=== PATIENT | female | born 1980 | race Caucasian/White ===

== ENCOUNTER 2019-07-08 15:00 | Outpatient (RCR) | payer BC, SELFPAY ==
[2019-04-10 16:51] LABS: INR 1.9; Prothrombin Time 21.5 Seconds (11.1-14.7)
[2019-04-14 16:24] LABS: INR 2.4; Prothrombin Time 25.4 Seconds (11.1-14.7)
[2019-04-21 16:06] LABS: INR 3.3; Prothrombin Time 33.2 Seconds (11.1-14.7)
[2019-04-29 12:09] LABS: INR 1.8; Prothrombin Time 20.2 Seconds (11.1-14.7)
[2019-05-06 16:36] LABS: INR 1.5
[2019-05-13 11:49] LABS: INR 1.1; Prothrombin Time 14.2 Seconds (11.1-14.7)
[2019-05-20 16:07] LABS: INR 1.4; Prothrombin Time 16.8 Seconds (11.1-14.7)
[2019-05-27 16:01] LABS: INR 1.9
[2019-06-02 16:30] LABS: INR 2.1; Prothrombin Time 23.4 Seconds (11.1-14.7)
[2019-06-09 17:57] LABS: INR 1.7; Prothrombin Time 19.9 Seconds (11.1-14.7)
[2019-06-16 16:24] LABS: INR 1.5; Prothrombin Time 17.5 Seconds (11.1-14.7)
[2019-07-08 15:27] LABS: INR 2.3; Prothrombin Time 24.5 Seconds (11.1-14.7)
== END 2019-07-09 23:59 | disposition home or self-care (01) ==
LOC: ANHLAB 15:00
PROVIDERS: PCP Family Medicine; Visit Provider Family Medicine
DX: O88.23 Thromboembolism in the puerperium (principal)
CPT/HCPCS: 36415; 85610

== ENCOUNTER 2019-07-15 12:59 | Outpatient (CLI) | payer BC, SELFPAY ==
--- NOTE | ~2019-07-15 | CT_ITS ---
EXAMINATION: CTA chest PE protocol DATE: 07/15/2019 13:35 INDICATION: Acute pulmonary embolism presenting with acute cor pulmonale TECHNIQUE: Computed tomography (CT) pulmonary angiogram of the chest was performed with 100 mL Omnipa que-350 intravenous contrast. Additional 3D reconstructions utilizing coronal maximum intensity proje ction (MIP) were performed. Automated exposure control and iterative reconstruction technique were em ployed. The dose-length product was 353.14 mGy-cm. COMPARISON: 03/29/2019 FINDINGS: Good contrast opacification of the pulmonary arteries. There is mild streak artifact from dense contr ast in the superior vena cava and right atrium. Mild scattered respiratory motion artifact which mild ly decreases sensitivity in some of the smaller predominantly basilar subsegmental pulmonary arteries . No residual pulmonary embolism identified. Mild emphysema at the right apex. There are a few unchan ged <4 mm subpleural nodules at the bilateral apices. Unchanged 4 mm nodule in the right middle lobe. No new or enlarging pulmonary nodules, pneumonia, pulmonary edema or pleural effusion. Heart size is normal. No pericardial effusion. Thoracic aorta is normal in caliber with no dissection. No patholog ically enlarged thoracic lymphadenopathy. Cholecystectomy clips the gallbladder fossa. Mild thoracic extra scoliosis with mild spondylosis. Partially visualized plate and screw fixation for lower cervic al anterior spinal fusion. Bilateral C7 cervical ribs. IMPRESSION: 1. Interval resolution of prior pulmonary emboli. No acute cardiopulmonary disease. 2. No interval change in a few 4 mm smaller pulmonary nodules. Given history of prior smoking with mi ld emphysema at the right apex would consider optional one-year follow-up low-dose noncontrast chest CT. Reviewed, dictated and finalized at location A. IMPRESSION: 1. Interval resolution of prior pulmonary emboli. No acute cardiopulmonary dise ase. 2. No interval change in a few 4 mm smaller pulmonary nodules. Given history of prior smoking with mild emphysema at the right apex would consider optional on e-year follow-up low-dose noncontrast chest CT.
== END 2019-07-15 13:00 | disposition home or self-care (01) ==
LOC: ANHIMG 13:01
PROVIDERS: PCP Family Medicine; Visit Provider Internal Medicine Hematology & Oncology
DX: I26.99 Other pulmonary embolism without acute cor pulmonale (principal)
CPT/HCPCS: 71275; Q9967

== ENCOUNTER 2019-07-15 13:40 | Outpatient (RCR) | payer BC, SELFPAY ==
[2019-07-15 14:29] LABS: INR 2.9; Prothrombin Time 29.9 Seconds (11.1-14.7)
== END 2019-10-13 23:59 | disposition home or self-care (01) ==
LOC: ANHLAB 13:40
PROVIDERS: PCP Family Medicine; Visit Provider Family Medicine
DX: O88.23 Thromboembolism in the puerperium (principal)
CPT/HCPCS: 36415; 85610

== ENCOUNTER 2019-09-01 11:53 | Outpatient (CLI) | payer BC, SELFPAY ==
[2019-09-03 10:44] LABS: Homocysteine 10.7 umol/L (<10.4)
[2019-09-03 20:28] LABS: Lupus dRVVT 1:1 Mix Interpreta Not Indicated; Lupus dRVVT Screen 34 sec (<=45); PTT-LA Screen 32 sec (<=40)
[2019-09-03 20:46] LABS: Anti Cardio Antibody IgM <12 MPL (<=12); Anti Cardiolipin Antibody IgA <11 APL (<=11); Anti Cardiolipin Antibody IgG <14 GPL (<=14)
[2019-09-03 21:17] LABS: Antithrombin III Activity 127 % activity (80-120)
== END 2019-09-01 11:54 | disposition home or self-care (01) ==
LOC: ANHLAB 11:54
PROVIDERS: PCP Family Medicine; Visit Provider Internal Medicine Hematology & Oncology
DX: I26.99 Other pulmonary embolism without acute cor pulmonale (principal)
CPT/HCPCS: 36415; 83090; 85300; 85303; 85306; 85613; 85730; 86146; 86147

== ENCOUNTER 2019-10-19 10:45 | Emergency (ER) | payer BC, SELFPAY ==
--- NOTE | ~2019-10-19 | CT_ITS ---
EXAMINATION: CT abdomen pelvis w con INDICATION: Mid abdominal TECHNIQUE: Computed tomographic images of the abdomen and pelvis were obtained after the administrati on of 100 cc of Omnipaque 350 intravenous contrast. The dose-length product (DLP) was 708.13 mGy-cm. Automated exposure control and iterative reconstruction technique were employed. COMPARISON: None available FINDINGS: A 2 mm nodule of the right middle lobe likely reflects old granulomatous disease. The heart size is normal. The gallbladder is surgically absent. The liver, spleen, pancreas, and adrenal gland s are normal. The kidneys are unremarkable. No pathologically enlarged abdominal or pelvic lymph node s are identified. There is no free intraperitoneal gas or evidence of bowel obstruction. The appendix is normal. There is moderate lumbar spondylosis at L5-S1. A small fat-containing umbilical hernia is noted. IMPRESSION: 1. No CT correlate for the patient's symptoms. Reviewed, dictated and finalized at location A.
[2019-10-19 11:11] VITALS: BP 135/84; PULSE 79; RESP 17; TEMP 37; O2SAT 100
[2019-10-19 12:00] LABS: Basophils Percent Auto 0.5 % (0.2-1.2); Eosinophils Absolute Auto 0.1 K/mm3 (0-0.3); Eosinophils Percent Auto 1.8 % (0-4.4); Hematocrit 41.4 % (37.0-47.0); Hemoglobin 13.8 g/dL (12.0-15.0); Immature Granulocyte Absolute 0.01 K/mm3 (0.00-0.031); Immature Granulocyte Percent A 0.2 % (0-0.5); Lymphocytes Absolute Auto 2.05 K/mm3 (0.9-3.2); Lymphocytes Percent Auto 46.3 % (18.3-44.2); Mean Corpuscular HGB Conc 33.3 g/dl (32-36); Mean Corpuscular Hemoglobin 30.1 pg (26-34); Mean Corpuscular Volume 90.2 fl (80-100); Mean Platelet Volume 9.6 fl (7.4-10.4); Monocytes Absolute Auto 0.4 K/mm3 (0.1-0.6); Monocytes Percent Auto 8.8 % (2.6-8.5); Neutrophils Absolute Auto 1.9 K/mm3 (1.3-6.7); Neutrophils Percent Auto 42.4 % (45.5-73.1); Nucleated Red Blood Cells Perc 0.5 % (0.0-0.2); Platelet Count Result 336 k/mm3 (150-375); Red Blood Count 4.59 M/mm3 (4.2-5.4); Red Cell Distribution Width 13.1 % (11.5-14.5); White Blood Count 4.4 K/mm3 (4.5-10.0)
--- NOTE | 2019-10-19 12:04 | ED.ABDPAIN ---
HPI - Abdominal Pain General Chief Complaint: Abdominal Pain Stated Complaint: abd pain Time Seen by Provider: 10/19/19 11:35 Source: patient Mode of arrival: ambulatory Limitations: no limitations History of Present Illness HPI narrative: This patient is a 39 year old female who presents for evaluation of mid abdominal pain. She states she starting having pain on Sunday, and her pain is intermittent. She described pain as something ripping. She reports her pain is worse with lifting and leaning over. She states her pain has gradually worsened since sunday. She denies vomiting or fever. She has had intermittent diarrhea which she states is due to a new medication. She has not taken any medication for her pain. PAin is 05/12 Related Data Home Medications Medication Instructions Recorded Confirmed PNV cmb#95-ferrous fumarate-FA 1 tablet PO HS MDD 1 03/04/19 03/29/19 [] cyanocobalamin (vitamin B-12) 1,000 mcg SUBCUT MONTHLY 03/29/19 03/29/19 hydrocodone-acetaminophen [[place]] 1 tablet PO Q4H PRN 03/29/19 03/29/19 labetalol 200 mg PO TID 03/29/19 03/29/19 nifedipine 90 mg PO BID 03/29/19 03/29/19 Allergies Allergy/AdvReac Type Severity Reaction Status Date / Time erythromycin base Allergy Unknown Anaphylactic Verified 10/19/19 12:16 Shock Review of Systems Review of Systems: All systems reviewed & are unremarkable except as noted in HPI and below Constitutional: Constitutional: Denies chills and Denies fever(s) Respiratory: Respiratory: Denies cough and Denies dyspnea Gastrointestinal: Gastrointestinal: Reports abdominal pain, Reports diarrhea and Reports nausea Genitourinary: Genitourinary: Reports no additional female genitourinary complaints Musculoskeletal: Musculoskeletal: Reports no additional musculoskeletal complaints [facility] Past Medical History Medical History (Updated 10/19/19 @ 13:44 by Lore To MD) B12 deficiency Depression induced hypertension Surgical History Surgical History (Updated 03/30/19 @ 07:53 by Precious Morton DO) History of hemorrhoidectomy Multiple hemorrhoidectomies. History of oral surgery History of multiple oral surgeries due to having extra teeth Hx of cholecystectomy S/P cervical spinal fusion C5-6 and 7 in 2012 Family History Family History (Updated 03/30/19 @ 07:50 by Precious Morton DO) Father Obstructive sleep apnea Family history of elevated blood lipids Diabetes mellitus COPD (chronic obstructive pulmonary disease) Hypertension Mother SLE (systemic lupus erythematosus) Obstructive sleep apnea Diabetes mellitus Meniere's disease Parkinsons disease Epilepsy Cerebrovascular accident Bilateral pulmonary embolism Social History Social History (Updated 03/30/19 @ 08:03 by Precious Morton DO) Social History: Patient is and has 2 children. Her oldest son is 4 years old and healthy. Her youngest was born on March 05 and has a cleft lip and palate. Patient is a former smoker. She smoked a pack per day for 15 years prior to quitting. She stopped smoking 5 years ago. She almost never drinks alcohol and only in minute amounts. She denies any illicit substance use. Primary care physician: Dr. George Menjivar Smoking packs per day: 1 Smoking cigarettes per day: 20.0 Smoking status: Former smoker Second hand tobacco smoke exposure: No Smoking end date: 03/06/05 Alcohol intake: never Substance use: never Gender identity (if verbalized by the patient): Female Spiritual care concerns: No Agree to blood products: Yes Exam Narrative: Exam Narrative: GENERAL: Well-appearing, well-nourished, and in no acute distress. HEAD: Normocephalic, atraumatic EYES: PERRLA and EOMI, conjunctiva clear without discharge THROAT:Mucous membranes moist, Oropharynx normal without erythema, exudate, peritonsillar swelling or fluctuance NECK: Supple, without lymphadeno
[2019-10-19 12:17] LABS: Add Urine Microscopic? YES; Appearance Urine Clear (Clear); Bilirubin Urine Negative (Negative); Blood Urine 1+ (Negative); Color Urine Straw (Yellow); Glucose Urine UA Negative (Negative); Ketones Urine Negative (Negative); Leukocyte Esterase Ur Negative LEU/UL (Negative); Mucus Urine Rare /lpf; Nitrate Urine Negative (Negative); Protein Urine Negative (Negative); RBC Urine 0-2 /hpf (0-2); Specific Grav Ur 1.012 (1.001-1.035); Squamous Epithelial Cell Urine Occasional /hpf (Few); Urobilinogen Urine Negative mg/dL (<2.0); WBC Urine 0-3 /hpf
[2019-10-19] MEDS: KETOROLAC 30 MG/ML VIAL (*BKC) IV PUSH (12:19)
[2019-10-19] MEDS: ONDANSETRON INJ 4 MG/2 ML VIAL IV PUSH (12:20)
[2019-10-19 12:22] LABS: Alanine Aminotransferase 14 U/L (4-35); Albumin Level 4.1 g/dL (3.5-5.1); Alkaline Phosphatase 65 U/L (38-126); Aspartate Amino Transferase 22 U/L (14-36); Bilirubin,Total 0.4 mg/dL (0.2-1.3); Blood Urea Nitrogen 9 mg/dL (7-17); Calcium 8.8 mg/dL (8.4-10.2); Carbon Dioxide 24 mmol/L (22-30); Chloride 107 mmol/L (98-107); Estimated CRCL calculation 89 ml/min; Estimated Glomerular Filt Rate > 60; Glucose 78 mg/dL (65-105); Lipase 72 U/L (23-300); Potassium 3.8 mmol/L (3.4-5.0); Sodium 137 mmol/L (137-145)
[2019-10-19 13:31] VITALS: BP 131/88; PULSE 58; RESP 18; O2SAT 100
[2019-10-19 14:33] VITALS: BP 142/92; PULSE 73; RESP 18; O2SAT 100
== END 2019-10-19 14:43 | disposition home or self-care (01) ==
PROVIDERS: Emergency Provider General Practice; PCP Family Medicine
DX: R10.33 Periumbilical pain (principal); E53.8 Deficiency of other specified B group vitamins; Z98.1 Arthrodesis status; Z87.891 Personal history of nicotine dependence
CPT/HCPCS: 36415; 74177; 80053; 81001; 81025; 83690; 85025; 96374; 96375; 99284; J1885; J2405; Q9967

== ENCOUNTER 2020-04-01 11:42 | Outpatient (CLI) | payer BC, SELFPAY ==
[2020-04-04 20:00] LABS: Anti Cardio Antibody IgM <12 MPL (<=12); Anti Cardiolipin Antibody IgA <11 APL (<=11); Anti Cardiolipin Antibody IgG <14 GPL (<=14)
[2020-04-04 20:25] LABS: Antithrombin III Activity 139 % normal (80-135)
[2020-04-05 06:25] LABS: Homocysteine 26.8 umol/L (<10.4)
[2020-04-06 03:16] LABS: Lupus dRVVT 1:1 Mix Interpreta Not Indicated; Lupus dRVVT Screen 39 sec (<=45); PTT-LA Screen 30 sec (<=40)
== END 2020-04-01 11:43 | disposition home or self-care (01) ==
PROVIDERS: PCP Family Medicine; Visit Provider Internal Medicine Hematology & Oncology
DX: I26.99 Other pulmonary embolism without acute cor pulmonale (principal)
CPT/HCPCS: 36415; 83090; 85300; 85303; 85306; 85613; 85730; 86146; 86147

== ENCOUNTER 2020-04-16 10:28 | Outpatient (CLI) | payer BC, SELFPAY ==
[2020-04-16 11:13] LABS: Cholesterol 299 mg/dL (0-200); HDL Direct 66 mg/dL; Triglycerides 210 mg/dL (<150)
[2020-04-16 11:24] LABS: LDL Cholesterol Direct 198 mg/dL
[2020-04-21 21:13] LABS: Homocysteine 33.4 umol/L (<10.4)
== END 2020-04-16 10:29 | disposition home or self-care (01) ==
LOC: ANHLAB 10:29
PROVIDERS: PCP Family Medicine; Visit Provider Internal Medicine Hematology & Oncology
DX: D68.69 Other thrombophilia (principal); E78.5 Hyperlipidemia, unspecified
CPT/HCPCS: 36415; 80061; 83090

== ENCOUNTER 2020-05-07 13:08 | Outpatient (CLI) | payer BC, SELFPAY ==
--- NOTE | 2020-05-07 13:38 | ECHO_ITS ---
Patient Info Name: Ashley Stokes Age: 40 years : 1980 Gender: Female Ht: 65 in Wt: 175 lbs BSA: 1.93 m2 HR: 49 bpm BP: 138 / 102 mmHg Technical Quality: Good Exam Date: 05/07/2020 1:59 PM Exam Location: [facility] Pulmonary Patient Status: Outpatient Admit Date: 05/07/2020 Staff Ordering Physician: Gilberto Cardona MD Draftsperson: Radames Dumas RDCS, RT Attending Provider: Gilberto Cardona MD Referring Physician: Brendan CARVALHO; Exam Type: CA echo doppler color flow Study Info Indications R06.02 - Shortness of breath Complete two-dimensional, color flow and Doppler transthoracic echocardiogram is performed. Strain analysis performed. Summary 1. Complete two-dimensional, color flow and Doppler transthoracic echocardiogram is performed. 2. Left ventricular chamber dimension is normal. 3. Left ventricular systolic function is normal, estimated at 60-65%. 4. The left ventricular diastolic function is normal. 5. E/e' 6 is not elevated. 6. Dilated inferior vena cava with >50% collapse upon inspiration consistent with elevated right atrial pressure, 10 mmHg. Left Ventricle E/e' 6 is not elevated. Left ventricular chamber dimension is normal. Left ventricular systolic function is normal, estimated at 60-65%. The left ventricular diastolic function is normal. Right Ventricle Right ventricular systolic function is normal and with normal TAPSE 2.4 cm. Right ventricular chamber dimension is normal. Left Atria Left atrial chamber dimension is normal. Right Atria Right atrial chamber dimension is normal. Aortic Valve The aortic valve is trileaflet. There is no aortic valve stenosis. There is no aortic valve regurgitation. Pulmonic Valve There is no pulmonic regurgitation. Mitral Valve There is no mitral valve stenosis. There is no mitral valve regurgitation. Tricuspid Valve There is no tricuspid valve regurgitation. Pericardium/Pleural There is no pericardial effusion. Inferior Vena Cava Dilated inferior vena cava with >50% collapse upon inspiration consistent with elevated right atrial pressure, 10 mmHg. Aorta The aortic root size at the sinus of Valsalva is normal. Left Ventricular Outflow Tract Name Value Normal LVOT 2D LVOT Diameter 2.0 cm LVOT Doppler LVOT Peak Gradient 5 mmHg LVOT Mean Gradient 3 mmHg LVOT VTI 27 cm LVOT VTI/AV VTI Ratio 0.8 LVOT Stroke Volume 85 ml LVOT CO 5.0 l/min LVOT CI 2.6 l/min/m2 Mitral Valve Name Value Normal MV Doppler MV [place] 399 cm/s2 MV PHT 66 ms MV Area (PHT)
--- NOTE | 2020-05-08 13:41 | WPDPFTINT ---
PFT Interpretation This is a pulmonary function test with pre and post-bronchodilator spirometry, plethysmography and diffusing capacity. The test was performed and results interpreted in accordance with the 2019 and 2005 ATS/ERS Task Force guidelines respectively using the Hubert/Eleazar reference equations. Findings: Spirometry: The contour the inspiratory and expiratory flow tracing are normal. The pre bronchodilator FVC is 3.68 L, 100% predicted. The pre bronchodilator FEV1 is 3.04 L, 107% predicted. The FEV1: FVC ratio was 83%. The post bronchodilator FVC is 3.60 L representing a 2% decrease. The post bronchodilator FEV1 is 3.08 L, representing a 1% increase. Plethysmography: The total lung capacity is 5.14 L, 98% predicted. The functional residual capacity is 2.42 L, 90% predicted. The residual volume is 1.46 L, 84% predicted. Diffusing capacity: The absolute diffusing capacity is 20.1, 81% predicted. The diffusing capacity corrected for alveolar volume is 4.50, 106% predicted. Impression: The spirometry is normal without evidence of an obstructive abnormality. There is no significant improvement after inhaling a single dose of albuterol. The lung volumes are normal. The diffusing capacity is normal. There are no prior studies for comparison
== END 2020-05-07 13:09 | disposition home or self-care (01) ==
PROVIDERS: PCP Family Medicine; Visit Provider Internal Medicine Pulmonary Disease
DX: R06.02 Shortness of breath (principal); R06.00 Dyspnea, unspecified
CPT/HCPCS: 93306; 94060; 94726; 94729

== ENCOUNTER 2020-07-08 11:07 | Outpatient (CLI) | payer BC, SELFPAY ==
--- NOTE | ~2020-07-08 | CT_ITS ---
EXAMINATION: CT diagnostic chest wo con EXAM DATE: 07/08/2020 11:26 INDICATION: Dyspnea. Had pulmonary embolism in 2019, still having shortness of breath and chest pain. TECHNIQUE: Spiral CT of the chest without contrast. Axial, coronal and sagittal images were reviewe d. Coronal maximum intensity pixel images of chest reviewed. The dose-length product (DLP) for this examination was 139.73 mGy-cm. The exposure was tailored according to patient size (auto mA exposur e control), and iterative reconstruction (ASIR) was used as additional dose reduction technique. Comp arison is made to prior examination from 07/15/2019. FINDINGS: Several pulmonary nodules, 3 mm or less unchanged, granulomas. There are no pleural or pe ricardial effusions. Tracheobronchial tree is patent. There is no mediastinal, hilar or axillary lymphadenopathy. There is no pneumothorax. Heart normal in size. No evidence of coronary arteri al calcification. There are cholecystectomy clips. Minimal upper thoracic scoliosis. IMPRESSION: Unremarkable CT chest examination. Reviewed, dictated and finalized at location A.
== END 2020-07-08 11:08 | disposition home or self-care (01) ==
PROVIDERS: PCP Family Medicine; Visit Provider Internal Medicine Pulmonary Disease
DX: R06.00 Dyspnea, unspecified (principal); R91.1 Solitary pulmonary nodule
CPT/HCPCS: 71250

== ENCOUNTER 2020-07-19 08:44 | Outpatient (CLI) | payer BC, SELFPAY ==
--- NOTE | 2020-07-25 13:35 | WPDMETH ---
Methacholine Challenge Methacholine Challenge: Methacholine Challenge Test: This study met all criteria for ATS standards The PC 20 for FEV1 was 15.8 mg /mL Interpretation: this is a negative methacholine challenge study. Asthma or reactive airway disease is very unlikely in this case. Methacholine Procedure Perform Procedure Performed Methacholine Challenge
== END 2020-07-19 08:45 | disposition home or self-care (01) ==
PROVIDERS: PCP Family Medicine; Visit Provider Internal Medicine Pulmonary Disease
DX: R06.02 Shortness of breath (principal)
CPT/HCPCS: 94070; J7674

== ENCOUNTER 2020-08-07 12:11 | Outpatient (CLI) | payer BC, SELFPAY ==
[2020-08-07 12:38] LABS: Basophils Percent Auto 0.3 % (0.2-1.2); Eosinophils Absolute Auto 0.1 K/mm3 (0-0.3); Eosinophils Percent Auto 1.5 % (0-4.4); Hematocrit 44.3 % (37.0-47.0); Hemoglobin 14.4 g/dL (12.0-15.0); Immature Granulocyte Absolute 0.01 K/mm3 (0.00-0.031); Immature Granulocyte Percent A 0.3 % (0-0.5); Lymphocytes Absolute Auto 1.62 K/mm3 (0.9-3.2); Lymphocytes Percent Auto 40.7 % (18.3-44.2); Mean Corpuscular HGB Conc 32.5 g/dl (32-36); Mean Corpuscular Hemoglobin 29.8 pg (26-34); Mean Corpuscular Volume 91.7 fl (80-100); Monocytes Absolute Auto 0.3 K/mm3 (0.1-0.6); Neutrophils Percent Auto 50.2 % (45.5-73.1); Platelet Count Result 311 k/mm3 (150-375); Red Blood Count 4.83 M/mm3 (4.2-5.4)
[2020-08-07 12:51] LABS: Cholesterol 280 mg/dL (0-200); HDL Direct 60 mg/dL; Triglycerides 224 mg/dL (<150)
[2020-08-07 13:02] LABS: LDL Cholesterol Direct 158 mg/dL
[2020-08-07 13:54] LABS: Iron 170 ug/dL (37-170)
[2020-08-07 13:57] LABS: Folic Acid 6.1 ng/mL (2.76->20)
[2020-08-07 14:04] LABS: Percent Iron Saturation 54 % (20-50)
[2020-08-07 14:10] LABS: Free T4 Free Thyroxine 0.76 ng/mL (0.78-2.19)
[2020-08-10 21:55] LABS: Adrenocorticotropic Hormone 6 pg/mL (6-50)
[2020-08-11 23:21] LABS: Triiodothyronine T3 Free 2.9 pg/mL (2.3-4.2)
[2020-08-12 14:55] LABS: DHEA-Sulfate 120 mcg/dL (23-266)
[2020-08-13 11:31] LABS: Testosterone Free 5.4 pg/mL (0.1-6.4); Testosterone Total 87 ng/dL (2-45)
== END 2020-08-07 12:12 | disposition home or self-care (01) ==
PROVIDERS: PCP Family Medicine; Visit Provider Internal Medicine Endocrinology, Diabetes & Metabolism
DX: E78.01 Familial hypercholesterolemia (principal); L65.9 Nonscarring hair loss, unspecified; R53.83 Other fatigue; Z86.711 Personal history of pulmonary embolism
CPT/HCPCS: 36415; 80061; 82024; 82607; 82627; 82746; 83540; 83550; 84402; 84403; 84439; 84443; 84481; 85025; 86038

== ENCOUNTER 2020-08-27 08:48 | Outpatient (CLI) | payer BC, SELFPAY ==
--- NOTE | 2020-09-08 11:06 | WPDHOMESLEEP ---
Sleep Study - Home Unattended Date of Study: 08/27/20 Ordering Provider: Gilberto Cardona MD Interpreting Provider: Daphnie Martinez MD Home Sleep Study Type: Apnea Link Air Height: 1.65 m Weight: 73.936 kg Body Mass Index: 27.1 Neck Circumference (inches): 14 [place]: 12 Reason for Sleep Study snoring, hypersomnolence Sleep History Ashley Stokes is a 40 year old female . She has shortness of breath which developed after her 2nd delivery, March of 2019. She had post D clamp see a and pulmonary emboli. There is a family history of sleep disordered breathing in both her mother and her father. Her echocardiogram on May 07, 2020 does not show pulmonary hypertension. she does not awaken from sleep feeling short of breath. She does not awaken at night with heartburn, belching or coughing. She frequently snores and frequently is loud enough that others complain about it. She does not have trouble sleep with a cold. She does not wake up gasping for breath at night or have breathing problems at night observed by others. She frequently sweats excessively at night which she attributes to a side effect to 1 of her medications. She does not notice her heart pounding or beating irregularly at night, she does not fall asleep during the day, does not fall asleep involuntarily or while driving. She does not fall asleep while exerting physical effort. She does not have loss of muscle tone with strong emotion. She has daytime difficulties due to excessive were work hours, approximately working 80 hours a week. She does not feel paralyzed on waking or falling asleep. She occasionally has vivid dreamlike scenes upon awakening or falling asleep. She does not feel afraid to go to sleep. She occasionally has nightmares. She occasionally remembers her dreams. She occasionally has racing thoughts. She constantly has feelings of sadness, depression and anxiety. She constantly has muscular tension. She constantly notices parts of her body jerking. She does not kick at night. She does not have crawling or aching feelings in her legs. She does not have any kind of leg pain at night. She occasionally has morning jaw pain. She frequently grinds her teeth during sleep. She rarely is bothered by pain during the day. She is not awakened by pain during the night. She frequently wakes up feeling stiff in the morning. She occasionally wakes up with sore achy muscles. She frequently wakes up with pain in the neck and spine. She has fatigue, headaches, depression, panic and headaches. She has difficulty with concentration. Her work situation is not satisfactory. 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 Her normal bedtime is between 11:00 p.m. and 1:00 a.m. falling asleep within 1-5 minutes. She wakes up multiple times at night. When she awakens, she may stay awake 15 minutes or sometimes for hours. While she is awake at night, she will clean her house or perform work. She wakes the morning at 5:00 a.m.. She does not take naps. A short nap is not refreshing. She is drowsy in the morning for 1 hour or longer. She feels better in the morning compared other times of day. She is and has a 5-year-old and a 95-sajyr-tcc. Habits: no tobacco for 18 years. Caffeine 4 servings per day. No alcohol or recreational drugs. [facility] Past Medical History Medical History (Updated 09/08/20 @ 11:43 by Daphnie Martinez MD) B12 deficiency Bilateral pulmonary embolism Daytime hypersomnia (~07/2020) Depression Dyslipidemia induced hypertension Surgical History Surgical History History of hemorrhoidectomy Multiple hemorrhoidectomies. History of oral surgery History of multiple oral surgeries due to having extra teeth Hx of cholecystectomy S/P cervical spinal fusion C5-6 and 7 in 2012 Family History Family History Father Obstructive sleep auxiliary engineer
[2020-09-08 11:08] VITALS: BMI 27.1
== END 2020-08-31 10:51 | disposition home or self-care (01) ==
LOC: ANHCSM 08-31 08:48
PROVIDERS: PCP Family Medicine; Visit Provider Internal Medicine Pulmonary Disease
DX: G47.19 Other hypersomnia (principal); Z72.821 Inadequate sleep hygiene
CPT/HCPCS: 95806

== ENCOUNTER 2020-09-22 13:11 | Outpatient (CLI) | payer BC, SELFPAY ==
[2020-09-22 13:25] VITALS: PULSE 78; O2SAT 97
[2020-09-22 13:26] VITALS: PULSE 75; O2SAT 96
[2020-09-22 13:27] VITALS: PULSE 79; O2SAT 95
[2020-09-22 13:29] VITALS: PULSE 76; O2SAT 97
[2020-09-22 13:30] VITALS: PULSE 75; O2SAT 96
--- NOTE | 2020-09-22 13:34 | HOMEO2EVAL ---
Evaluation was performed at [facility] Home Oxygen Evaluation RC: Home Oxygen (O2) Evaluation Start: 09/22/20 13:31 Freq: Status: Active Protocol: RPE Activity Type Activity Date Activity User E-Sign Co-Sign Detail Recorded Client Recorded Date Recorded By Document 09/22/20 13:25 KRM [email or web address] 09/22/20 13:33 KRM Document 09/22/20 13:26 KRM [email or web address] 09/22/20 13:33 KRM Document 09/22/20 13:27 KRM [email or web address] 09/22/20 13:33 KRM Document 09/22/20 13:29 KRM [email or web address] 09/22/20 13:33 KRM Document 09/22/20 13:30 KRM [email or web address] 09/22/20 13:33 KRM 09/22/20 09/22/20 09/22/20 13:25 13:26 13:27 Home O2 Evaluation Test Phase Resting Exercise Exercise Oxygen Delivery Room Air Room Air Room Air Pulse Oximetry (90-100 %) 97 96 95 Pulse Rate (60-100 beats/min) 78 75 79 Activity Tolerance Good Good Ambulation Distance (feet) Treatment Charges O2 Evaluation - Outpatient 09/22/20 09/22/20 13:29 13:30 Home O2 Evaluation Test Phase Exercise Exercise Oxygen Delivery Room Air Room Air Pulse Oximetry (90-100 %) 97 96 Pulse Rate (60-100 beats/min) 76 75 Activity Tolerance Good Good Ambulation Distance (feet) 300 Treatment Charges
== END 2020-09-22 13:12 | disposition home or self-care (01) ==
PROVIDERS: PCP Family Medicine; Visit Provider Internal Medicine Pulmonary Disease
DX: R06.00 Dyspnea, unspecified (principal)
CPT/HCPCS: 94618

== ENCOUNTER 2020-11-20 08:56 | Outpatient (CLI) | payer BC, SELFPAY ==
[2020-11-20 10:40] LABS: Cortisol Random 7.94 ug/dL
[2020-11-20 11:03] LABS: Iron 112 ug/dL (37-170)
[2020-11-20 11:14] LABS: Percent Iron Saturation 36 % (20-50)
[2020-11-20 11:35] LABS: Ferritin 9.38 ng/mL (6.24-137)
[2020-11-24 02:28] LABS: Thyroid Peroxidase Antibodies <1 IU/mL (<9)
== END 2020-11-20 08:57 | disposition home or self-care (01) ==
PROVIDERS: PCP Family Medicine; Visit Provider Internal Medicine Endocrinology, Diabetes & Metabolism
DX: E78.01 Familial hypercholesterolemia (principal); L65.9 Nonscarring hair loss, unspecified; R53.83 Other fatigue; Z86.711 Personal history of pulmonary embolism; R79.0 Abnormal level of blood mineral
CPT/HCPCS: 36415; 81256; 82533; 82728; 83540; 83550; 86376

== ENCOUNTER 2021-03-15 10:31 | Outpatient (CLI) | payer BC, SELFPAY ==
[2021-03-15 11:10] LABS: Basophils Percent Auto 0.3 % (0.2-1.2); Eosinophils Percent Auto 0.7 % (0-4.4); Hematocrit 40.3 % (37.0-47.0); Hemoglobin 13.1 g/dL (12.0-15.0); Immature Granulocyte Absolute 0.02 K/mm3 (0.00-0.031); Immature Granulocyte Percent A 0.3 % (0-0.5); Lymphocytes Absolute Auto 0.84 K/mm3 (0.9-3.2); Lymphocytes Percent Auto 14.4 % (18.3-44.2); Mean Corpuscular HGB Conc 32.5 g/dl (32-36); Mean Corpuscular Hemoglobin 29.8 pg (26-34); Mean Corpuscular Volume 91.8 fl (80-100); Monocytes Absolute Auto 0.5 K/mm3 (0.1-0.6); Monocytes Percent Auto 8.4 % (2.6-8.5); Neutrophils Absolute Auto 4.4 K/mm3 (1.3-6.7); Neutrophils Percent Auto 75.9 % (45.5-73.1); Platelet Count Result 335 k/mm3 (150-375); Red Blood Count 4.39 M/mm3 (4.2-5.4); Red Cell Distribution Width 12.8 % (11.5-14.5); White Blood Count 5.8 K/mm3 (4.5-10.0)
[2021-03-15 11:22] LABS: INR 0.9; Prothrombin Time 12.5 Seconds (11.1-14.7)
== END 2021-03-15 10:32 | disposition home or self-care (01) ==
LOC: ANHSURGERY 10:38
PROVIDERS: Anesthesiology; PCP Family Medicine; Visit Provider Obstetrics & Gynecology
DX: N85.2 Hypertrophy of uterus (principal); D68.9 Coagulation defect, unspecified; Z01.818 Encounter for other preprocedural examination
CPT/HCPCS: 36415; 85025; 85610; 85730; 86850; 86900; 86901

== ENCOUNTER 2021-03-18 03:29 | Day surgery (SDC) | payer BC, SELFPAY ==
[2021-03-10 12:10] VITALS: BMI 26.9
--- NOTE | 2021-03-10 12:33 | PC.NURSE ---
Report to the Outpatient Waiting Room, entrance under the green pavilion located off [facility], at time 7:30 on date 03/18/21. OR Time: 9:30. - You and your visitor will be asked a series of questions to screen for COVID 19 for your protection. - A mask is required within the hospital. - Only one visitor is allowed at this time. Patient visitors will be guided where to wait when not with patient. Preoperative COVID Testing Requirements: No COVID Test needed if: (proof is required; if not received patient will have Rapid Test prior to entry) - Patient has received COVID Vaccine at least 14 days prior to procedure date or - Patient has positive COVID test result within last 90 days of surgery date. COVID Test needed if above criteria is not met If not COVID vaccinated a COVID test must be conducted within 72 hours of surgery and patient is asked to isolate self from time of testing until procedure. You will go to the [facility] for your COVID testing. The [facility] site is located at the corner of [address] [facility]. You will only be called if COVID results are positive and your surgeon may reschedule your elective surgery date. Patients may have clear liquids (water, carbonated beverages, clear teas, apple juice) until 3 hours prior to surgery with a maximum of 20 ounces. - No food from midnight until time of surgery - Infants may have breast milk until 4 hours before surgery, formula 6 hours prior to surgery. - Children will be allowed to drink immediately following surgery. If applicable, please bring a bottle or sippy cup to assist with drinking. Juice, water, soda, and popsicles are readily available. For infants on formula, please bring formula the day of surgery. Pacifiers are allowed. Take the following medications with a SIP of water the morning of surgery: INHALERS, BUSPIRONE, LEVOTHYROXINE, TOPIRAMATE, VIIBRYD, LORAZEPAM (IF NEEDED) Medications to discontinue per physician: VITAMINS/SUPPLEMENTS Date to take last dose: 03/14/[address] ISAEL PINON Please no make-up, nail south african, hairspray, perfume, deodorant, or body powder the day of surgery. No jewelry (including any body piercings) or valuables the day of surgery, leave them at home. Please take a shower or bath the night before, or the morning of, surgery with an antibacterial soap. Wear comfortable, loose fitting clothing. Children are encouraged to wear pajamas. - Jewelry must be removed prior to entering the operating room. Rings and piercings that are not removed may be cut off. - The hospital will not accept responsibility for valuables. - Please leave all valuables, including medications, at home the day of surgery. If you are going home after surgery, a licensed warehouse delivery driver must drive you home. - NO public transportation without another adult. - We recommend that an adult stay with you for 24 hours following discharge. - We also recommend that you do not drive, make important decision, drink alcoholic beverages, or take any drugs that were not prescribed by your health care provider for at least 24 hours after your discharge time. For Pediatric surgeries, we recommend two adults accompany the child home (only one inside the building at this time). Follow any additional instructions given to you from your surgeon. Telephone instructions given to JONATHAN WAY and asked if any additional questions and then verbalized understanding. Patient advised to call surgeon office or pre surgery nurse liaison [phone] if any additional questions.
--- NOTE | 2021-03-15 15:53 | PM.IMHP ---
H&P: HPI History of Present Illness Date/Time: 03/15/21 15:53 This is the 40 year 3 para 2 admitted for robotic total vaginal hysterectomy and bilateral salpingectomy as well as tension-free vaginal tape. She complains of bleeding pain and discomfort. Skin enlarged uterus and fair amount of free fluid. She has finished with childbearing and has asked for definitive therapy. Risks and benefits reviewed including but not exclusive of , aspiration pneumonia, bleeding, transfusion, perforation of bowel, bladder, ureters, or other internal organs with need for open laparotomy. She received the A[employer]G handout entitled hysterectomy as well as the de Tessy handout. She received the tension-free vaginal tape and. She had all questions answered and asked to proceed Chief Complaint: Pelvic pain heavy bleeding enlarged uterus and stress urinary incontinence Review of Systems Review of Systems: All systems reviewed & are unremarkable except as noted in HPI and below PMFSH Past Medical History Medical History B12 deficiency Bilateral pulmonary embolism Daytime hypersomnia (~07/2020) Depression Dyslipidemia induced hypertension Surgical History Surgical History History of hemorrhoidectomy Multiple hemorrhoidectomies. History of oral surgery History of multiple oral surgeries due to having extra teeth Hx of cholecystectomy S/P cervical spinal fusion C5-6 and 7 in 2012 Family History Family History Father Obstructive sleep apnea Family history of elevated blood lipids Diabetes mellitus COPD (chronic obstructive pulmonary disease) Hypertension Mother SLE (systemic lupus erythematosus) Obstructive sleep apnea Diabetes mellitus Meniere's disease Parkinsons disease Epilepsy Cerebrovascular accident Bilateral pulmonary embolism Social History Social History Social History: Patient is and has 2 children. Her oldest son is 4 years old and healthy. Her youngest was born on March 05 and has a cleft lip and palate. Patient is a former smoker. She smoked a pack per day for 15 years prior to quitting. She stopped smoking 5 years ago. She almost never drinks alcohol and only in minute amounts. She denies any illicit substance use. Primary care physician: Dr. George Menjivar Smoking packs per day: 1 Smoking cigarettes per day: 20.0 Years smoked: 2 Smoking pack-years: 2.00 Smoking status: Former smoker Tobacco type: cigarettes Second hand tobacco smoke exposure: No Smoking end date: 04/02/03 Alcohol intake: never Substance use: current Substance use type: marijuana Other substance usage details: CBD LOTION Gender identity (if verbalized by the patient): Female Spiritual care concerns: No Agree to blood products: Yes Meds Home Medications and Allergies Home Medications Medication Instructions Recorded Confirmed Type cyanocobalamin (vitamin B-12) 1,000 mcg SUBCUT MONTHLY 03/29/19 03/10/21 History topiramate 200 mg tablet 200 mg PO DAILY 04/08/20 03/10/21 History aspirin 81 mg chewable tablet 81 mg PO DAILY 05/10/20 03/10/21 History folic acid 1 mg tablet 1 mg PO DAILY 05/10/20 03/10/21 History vilazodone 40 mg tablet 40 mg PO DAILY 05/10/20 03/10/21 History lorazepam 0.5 mg tablet 0.5 mg PO DAILY PRN 06/29/20 03/10/21 History albuterol sulfate 90 mcg/actuation See Rx Instructions .ROUTE 07/01/20 03/10/21 Rx aerosol inhaler .COMPLEX #8.5 inhaler buspirone 5 mg tablet 5 mg PO BID 08/09/20 03/10/21 History levothyroxine 25 mcg tablet 25 mcg PO DAILY 12/01/20 03/10/21 History tiotropium bromide 2.5 2 inh INHALATION DAILY #4 g 12/01/20 03/10/21 Rx mcg/actuation mist for inhalation atorvastatin 20 mg tablet See Rx Instructions .
[2021-03-18] VITALS (14 sets, daily range): BP systolic 92–111; BP diastolic 50–75; PULSE 50–96; RESP 13–20; TEMP 36.1–36.9; O2SAT 98–100
--- NOTE | 2021-03-18 06:56 | WPDHPUPDATE1 ---
History and Physical Update Update Date/Time: 03/18/21 06:56 History and Physical has been reviewed, including an updated exam of the patient. There are NO changes in the patient's condition. Risks, benefits, and alternatives have been discussed and questions answered. Patient agrees to proceed with procedure.
[2021-03-18] MEDS: ACETAMINOPHEN 500 MG TABLET 1000 MG PO (08:29)
[2021-03-18] MEDS: KETOROLAC 15 MG/ML VIAL (*BKC) IV PUSH (08:35)
--- NOTE | 2021-03-18 08:59 | WPDANESEPPF ---
Anes - Initial Pre Proc Eval Procedure: Operation Date: 03/18/21 09:30 Proposed Procedures p Robotic Assisted Total Vaginal Hysterectomy with Bilateral Salpingectomy, - Bob Tolentino MD s Tension Free Vaginal Taping - Bob Tolentino MD Date/Time: 03/18/21 08:59 Surgeon: Bob Tolentino MD Pre Op Diagnosis: enlarge uterus, pelvic pain,RANCHO Patient Data Age: 40 Gender: F Height: 1.65 m Weight: 73.8 kg Last Vital Signs Temp 36.9 C 03/18/21 07:34 Pulse 96 03/18/21 07:34 Resp 16 03/18/21 07:34 BP 104/75 03/18/21 07:34 Pulse Ox 100 03/18/21 07:34 Allergies Allergy/AdvReac Type Severity Reaction Status Date / Time erythromycin base Allergy Severe Anaphylactic Verified 03/18/21 08:15 Shock Home Medications Medication Instructions Recorded Confirmed Type cyanocobalamin (vitamin B-12) 1,000 mcg SUBCUT MONTHLY 03/29/19 03/18/21 History topiramate 200 mg tablet 200 mg PO DAILY 04/08/20 03/18/21 History aspirin 81 mg chewable tablet 81 mg PO DAILY 05/10/20 03/18/21 History folic acid 1 mg tablet 1 mg PO DAILY 05/10/20 03/18/21 History vilazodone 40 mg tablet 40 mg PO DAILY 05/10/20 03/18/21 History lorazepam 0.5 mg tablet 0.5 mg PO DAILY PRN 06/29/20 03/18/21 History albuterol sulfate 90 mcg/actuation See Rx Instructions .ROUTE 07/01/20 03/18/21 Rx aerosol inhaler .COMPLEX #8.5 inhaler buspirone 5 mg tablet 5 mg PO BID 08/09/20 03/18/21 History levothyroxine 25 mcg tablet 25 mcg PO DAILY 12/01/20 03/18/21 History tiotropium bromide 2.5 2 inh INHALATION DAILY #4 g 12/01/20 03/18/21 Rx mcg/actuation mist for inhalation atorvastatin 20 mg tablet See Rx Instructions .ROUTE 12/03/20 03/18/21 Rx .COMPLEX #90 tablet budesonide-formoterol HFA 160 See Rx Instructions .ROUTE 01/24/21 03/18/21 Rx mcg-4.5 mcg/actuation aerosol .COMPLEX #10.2 each inhaler cholecalciferol (vitamin D3) 125 mcg PO DAILY 03/10/21 03/18/21 History [Vitamin D3] hydrocodone-acetaminophen 1 tablet PO Q4H PRN #30 tablet 03/18/21 Rx Patient hx anesthesia problems: post op nausea/vomiting Family hx anesthesia problems: none Results Review: All pre-operative results and documents have been reviewed as part of the pre-operative evaluation. 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 History of oral surgery History of multiple oral surgeries due to having extra teeth Hx of cholecystectomy S/P cervical spinal fusion C5-6 and 7 in 2012 Family History Family History Father Obstructive sleep apnea Family history of elevated blood lipids Diabetes mellitus COPD (chronic obstructive pulmonary disease) Hypertension Mother SLE (systemic lupus erythematosus) Obstructive sleep apnea Diabetes mellitus Meniere's disease Parkinsons disease Epilepsy Cerebrovascular accident Bilateral pulmonary embolism Social History Social History Social History: Patient is and has 2 children. Her oldest son is 4 years old and healthy. Her youngest was born on March 05 and has a cleft lip and palate. Patient is a former smoker. She smoked a pack per day for 15 years prior to quitting. She stopped smoking 5 years ago. She almost never drinks alcohol and only in minute amounts. She denies any illicit substance use. Primary care physician: Dr. George Menjivar Smoking packs per day: 1 Smoking cigarettes per day: 20.0 Years smoked: 2 Smoking pack-years: 2.00 Smoking status: Never smoker To
[2021-03-18] MEDS: LACTATED RINGERS 1,000 ML 30 ML IV CONT (09:09)
[2021-03-18] MEDS: SCOPOLAMINE 1.5 MG PATCH TRANSDERM (09:10)
[2021-03-18] MEDS: ceFAZolin 2 GM/D5W 50 ML 2 GM/50 ML BAG IVPB (09:18)
--- NOTE | 2021-03-18 10:36 | W.PM.PROC2 ---
Procedure Note - Detailed Date of Procedure 03/18/21 Pre-op Diagnosis enlarge uterus, pelvic pain,RANCHO Post-op Diagnosis same Procedure Performed Robotic total vaginal hysterectomy and bilateral salpingectomy/cysto/tension-free vaginal tape Surgeon Bob Tolentino MD Anesthesia general Indications Is a 40-year-old female with an enlarged uterus back pain and stress urinary incontinence Findings Enlarged uterus. Hyper reactive urethra. Normal-appearing ovaries and tubes Description of Procedure The patient was prepped draped in the normal sterile fashion placed in the dorsal lithotomy position. Under excellent general trach anesthesia weighted speculum placed in posterior fornix vagina. Anterior lip of the cervix grasped with a single-tooth tenaculum and the uterus sounded to 10cm. Serial dilatation with fragmented dilators performed followed by passage of the 10. DUNCAN and the 3. Cold cup. An 18 [place] catheter was placed in the bladder and drained clear urine. The weighted speculum and single-tooth tenaculum removed and the gloves were changed. A supraumbilical incision made the Veress needle passed in the abdomen. The abdomen filled with CO2 gas [id number]. The 8mm trocars advanced under direct visualization assuring no injury. The patient placed in Trendelenburg and right and left lateral quadrant incisions made at with 8mm trocars advanced in the abdomen under direct visualization assuring no injury. An 8mm go poor was then advanced in the right upper quadrant under direct visualization assuring no injury. Attention was then turned to the recreation counselor next. Attention was turned to the recreation counselor. The left round ligament was grasped, burned, cut. Anteriorly a bladder flap was formed by sharply dissecting the bladder peritoneum away from the uterus and cervix and reflecting it caudally to the opposite round ligament which was clamped, burned, cut. Next to remove the right fallopian tube monopolar cautery was used it from the ovary and allowing it to remain attached to its uterine attachment. This was repeated with the right fallopian tube attached leaving it attached to the uterus the right. Left utero-ovarian ligament was then skeletonized clamped burned cut and brought to level previous cut ligament conserving left ovary. This was repeated by clamping burning and cutting right utero-ovarian ligament and bringing this to the level of previously cut. The cardinal broad ligaments on the left were then skeletonized. These were serially clamped, burned, cut hugging the edge of the cervix and uterus until the uterine vessels could be seen on the left. These were individually clamped, burned, cut. Next the cardinal broad ligaments on the right were serially skeletonized clamped, burned, cut and hugging the cervix and uterus on the right were brought down to the level of the uterine vessels. Uterine vessels were then individually clamped, burned, cut. Blanching the uterus was seen and a colpotomy incision was made cervix uterus and tubes removed through the vagina. The vagina then closed with continuous running 0V lock from lateral edge to lateral edge back to the midline. Irrigation undertaken to clear all pedicles appeared clear. The robot was undocked the gas removed from the abdomen. The incisions the abdomen then closed with 4-0 Monocryl and glue after releasing the gas. And attention was turned to the bladder sling. Weighted speculum was placed in posterior fornix vagina. The 18 [place] catheter with had already been placed in the bladder. There was draining clear urine. The in infra urethral incision made at the midportion and the lateral bladder space was entered by blunt dissection with a P on clamped. The catheter guide was placed in the urethra retracted laterally the right retropubic bladder space entered at a 45 degree angle behind pubic bone up to a 35 degree angle through the fascia and skin. The urethra was retracted the
[2021-03-18] MEDS: ONDANSETRON INJ 4 MG/2 ML VIAL IV PUSH (11:30)
--- NOTE | 2021-03-18 11:34 | SUR.PHASEI ---
1134- updated by phone.
--- NOTE | 2021-03-18 12:48 | ADMGEN ---
1240-This patient, Ashley Stokes, was admitted to OB 2nd Floor Room 279-00. Patient/family oriented to hospital policies and general routines including ID bracelet, bed and alarms, visiting hours, pain management, procedures, bathroom and other care routines, personal items, smoking policy, room service/diet, and visiting hours. Information on how to activate the Rapid Response Team has been discussed. Patient/Family are encouraged to report perceived risks to care and to ask questions if they do not understand what they are told or what they should do.
[2021-03-18] MEDS: DEXTROSE 5%/LACTATED RINGERS 1,000 ML 125 ML IV CONT ×2 (13:13→21:06)
[2021-03-18] MEDS: KETOROLAC 30 MG/ML VIAL (*BKC) IV PUSH ×2 (13:23→21:10)
[2021-03-18] MEDS: DOCUSATE SODIUM 100 MG CAPSULE PO (17:25)
[2021-03-18] MEDS: DEXTROSE 5%/LACTATED RINGERS 500 ML XX (20:10)
[2021-03-19 04:15] VITALS: BP 90/54; PULSE 90; RESP 16; TEMP 36.7; O2SAT 98
[2021-03-19] MEDS: ONDANSETRON INJ 4 MG/2 ML VIAL IV PUSH (04:52)
[2021-03-19] MEDS: KETOROLAC 30 MG/ML VIAL (*BKC) IV PUSH (04:52)
[2021-03-19 05:15] LABS: Basophils Percent Auto 0.1 % (0.2-1.2); Eosinophils Absolute Auto 0.2 K/mm3 (0-0.3); Eosinophils Percent Auto 2.8 % (0-4.4); Hematocrit 34.1 % (37.0-47.0); Hemoglobin 11.1 g/dL (12.0-15.0); Immature Granulocyte Absolute 0.01 K/mm3 (0.00-0.031); Immature Granulocyte Percent A 0.1 % (0-0.5); Lymphocytes Absolute Auto 0.58 K/mm3 (0.9-3.2); Lymphocytes Percent Auto 8.5 % (18.3-44.2); Mean Corpuscular HGB Conc 32.6 g/dl (32-36); Mean Corpuscular Hemoglobin 30.7 pg (26-34); Mean Corpuscular Volume 94.2 fl (80-100); Mean Platelet Volume 9.6 fl (7.4-10.4); Monocytes Absolute Auto 0.6 K/mm3 (0.1-0.6); Monocytes Percent Auto 8.3 % (2.6-8.5); Neutrophils Absolute Auto 5.5 K/mm3 (1.3-6.7); Neutrophils Percent Auto 80.2 % (45.5-73.1); Platelet Count Result 223 k/mm3 (150-375); Red Blood Count 3.62 M/mm3 (4.2-5.4); Red Cell Distribution Width 13.2 % (11.5-14.5); White Blood Count 6.8 K/mm3 (4.5-10.0)
[2021-03-19 09:00] VITALS: BP 90/59; PULSE 75; RESP 18; TEMP 37.6; O2SAT 98
[2021-03-19] MEDS: DOCUSATE SODIUM 100 MG CAPSULE PO (09:07)
[2021-03-19] MEDS: ENOXAPARIN 40 MG/0.4 ML SYRINGE SUB-Q (09:07)
--- NOTE | 2021-03-19 09:35 | WPDANESPN ---
Anes - Prog Note Post-Op Date/Time: 03/19/21 09:35 Cardiovascular status: normal Respiratory status: normal Airway patency: baseline Mental status: baseline Post-Op hydration status: normal Vital Signs: Last Vital Signs Temp 99.6 F 03/19/21 09:00 Pulse 75 03/19/21 09:00 Resp 18 03/19/21 09:00 BP 90/59 L 03/19/21 09:00 Pulse Ox 98 03/19/21 09:00 Pain Score (VAS): 2 I/O: Intake & Output 03/18/21 03/19/21 03/19/21 23:59 07:59 15:59 Intake Total 1700 1000 Output Total 875 300 Balance 825 700 Laboratory Tests 03/19/21 04:12 03/19/21 04:12 WBC 6.8 RBC 3.62 L Hgb 11.1 L Hct 34.1 L MCV 94.2 MCH 30.7 MCHC 32.6 RDW 13.2 Plt Count 223 MPV 9.6 Immature Gran % (Auto) 0.1 Neut % (Auto) 80.2 H Lymph % (Auto) 8.5 L Anderson % (Auto) 8.3 Eos % (Auto) 2.8 Baso % (Auto) 0.1 L Lymph # (Auto) 0.58 L Anderson # (Auto) 0.6 Eos # (Auto) 0.2 Baso # (Auto) 0.0 Abs Immat Gran (auto) 0.01 Absolute Neuts (auto) 5.5 Absolute Nucleated RBC 0.0 Nucleated RBC % 0.0 Post-procedural complaints: none Patient Feedback: Patient satisfied with anesthetic care.
--- NOTE | 2021-03-19 09:53 | PM.GYNPNOP ---
CUSTOMER SERVICE CORRESPONDENCE CLERK - A/P Postoperative Procedures: Procedures Operation Date: 03/18/21 09:30 Actual Procedure Side Surgeon p Robotic Assisted Total Vaginal Hysterectomy with Bilateral Salpingectomy, Bilateral Bob Tolentino MD s Tension Free Vaginal Taping Bob Tolentino MD A: POD#1, doing well. P: Home to f/u 2 weeks. Time Spent With Patient Time with patient: less than 15 minutes CUSTOMER SERVICE CORRESPONDENCE CLERK- PN:Subj Post-Op Subjective Date/time seen: 03/19/21 09:53 Interval history: Pain OK. Tolerating diet. Voiding. Would like to go home. Exam Narrative: AVSS I/O OK ABD soft, nontender. Incisions c/d/i. EXT nontender CUSTOMER SERVICE CORRESPONDENCE CLERK - PN: Obj Data Vital Signs Vital Signs: Vital Signs - 24 hr 03/18/21 10:42 03/18/21 11:02 03/18/21 11:17 Temperature 36.4 C Pulse Rate 66 54 L 58 L Respiratory Rate 20 15 14 Blood Pressure 102/59 L 102/69 100/56 L Pulse Oximetry 100 100 100 03/18/21 11:31 03/18/21 11:45 03/18/21 12:00 Temperature Pulse Rate 54 L 50 L 55 L Respiratory Rate 13 13 13 Blood Pressure 111/63 102/62 99/63 L Pulse Oximetry 98 99 99 03/18/21 12:15 03/18/21 12:45 03/18/21 13:00 Temperature 36.7 C Pulse Rate 54 L 70 55 L Respiratory Rate 13 18 16 Blood Pressure 98/59 L 101/65 Pulse Oximetry 99 99 98 03/18/21 17:37 03/18/21 19:51 03/18/21 21:14 Temperature 36.7 C 36.1 C L Pulse Rate 82 78 Respiratory Rate 16 16 Blood Pressure 103/63 92/60 L 106/50 L Pulse Oximetry 100 100 03/18/21 23:00 03/19/21 04:15 03/19/21 09:00 Temperature 36.9 C 36.7 C 37.6 C Pulse Rate 67 90 75 Respiratory Rate 18 16 18 Blood Pressure 94/54 L 90/54 L 90/59 L Pulse Oximetry 98 98 98 Intake/Output Intake/Output: Intake & Output 03/16/21 03/17/21 03/18/21 03/19/21 23:59 23:59 23:59 23:59 Intake Total 1750 1000 Output Total 1115 400 Balance 635 600 Meds/Results Medications: Active Medications Generic Name Dose Route Start Last Admin Trade Name Freq PRN Reason Stop Dose Admin Hydrocodone Bitart/Acetaminophen 1 tab 03/18/21 12:31 Hydrocodone/Acetaminophen (*Crx) 5-325 Mg Tablet PO Q3H PRN Pain Rated 5 or Less Hydrocodone Bitart/Acetaminophen 1 tab 03/18/21 12:31 Hydrocodone/Acetaminophen (*Crx) 10-325 Mg Tablet PO Q3H PRN Pain Rated 6 or Greater Docusate Sodium 100 mg 03/18/21 17:00 03/19/21 09:07 Docusate Sodium 100 Mg Capsule PO 100 mg BID RUSS Administration Enoxaparin Sodium 40 mg 03/19/21 09:00 03/19/21 09:07 Enoxaparin 40 Mg/0.4 Ml Syringe SUB-Q 40 mg DAILY RUSS Administration Dextrose/Lactated Ringer's 1,000 mls @ 125 mls/hr 03/18/21 12:31 03/19/21 04:15 Dextrose 5%/Lactated Ringers IV CONT Infused .Q8H RUSS Infusion Ibuprofen 600 mg 03/18/21 12:31 Ibuprofen 600 Mg Tablet PO Q6H PRN Cramping Ketorolac Tromethamine 30 mg 03/18/21 12:31 03/19/21 04:52 Ketorolac 30 Mg/Ml Vial (*Bkc) IV PUSH 03/23/21 12:30 30 mg Q6H PRN Administration Pain Rated 4-6 Naloxone HCl 0.1 mg 03/18/21 12:31 Naloxone Hcl 0.4 Mg/Ml Vial IV PUSH Q2M PRN Respiratory rate less than 10 Ondansetron HCl 4 mg 03/18/21 12:31 03/19/21 04:52 Ondansetron Inj 4 Mg/2 Ml Vial IV PUSH 4 mg Q6H PRN Administration Nausea And Vomiting Simethicone 80 mg 03/18/21 12:31 Simethicone 80 Mg Tab.Chew PO Q2H PRN Gas Labs CBC & Chem 7: 03/19/21 04:12 Labs: Laboratory Results - last 24 hr 03/19/21 04:12 WBC 6.8 RBC 3.62 L Hgb 11.1 L Hct 34.1 L MCV 94.2 MCH 30.7 MCHC 32.6 RDW 13.2 Plt Count 223 MPV 9.6 Immature Gran % (Auto) 0.1 Neut % (Auto) 80.2 H Lymph % (Auto) 8.5 L O'Brien % (Auto) 8.3 Eos % (Auto) 2.8 Baso % (Auto) 0.1 L Lymph # (Auto) 0.58 L O'Brien # (Auto) 0.6 Eos # (Auto) 0.2 Baso # (Auto) 0.0 Abs Immat Gran (auto) 0.01 Absolute Neuts (auto) 5.5 Absolute Nucleated RBC 0.0 Nucleated RBC % 0.0
== END 2021-03-19 13:03 | disposition home or self-care (01) ==
LOC: ANHSURGERY 07:10 → ANHOB2 12:37
PROVIDERS: PCP Family Medicine; Visit Provider Obstetrics & Gynecology
PROC: (CPT 57288; principal; 2021-03-18 09:30)
PROC: 0TSD0ZZ Reposition Urethra, Open Approach (ICD-10-PCS; CPT 57288; 2021-03-18 09:30)
DX: R10.2 Pelvic and perineal pain (principal); N39.3 Stress incontinence (female) (male); N80.0 Endometriosis of uterus; N93.9 Abnormal uterine and vaginal bleeding, unspecified; E78.5 Hyperlipidemia, unspecified; F43.10 Post-traumatic stress disorder, unspecified; Z86.711 Personal history of pulmonary embolism; E53.8 Deficiency of other specified B group vitamins; F32.9 Major depressive disorder, single episode, unspecified; Z98.1 Arthrodesis status; Z87.891 Personal history of nicotine dependence; F12.90 Cannabis use, unspecified, uncomplicated; Z79.51 Long term (current) use of inhaled steroids; Z79.82 Long term (current) use of aspirin
CPT/HCPCS: 57288; 58552; S2900; 36415; 85025; 88307; 99199; A9270; C1771; J0690; J1100; J1650; J1885; J2250; J2270; J2405; J2704; J2710; J7030; J7120; J7121

== ENCOUNTER 2021-09-24 09:04 | Outpatient (CLI) | payer BC, SELFPAY ==
[2021-09-24 10:04] LABS: Alanine Aminotransferase 11 U/L (6-35); Albumin Level 4.2 g/dL (3.5-5.1); Alkaline Phosphatase 51 U/L (38-126); Anion Gap 5 mmol/L (8-16); Aspartate Amino Transferase 16 U/L (14-36); Bilirubin,Total 0.4 mg/dL (0.2-1.3); Blood Urea Nitrogen 13 mg/dL (7-17); Calcium 8.9 mg/dL (8.4-10.2); Carbon Dioxide 24 mmol/L (22-30); Chloride 109 mmol/L (98-107); Cholesterol 264 mg/dL (0-200); Estimated Glomerular Filt Rate > 60; Glucose 83 mg/dL (65-110); HDL Direct 51 mg/dL; Potassium 4.2 mmol/L (3.4-5.0); Sodium 138 mmol/L (137-145); Triglycerides 159 mg/dL (<150)
[2021-09-24 10:14] LABS: LDL Cholesterol Direct 152 mg/dL
== END 2021-09-24 09:05 | disposition home or self-care (01) ==
LOC: ANHLAB 09:06
PROVIDERS: PCP Family Medicine; Visit Provider Internal Medicine Cardiovascular Disease
DX: E78.5 Hyperlipidemia, unspecified (principal)
CPT/HCPCS: 36415; 80053; 80061

== ENCOUNTER 2021-10-29 10:07 | Outpatient (CLI) | payer BC, SELFPAY ==
[2021-10-29 11:10] LABS: Alanine Aminotransferase 13 U/L (6-35); Albumin Level 4.3 g/dL (3.5-5.1); Alkaline Phosphatase 53 U/L (38-126); Anion Gap 5 mmol/L (8-16); Aspartate Amino Transferase 17 U/L (14-36); Bilirubin,Total 0.5 mg/dL (0.2-1.3); Blood Urea Nitrogen 12 mg/dL (7-17); Calcium 9.1 mg/dL (8.4-10.2); Carbon Dioxide 25 mmol/L (22-30); Chloride 108 mmol/L (98-107); Cholesterol 260 mg/dL (0-200); Estimated Glomerular Filt Rate > 60; Glucose 89 mg/dL (65-110); HDL Direct 47 mg/dL; Potassium 4.2 mmol/L (3.4-5.0); Sodium 138 mmol/L (137-145); Triglycerides 211 mg/dL (<150)
[2021-10-29 11:21] LABS: LDL Cholesterol Direct 158 mg/dL
[2021-10-29 11:44] LABS: Free T4 Free Thyroxine 0.88 ng/mL (0.78-2.19)
[2021-10-29 12:14] LABS: Folic Acid 6.8 ng/mL (2.76->20)
[2021-11-01 12:38] LABS: Triiodothyronine T3 Free 3.3 pg/mL (2.3-4.2)
[2021-11-02 04:30] LABS: Thyroid Peroxidase Antibodies <1 IU/mL (<9)
== END 2021-10-29 10:08 | disposition home or self-care (01) ==
LOC: ANHLAB 10:14
PROVIDERS: PCP Family Medicine; Visit Provider Internal Medicine Endocrinology, Diabetes & Metabolism
DX: E03.9 Hypothyroidism, unspecified (principal)
CPT/HCPCS: 36415; 80053; 80061; 82607; 82746; 84439; 84443; 84481; 86376

== ENCOUNTER 2022-03-22 12:27 | Outpatient (CLI) | payer BC, SELFPAY ==
--- NOTE | 2022-03-22 12:30 | ECG_ITS ---
Measurements Intervals [place] Rate: 72 P: 40 MO: 153 QRS: 46 QRSD: 92 T: 36 QT: 333 QTc: 367 Interpretive Statements SINUS RHYTHM WITH MARKED SINUS ARRHYTHMIA COMPARED TO ECG 03/29/2019 19:06:17 SINUS ARRHYTHMIA NOW PRESENT Electronically Signed On 03-22-2022 18:00:28 TECHNOLOGIES DIVISION CHAIR by Leigh Coronado M.D.
== END 2022-03-22 12:28 | disposition home or self-care (01) ==
PROVIDERS: PCP Family Medicine; Visit Provider Surgery
DX: E78.00 Pure hypercholesterolemia, unspecified (principal); Z01.818 Encounter for other preprocedural examination
CPT/HCPCS: 93005

== ENCOUNTER 2022-05-13 08:44 | Outpatient (CLI) | payer BC, SELFPAY ==
[2022-05-13 09:25] LABS: Alanine Aminotransferase 15 U/L (6-35); Albumin Level 4.5 g/dL (3.5-5.1); Alkaline Phosphatase 47 U/L (38-126); Anion Gap 2 mmol/L (8-16); Aspartate Amino Transferase 19 U/L (14-36); Bilirubin,Total 0.7 mg/dL (0.2-1.3); Blood Urea Nitrogen 9 mg/dL (7-17); Calcium 8.8 mg/dL (8.4-10.2); Carbon Dioxide 29 mmol/L (22-30); Chloride 105 mmol/L (98-107); Cholesterol 291 mg/dL (0-200); Estimated Glomerular Filt Rate > 60; Glucose 89 mg/dL (65-110); HDL Direct 52 mg/dL; Potassium 4.1 mmol/L (3.4-5.0); Sodium 136 mmol/L (137-145); Triglycerides 228 mg/dL (<150)
[2022-05-13 09:36] LABS: LDL Cholesterol Direct 164 mg/dL
== END 2022-05-13 08:45 | disposition home or self-care (01) ==
PROVIDERS: PCP Family Medicine; Visit Provider Internal Medicine Cardiovascular Disease
DX: E78.5 Hyperlipidemia, unspecified (principal)
CPT/HCPCS: 36415; 80053; 80061

== ENCOUNTER 2022-06-03 11:45 | Outpatient (CLI) | payer BC, SELFPAY ==
[2022-06-03 12:53] LABS: Alanine Aminotransferase 16 U/L (6-35); Albumin Level 4.1 g/dL (3.5-5.1); Alkaline Phosphatase 51 U/L (38-126); Anion Gap 5 mmol/L (8-16); Aspartate Amino Transferase 18 U/L (14-36); Bilirubin,Total 0.5 mg/dL (0.2-1.3); Blood Urea Nitrogen 9 mg/dL (7-17); Calcium 8.8 mg/dL (8.4-10.2); Carbon Dioxide 25 mmol/L (22-30); Chloride 110 mmol/L (98-107); Cholesterol 242 mg/dL (0-200); Estimated Glomerular Filt Rate > 60; Glucose 80 mg/dL (65-110); HDL Direct 48 mg/dL; Potassium 3.9 mmol/L (3.4-5.0); Sodium 140 mmol/L (137-145); Triglycerides 230 mg/dL (<150)
[2022-06-03 13:04] LABS: LDL Cholesterol Direct 134 mg/dL
[2022-06-03 13:22] LABS: Thyroid Stimulating Hormone 0.513 uIU/mL (0.465-4.680)
[2022-06-03 13:57] LABS: Folic Acid 3.6 ng/mL (2.76->20)
[2022-06-03 14:45] LABS: Free T4 Free Thyroxine 0.93 ng/mL (0.78-2.19)
[2022-06-06 04:48] LABS: Thyroid Peroxidase Antibodies <1 IU/mL (<9)
[2022-06-07 13:50] LABS: Triiodothyronine T3 Free 2.4 pg/mL (2.3-4.2)
== END 2022-06-03 11:46 | disposition home or self-care (01) ==
PROVIDERS: PCP Family Medicine; Visit Provider Nurse Practitioner
DX: E78.01 Familial hypercholesterolemia (principal); E06.3 Autoimmune thyroiditis
CPT/HCPCS: 36415; 80053; 80061; 82607; 82746; 84439; 84443; 84481; 86376

== ENCOUNTER 2022-06-23 01:12 | Day surgery (SDC) | payer BC, SELFPAY ==
[2022-03-14 10:06] VITALS: BMI 29.9
--- NOTE | 2022-03-14 10:24 | SUR.PREOP ---
Report to the Outpatient Waiting Room, entrance under the green pavilion located off [facility], at time 1000 on date 03/29/22. Planned Procedure Time: 1200. Time changes happen often and if your time is changed the preop area will call you the afternoon before. - You and your visitor will be asked to self-screen and do not enter if you have any COVID symptoms. - Only one visitor is requested with a max of two and NO children visitors are allowed at this time. - The patient visitor may be requested to leave or wait in car when not with patient due to distancing restrictions. - A mask is optional within the hospital. Patients may have clear liquids (water, carbonated beverages, clear teas, apple juice) until 3 hours prior to surgery with a maximum of 20 ounces. - No food from midnight until time of surgery - Infants may have breast milk until 4 hours before surgery, infant formula 6 hours prior to surgery. - Children will be allowed to drink immediately following surgery. If applicable, please bring a bottle or sippy cup to assist with drinking. Juice, water, soda, and popsicles are readily available. For infants on formula, please bring formula the day of surgery. Pacifiers are allowed. Take the following medications with a SIP of water the morning of surgery: N/A Medications to discontinue per physician N/A Date to take last dose Please no make-up, nail mongolian, hairspray, perfume, deodorant, or body powder the day of surgery. No jewelry (including any body piercings) or valuables the day of surgery, leave them at home. Please take a shower or bath the night before, or the morning of, surgery with an antibacterial soap. Wear comfortable, loose fitting clothing. Children are encouraged to wear pajamas. - Jewelry must be removed prior to entering the operating room. Rings and piercings that are not removed may be cut off. - The hospital will not accept responsibility for valuables. - Please leave all valuables, including medications, at home the day of surgery. If you are going home after surgery, a licensed driver recruiter must drive you home. - NO public transportation without another adult if you receive anesthesia. - We recommend that an adult stay with you for 24 hours following discharge. - We also recommend that you do not drive, make important decision, drink alcoholic beverages, or take any drugs that were not prescribed by your health care provider for at least 24 hours after your discharge time. For Pediatric surgeries, we recommend two adults accompany the child home. Follow any additional instructions given to you from your surgeon. If you or anyone in your household have experienced Covid symptoms in the past week, please notify your surgeon or the nurse liaison at the phone number below for possible testing. Telephone instructions given to _PATIENT__and asked if any additional questions and then verbalized understanding. Patient advised to call surgeon office or pre surgery nurse liaison [phone] if any additional questions.
--- NOTE | 2022-03-15 10:26 | SUR.PREOP ---
Report to the Outpatient Waiting Room, entrance under the green pavilion located off [facility], at time 1000 on date 03/29/22. Planned Procedure Time: 1200. Time changes happen often and if your time is changed the preop area will call you the afternoon before. - You and your visitor will be asked to self-screen and do not enter if you have any COVID symptoms. - Only one visitor is requested with a max of two and NO children visitors are allowed at this time. - The patient visitor may be requested to leave or wait in car when not with patient due to distancing restrictions. - A mask is optional within the hospital. Patients may have clear liquids (water, carbonated beverages, clear teas, apple juice) until 3 hours prior to surgery with a maximum of 20 ounces. - No food from midnight until time of surgery - Infants may have breast milk until 4 hours before surgery, infant formula 6 hours prior to surgery. - Children will be allowed to drink immediately following surgery. If applicable, please bring a bottle or sippy cup to assist with drinking. Juice, water, soda, and popsicles are readily available. For infants on formula, please bring formula the day of surgery. Pacifiers are allowed. Take the following medications with a SIP of water the morning of surgery: buspirone, vilazadone, levothyroxine, budesonide inh, sprivia inh, please bring albuterol inh day of surgery Medications to discontinue per physician Date to take last dose Please no make-up, nail albanian, hairspray, perfume, deodorant, or body powder the day of surgery. No jewelry (including any body piercings) or valuables the day of surgery, leave them at home. Please take a shower or bath the night before, or the morning of, surgery with an antibacterial soap. Wear comfortable, loose fitting clothing. Children are encouraged to wear pajamas. - Jewelry must be removed prior to entering the operating room. Rings and piercings that are not removed may be cut off. - The hospital will not accept responsibility for valuables. - Please leave all valuables, including medications, at home the day of surgery. If you are going home after surgery, a licensed taxi cab driver must drive you home. - NO public transportation without another adult if you receive anesthesia. - We recommend that an adult stay with you for 24 hours following discharge. - We also recommend that you do not drive, make important decision, drink alcoholic beverages, or take any drugs that were not prescribed by your health care provider for at least 24 hours after your discharge time. For Pediatric surgeries, we recommend two adults accompany the child home. Follow any additional instructions given to you from your surgeon. If you or anyone in your household have experienced Covid symptoms in the past week, please notify your surgeon or the nurse liaison at the phone number below for possible testing. Telephone instructions given to and asked if any additional questions and then verbalized understanding. Patient advised to call surgeon office or pre surgery nurse liaison [phone] if any additional questions.
[2022-05-02 12:56] VITALS: BMI 28.6
--- NOTE | 2022-05-02 13:04 | PC.NURSE ---
Report to the Outpatient Waiting Room, entrance under the green pavilion located off [facility], at time 11:30 on date 05/12/22. Planned Procedure Time: 1:30. Time changes happen often and if your time is changed the preop area will call you the afternoon before. - You and your visitor will be asked to self-screen and do not enter if you have any COVID symptoms. - Only one visitor is requested with a max of two and NO children visitors are allowed at this time. - The patient visitor may be requested to leave or wait in car when not with patient due to distancing restrictions. - A mask is optional within the hospital at this time. Patients may have clear liquids (water, carbonated beverages, clear teas, apple juice) until 3 hours prior to surgery with a maximum of 20 ounces. - No food from midnight until time of surgery Take the following medications with a SIP of water the morning of surgery: INHALERS, BUSPIRONE, LEVOTHYROXINE, VILAZODONE DO NOT STOP ANY OF YOUR OTHER PRESCRIPTION MEDICATIONS PRIOR TO SURGERY EXCEPT THE FOLLOWING Medications to discontinue per physician: VITAMINS/SUPPLEMENTS Date to take last dose: 05/08/22 Please no make-up, nail occitan, hairspray, perfume, deodorant, or body powder the day of surgery. No jewelry (including any body piercings) or valuables the day of surgery, leave them at home. Please take a shower or bath the night before, or the morning of, surgery with an antibacterial soap. Wear comfortable, loose fitting clothing. - Jewelry must be removed prior to entering the operating room. Rings and piercings that are not removed may be cut off. - The hospital will not accept responsibility for valuables. - Please leave all valuables, including medications, at home the day of surgery. If you are going home after surgery, a licensed boom truck driver must drive you home. - NO public transportation without another adult if you receive anesthesia. - We recommend that an adult stay with you for 24 hours following discharge. - We also recommend that you do not drive, make important decision, drink alcoholic beverages, or take any drugs that were not prescribed by your health care provider for at least 24 hours after your discharge time. Follow any additional instructions given to you from your surgeon. If you or anyone in your household have experienced Covid symptoms in the past week, please notify your surgeon or the nurse liaison at the phone number below for possible testing. Telephone instructions given to PT - JONATHAN WAY and asked if any additional questions and then verbalized understanding. Patient advised to call surgeon office or pre surgery nurse liaison [phone] if any additional questions.
[2022-06-09 14:48] VITALS: BMI 28.6
--- NOTE | 2022-06-09 14:53 | PC.NURSE ---
Report to the Outpatient Waiting Room, entrance under the green pavilion located off [facility], at time 1000 on date 06/23/22. Planned Procedure Time: 1200. Time changes happen often and if your time is changed the preop area will call you the afternoon before. - You and your visitor will be asked to self-screen and do not enter if you have any COVID symptoms. - Only one visitor is requested with a max of two and NO children visitors are allowed at this time. - The patient visitor may be requested to leave or wait in car when not with patient due to distancing restrictions. - A mask is optional within the hospital at this time. Patients may have clear liquids (water, carbonated beverages, clear teas, apple juice) until 3 hours prior to surgery with a maximum of 20 ounces. - No food from midnight until time of surgery Take the following medications with a SIP of water the morning of surgery: INHALERS, BUSPIRONE, LEVOTHYROXINE, VILAZODONE DO NOT STOP ANY OF YOUR OTHER PRESCRIPTION MEDICATIONS PRIOR TO SURGERY EXCEPT THE FOLLOWING Medications to discontinue per physician: VITAMINS/SUPPLEMENTS Date to take last dose: 06/19/22 Please no make-up, nail irish, hairspray, perfume, deodorant, or body powder the day of surgery. No jewelry (including any body piercings) or valuables the day of surgery, leave them at home. Please take a shower or bath the night before, or the morning of, surgery with an antibacterial soap. Wear comfortable, loose fitting clothing. - Jewelry must be removed prior to entering the operating room. Rings and piercings that are not removed may be cut off. - The hospital will not accept responsibility for valuables. - Please leave all valuables, including medications, at home the day of surgery. If you are going home after surgery, a licensed milk truck driver must drive you home. - NO public transportation without another adult if you receive anesthesia. - We recommend that an adult stay with you for 24 hours following discharge. - We also recommend that you do not drive, make important decision, drink alcoholic beverages, or take any drugs that were not prescribed by your health care provider for at least 24 hours after your discharge time. Follow any additional instructions given to you from your surgeon. If you or anyone in your household have experienced Covid symptoms in the past week, please notify your surgeon or the nurse liaison at the phone number below for possible testing. Telephone instructions given to PT - JONATHAN WAY and asked if any additional questions and then verbalized understanding. Patient advised to call surgeon office or pre surgery nurse liaison [phone] if any additional questions.
[2022-06-23] VITALS (9 sets, daily range): BP systolic 101–129; BP diastolic 59–99; PULSE 61–110; RESP 14–18; TEMP 36.6–37; O2SAT 99–100
[2022-06-23] MEDS: LACTATED RINGERS 1,000 ML 30 ML IV CONT (10:00)
[2022-06-23] MEDS: KETOROLAC 15 MG/ML VIAL (*BKC) IV PUSH (10:15)
[2022-06-23] MEDS: ACETAMINOPHEN 500 MG TABLET 1000 MG PO (10:15)
--- NOTE | 2022-06-23 11:16 | WPDHPUPDATE1 ---
History and Physical Update Update Date/Time: 06/23/22 11:16 History and Physical has been reviewed, including an updated exam of the patient. There are NO changes in the patient's condition. Risks, benefits, and alternatives have been discussed and questions answered. Patient agrees to proceed with procedure.
--- NOTE | 2022-06-23 11:16 | PM.IMHP ---
H&P: HPI History of Present Illness Date/Time: 06/23/22 11:16 Chief Complaint: internal and external bleeding hemorrhoids Narrative: 42 yo woman presents for REUA, int/ext hemorrhoidectomy. She reports no changes in symptoms since last seen in office. Review of Systems Review of Systems: All systems reviewed & are unremarkable except as noted in HPI and below Constitutional: Constitutional: Denies chills, Denies fever(s), Denies headache(s) and Denies weight loss Eyes: Eyes: Denies change in vision ENT: Denies dizziness, Denies headache(s), Denies neck mass and Denies throat swelling Cardiovascular: Cardiovascular: Denies chest pain, Denies lightheadedness and Denies dyspnea Respiratory: Respiratory: Denies cough, Denies dyspnea and Denies wheezing Gastrointestinal: Gastrointestinal: Denies abdominal pain, Denies change in bowel habits, Denies nausea and Denies vomiting Genitourinary: Genitourinary: Denies hematuria and Denies dysuria Musculoskeletal: Musculoskeletal: Reports as per HPI Integumentary/Breasts: Skin/Breast: Reports as per HPI Neurologic: Denies dizziness and Denies headache(s) Allergic/Immunologic: Allergic/Immunologic: Denies throat swelling and Denies wheezing PMF Past Medical History Medical History 25 weeks gestation of B12 deficiency Bilateral pulmonary embolism Daytime hypersomnia (~07/2020) Depression Dyslipidemia Encounter for other specified surgical aftercare induced hypertension PTSD (post-traumatic stress disorder) Pulmonary embolism Surgical History Surgical History History of hemorrhoidectomy Multiple hemorrhoidectomies. History of oral surgery History of multiple oral surgeries due to having extra teeth Hx of cholecystectomy S/P cervical spinal fusion C5-6 and 7 in 2012 Family History Family History Father Obstructive sleep apnea Family history of elevated blood lipids Diabetes mellitus COPD (chronic obstructive pulmonary disease) Hypertension Degenerative disc disease Mother SLE (systemic lupus erythematosus) Obstructive sleep apnea Diabetes mellitus Meniere's disease Parkinsons disease Epilepsy Cerebrovascular accident Bilateral pulmonary embolism Family history of elevated blood lipids Unknown Hypertension Social History Social History (Reviewed 02/13/22 @ 14:48 by Janell James [facility]) Social History: Caffeine use: drinks 6-8 12 oz cups of coffee daily Patient is and has 2 children. She smoked up to 2ppd x 1 year, quit in 2001. She almost never drinks alcohol and only in small amounts. She denies any illicit substance use. Primary care physician: Dr. 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
--- NOTE | 2022-06-23 11:20 | WPDANESEPPF ---
Anes - Initial Pre Proc Eval Procedure: Operation Date: 06/23/22 11:30 Proposed Procedures p Rectal Examination Under Anesthesia with Internal and External Hemorrhoidectomy - Harvey Francisco DO Date/Time: 06/23/22 11:20 Surgeon: Harvey Francisco DO Pre Op Diagnosis: internal and external hemorrhoids with bleeding Patient Data Age: 42 Gender: F Height: 1.65 m Weight: 77.3 kg Last Vital Signs Temp 37.0 C 06/23/22 10:06 Pulse 110 H 06/23/22 10:06 Resp 14 06/23/22 10:06 BP 110/63 06/23/22 10:06 Pulse Ox 100 06/23/22 10:06 O2 Del Method Room Air 06/23/22 10:06 Allergies Allergy/AdvReac Type Severity Reaction Status Date / Time erythromycin base Allergy Severe Anaphylactic Verified 06/23/22 10:19 Shock Home Medications Medication Instructions Recorded Confirmed Type aspirin 81 mg chewable tablet 81 mg PO DAILY 05/10/20 06/09/22 History vilazodone 40 mg tablet (Viibryd) 40 mg PO DAILY 05/10/20 06/09/22 History levothyroxine 25 mcg tablet 50 mcg PO DAILY 12/19/21 06/09/22 History (Synthroid) atorvastatin 80 mg tablet 40 mg PO DAILY 01/26/22 06/09/22 History folic acid 1 mg tablet 800 mcg PO DAILY 01/26/22 06/09/22 History albuterol sulfate 90 mcg/actuation 2 inh inhalation PRN PRN Shortness 03/14/22 06/09/22 History aerosol inhaler Of Breath Or Wheezing buspirone 7.5 mg tablet 7.5 mg PO DAILY 03/14/22 06/09/22 History cyanocobalamin (vitamin B-12) 1,000 mcg IM MONTHLY 03/14/22 06/09/22 History 1,000 mcg/mL injection solution budesonide-formoterol HFA 160 See Rx Instructions .Route 04/10/22 06/09/22 Rx mcg-4.5 mcg/actuation aerosol .COMPLEX #10.2 ea inhaler ezetimibe 10 mg tablet 10 mg PO DAILY #90 tabs 05/15/22 06/09/22 Rx tiotropium bromide 2.5 See Rx Instructions .Route 05/19/22 06/09/22 Rx mcg/actuation mist for inhalation .COMPLEX #4 mL (Spiriva Respimat) Patient hx anesthesia problems: post op nausea/vomiting Family hx anesthesia problems: none Results Review: All pre-operative results and documents have been reviewed as part of the pre-operative evaluation. [facility] Past Medical History Medical History 25 weeks gestation of B12 deficiency Bilateral pulmonary embolism Daytime hypersomnia (~07/2020) Depression Dyslipidemia Encounter for other specified surgical aftercare induced hypertension PTSD (post-traumatic stress disorder) Pulmonary embolism Surgical History Surgical History History of hemorrhoidectomy Multiple hemorrhoidectomies. History of oral surgery History of multiple oral surgeries due to having extra teeth Hx of cholecystectomy S/P cervical spinal fusion C5-6 and 7 in 2012 Family History Family History Father Obstructive sleep apnea Family history of elevated blood lipids Diabetes mellitus COPD (chronic obstructive pulmonary disease) Hypertension Degenerative disc disease Mother SLE (systemic lupus erythematosus) Obstructive sleep apnea Diabetes mellitus Meniere's disease Parkinsons disease Epilepsy Cerebrovascular accident Bilateral pulmonary embolism Family history of elevated blood lipids Unknown Hypertension Social History Social History Social History: Caffeine use: drinks 6-8 12 oz cups of coffee daily Patient is and has 2 children. She smoked up to 2ppd x 1 year, quit in 2001. She almost never drinks alcohol and only in small amounts. She denies any illicit substance use. Primary care physician: Dr. George Menjivar Smoking packs per day: 1 Smoking cigarettes per day: 20.0 Years smoked: 2 Smoking pack-years: 2.00 Smoking status: Former smoker Tobacco type: cigarettes Second hand tobacco smoke exposure: No Smo
[2022-06-23] MEDS: ceFAZolin 2 GM/D5W 50 ML 2 GM/50 ML BAG IVPB (11:37)
--- NOTE | 2022-06-23 12:49 | W.PM.PROC2 ---
Procedure Note - Detailed Date of Procedure 06/23/22 Pre-op Diagnosis internal and external hemorrhoids with bleeding Post-op Diagnosis Same Procedure Performed internal and external hemorrhoidectomy x2 columns Surgeon Harvey Francisco, DO Anesthesia General and Local ( Exparel) Indications 42-year-old woman who presented with rectal bleeding and occasional pain. She has had problems with hemorrhoids in the past. She previously had a THD procedure and excision of residual hemorrhoid skin tags. She continues to have occasional rectal bleeding and pain. She was found to have prolapsing internal hemorrhoids and external hemorrhoids on exam. Discussions were made with the patient about treatment options and decision was made to proceed with rectal exam under anesthesia with internal and external hemorrhoidectomy. Findings Rectal exam under anesthesia was performed. The patient was found to have prolapsing hemorrhoid tissue predominantly and the left lateral and right anterior locations. The left lateral area was fairly large but the right anterior hemorrhoid tissue was small. Internal and external hemorrhoidectomy was performed in the left lateral and right anterior locations. The hemorrhoid tissue was excised and sent to the lab for pathology. After completing hemorrhoidectomy, no further prolapsing internal tissue was noted. Description of Procedure Procedure as well as risks, benefits, and alternatives were discussed with the patient. Written consent was obtained and placed in chart prior to procedure. Patient was brought back to surgical suite. She was placed supine on her hospital stretcher. Time-out was done to confirm patient and procedure. She was then intubated by the anesthesia department. She was then repositioned into prone ignacia-knife position on the operating table. Her perirectal region was prepped and draped in sterile fashion using Betadine prep. Digital rectal exam was initially performed. Exparel was then infiltrated locally around the perianal skin. A Hill-Dorsey anoscope was then inserted and the anal rectal canal was carefully inspected. I then removed the anoscope and then inserted a Fansler anoscope. I chose to perform an internal and external hemorrhoidectomy in the left lateral location 1st. The hemorrhoid bundle was identified with the anoscope. A libyjg-rp-exume 2-0 chromic suture was placed at the apex of the hemorrhoid bundle. The internal and external hemorrhoid tissue was then excised with a 15 blade scalpel. A clamp was placed across the hemorrhoid bundle and the tissue was excised completely. The 2-0 chromic suture was then run distally across the clamp and then the clamp was removed and the suture was pulled taut. Running locking sutures were then run back to the apex of the hemorrhoid bundle and the suture was tied in place. The area was then irrigated and hemostasis appeared adequate. The anoderm was then reapproximated using 3-0 chromic simple interrupted sutures. I then reinspected the anal rectal canal and still identified some prolapsing right anterior hemorrhoid tissue. The anoscope was then positioned to identify the hemorrhoid bundle and then a 2-0 chromic [id number]-kcwcr suture was placed at the apex of the hemorrhoid bundle. The external and internal hemorrhoid tissue was then excised with a 15 blade scalpel in an elliptical fashion. A clamp was placed across the hemorrhoid bundle and the hemorrhoid tissue was cut away using curved scissors. The 2-0 chromic suture was then run distally along the clamp and then the clamp was removed and the suture was pulled taut. Running locking suture was then run proximally up to the apex of the bundle and then the suture was tied in place. The area was irrigated with sterile saline and hemostasis appeared adequate. The anoderm was then reapproximated using 3-0 chromic simple interrupted sutures. I then inspected the anal rectal canal 1 final time and no
[2022-06-23] MEDS: fentaNYL CITRATE INJ (*CRX) 100 MCG/2 ML VIAL 25 MCG IV PUSH ×2 (13:18→13:21)
[2022-06-23] MEDS: oxyCODONE HCL (*CRX) 5 MG TAB IR PO (14:11)
== END 2022-06-23 14:44 | disposition home or self-care (01) ==
PROVIDERS: PCP Family Medicine; Visit Provider Surgery
PROC: (CPT 46260; principal; 2022-06-23 11:30)
DX: K64.2 Third degree hemorrhoids (principal); K64.4 Residual hemorrhoidal skin tags; K64.8 Other hemorrhoids; E78.5 Hyperlipidemia, unspecified; F43.10 Post-traumatic stress disorder, unspecified; F32.A Depression, unspecified; E53.8 Deficiency of other specified B group vitamins; Z79.82 Long term (current) use of aspirin; Z79.51 Long term (current) use of inhaled steroids; Z98.1 Arthrodesis status; Z87.891 Personal history of nicotine dependence
CPT/HCPCS: 46260; 88304; A9270; C9290; J0330; J0690; J1100; J1885; J2250; J2405; J2704; J3010; J7120

== ENCOUNTER 2023-03-02 09:47 | Emergency (ER) | payer BC, SELFPAY ==
--- NOTE | ~2023-03-02 | CT_ITS ---
CT of the Abdomen and Pelvis: Indication: Abdominal pain Technique: 2.5 mm axial scans were obtained through the abdomen and pelvis following intravenous adm inistration of 100 cc of Omnipaque 350. Dose reduction technique was used on this scan by utilizing a utomated exposure control and iterative reconstruction technique. The dose-length product (DLP) was 2 27.44 mGy-cm. COMPARISON: 10/19/2019 Findings: Scans through the lung bases demonstrates stable 3 mm right middle lobe pulmonary nodule. The liver, spleen, pancreas, adrenals and kidneys are within normal limits. Cholecystectomy clips are present. No evidence of aortic aneurysm. No lymphadenopathy. No bowel obstruction or bowel wall thickening. There is no evidence to suggest acute appendicitis. Images through the pelvis were performed. Urinary bladder unremarkable. No pelvic mass seen. No ascit es. Impression: No significant abnormalities seen. Reviewed, dictated and finalized at [facility]. 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
[2023-03-02 09:50] VITALS: BP 105/67; RESP 18; TEMP 36.4; O2SAT 100
[2023-03-02] MEDS: SODIUM CHLORIDE 0.9% IV 1,000 ML 999 ML IV CONT ×2 (10:12→10:54)
[2023-03-02] MEDS: FAMOTIDINE 20 MG/2 ML VIAL IV PUSH (10:13)
[2023-03-02] MEDS: ONDANSETRON INJ 4 MG/2 ML VIAL IV PUSH (10:13)
[2023-03-02 10:21] LABS: Basophils Percent Auto 0.4 % (0.2-1.2); Hematocrit 45.3 % (37.0-47.0); Hemoglobin 15.3 g/dL (12.0-15.0); Immature Granulocyte Absolute 0.03 K/mm3 (0.00-0.031); Immature Granulocyte Percent A 0.4 % (0-0.5); Lymphocytes Absolute Auto 0.94 K/mm3 (0.9-3.2); Lymphocytes Percent Auto 11.6 % (18.3-44.2); Mean Corpuscular HGB Conc 33.8 g/dl (32-36); Mean Corpuscular Hemoglobin 31.1 pg (26-34); Mean Corpuscular Volume 92.1 fl (80-100); Mean Platelet Volume 9.8 fl (7.4-10.4); Monocytes Absolute Auto 0.4 K/mm3 (0.1-0.6); Monocytes Percent Auto 4.8 % (2.6-8.5); Neutrophils Absolute Auto 6.7 K/mm3 (1.3-6.7); Neutrophils Percent Auto 82.8 % (45.5-73.1); Platelet Count Result 391 k/mm3 (150-375); Red Blood Count 4.92 M/mm3 (4.2-5.4); Red Cell Distribution Width 12.3 % (11.5-14.5); White Blood Count 8.1 K/mm3 (4.5-10.0)
--- NOTE | 2023-03-02 10:23 | ED.NAVMDI ---
HPI - Nausea/Vomiting/Diarrhea General Chief complaint: Nausea/Vomiting/Diarrhea <Ruthy Fournier PA-C - Last Filed: 03/02/23 14:43> Stated complaint: Vomiting, Nausea <STEPHANE Mehta Last Filed: 03/02/23 14:43> Time Seen by Provider: 03/02/23 09:58 <STEPHANE Mehta Last Filed: 03/02/23 14:43> Source: patient <STEPHANE Mehta Last Filed: 03/02/23 14:43> Mode of arrival: ambulatory <STEPHANE Mehta Last Filed: 03/02/23 14:43> Limitations: no limitations <STEPHANE Mehta Last Filed: 03/02/23 14:43> History of Present Illness HPI Narrative: This is a 42 year old female that presents to the ER for nausea and vomiting. Ongoing over the last week. Reports she started to feel better for a couple days and then her symptoms returned again today. Reports left sided abdominal pain, diarrhea and chills. Denies fever, dysuria or hematuria. <STEPHANE Mehta Last Filed: 03/02/23 14:43> Related Data Home medications: Home Medications Medication Instructions Recorded Confirmed aspirin 81 mg chewable tablet 81 mg PO DAILY 05/10/20 12/18/22 vilazodone 40 mg tablet (Viibryd) 40 mg PO DAILY 05/10/20 12/18/22 levothyroxine 25 mcg tablet 50 mcg PO DAILY 12/19/21 12/18/22 (Synthroid) atorvastatin 80 mg tablet 40 mg PO DAILY 01/26/22 12/18/22 folic acid 1 mg tablet 800 mcg PO DAILY 01/26/22 12/18/22 buspirone 7.5 mg tablet 7.5 mg PO DAILY 03/14/22 12/18/22 cyanocobalamin (vitamin B-12) 1,000 mcg IM MONTHLY 03/14/22 12/18/22 1,000 mcg/mL injection solution liothyronine 5 mcg tablet 5 mcg PO DAILY 12/18/22 12/18/22 <STEPHANE Mehta Last Filed: 03/02/23 14:43> Allergies/Adverse reactions: Allergies Allergy/AdvReac Type Severity Reaction Status Date / Time erythromycin base Allergy Severe Anaphylactic Verified 12/18/22 12:48 Shock <Ruthy Fournier PA-C - Last Filed: 03/02/23 14:43> Review of Systems Review of Systems: CONSTITUTIONAL: Denies fever GASTROINTESTINAL: Reports abdominal pain, nausea, vomiting, and diarrhea. GENITOURINARY: Denies dysuria or hematuria. <Ruthy Fournier PA-C - Last Filed: 03/02/23 14:43> All systems reviewed & are unremarkable except as noted in HPI and below <Ruthy Fournier PA-C - Last Filed: 03/02/23 14:43> COUNTS INCLUDE 234 BEDS AT THE [facility] Past Medical History Medical History: Medical History 25 weeks gestation of B12 deficiency Bilateral pulmonary embolism Daytime hypersomnia (~07/2020) Depression Dyslipidemia Encounter for other specified surgical aftercare induced hypertension PTSD (post-traumatic stress disorder) Pulmonary embolism <Ruthy Fournier PA-C - Last Filed: 03/02/23 14:43> Surgical History Surgical History: Surgical History History of hemorrhoidectomy Multiple hemorrhoidectomies. most recent 06/23/22 History of oral surgery History of multiple oral surgeries due to having extra teeth Hx of cholecystectomy S/P cervical spinal fusion C5-6 and 7 in 2012 <Ruthy Fournier PA-C - Last Filed: 03/02/23 14:43> Family History Family History: Family History Father Obstructive sleep apnea Family history of elevated blood lipids Diabetes mellitus COPD (chronic obstructive pulmonary disease) Hypertension Degenerative disc disease Mother SLE (systemic lupus erythematosus) Obstructive sleep apnea Diabetes mellitus Meniere's disease Parkinsons disease Epilepsy Cerebrovascular accident Bilateral pulmonary embolism Family history of elevated blood lipids Unknown Hypertension <STEPHANE Mehta Last Filed: 03/02/23 14:43> Social History Social History: Social History Social History: Caffeine use: drinks
[2023-03-02] MEDS: PANTOPRAZOLE SODIUM IV 40 MG VIAL IV PUSH (10:32)
[2023-03-02 10:33] LABS: Alanine Aminotransferase 19 U/L (6-35); Albumin Level 4.8 g/dL (3.5-5.1); Alkaline Phosphatase 76 U/L (38-126); Anion Gap 15 mmol/L (8-16); Aspartate Amino Transferase 22 U/L (14-36); Bilirubin,Total 0.7 mg/dL (0.2-1.3); Blood Urea Nitrogen 8 mg/dL (7-17); Carbon Dioxide 17 mmol/L (22-30); Chloride 108 mmol/L (98-107); Estimated Glomerular Filt Rate > 60; Glucose 132 mg/dL (65-110); Lipase 126 U/L (23-300); Potassium 3.7 mmol/L (3.4-5.0); Sodium 140 mmol/L (137-145)
[2023-03-02 10:56] LABS: Influenza A QL RT-PCR Negative (Negative); Influenza B QL RT-PCR Negative (Negative); SARS-CoV-2 RNA PCR Negative (Negative)
[2023-03-02 11:59] LABS: Appearance Urine Cloudy (Clear); Bacteria Urine Rare /hpf; Bilirubin Urine Negative (Negative); Blood Urine Negative (Negative); Color Urine Dark Yellow (Yellow); Glucose Urine UA Negative (Negative); Ketones Urine 4+ mg/dL (Negative); Leukocyte Esterase Ur Negative LEU/UL (Negative); Nitrate Urine Negative (Negative); Protein Urine 1+ mg/dL (Negative); Specific Grav Ur 1.026 (1.001-1.035); Squamous Epithelial Cell Urine Few /hpf (Few); Urobilinogen Urine 0.2 mg/dL (<2.0); WBC Urine 0-5 /hpf
[2023-03-02 12:04] LABS: Add Urine Microscopic? YES
[2023-03-02] MEDS: METOCLOPRAMIDE HCL INJ 10 MG/2 ML VIAL IV PUSH (12:18)
[2023-03-02] MEDS: diphenhydrAMINE HCl INJ 50 MG/ML VIAL 25 MG IV PUSH (12:18)
[2023-03-02 12:22] VITALS: O2SAT 100
[2023-03-02 12:24] VITALS: BP 105/63; PULSE 74; RESP 18; O2SAT 98
[2023-03-02] MEDS: HALOPERIDOL LACTATE 5 MG/ML VIAL IV PUSH (13:39)
[2023-03-02 14:17] VITALS: BP 109/60; PULSE 75; RESP 18; TEMP 36.9; O2SAT 99
== END 2023-03-02 15:03 | disposition home or self-care (01) ==
PROVIDERS: Emergency Medicine; Emergency Provider Physician Assistant; PCP Family Medicine
DX: R11.2 Nausea with vomiting, unspecified (principal); Z20.822 Contact with and (suspected) exposure to COVID-19; E78.5 Hyperlipidemia, unspecified; E53.8 Deficiency of other specified B group vitamins; F32.A Depression, unspecified; F43.10 Post-traumatic stress disorder, unspecified; Z98.1 Arthrodesis status; Z86.711 Personal history of pulmonary embolism; Z87.891 Personal history of nicotine dependence; Z90.49 Acquired absence of other specified parts of digestive tract; Z79.82 Long term (current) use of aspirin
CPT/HCPCS: 36415; 74177; 80053; 81001; 81025; 83690; 85025; 87636; 96361; 96374; 96375; 99284; C9113; J1200; J1630; J2405; J2765; J7030; Q9967

== ENCOUNTER 2023-03-08 14:34 | Emergency (ER) | payer BC, SELFPAY ==
[2023-03-08 14:46] VITALS: BP 105/87; PULSE 76; RESP 18; TEMP 36.8; O2SAT 100
[2023-03-08 18:33] LABS: Basophils Percent Auto 0.3 % (0.2-1.2); Hematocrit 38.8 % (37.0-47.0); Hemoglobin 13.8 g/dL (12.0-15.0); Immature Granulocyte Absolute 0.03 K/mm3 (0.00-0.031); Immature Granulocyte Percent A 0.4 % (0-0.5); Lymphocytes Absolute Auto 0.74 K/mm3 (0.9-3.2); Lymphocytes Percent Auto 9.3 % (18.3-44.2); Mean Corpuscular HGB Conc 35.6 g/dl (32-36); Mean Corpuscular Hemoglobin 32.2 pg (26-34); Mean Corpuscular Volume 90.7 fl (80-100); Monocytes Absolute Auto 0.3 K/mm3 (0.1-0.6); Monocytes Percent Auto 4.3 % (2.6-8.5); Neutrophils Absolute Auto 6.8 K/mm3 (1.3-6.7); Neutrophils Percent Auto 85.7 % (45.5-73.1); Platelet Count Result 357 k/mm3 (150-375); Red Blood Count 4.28 M/mm3 (4.2-5.4); Red Cell Distribution Width 12.4 % (11.5-14.5)
[2023-03-08 18:51] LABS: Add Urine Microscopic? YES; Appearance Urine Turbid (Clear); Bacteria Urine None Seen /hpf; Bilirubin Urine Negative (Negative); Blood Urine Negative (Negative); Color Urine Yellow (Yellow); Glucose Urine UA Negative (Negative); Ketones Urine 3+ mg/dL (Negative); Leukocyte Esterase Ur Negative LEU/UL (Negative); Need Manual Microscopic Reviewed; Nitrate Urine Negative (Negative); Protein Urine 1+ mg/dL (Negative); Specific Grav Ur 1.023 (1.001-1.035); Squamous Epithelial Cell Urine Moderate /hpf (Few); WBC Urine 0-5 /hpf; pH Urine >=9.0 (5.0-9.0)
[2023-03-08 19:06] LABS: Alanine Aminotransferase 15 U/L (6-35); Alkaline Phosphatase 62 U/L (38-126); Anion Gap 9 mmol/L (8-16); Aspartate Amino Transferase 20 U/L (14-36); Bilirubin,Total 0.7 mg/dL (0.2-1.3); Blood Urea Nitrogen 8 mg/dL (7-17); Calcium 8.8 mg/dL (8.4-10.2); Carbon Dioxide 21 mmol/L (22-30); Chloride 106 mmol/L (98-107); Estimated CRCL calculation 81 ml/min; Estimated Glomerular Filt Rate > 60; Glucose 113 mg/dL (65-110); Lipase 91 U/L (23-300); Potassium 3.2 mmol/L (3.4-5.0); Sodium 136 mmol/L (137-145)
--- NOTE | 2023-03-08 19:15 | PC.NURSE ---
Assumed care of pt from ASIA Rodríguez at this time.
[2023-03-08 19:22] LABS: Influenza A QL RT-PCR Negative (Negative); Influenza B QL RT-PCR Negative (Negative); RSV RNA, RT-PCR Negative (Negative); SARS-CoV-2 RNA PCR Negative (Negative)
--- NOTE | 2023-03-08 19:36 | ED.NAVMDI ---
HPI - Nausea/Vomiting/Diarrhea General Chief complaint: Nausea/Vomiting/Diarrhea Stated complaint: n/v Time Seen by Provider: 03/08/23 18:59 History of Present Illness HPI Narrative: Patient is a 42-year-old female who presents ER with nausea and vomiting. Began at 10:00 a.m.. Emesis is persistent. Associated with acid reflux. She has had this intermittently over last week. She was seen on 03/02/2023 with an unremarkable workup and CT imaging showed no acute issue. Patient contacted GI physician today who urged her to come to the ER due to her persistent vomiting. Patient reports symptoms are worse with fatty foods. No alleviating factors at home. Denies fevers or chills or sweats. Due to her vomiting she did have some tingling in her arms that has resolved. No blood in her emesis. No loss of consciousness. Related Data Home Medications Medication Instructions Recorded Confirmed aspirin 81 mg chewable tablet 81 mg PO DAILY 05/10/20 12/18/22 vilazodone 40 mg tablet (Viibryd) 40 mg PO DAILY 05/10/20 12/18/22 levothyroxine 25 mcg tablet 50 mcg PO DAILY 12/19/21 12/18/22 (Synthroid) atorvastatin 80 mg tablet 40 mg PO DAILY 01/26/22 12/18/22 folic acid 1 mg tablet 800 mcg PO DAILY 01/26/22 12/18/22 buspirone 7.5 mg tablet 7.5 mg PO DAILY 03/14/22 12/18/22 cyanocobalamin (vitamin B-12) 1,000 mcg IM MONTHLY 03/14/22 12/18/22 1,000 mcg/mL injection solution liothyronine 5 mcg tablet 5 mcg PO DAILY 12/18/22 12/18/22 Allergies Allergy/AdvReac Type Severity Reaction Status Date / Time erythromycin base Allergy Severe Anaphylactic Verified 12/18/22 12:48 Shock Review of Systems Review of Systems: All systems reviewed & are unremarkable except as noted in HPI and below Constitutional: Constitutional: Denies chills, Reports fatigue and Denies fever(s) ENT: Reports system reviewed and no additional complaints, except as documented Cardiovascular: Cardiovascular: Reports no additional cardiovascular complaints Respiratory: Respiratory: Reports no additional respiratory complaints Gastrointestinal: Gastrointestinal: Denies abdominal pain, Reports heartburn, Denies diarrhea, Reports nausea and Reports vomiting Genitourinary: Genitourinary: Reports no additional female genitourinary complaints Musculoskeletal: Musculoskeletal: Reports no additional musculoskeletal complaints [facility] Past Medical History Medical History 25 weeks gestation of B12 deficiency Bilateral pulmonary embolism Daytime hypersomnia (~07/2020) Depression Dyslipidemia Encounter for other specified surgical aftercare induced hypertension PTSD (post-traumatic stress disorder) Pulmonary embolism Surgical History Surgical History History of hemorrhoidectomy Multiple hemorrhoidectomies. most recent 06/23/22 History of oral surgery History of multiple oral surgeries due to having extra teeth Hx of cholecystectomy S/P cervical spinal fusion C5-6 and 7 in 2012 Family History Family History Father Obstructive sleep apnea Family history of elevated blood lipids Diabetes mellitus COPD (chronic obstructive pulmonary disease) Hypertension Degenerative disc disease Mother SLE (systemic lupus erythematosus) Obstructive sleep apnea Diabetes mellitus Meniere's disease Parkinsons disease Epilepsy Cerebrovascular accident Bilateral pulmonary embolism Family history of elevated blood lipids Unknown Hypertension Social History Social History Social History: Caffeine use: drinks 6-8 12 oz cups of coffee daily Patient is and has 2 children. She smoked up to 2ppd x 1 year, quit in 2001. She almost never drinks alcohol and only in small amounts. She denies any illicit substance use.
[2023-03-08] MEDS: SODIUM CHLORIDE 0.9% IV 1,000 ML 999 ML IV CONT (20:13)
[2023-03-08] MEDS: ONDANSETRON INJ 4 MG/2 ML VIAL IV PUSH (20:14)
[2023-03-08] MEDS: PANTOPRAZOLE SODIUM IV 40 MG VIAL IV PUSH (21:07)
[2023-03-08] MEDS: MORPHINE SULFATE (*CRX) 4 MG/ML INJ IV PUSH (21:07)
[2023-03-08 21:13] VITALS: BP 110/87; PULSE 72; RESP 18; O2SAT 100
== END 2023-03-08 21:16 | disposition home or self-care (01) ==
PROVIDERS: Emergency Medicine; Emergency Provider Emergency Medicine; PCP Family Medicine
DX: R11.2 Nausea with vomiting, unspecified (principal); Z20.822 Contact with and (suspected) exposure to COVID-19; E53.8 Deficiency of other specified B group vitamins; E78.5 Hyperlipidemia, unspecified; F32.A Depression, unspecified; F43.10 Post-traumatic stress disorder, unspecified; Z98.1 Arthrodesis status; Z86.711 Personal history of pulmonary embolism; Z87.891 Personal history of nicotine dependence; Z90.49 Acquired absence of other specified parts of digestive tract; Z79.82 Long term (current) use of aspirin
CPT/HCPCS: 36415; 80053; 81001; 81025; 83690; 85025; 87637; 96361; 96374; 96375; 99284; C9113; J2270; J2405; J7030

== ENCOUNTER 2023-03-19 01:24 | Day surgery (SDC) | payer BC, SELFPAY ==
--- NOTE | 2023-03-16 09:32 | SUR.PREOP ---
Patient called regarding upcoming procedure. Reviewed preop instructions, appointment times, and procedure prep.
[2023-03-16 10:14] VITALS: BMI 22.1
[2023-03-19 08:58] VITALS: BP 103/69; PULSE 101; RESP 16; TEMP 36.1; O2SAT 100; BMI 21.9
[2023-03-19] MEDS: LACTATED RINGERS 1,000 ML 150 ML IV CONT (09:21)
--- NOTE | 2023-03-19 09:31 | WPDANESEPPF ---
Anes - Initial Pre Proc Eval Procedure: Operation Date: 03/19/23 10:00 Proposed Procedures p Esophagogastroduodenoscopy & Colonoscopy - Mushtaq Ocampo MD Date/Time: 03/19/23 09:31 Surgeon: Mushtaq Ocampo MD Pre Op Diagnosis: Hemorrhage of anus/rectum, GERD Patient Data Age: 42 Gender: F Height: 1.65 m Weight: 59.7 kg Last Vital Signs Temp 36.1 C L 03/19/23 08:58 Pulse 101 H 03/19/23 08:58 Resp 16 03/19/23 08:58 BP 103/69 03/19/23 08:58 Pulse Ox 100 03/19/23 08:58 O2 Del Method Room Air 03/19/23 08:58 Allergies Allergy/AdvReac Type Severity Reaction Status Date / Time erythromycin base Allergy Severe Anaphylactic Verified 03/19/23 09:06 Shock Home Medications Medication Instructions Recorded Confirmed Type aspirin 81 mg chewable tablet 81 mg PO DAILY 05/10/20 03/19/23 History vilazodone 40 mg tablet (Viibryd) 40 mg PO DAILY 05/10/20 03/19/23 History atorvastatin 80 mg tablet 40 mg PO DAILY 01/26/22 03/19/23 History buspirone 7.5 mg tablet 7.5 mg PO DAILY 03/14/22 03/19/23 History cyanocobalamin (vitamin B-12) 1,000 mcg IM WEEKLY 03/14/22 03/19/23 History 1,000 mcg/mL injection solution albuterol sulfate 90 mcg/actuation 1 - 2 puff inhalation Q4-6H PRN 11/28/22 03/19/23 Rx aerosol inhaler Shortness Of Breath Or Wheezing #8.5 grams liothyronine 5 mcg tablet 5 mcg PO DAILY 12/18/22 03/19/23 History fluticasone fur. 100 mcg-umeclid 1 inh inhalation DAILY #60 ea 12/27/22 03/19/23 Rx 62.5 mcg-vilant 25 mcg inhalat.powder (Trelegy Ellipta) ezetimibe 10 mg tablet See Rx Instructions .Route 01/29/23 03/19/23 Rx .COMPLEX #90 tabs ondansetron 4 mg disintegrating 4 mg PO Q8H PRN nausea and 03/02/23 03/19/23 Rx tablet vomiting #20 tabs pantoprazole 40 mg tablet,delayed 40 mg PO BID #28 tabs 03/08/23 03/19/23 Rx release (Protonix) hydrocortisone 2.5 % topical cream 1 applic RECTAL DAILY PRN pain #30 03/14/23 03/19/23 Rx with perineal applicator grams (Anusol-HC) folic acid 800 mcg tablet 800 mcg PO DAILY 03/16/23 03/19/23 History levothyroxine 50 mcg tablet 50 mcg PO DAILY 03/16/23 03/19/23 History (Synthroid) sucralfate 1 gram tablet 1 g PO WMHS 03/16/23 03/19/23 History Patient hx anesthesia problems: post op nausea/vomiting Family hx anesthesia problems: none Results Review: All pre-operative results and documents have been reviewed as part of the pre-operative evaluation. [facility] Past Medical History Medical History 25 weeks gestation of Asthma B12 deficiency Bilateral pulmonary embolism Daytime hypersomnia (~07/2020) Depression Dyslipidemia Encounter for other specified surgical aftercare GERD (gastroesophageal reflux disease) Hx of blood clots Hx of gastric ulcer Hypertension Hypolipidemia Hypothyroid induced hypertension PTSD (post-traumatic stress disorder) Pulmonary embolism Surgical History Surgical History History of hemorrhoidectomy Multiple hemorrhoidectomies. most recent 06/23/22 History of hysterectomy History of oral surgery History of multiple oral surgeries due to having extra teeth Hx of cholecystectomy S/P cervical spinal fusion C5-6 and 7 in 2012 Family History Family History Father Obstructive sleep apnea Family history of elevated blood lipids Diabetes mellitus COPD (chronic obstructive pulmonary disease) Hypertension Degenerative disc disease Mother SLE (systemic lupus erythematosus) Obstructive sleep apnea Diabetes mellitus Meniere's disease Parkinsons disease Epilepsy Cerebrovascular accident Bilateral pulmonary embolism Family history of elevated blood lipids Unknown Hypertension Social History Social History (Reviewed 03/19/23 @ 09:31 by Rosibel Dominguez
[2023-03-19] MEDS: ONDANSETRON INJ 4 MG/2 ML VIAL IV PUSH (09:38)
--- NOTE | 2023-03-19 09:42 | PM.HPGS ---
History of Present Illness History of Present Illness Consent: Risks, benefits, and alternatives have been discussed and questions answered. Patient agrees to proceed with procedure. Chief complaint: Hemorrhage of anus/rectum, GERD Narrative: Ashley Stokes is a 42 year old female gerd, around Thanksgiving had emesis coffee ground, now using pantoprazole. Last colonoscopy 2012, earlier this year had hemorrhoidectomy but recently episode of constipation then noted rectal bleeding. Review of Systems Constitutional: Constitutional: Denies headache(s) and Denies weakness Eyes: Eyes: Denies blurry vision ENT: Reports Normal hearing present, Denies headache(s) and Denies neck pain Cardiovascular: Cardiovascular: Denies chest pain and Denies dyspnea Respiratory: Respiratory: Denies dyspnea Gastrointestinal: Gastrointestinal: Reports no additional gastrointestinal complaints Genitourinary: Genitourinary: Denies dysuria Musculoskeletal: Musculoskeletal: Denies neck pain Integumentary/Breasts: Skin/Breast: Denies dry skin Neurologic: Reports Normal hearing present, Denies headache(s) and Denies weakness Psychiatric: Psychiatric: Denies anxiety Endocrine: Endocrine: Denies change in body appearance Hematologic/Lymphatic: Hematologic/Lymphatic: Denies easy bleeding Allergic/Immunologic: Allergic/Immunologic: Denies urticaria PMFSH Past Medical History Medical History (Updated 03/19/23 @ 09:43 by Mushtaq Ocampo MD) 25 weeks gestation of Asthma B12 deficiency Bilateral pulmonary embolism Colon cancer screening Daytime hypersomnia (~07/2020) Depression Dyslipidemia Encounter for other specified surgical aftercare GERD (gastroesophageal reflux disease) Hx of blood clots Hx of gastric ulcer Hypertension Hypolipidemia Hypothyroid induced hypertension PTSD (post-traumatic stress disorder) Pulmonary embolism Surgical History Surgical History History of hemorrhoidectomy Multiple hemorrhoidectomies. most recent 06/23/22 History of hysterectomy History of oral surgery History of multiple oral surgeries due to having extra teeth Hx of cholecystectomy S/P cervical spinal fusion C5-6 and 7 in 2012 Family History Family History Father Obstructive sleep apnea Family history of elevated blood lipids Diabetes mellitus COPD (chronic obstructive pulmonary disease) Hypertension Degenerative disc disease Mother SLE (systemic lupus erythematosus) Obstructive sleep apnea Diabetes mellitus Meniere's disease Parkinsons disease Epilepsy Cerebrovascular accident Bilateral pulmonary embolism Family history of elevated blood lipids Unknown Hypertension Social History Social History Social History: Caffeine use: drinks 6-8 12 oz cups of coffee daily Patient is and has 2 children. She smoked up to 2ppd x 1 year, quit in 2001. She almost never drinks alcohol and only in small amounts. She denies any illicit substance use. Primary care physician: Dr. George Menjivar Smoking packs per day: 1 Smoking cigarettes per day: 20.0 Years smoked: 2 Smoking pack-years: 2.00 Smoking status: Never smoker Tobacco type: cigarettes Second hand tobacco smoke exposure: No Smoking end date: 04/02/01 Alcohol intake: current Substance use: current Other substance usage details: GUMMIES OCC. 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
--- NOTE | 2023-03-19 09:59 | SUR.OPER ---
0942 EGD end. 958 colon start.
[2023-03-19 10:15] VITALS: BP 103/82; PULSE 88; RESP 17; O2SAT 100
[2023-03-19 10:25] VITALS: BP 111/78; PULSE 83; RESP 21; O2SAT 100
[2023-03-19 10:35] VITALS: BP 107/70; PULSE 65; RESP 22; O2SAT 100
== END 2023-03-19 10:45 | disposition home or self-care (01) ==
PROVIDERS: PCP Family Medicine; Referring Provider Surgery; Visit Provider Internal Medicine Gastroenterology
PROC: 0DJ08ZZ Inspection of Upper Intestinal Tract, Via Natural or Artificial Opening Endoscopic (ICD-10-PCS; CPT 43235; principal; 2023-03-19 10:00)
DX: Z12.11 Encounter for screening for malignant neoplasm of colon (principal); D12.3 Benign neoplasm of transverse colon; K64.8 Other hemorrhoids; K29.50 Unspecified chronic gastritis without bleeding; I10 Essential (primary) hypertension; E78.5 Hyperlipidemia, unspecified; E03.9 Hypothyroidism, unspecified; J45.909 Unspecified asthma, uncomplicated; E53.8 Deficiency of other specified B group vitamins; Z86.711 Personal history of pulmonary embolism; K21.9 Gastro-esophageal reflux disease without esophagitis; F43.10 Post-traumatic stress disorder, unspecified; Z79.82 Long term (current) use of aspirin; Z79.51 Long term (current) use of inhaled steroids; Z98.1 Arthrodesis status; Z87.891 Personal history of nicotine dependence
CPT/HCPCS: 45385; 43239; 88305; J2405; J2704; J7120

== ENCOUNTER 2023-05-17 08:24 | Outpatient (CLI) | payer BC, SELFPAY ==
--- NOTE | ~2023-05-17 | NM_ITS ---
EXAM: NM gastric emptying study DATE: 05/17/2023 13:03 INDICATION: Vomiting. TECHNIQUE: A gastric emptying study was performed using the methodology of Isabel RAMIREZ, et al. J Nucl Med 2007; 48:568-572. The patient was given a meal consisting of 2 scrambled eggs labeled with 1.027 mCi Tc-99m sulfur colloid, 2 slices of toast, two packages of jam, and approximately 120 mL of water . Simultaneous anterior and posterior 1-min images of the abdomen were obtained with the patient supi ne at multiple time points over a total period of 4 hours. The geometric mean of anterior and posteri or views was determined, and the percentage retention was calculated for each time point. COMPARISON: CT abdomen and pelvis 03/02/2023 FINDINGS: Gastric retention of the radiotracer-labeled meal was 63%, 36%, and 5% at the 1-hour, 2-ho ur, and 4-hour time points, respectively. With this technique, apparent rapid gastric emptying is sug gested by <30% gastric retention at 1 hour. Delayed gastric emptying is defined by gastric retention of >90% at 1 hour, >60% retention at 2 hours, or >10% retention at 4 hours. IMPRESSION: 1. Normal gastric emptying. Reviewed, dictated and finalized at location A. [facility] PULLER IMPRESSION: 1. Normal gastric emptying.
== END 2023-05-17 08:25 | disposition home or self-care (01) ==
LOC: ANHIMG 08:26
PROVIDERS: PCP Family Medicine; Visit Provider Nurse Practitioner
DX: R11.15 Cyclical vomiting syndrome unrelated to migraine (principal)
CPT/HCPCS: 78264; A9541

== ENCOUNTER 2023-08-17 11:57 | Outpatient (CLI) | payer BC, SELFPAY ==
[2023-08-17 12:40] LABS: Alanine Aminotransferase 13 U/L (6-35); Albumin Level 4.4 g/dL (3.5-5.1); Alkaline Phosphatase 49 U/L (38-126); Anion Gap 4 mmol/L (4-12); Aspartate Amino Transferase 19 U/L (14-36); Bilirubin,Total 0.6 mg/dL (0.2-1.3); Blood Urea Nitrogen 8 mg/dL (7-17); Calcium 9.4 mg/dL (8.4-10.2); Carbon Dioxide 25 mmol/L (22-30); Chloride 109 mmol/L (98-107); Estimated Glomerular Filt Rate > 60; Glucose 89 mg/dL (65-110); Potassium 4.1 mmol/L (3.4-5.0); Sodium 138 mmol/L (137-145)
[2023-08-17 13:11] LABS: Thyroid Stimulating Hormone 0.704 uIU/mL (0.465-4.680)
== END 2023-08-17 11:58 | disposition home or self-care (01) ==
PROVIDERS: PCP Family Medicine; Visit Provider Nurse Practitioner Family
DX: E03.9 Hypothyroidism, unspecified (principal); E87.6 Hypokalemia
CPT/HCPCS: 36415; 80053; 84443

== ENCOUNTER 2024-03-24 09:24 | Outpatient (CLI) | payer BC, SELFPAY ==
[2024-03-24 10:18] LABS: Add Urine Microscopic? NO; Appearance Urine Clear (Clear); Bilirubin Urine Negative (Negative); Blood Urine Negative (Negative); Color Urine Yellow (Yellow); Glucose Urine UA Negative (Negative); Ketones Urine Negative (Negative); Leukocyte Esterase Ur Negative LEU/UL (Negative); Nitrate Urine Negative (Negative); Protein Urine Negative (Negative); Specific Grav Ur 1.007 (1.001-1.035); Urobilinogen Urine 0.2 mg/dL (<2.0)
[2024-03-24 10:22] LABS: Alanine Aminotransferase 33 U/L (6-35); Albumin Level 4.7 g/dL (3.5-5.1); Alkaline Phosphatase 56 U/L (38-126); Anion Gap 4 mmol/L (4-12); Aspartate Amino Transferase 29 U/L (14-36); Blood Urea Nitrogen 9 mg/dL (7-17); Calcium 9.5 mg/dL (8.4-10.2); Carbon Dioxide 29 mmol/L (22-30); Chloride 104 mmol/L (98-107); Estimated Glomerular Filt Rate > 60; Glucose 88 mg/dL (65-110); Potassium 4.1 mmol/L (3.4-5.0); Sodium 137 mmol/L (137-145)
[2024-03-24 10:36] LABS: Beta HCG Quantitative < 2.39 mIU/ML
[2024-03-24 11:01] LABS: Hemoglobin A1C 4.9 % (<5.7)
== END 2024-03-24 09:25 | disposition home or self-care (01) ==
LOC: ANHLAB 09:26
PROVIDERS: PCP Family Medicine; Visit Provider Internal Medicine Nephrology
DX: Z52.4 Kidney donor (principal)
CPT/HCPCS: 36415; 80053; 81003; 83036; 84702; 86900; 86901

== ENCOUNTER 2024-03-28 13:47 | Outpatient (CLI) | payer BC, SELFPAY ==
[2024-03-28 14:21] LABS: Add Urine Microscopic? NO; Appearance Urine Clear (Clear); Bilirubin Urine Negative (Negative); Blood Urine Negative (Negative); Color Urine Yellow (Yellow); Glucose Urine UA Negative (Negative); Ketones Urine Negative (Negative); Leukocyte Esterase Ur Negative LEU/UL (Negative); Nitrate Urine Negative (Negative); Protein Urine Negative (Negative); Specific Grav Ur 1.008 (1.001-1.035); Urobilinogen Urine 0.2 mg/dL (<2.0)
[2024-03-28 14:48] LABS: Beta HCG Quantitative < 2.39 mIU/ML
== END 2024-03-28 13:48 | disposition home or self-care (01) ==
PROVIDERS: PCP Family Medicine; Visit Provider Internal Medicine Nephrology
DX: Z52.4 Kidney donor (principal)
CPT/HCPCS: 36415; 81003; 84702

== ENCOUNTER 2024-04-05 09:23 | Outpatient (CLI) | payer BC, SELFPAY ==
[2024-04-05 11:14] LABS: Pregnancy On Board Control Positive; Total Volume 24 Hour Urine 2850 ml; Urine Pregnancy Test Negative
[2024-04-05 11:33] LABS: Creatine Kinase 64 U/L (30-135)
[2024-04-05 11:40] LABS: Creatinine 24 Hour Urine 1.2 gm/24 (0.8-1.8); Creatinine Urine 45.5 mg/dL
--- OUTSIDE RECORDS SUMMARY | 2024-04-12 11:44 | XMS_ITS | Encounter Summary ---
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 Name Role Phone Unavailable Primary Care Provider Unavailabl e Reason for Referral * Consult, Test & Treat (Routine) - Closed Specialty Diagnoses / Procedures Referred By Contac t Referred To Contact Cardiology Diagnoses abnormality affecting management of mother, single or unspecified fetus (HCC) Procedures ECHO CONSULT - Judd Ramires MD [address] [facility] [address] [place] [address] [facility] [address] [place] [id number] Referral ID Status Reason Start Date Expiration Date Visits Re quested Visits Authorized [id number] Closed 02/17/2019 08/16/2019 1 1 [facility]CE RUNNER Encounter Details Date Type Department Care Team (Latest Contact Info) Description 02/17/2019 11:05 AM PRODUCE RUNNER - 02/17/2019 11:59 PM PRODUCE RUNNER Hospital Encounter [facility] at [address] [address] Anna Scott MD [address] [place] [id number] Discharge Disposition: Home or Self Care Social History Tobacco Use Types Packs/Day Years Used Date Smoking Tobacco: Former Cigarettes 1 5 - 2004 Smokeless Tobacco: Never Alcohol Use Standard Drinks/Week Comments Not Currently 0 (1 standard drink = 0.6 oz pur e alcohol) Sex and Gender Information Value Date Recorded Sex Assigned at Not on file Gender Identity Not on file Sexual Orientation Not on file documented as of this encounter Medications at Time of Discharge Medication Sig Dispensed Refills Start Date End Date cyanocobalamin (VITAMIN B-12) injection INJECT 1 ML INTRAMUSCULARLY EVERY MONTH 3 11/22/2018 Prenat w/o E-GA-Dnuroht-FA-DHA (ZATEAN-PN DHA) 27-0.6-0.4-300 MG CAPS 01/01/2019 vitamin D, ergocalciferol, (DRISDOL) 1.25 MG (58345 UT) capsule TAKE 1 BY MOUTH WEEKLY 0 01/11/2019 documented as of this encounter Procedure Notes * Anna Scott MD - 02/17/2019 3:19 PM CSTAssociated Order(s): ECHO CONSULT - Images from the original note were not included. Echocardiogram and Consultation Date: 02/17/2019 : anderson Referring Physician: Dr. Judd Ramires Dear Dr. Ramires I had the pleasure of seeing your patient, Ashley Stokes, for echocardiographic evaluation and consultation on 02/17/2019. Indications for echocardiogram include a history of extracardiac malformation, specifically cleft orofacial malformation. The following clinical informationwas available at the time of the evaluation: Maternal Age: [age] year old Gestational Age: 34w0d Estimated Date of Delivery: 03/31/19 History : Complications of the : none Maternal Medical History: Depression, history of antepartum diabetes: No Medications: vitamins, Vitamin B12 injections qmonth Social History: former smoker , lives with Jose Stokes who works in IT; Family History of Congenital Heart Disease: No Previous Ultrasound: abnormal Concern for cleft lip/palate Abnormal HeartTones: none detected A complete 2-D, pulse wave and color Doppler echocardiogram was performed. The quality of thestudy was technically adequate. 2-D Findings: Visceroatrial situs solitus with levocardia. The systemic venous return was normal. There was atrioventricular and ventriculoarterial concordance. The right atrium and left atrium appeared normal size. There was a patent foramen ovale which bowed from right to left. The mitral valve and tricuspid valves were morphologically normal. The right and left ventricles were normal size for gestational age with normal wall thickness and normal systolic function. The ventricular septum appeared intact. The great vessels were normally related. The branch pulmonary arteries were confluent. A ductal arch was identified. The aortic arch appeared normal. No pericardial or pleural effusion. Doppler Examination: There was normal mitral and tricuspid inflow patterns with a dominant A wave and smaller E wave. No mitral or tricuspid insufficiency. There was normal laminar flow across the aortic and pulmonary valves. There was normal [id number]-yunl shunting across the ductus arteriosus in systole with a small amount in diastole. There was normal flow pattern in the transverse aortic arch.No arrhythmia was detected. IMPRESSION: Normal echocardiogram. RECOMMENDATIONS: I reviewed the findings of today's echocardiogram with the mother and fatherof the baby. I reassured her that there are no identified cardiac malformations on today's study, but that minor defects, such as small muscular VSDs or minor valve defects, could still be present postnatally. I did state that in general, echocardiography has an excellent sensitivity and specificity. However, certain heart lesions cannot be diagnosed in the fetus as they are a normal part of the circulation, e.g. secundum atrial septal defects and patent ductus arteriosus. Other congenital heart lesions that have proven difficult to diagnose in a fetus include coarctation of the aorta, total or partial anomalous pulmonary venous return, small ventricular septal defects, and coronary anomalies. Nor can we predict late gestation myocarditis or arrhythmias later in life such as Grhep-Jctescmtd-Mgbjy syndrome. Based on the findings today, no further cardiology follow-up is needed unless new concerns or symptoms arise. Thank you again for allowing us to participate in the care of this patient. If you have any furtherquestions, please do not hesitate to contact me at . Total time spent with the patient was 40 minutes with >50% time spent counseling regarding findings and limitations, and coordinating care. Sincerely, Anna Scott MD UCE RUNNER documented in this encounter Plan of Treatment Not on file documented as of this encounter Procedures Procedure Name Priority Date/Time Associated Diagnosis Comments ECHO CONSULT - Routine 02/17/2019 1:03 PM PRODUCE RUNNER abnormality affecting management of mother, single or unspecified fetus (HCC) documented in this encounter Results * ECHO CONSULT - (02/17/2019 1:03 PM PRODUCE RUNNER) 02/17/2019 1:03 PM PRODUCE RUNNER Narrative [facility] - 02/17/2019 4:30 PM PRODUCE RUNNER Anna Scott MD ? 02/17/2019 ??5:14 PM Echocardiogram and Consultation Date: 02/17/2019 : anderson Referring Physician: Dr. Judd Ramires Dear Dr. Ramires I had the pleasure of seeing your patient, Ashley Stokes, for echocardiographic evaluation and consultation on 02/17/2019. Indications for echocardiogram include a history of extracardiac malformation, specifically cleft orofacial malformation. The following clinical information was available at the time of the evaluation: Maternal Age: ??38 year old Gestational Age: 34w0d Estimated Date of Delivery: 03/31/19 History : ?? Complications of the : none Maternal Medical History: ??Depression, history of antepartum diabetes: No ?? Medications: vitamins, Vitamin B12 injections qmonth ?? Social History: former smoker , lives with Jose Stokes who works in IT; Family History of Congenital Heart Disease: No Previous Ultrasound: abnormal ??Concern for cleft lip/palate Abnormal HeartTones: none detected A complete 2-D, pulse wave and color Doppler echocardiogram was performed. The quality of the study was technically adequate. 2-D Findings: ??Visceroatrial situs solitus with levocardia. ??The systemic venous return was normal. There was atrioventricular and ventriculoarterial concordance. The right atrium and left atrium appeared normal size. There was a patent foramen ovale which bowed from right to left. The mitral valve and tricuspid valves were morphologically normal. The right and left ventricles were normal size for gestational age with normal wall thickness and normal systolic function. The ventricular septum appeared intact. The great vessels were normally related. ??The branch pulmonary arteries were confluent. A ductal arch was identified. The aortic arch appeared normal. ??No pericardial or pleural effusion. ?? Doppler Examination: There was normal mitral and tricuspid inflow patterns with a dominant A wave and smaller E wave. No mitral or tricuspid insufficiency. There was normal laminar flow across the aortic and pulmonary valves. There was normal xalnh-fo-knkm shunting across the ductus arteriosus in systole with a small amount in diastole. There was normal flow pattern in the transverse aortic arch. No arrhythmia was detected. IMPRESSION: Normal echocardiogram. RECOMMENDATIONS: I reviewed the findings of today's echocardiogram with the mother and father of the baby. I reassured her that there are no identified cardiac malformations on today's study, but that minor defects, such as small muscular VSDs or minor valve defects, could still be present postnatally. ?? I did state that in general, echocardiography has an excellent sensitivity and specificity. However, certain heart lesions cannot be diagnosed in the fetus as they are a normal part of the circulation, e.g. secundum atrial septal defects and patent ductus arteriosus. Other congenital heart lesions that have proven difficult to diagnose in a fetus include coarctation of the aorta, total or partial anomalous pulmonary venous return, small ventricular septal defects, and coronary anomalies. Nor can we predict late gestation myocarditis or arrhythmias later in life such as Mmlfe-Vntpystse-Wohss syndrome. Based on the findings today, no further cardiology follow-up is needed unless new concerns or symptoms arise. Thank you again for allowing us to participate in the care of this patient. ??If you have any further questions, please do not hesitate to contact me at . Total time spent with the patient was 40 minutes with >50% time spent counseling regarding findings and limitations, and coordinating care. Sincerely, Anna Scott MD Judd Ramires MD ECHO ORDERABLE S [facility] [address] [place] [address] documented in this encounter Visit Diagnoses Diagnosis abnormality affecting management of mother, single or unspecified fetus (HCC)- Primary documented in this encounter
--- OUTSIDE RECORDS SUMMARY | 2024-04-12 11:44 | XMS_ITS | Encounter Summary ---
Author Organization [facility] Address [address] [place] [address]. 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 No / Unsure 06/28/2020 3:01 PM CDT documented as of this encounter Plan of Treatment Not on file documented as of this encounter Visit Diagnoses Not on filedocumented in this encounter Care Teams Director Of Government Sales Relationship Specialty Start Date End Date George Menjivar MD [address] [place] [id number] PCP - General FAMILY PRACTICE 03/01/20 documented as of this encounter
--- OUTSIDE RECORDS SUMMARY | 2024-04-12 11:44 | XMS_ITS | Encounter Summary ---
Author Organization [facility] Address [address] [place] [address]. 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 No / Unsure 06/21/2020 4:19 PM CDT documented as of this encounter Plan of Treatment Not on file documented as of this encounter Visit Diagnoses Not on filedocumented in this encounter Care Teams Toll Collector Relationship Specialty Start Date End Date George Menjivar MD [address] [place] [address] PCP - General FAMILY PRACTICE 03/01/20 documented as of this encounter
--- OUTSIDE RECORDS SUMMARY | 2024-04-12 11:44 | XMS_ITS | Encounter Summary ---
Author Organization [facility] Address [address] [place] [address]. [place] [address] [place] [address] Care Team Providers Care Machine Setter Supervisor Name Role Phone George Menjivar MD Primary Care Provider [phone] Encounter Details Date Type Department Care Team (Late st Contact Info) Description 07/03/2020 12:42 PM CDT - 07/03/2020 11:59 PM CDT Hospital Encounter [facility] [address] [place], [place] [id number] George Menjivar MD [address] [place] [phone] Discharge Disposition: Home or Self Care (Routine Discharge) Social History Tobacco Use Types Packs/Day Years Used Date Smoking Tobacco: Never Assessed Comments Unknown Sex and Gender Information Value Date Recorded Sex Assigned at Not on file 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 Gender Identity Not on file Sexual Orientation [...] Procedure Name Priority Date/Time Associated Diagnosis Comments GI PANEL PCR - STOOL Routine 07/03/2020 1:53 PM CDT Diarrhea HC EIA QL CLOS DIFF TOXIN AG Routine 07/03/2020 10:30 AM CDT Diarrhea documented in this encounter Results * GI PANEL PCR - STOOL (07/03/2020 1:53 PM CDT) [facility] CAMPYLOBACTER PCR (STOOL) NOT DETECTED NOT DETECTED 07/05/2020 4:03 PM CDT [facility] PLESIOMONAS SHIGELLOIDES PCR (STOOL) NOT DETECTED NOT DETECTED 07/05/2020 4:03 PM CDT [facility] SALMONELLA PCR (STOOL) NOT DETECTED NOT DETECTED 07/05/2020 4:03 PM CDT [facility] VIBRIO PCR (STOOL) NOT DETECTED NOT DETECTED 07/05/2020 4:03 PM CDT [facility] VIBRIO CHOLERAE PCR (STOOL) NOT DETECTED NOT DETECTED 07/05/2020 4:03 PM CDT [facility] YERSINIA ENTEROCOLITICA PCR (STOOL) NOT DETECTED NOT DETECTED 07/05/2020 4:03 PM CDT [facility] ENTEROAGGREGATIVE ECOLI PCR (STOOL) NOT DETECTED NOT DETECTED 07/05/2020 4:03 PM CDT [facility] ENTEROPATHOGENIC ECOLI PCR (STOOL) NOT DETECTED NOT DETECTED 07/05/2020 4:03 PM CDT [facility] ENTEROTOXIGENIC ECOLI PCR (STOOL) NOT DETECTED NOT DETECTED 07/05/2020 4:03 PM CDT [facility] SHIGA LIKE TOXIN ECOLI PCR (STOOL) NOT DETECTED NOT DETECTED 07/05/2020 4:03 PM CDT [facility] SHIG/ENTEROINVASIVE ECOLI PCR (STOOL) NOT DETECTED NOT DETECTED 07/05/2020 4:03 PM CDT [facility] CRYPTOSPORIDIUM PCR (STOOL) NOT DETECTED NOT DETECTED 07/05/2020 4:03 PM CDT [facility] CYCLOSPORA CAYETANENSIS PCR (STOOL) NOT DETECTED NOT DETECTED 07/05/2020 4:03 PM CDT [facility] ENTAMOEBA HISTOLYTICA PCR (STOOL) NOT DETECTED NOT DETECTED 07/05/2020 4:03 PM CDT [facility] GIARDIA LAMBLIA PCR (STOOL) NOT DETECTED NOT DETECTED 07/05/2020 4:03 PM CDT [facility] ADENOVIRUS F40/41 PCR (STOOL) NOT DETECTED NOT DETECTED 07/05/2020 4:03 PM CDT [facility] ASTROVIRUS PCR (STOOL) NOT DETECTED NOT DETECTED 07/05/2020 4:03 PM CDT [facility] NOROVIRUS GI/GII PCR (STOOL) NOT DETECTED NOT DETECTED 07/05/2020 4:03 PM CDT [facility] ROTAVIRUS A PCR (STOOL) NOT DETECTED NOT DETECTED 07/05/2020 4:03 PM CDT [facility] SAPOVIRUS PCR (STOOL) NOT DETECTED NOT DETECTED 07/05/2020 4:03 PM CDT [facility] STOOL SPECIMEN / Unknown 07/03/2020 1:53 PM CDT George Menjivar MD MICROBIOLOGY - GENERAL RAJAN LANDON Final Result [facility] [address] [phone] * CLOSTRIDIUM DIFFICILE (07/03/2020 10:30 AM CDT) [facility] ANTIGEN NEGATIVE NEGATIVE 07/03/2020 1:59 PM CDT [facility] C DIFFICILE TOXIN A&B (STOOL) NEGATIVE NEGATIVE 07/03/2020 1:59 PM CDT [facility] COMMENT [facility] NEGATIVE/TOXI N A & B NEGATIVE: NEGATIVE FOR TOXIGENIC C. DIFFICILE. [facility] NEGATIVE/TOXI N A & B NEGATIVE: NEGATIVE FOR TOXIGENIC C. 07/03/2020 1:59 PM CDT [facility] STOOL SPECIMEN / Unknown 07/03/2020 10:30 AM CDT us George Menjivar MD BODY FLUIDS AND STOOLS ORDE DIPESH Final Result [facility] [address] [place] [address], documented in this encounter Visit Diagnoses Diagnosis Diarrhea documented in this encounter Care Teams Machine Setter Supervisor Relationship Specialty Start Date End Date George Menjivar MD [address] [place] [phone] PCP - General FAMILY PRACTICE 03/01/20 documented as of this encounter
--- OUTSIDE RECORDS SUMMARY | 2024-04-12 11:44 | XMS_ITS | Encounter Summary ---
Author Organization [facility] Address [address] [facility] [place] [address] Care Team Providers Care Window And Siding Craftsman Name Role Phone Unavailable Primary Care Provider Unavailabl e Encounter Details Date Type Department Care Team (Latest Contact Info) Description 02/11/2019 10:30 AM SAS PROGRAMMER - 02/11/2019 11:59 PM SAS PROGRAMMER Hospital Encounter [facility] [address] [place] [id number] Bob Fu MD Discharge Disposition: Home or Self Care Social History Tobacco Use Types Packs/Day Years Used Date Smoking Tobacco: Former Cigarettes 2004 Smokeless Tobacco: Never Alcohol Use Standard Drinks/Week Comments Not Currently 0 (1 standard drink = 0.6 oz pur e alcohol) Comments Yes Sex and Gender Information Value Date Recorded Sex Assigned at Not on file Gender Identity Not on file Sexual Orientation Not on file documented as of this encounter Last Filed Vital Signs Vital Sign Reading Time Taken Comments Blood Pressure 139/86 02/11/2019 12:34 PM SAS PROGRAMMER Pulse 62 02/11/2019 12:34 PM SAS PROGRAMMER Temperature - - Respiratory Rate - - Oxygen Saturation - - Inhaled Oxygen Concentration - - Weight - - Height - - Body Mass Index - - documented in this encounter Medications at Time of Discharge Medication Sig Dispensed Refills Start Date End Date cyanocobalamin (VITAMIN B-12) injection INJECT 1 ML INTRAMUSCULARLY EVERY MONTH 3 11/22/2018 Prenat w/o F-PZ-Agxsrjv-FA-DHA (ZATEAN-PN DHA) 27-0.6-0.4-300 MG CAPS 01/01/2019 vitamin D, ergocalciferol, (DRISDOL) 1.25 MG (75949 UT) capsule TAKE 1 BY MOUTH WEEKLY 0 01/11/2019 documented as of this encounter Progress Notes * Jaimie Roldan RN - 02/11/2019 12:34 PM CST Patient here for ultrasound today for possible cleft lip and palate. Pt and her consulted by Dr. Fu via telehealth. Pt and verbalized understanding. All questions/concerns addressed. Pt aware RETIREMENT will call her to set up appt in future for consult and she can see genetics there aswell. RETIREMENT handouts given. Pt aware she can call our office if she has any further questions or concerns. Jaimie Roldan RN 02/11/2019 12:36 PM PROGRAMMER documented in this encounter Consult Notes * Bob Fu MD - 02/11/2019 4:24 PM CST MATERNAL MEDICINE CONSULTATION A Maternal Medicine Consultation today was performed and lasted 60 minutes. The majority of this time was spent in coordination of care AND [id number] time with Ms Jonathan Way and her using audio visual via Telemedicine Telehealth technology. Mona BETANCOURT was also present and assisted with coordination of care and obtaining vital signs. I was asked to consult because of the high risk nature of the suspected cleft lip and palate on ultrasound today. She is a 28 year old currently at 32w5d of . This is dated by her LMP and confirmed by a prior US at 8 weeks. Her primary OB is Dr. Rivero and he suspected a cleft lip on her 20 week ultrasound in his office. Her Obstetrical History is notable for the following a prior term with a live child. In this current patient states that she had no problems and is tolerating the well. Dr. Joseph noted a cleft lip on her fetus at the 20 week ultrasound. Her Past Medical history is remarkable for the diagnosis of pernicious anemia. She also has a history of depression and PTSD.. Past surgical history: Cholecystectomy, dental surgery, hemorrhoidectomy, cervical spine fusion. Review of Systems: She notes good FM. She denies dysuria, hematuria, frequency, vaginal bleeding,leaking or abnormal discharge at the present time. Social history: She denies tobacco, alcohol or marijuana / drug use. 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 Family history: patient was born with extra teeth . Otherwise negative for defects or genetic diseases in her or the FOB. On physical exam today Jonathan is very pleasant and is accompanied by her . She seems anxious today. She communicates well. Her BMI is 28.3 and her weight is 170 lb. Her BP is 139/86 and her pulse is 62 and regular. Her affect is normal and appropriate. She appears to be in no acute distress. She is alert and oriented x 3. I examined her hands and ankles and there is no significant edema.She interacts very well with me and my staff. My limited psychiatric exam notes a normal exam. She does not appear depressed. On ultrasound today there is a large apparent unilateral left cleft lip on the fetus. It should be noted that the imaging is very limited and visualization is poor related to position, gestational age and the maternal acoustics. The defect appears unilateral and on the left side. It is difficult for me to determine if the palate was involved The heart rate is normal. The amniotic fluid volume is normal. No major malformations were seen within the limitations of ultrasound. The fetusis grown symmetrical at the 16th %ile. We discussed the cleft lip and palate I reviewed the ultrasound images and clip that I have with Jonathan and her . This gave them an appreciation both for the defect as well as our limited visualization today. I did emphasize that to the best of my visualization today, this appears zaira an isolated defect and that this would imply an excellent outcome. I did review the usual managem ent after and the outstanding repairs that are achieved. I also reviewed the genetic and other syndromes / organ malformations that can be associated with cleft lip / palate and also the limited visualization that I had today. By the end of our consultation today she was relaxed and seem to be at peace with everything. We reviewed the post-anuj management including breast feeding and the surgical repair. I have reviewed all the assessment and recommendations below. I answered ALL of Jonathan and her 's questions before they left our office at [place] today. IMPRESSION: Single, live IUP at 32w5d Unilateral left cleft lip (possible palate) Symmetrical growth at the 16th %ile Incomplete anatomy scan today Normal amniotic fluid volume AMA Low risk NIPT RECOMMEND: Consultation at [facility] with MFM Consultation. Genetic counseling. Follow up anatomy and growth in 3 weeks. Thank you for allowing us the opportunity to care for your patient. Bbo Fu MD Maternal Medicine [facility] PROGRAMMER documented in this encounter Plan of Treatment Not on file documented as of this encounter Procedures Procedure Name Priority Date/Time Associated Diagnosis Comments SONOGRAM - COMPLETE Routine 02/11/2019 1 1:01 AM SAS PROGRAMMER Suspected anomaly, antepartum, fetus 1 (HCC) Encounter for supervision of high risk due to anomaly, second trimester (HCC) documented in this encounter Results * SONOGRAM - COMPLETE (02/11/2019 11:01 AM SAS PROGRAMMER) Anatomical Region Laterality Modality Other 02/11/2019 11:0 1 AM SAS PROGRAMMER Narrative 02/11/2019 4:36 PM SAS PROGRAMMER ? [facility] Maternal Medicine ? Maternal & Care Center ?PHONE: ??FAX: Pat. Name: ?JONATHAN WAY No: ?[id number] Study Date: ?? 02/11/2019 ??11:01am , Age: ? 1980, 38 Pregnancies: ?? 3, Para 1 Height: ? 65 in Weight: ? 170 lb LMP: ?06/27/2018 GA by LMP: ?32w5d GA by US: ? 31w5d ?? CARLO: 04/10/2019 GA Selected: ??32w5d (LMP) CARLO: ?04/03/2019 Referring MD: Bob Berger MD Adjunct Physical Education Instructor: ??Sol Hines RDMS CPT4: ? 20570 BMI: ?28.29 Hist/Ind: ? Cleft Lip and Palate ?AMA ?LR NIPT MEASUREMENTS & AGE ? GROWTH EVALUATION Measurement ??GA ? Range ? Srce %for GA Ratios ----- ---- ------- BPD ??7.7 cm 31w0d (69k5d-69f8w) Hadl BPD 5% FL/BPD 0.79 (0.71 - 0.87) HC ??29.7 cm 32w6d (49v3x-17d5u) Hadl HC ??19% FL/AC ??0.22 (0.20 - 0.24) AC ??27.5 cm 31w4d (27k2b-67c4t) Hadl AC ??19% HC/AC ??1.08 (0.95 - 1.14) FL ?? 6.1 cm 31w5d (71s2r-68f1f) Hadl FL ??15% CI ? 0.70 (0.70 - 0.86* HL ?? 5.2 cm 30w4d (71i9d-72n9f) Garfield HL ??14% Cere 4.0 cm 32w3d (24h3c-40d7i) Hill Cere45% GA for sonogram 31w5d (43u6r-97d2l) ?? Weight Estimate: based on (HL,BPD,HC,AC,FL,Cere) Avg ??Weight: 1823 gm (1557-2089gm) Had ? : 4lbs, 0oz ? Normal: 2100 gm (1575- 2624gm) Had ? Wt% ? 16% for 32w5d Heart Rate: 141 bpm Amniotic Fluid Index: 15.6cm (08.4-24.4) Q1: 5.4cm ??Q2: 4.9cm ??Q3: 3.2cm ??Q4: 2.1cm ?? EVAL, PLACENTA Presentation: cephalic Umbilical Cord: 3 Vessels Placenta: left lateral Heart Rate: 141 bpm Amniotic Fluid Volume: normal Anatomy!Normal!Abnormal!Suboptimal!Prev. Seen!Comments Cranium ?! ?? x ??! ?! ?! ?! Mdl (CSP/Thal! ?? x ??! ?! ?! ?! Ventricles ?? ! ?? x ??! ?! ?! ?! Choroid Plexu! ?? x ??! ?! ?! ?! Cerebellum ?? ! ?? x ??! ?! ?! ?! Cisterna M. ??! ?? x ??! ?! ?! ?! Profile ?! ?? x ??! ?! ?! ?! Nasal Bone ?? ! ?? x ??! ?! ?! ?! Lip ?! ?! ?x ?? ! ?! ?! Spine ?! ?! ?! ? x ?! ?! Lungs ?! ?? x ??! ?! ?! ?! 4 Chamber Hea! ?? x ??! ?! ?! ?! LVOT ? ! ?? x ??! ?! ?! ?! RVOT ? ! ?? x ??! ?! ?! ?! 3 Vessel View! ?? x ??! ?! ?! ?! Cross-over ?? ! ?! ?! ? x ?! ?! Ductal Arch ??! ?? x ??! ?! ?! ?! Aortic Arch ??! ?! ?! ? x ?! ?! Caval View ?? ! ?! ?! ? x ?! ?! Situs ?! ?! ?! ? x ?! ?! Diaphragm ?! ?! ?! ? x ?! ?! Stomach ?! ?? x ??! ?! ?! ?! Bowel ?! ?? x ??! ?! ?! ?! Kidneys ?! ?? x ??! ?! ?! ?! Bladder ?! ?? x ??! ?! ?! ?! 3 Vessel Cord! ?? x ??! ?! ?! ?! Cord In! ?? x ??! ?! ?! ?! Upper Extremi! ?? x ??! ?! ?! ?! Hands ?! ?? x ??! ?! ?! ?! Lower Extreme! ?? x ??! ?! ?! ?! Feet ? ! ?? x ??! ?! ?! ?! External Inessa! ?! ?! ? x ?! ?! Placental Cor! ?! ?! ? x ?! ?! CLINICAL SUMMARY Study Number: 1 ?? MATERNAL MEDICINE CONSULTATION A Maternal Medicine Consultation today was performed and lasted 60 minutes. The majority of this time was spent in coordination of care AND [id number]-wg-[id number] time with Ms Jonathan Way and her using audio visual via Telemedicine Telehealth technology. Mona BETANCOURT was also present and assisted with coordination of care and obtaining vital signs. I was asked to consult because of the high risk nature of the suspected cleft lip and palate on ultrasound today. She is a 28 year old currently at 32w5d of . This is dated by her LMP and confirmed by a prior US at 8 weeks. Her primary OB is Dr. Rivero and he suspected a cleft lip on her 20 week ultrasound in his office. Her Obstetrical History is notable for the following a prior term with a live child. In this current patient states that she had no problems and is tolerating the well. Dr. Joseph noted a cleft lip on her fetus at the 20 week ultrasound. ??Her Past Medical history is remarkable for the diagnosis of pernicious anemia. She also has a history of depression and PTSD.. ??Past surgical history: Cholecystectomy, dental surgery, hemorrhoidectomy, cervical spine fusion. Review of Systems: She notes good FM. She denies dysuria, hematuria, frequency, vaginal bleeding, leaking or abnormal discharge at the present time. Social history: She denies tobacco, alcohol or marijuana / drug use. 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 ??Family history: ??patient was born with extra teeth . Otherwise negative for defects or genetic diseases in her or the FOB. On physical exam today Jonathan is very pleasant and is accompanied by her . She seems anxious today. She communicates well. Her BMI is 28.3 and her weight is 170 lb. Her BP is 139/86 and her pulse is 62 and regular. ?? Her affect is normal and appropriate. She appears to be in no acute distress. She is alert and oriented x 3. ??I examined her hands and ankles and there is no significant edema. She interacts very well with me and my staff. My limited psychiatric exam notes a normal exam. She does not appear depressed. On ultrasound today there is a large apparent unilateral left cleft lip on the fetus. It should be noted that the imaging is very limited and visualization is poor related to position, gestational age and the maternal acoustics. The defect appears unilateral and on the left side. It is difficult for me to determine if the palate was involved The heart rate is normal. The amniotic fluid volume is normal. No major malformations were seen within the limitations of ultrasound. The fetus is grown symmetrical at the 16th %ile. We discussed the cleft lip and palate I reviewed the ultrasound images and clip that I have with Jonathan and her . This gave them an appreciation both for the defect as well as our limited visualization today. I did emphasize that to the best of my visualization today, this appears to be an isolated defect and that this would imply an excellent outcome. I did review the usual management after and the outstanding repairs that are achieved. I also reviewed the genetic and other syndromes / organ malformations that can be associated with cleft lip / palate and also the limited visualization that I had today. By the end of our consultation today she was relaxed and seem to be at peace with everything. We reviewed the post- management including breast feeding and the surgical repair. I have reviewed all the assessment and recommendations below. I answered ALL of Jonathan and her 's questions before they left our office at [place] today. IMPRESSION: Single, live IUP at 32w5d Unilateral left cleft lip (possible palate) Symmetrical growth at the 16th %ile Incomplete anatomy scan today Normal amniotic fluid volume AMA Low risk NIPT RECOMMEND: Consultation at [facility] with MFM Consultation. Genetic counseling. Follow up anatomy and growth in 3 weeks. Thank you for allowing us the opportunity to care for your patient. Bob Fu MD Maternal Medicine [facility] Bob Fu MD <Electronic Signature> ??02/11/2019 04:23pm Bob Berger MD [facility] ORDERABLES documented in this encounter Visit Diagnoses Diagnosis Suspected anomaly, antepartum, fetus 1 (HCC)- Primary Encounter for supervision of high risk due to anomaly, second trimester (HCC) Cleft lip and palate (HCC) Cleft lip and cleft palate, unspecified Multigravida of advanced maternal age in third trimester (HCC) Maternal care for other (suspected) abnormality and damage, not applicable or unspecified (HCC) 32 weeks gestation of (HCC) state, incidental documented in this encounter
--- OUTSIDE RECORDS SUMMARY | 2024-04-12 11:44 | XMS_ITS | Clinical Summary ---
Author Organization [facility] Address [address] [place] [address]. 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 Gender Identity Not on file Sexual Orientation Not on file Plan of Treatment Health Maintenance Due Date Last Done Comments Cervical Cancer Screening Pa p Smear (Age 30 to 64) Every 3 Years 1980 Annual Physical 1983 Hepatitis C 1998 DTaP, Tdap and Td Vaccines ( 1 - Tdap) 1999 Hepatitis B Vaccines (1 of 3 - 19+ 3-dose series) 1999 Cervical Cancer Screening Pa p with HPV Testing (Age 30 to 64) Every 5 Years 2010 Cervical Cancer Screening wi th HPV 2010 Mammogram Screening 2020 COVID-19 Vaccine (3 - 2023-2 5 season) 2023 05/28/2020, 05/05/2020 Influenza Adult (#1) 2024 01/14/2019 HPV Vaccines Aged Out No longer eligi ble based on patient's age to complete this topic Meningococcal Vaccine Aged Out No lucas tasha eligible based on patient's age to complete this topic Pneumococcal Vaccine: Pediatrics (0 to 5 Years) and At-Risk Patients (6 to 64 Years) Aged Out No longer eligible b ased on patient's age to complete this topic RSV Immunizations Under 20 Months Aged Out No longer eligible b ased on patient's age to complete this topic Insurance [facility] Care Teams Qa Automation Developer Relationship Specialty Start Date End Date George Menjivar MD [address] [place] [address] PCP - General FAMILY PRACTICE 03/01/20
--- OUTSIDE RECORDS SUMMARY | 2024-04-12 11:44 | XMS_ITS | Patient Health Summary ---
Author Organization [facility] Address [address] [address] Care Team Providers Care Electrician [employer] Name Role Phone George Menjivar MD Primary Care Provider Note from [facility],non-owned Affiliates and Associated Physician Practices is amultiple site organization consisting of ambulatory clinics and hospital sitesin [place], [place], [place] and [place]. This disclosure is being madepursuant to the Care Everywhere program and may not contain all information available regarding this patient. Last updated 17.[facility] Allergies * Erythromycin(Rash) -Medium Criticality Medications * Be aware that medications may not be up to date on this document. Alwaysverify current medications with the patient. * cyanocobalamin (VITAMIN B-12) injection(Started 11/22/2018) INJECT 1 ML INTRAMUSCULARLY EVERY MONTH 3 refills left * Prenat w/o W-FI-Anrazsq-FA-DHA (ZATEAN-PN DHA) 27-0.6-0.4-300 MG CAPS(Started 01/01/2019) * warfarin (COUMADIN) 6 MG tablet(Started 05/20/2019) * traMADol (ULTRAM) 50 MG tablet(Started 05/14/2019) TAKE 1 TABLET BY MOUTH TWICE A DAY NEEDED * B-D 3CC LUER-TOBIN SYR 23GX1 23G X 1 3 ML MISC(Started 05/07/2019) USE 1 MONTHLY * NIFEdipine CR 24hr (ADALAT CC) 30 MG tablet(Started 05/07/2019) Take 30 mg by mouth every morning * metoclopramide (REGLAN) 10 MG tablet(Started 05/15/2019) * ibuprofen (MOTRIN) 600 MG tablet(Started 03/07/2019) 600MG BY MOUTH EVERY 6 HOURS NEEDED * FLUoxetine (PROZAC) 20 MG capsule(Started 03/31/2019) Take 20 mg by mouth once daily * vitamin D, ergocalciferol, (DRISDOL) 1.25 MG (62577 UT) capsule(Started 01/11/2019) TAKE 1 BY MOUTH WEEKLY * qrlhmjqbje-ahlbiwoilgwie-fthsdrik (FIORICET) 50-325-40 MG tablet Take 1 tablet by mouth every 4 hours as needed for Headache * albuterol HFA (PROVENTIL;VENTOLIN;PROAIR) 108 (90 Base) MCG/ACT inhaler albuterol sulfate HFA 90 mcg/actuation aerosol inhaler INHALE 1 2 INHALATION EVERY 4 6 HOURS NEEDED FOR SHORTNESS OF BREATH OR WHEEZING * atorvastatin (LIPITOR) 20 MG tablet atorvastatin 20 mg tablet TAKE 1 TABLET BY MOUTH EVERY DAY * benzonatate (TESSALON) 100 MG capsule benzonatate 100 mg capsule * SYMBICORT 160-4.5 MCG/ACT inhaler(Started 09/30/2020) * busPIRone (BUSPAR) 7.5 MG tablet(Started 09/25/2020) Take 3.75 mg by mouth 2 times daily * cefUROXime (CEFTIN) 500 MG tablet cefuroxime axetil 500 mg tablet * enoxaparin (LOVENOX) 80 MG/0.8ML injection enoxaparin 80 mg/0.8 mL subcutaneous syringe * epinastine (ELESTAT) 0.05 % ophthalmic solution epinastine 0.05 % eye drops * gentamicin (GARAMYCIN) 0.3 % ophthalmic solution gentamicin 0.3 % eye drops * lidocaine 2% jelly (XYLOCAINE) 2 % jelly lidocaine HCl 2 % mucosal jelly * LORazepam (ATIVAN) 1 MG tablet lorazepam 1 mg tablet TAKE 1 TABLET BY MOUTH EVERY 12 HOURS * terconazole (TERAZOL 3) 0.8 % vaginal cream terconazole 0.8 % vaginal cream USE DIRECTED VAGINALLY AT BEDTIME * tobramycin-dexAMETHasone (TOBRADEX) 0.3-0.1 % ophthalmic suspension tobramycin 0.3 %-dexamethasone 0.1 % eye drops,suspension * topiramate ER 24hr (TROKENDI XR) 200 MG capsule Trokendi XR 200 mg capsule, extended release * VIIBRYD 40 MG tablet(Started 10/05/2020) Active Problems Problem Noted Date Diagnosed Date Acute pulmonary embolism without acute cor pulmo nale 06/02/2019 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 al cleft lip, not applicable or unspecified fetus 02/17/2019 Advanced maternal age in multigravida, third tri mester 02/17/2019 Encounter for supervision of high risk due to anomaly, second trimester 02/10/2019 Resolved Problems Problem Noted Date Diagnosed Date Resolved Date Depression screen 02/17/2019 04/01/2019 abnormality in pregnan cy - Cleft Lip & Palate 02/11/2019 04/01/2019 Immunizations * Covid Pfizer primary monovalent 12+ yr 0.3mL Purple cap(Given 05/28/2020, 05/05/2020) * INFLUENZA VACCINE(Given 01/14/2019) Social History Tobacco Use Types Packs/Day Years Used Date Smoking Tobacco: Former Cigarettes 2004 Smokeless Tobacco: Never Alcohol Use Standard Drinks/Week Comments Not Currently 0 (1 standard drink = 0.6 oz pur e alcohol) Sex and Gender Information Value Date Recorded Sex Assigned at Not on file Gender Identity Not on file Sexual Orientation Not on file Last Filed Vital Signs Vital Sign Reading Time Taken Comments Blood Pressure 109/76 10/07/2020 11:44 AM CDT Pulse 69 10/07/2020 11:44 AM CDT Temperature 36.5 ??C (97.7 ??F) 10/07/2020 11:44 AM C DT Respiratory Rate 20 10/07/2020 11:44 AM CDT Oxygen Saturation 99% 10/07/2020 11:44 AM CDT Inhaled Oxygen Concentration - - Weight 72.6 kg (160 lb) 10/07/2020 11:44 AM CDT Height 165.1 cm (5' 5 ) 10/07/2020 11:44 AM CDT Body Mass Index 26.63 10/07/2020 11:44 AM CDT Procedures * MRI BRAIN WWO CONTRAST(Performed 10/06/2021) Performed for Asymptomatic telangiectasia * CREATININE - POCT INTERFACED(Performed 10/06/2021) * MRI BRAIN WWO CONTRAST(Performed 10/07/2020) Performed for Telangiectasia * CREATININE - POCT INTERFACED(Performed 10/07/2020) * ECHO CONSULT - (Performed 02/17/2019) Performed for abnormality affecting management of mother, single or unspecified fetus (HCC) * SONOGRAM - COMPLETE(Performed 02/17/2019) Performed for abnormality affecting management of mother, single or unspecified fetus (HCC) * SONOGRAM - COMPLETE(Performed 02/11/2019) Performed for Suspected anomaly, antepartum, fetus 1 (HCC), Encounter for supervision of highrisk due to anomaly, second trimester (HCC) Results * MRI BRAIN WWO CONTRAST (10/06/2021 12:49 PM CDT) Only the most recent of2 resultswithin the time period is included. Anatomical Region Laterality Modality Head Magnetic Resonan ce 10/06/2021 2:28 PM CDT Impressions 10/08/2021 9:40 AM CDT IMPRESSION: 1.Redemonstration of a small enhancing lesion in the left basal ganglia grossly unchanged from prior, allowing for slight differences in the imaging techniques. 2.No new acute intracranial findings are identified. Dictated by Aldo Quintero, (radiology technologist) This report was approved ??by Aldo Quintero ?? on 10/08/2021 9:40 AM . I, Dr. MEI JOEL have personally reviewed and interpreted this examination/study. This report was electronically signed by MEI JOEL ??on 10/08/2021 9:40 AM . Narrative 10/08/2021 9:40 AM CDT MRI BRAIN WWO CONTRAST DATE: 10/06/2021 12:49 PM EXAMINATION: Magnetic resonance imaging (MRI) of the brain without and with contrast HISTORY: I78.1: Asymptomatic telangiectasia TECHNIQUE: MRI of the brain was performed prior to and following the uneventful administration of 7 mL intravenous gadolinium contrast according to standard protocol. COMPARISON: MRI brain dated 10/07/2020 FINDINGS: Redemonstrated faintly enhancing lesion measuring approximately 6 x 5 mm in transaxial dimensions in the left basal ganglia adjacent to a small draining vein (series 11, images 91-95), similar or slightly decreased compared to prior, allowing for slight differences in the imaging techniques. 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 The associated susceptibility artifact within this lesion is less conspicuous on this exam. No associated mass effect. No other abnormal enhancement identified. No evidence of acute or chronic hemorrhage is identified. No evidence of acute cerebral infarction is seen. The ventricles are of normal size, shape, and morphology. No mass effect or midline shift is seen. The corpus callosum and sella appear normal. The posterior fossa, brainstem, and craniocervical junction appear normal. The visualized portions of the orbits, paranasal sinuses, and mastoids appear normal. Normal flow voids are demonstrated in the carotid arteries and basilar artery. The calvarium and visualized cervical spine appear normal. Procedure Note Mei Joel MD - 10/08/2021 MRI BRAIN WWO CONTRAST DATE: 10/06/2021 12:49 PM EXAMINATION: Magnetic resonance imaging (MRI) of the brain without and with contrast HISTORY: I78.1: Asymptomatic telangiectasia TECHNIQUE: MRI of the brain was performed prior to and following the uneventful administration of 7 mL intravenous gadolinium contrast according to standard protocol. COMPARISON: MRI brain dated 10/07/2020 FINDINGS: Redemonstrated faintly enhancing lesion measuring approximately 6 x 5 mm in transaxial dimensions in the left basal ganglia adjacent to a small draining vein (series 11, images 91-95), similar or slightly decreased compared to prior, allowing for slight differences in the imaging techniques. 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 The associated susceptibility artifact within this lesion is lessconspicuous on this exam. No associated mass effect. No other abnormal enhancement identified. No evidence of acute or chronic hemorrhage is identified. No evidence of acute cerebral infarction is seen. The ventricles are of normal size, shape, and morphology. No mass effect or midline shift is seen. Thecorpus callosum and sella appear normal. The posterior fossa, brainstem, and craniocervical junction appear normal. The visualized portions of the orbits, paranasal sinuses, and mastoids appear normal. Normal flow voids are demonstrated in the carotidarteries and basilar artery. The calvarium and visualized cervical spine appear normal. IMPRESSION: 1.Redemonstration of a small enhancing lesion in the left basal ganglia grossly unchanged from prior, allowing for slight differences in the imaging techniques. 2.No new acute intracranial findings are identified. Dictated by Aldo Quintero DO (radiology technologist) This report was approved by Aldo Quintero on 10/08/2021 9:40 AM . I, Dr. MEI JOEL have personally reviewed and interpreted this examination/study. This report was electronically signed by MEI JOEL on10/08/2021 9:40 AM . Harvey Grimaldo MD MR ORDERABLES * CREATININE - POCT INTERFACED (10/06/2021 12:08 PM CDT) Only the most recent of2 resultswithin the time period is included. Creatinine POCT 0.74 0.30 - 1.30 mg/dL 10/06/2021 12:11 PM CDT [facility] eGFR >90 >90 mL/min/1.7 3 m2 10/06/2021 12:11 PM CDT [facility] Blood BLOOD SPECIMEN / Unknown 10/06/2021 12:08 PM CDT 10/06/2021 12:11 PM CDT Harvey Grimaldo MD LAB - POINT OF CARE ORDERABLES [facility] [address] [place] [id number], [facility] [phone] * ECHO CONSULT - (02/17/2019 1:03 PM SPICE CLEANER) 02/17/2019 1:03 PM SPICE CLEANER Narrative [facility] - 02/17/2019 4:30 PM SPICE CLEANER Anna Scott MD ? 02/17/2019 ??5:14 PM Echocardiogram and Consultation Date: 02/17/2019 : anderson Referring Physician: Dr. Judd Ramires Dear Dr. Ramires I had the pleasure of seeing your patient, Jonathan Way, for echocardiographic evaluation and consultation on 02/17/2019. [...] History: former smoker , lives with Jose Way who works in IT; Family History of [...] aortic and pulmonary valves. There was normal vmtou-ok-htwq shunting across the ductus arteriosus in systole [...] or arrhythmias later in life such as Scbxn-Oansqbmxh-Zbfuk syndrome. Based on the findings today, no [...] MD Judd Ramires MD ECHO ORDERABLE S Performing Organization Address City/State/[facility] Co de Phone Number [facility] [address] [place] [address] * SONOGRAM - COMPLETE (02/17/2019 10:14 AM SPICE CLEANER) Only the most recent of2 resultswithin the time period is included. Anatomical Region Laterality Modality Other 02/17/2019 10:1 4 AM SPICE CLEANER Narrative 02/17/2019 4:30 PM SPICE CLEANER ?[facility] ? [facility] ?FAX: [phone] Name: ?JONATHAN WAY No: ?[id number] Study Date: ?? 02/17/2019 ??10:14am , Age: ? 1980, 38 Pregnancies: ?? 3, Para 1 Height: ? 65 in Weight: ? 234 lb LMP: ?06/27/2018 GA by LMP: ?33w4d GA by Base: ?? 33w4d ?? CARLO: 04/03/2019 GA Selected: ??33w4d (From [facility]) CARLO: ?04/03/2019 Referring MD: Bob Berger MD Warp Tester: ??Sol Hines RDMS CPT4: ? 68850 BMI: ?38.94 Hist/Ind: ? Cleft Lip and Possible Palate ?AMA ?LR NIPT MEASUREMENTS & AGE ? GROWTH EVALUATION Measurement ??GA ? Range ? Srce %for GA Ratios ----- ---- ------- Cere 4.2 cm 33w4d (62k4z-83w0h) Leon Cere51% Heart Rate: 143 bpm Amniotic Fluid Index: 23.2cm (08.2-24.7) Q1: 6.4cm ??Q2: 5.8cm ??Q3: 5.3cm ??Q4: 5.7cm ?? EVAL, PLACENTA Presentation: cephalic Umbilical Cord: 3 Vessels Placenta: anterior Heart Rate: 143 bpm Amniotic Fluid Volume: normal Anatomy!Normal!Abnormal!Suboptimal!Prev. Seen!Comments Cranium ?! ?? x ??! ?! ?! ? x ?! Mdl (CSP/Thal! ?? x ??! ?! ?! ? x ?! Ventricles ?? ! ?? x ??! ?! ?! ? x ?! Choroid Plexu! ?? x ??! ?! ?! ? x ?! Cerebellum ?? ! ?? x ??! ?! ?! ? x ?! Cisterna M. ??! ?? x ??! ?! ?! ? x ?! Profile ?! ?? x ??! ?! ?! ? x ?! Nasal Bone ?? ! ?! ?! ?! ? x ?! Lip ?! ?! ?x ?? ! ?! ?! Spine ?! ?? x ??! ?! ?! ?! Lungs ?! ?? x ??! ?! ?! ? x ?! 4 Chamber Hea! ?? x ??! ?! ?! ? x ?! LVOT ? ! ?! ?! ?! ? x ?! RVOT ? ! ?? x ??! ?! ?! ? x ?! 3 Vessel View! ?? x ??! ?! ?! ? x ?! Cross-over ?? ! ?! ?! ? x ?! ?! Ductal Arch ??! ?! ?! ?! ? x ?! Aortic Arch ??! ?? x ??! ?! ?! ?! Caval View ?? ! ?! ?! ? x ?! ?! Situs ?! ?? x ??! ?! ?! ?! Diaphragm ?! ?? x ??! ?! ?! ?! Stomach ?! ?? x ??! ?! ?! ? x ?! Bowel ?! ?? x ??! ?! ?! ? x ?! Kidneys ?! ?? x ??! ?! ?! ? x ?! Bladder ?! ?? x ??! ?! ?! ? x ?! 3 Vessel Cord! ?? x ??! ?! ?! ? x ?! Cord In! ?! ?! ?! ? x ?! Upper Extremi! ?! ?! ?! ? x ?! Hands ?! ?! ?! ?! ? x ?! Lower Extreme! ?? x ??! ?! ?! ? x ?! Feet ? ! ?? x ??! ?! ?! ? x ?! External Inessa! ?? x ??! ?! ?! ?! Placental Cor! ?! ?! ?! ? x ?! CLINICAL SUMMARY Study Number: 2 ?? A single fetus is seen in cephalic presentation. ??The amniotic fluid volume is within normal limits. ??Left side unilateral cleft lip is identified. The palate was attempted to be visualized, however this was suboptimal due to position. No obvious cleft palate was seen. IMPRESSION: Single, live intrauterine at 33w4d Left-sided cleft lip Amniotic fluid volume: within normal limits ?? Counseling The occurrence of cleft lip and palate stems from abnormal migration of the five tissue plates forming the face. ??Cleft lip/palate is more commonly unilateral than bilateral. ??In the [place], the incidence is between 7 to 10 per 10,000 births. ?? Males are seen more often, 2 to 1. ??Furthermore, a complex of genetic predispositions have been described/proposed. ??It is theorized that genetic penetrance is higher in females; thus a woman born with cleft lip/palate has a higher chance of having an affected child than a man born with cleft lip/palate. A couple with one affected child has a higher risk of a recurrence in a subsequent . ?? Cleft lip/palate has been associated with many genetic syndromes; however the condition is generally considered to be idiopathic when found in isolation. Associated sonographic abnormalities can include craniofacial, CORPORATE TAX PREPARER, and cardiac. ??All affected neonates should undergo careful assessment for additional abnormalities. Genetic amniocentesis is an option for any fetus with cleft lip/palate. ??Bilaterality is more often associated with chromosomal anomalies or genetic syndromes. ?? Hearing loss is commonly noted in children with cleft lip and palate due to associated ??Eustachian tube malformation. ??Ectodermal dysplasia, or abnormal development of the skin, hair, teeth, etc, has also been described. ??There is an associated between certain adult cancers as well. ??Difficulties with feeding and speech development are addressed in a multidisciplinary fashion as is approach to surgical repair. ?? Route of delivery is not affected by cleft lip and/or palate. ?? Place and route of delivery are not affected by presence of a cleft lip/palate; however, the severity will dictate the rapidity of referral, especially if feeding is compromised. ??A tertiary care center will allow for both pre and consultations for coordination of care. Recommendations: No further ultrasound evaluation is indicated. Anatomic survey was completed with echo today. Ms. Way met with the genetic counselor and cleft team today and no additional HALFWAY follow up is needed. Continue routine OB care with primary OB Delivery Location: Planned at [facility]. Delivery Timing: no delivery before 39 weeks is indicated. Timing of delivery to be determined by primary OB. Mode of Delivery: no contraindications to vaginal delivery. Genetics: NIPT was low risk. Tigist Luis MD <Electronic Signature> ??02/17/2019 04:30pm Judd Ramires MD [facility] ORDERABLES Care Teams Electrician Refinery Relationship Specialty Start Date End Date George Menjivar MD [address] [place] [id number] PCP - General 05/22/19
--- OUTSIDE RECORDS SUMMARY | 2024-04-12 11:44 | XMS_ITS | Encounter Summary ---
Author Organization [facility] Health Address [address] [place] [address] Care Team Providers Care Gauger Chief Delivery Name Role Phone George Menjivar MD Primary Care Provider Encounter Details Date Type Department Care Team (Latest Contact Info) Description 10/06/2021 Travel Social History Tobacco Use Types Packs/Day Years Used Date Smoking Tobacco: Former Cigarettes 2004 Smokeless Tobacco: Never Alcohol Use Standard Drinks/Week Comments Not Currently 0 (1 standard drink = 0.6 oz pur e alcohol) Sex and Gender Information Value Date Recorded Sex Assigned at Not on file Gender Identity Not on file Sexual Orientation Not on file documented as of this encounter Plan of Treatment Not on file documented as of this encounter Visit Diagnoses Not on filedocumented in this encounter Care Teams Gauger Chief Delivery Relationship Specialty [place] [address] [place] [address] [place] [id number] PCP - General 05/22/19 documented as of this encounter
--- OUTSIDE RECORDS SUMMARY | 2024-04-12 11:44 | XMS_ITS | Encounter Summary ---
Author Organization [facility] Address [address] [place] [address] Care Team Providers Care Pillowcase Maker Name Role Phone George Menjivar MD Primary Care Provider Reason for Visit * Reason Comments Establish Care Encounter Details Date Type Department Care Team (Latest Contact Info) Description 05/22/2019 8:45 AM VTC TECHNICIAN Office Visit [facility] [address] [place] [address] Harvey Grimaldo MD [address] [place] [address] Brain lesion (Primary Dx); Asymptomatic telangiectasia Social History Tobacco Use Types Packs/Day Years Used Date Smoking Tobacco: Former Cigarettes 1 2004 Smokeless Tobacco: Never Alcohol Use Standard Drinks/Week Comments Not Currently 0 (1 standard drink = 0.6 oz pur e alcohol) Sex and Gender Information Value Date Recorded Sex Assigned at Not on file Gender Identity Not on file Sexual Orientation Not on file documented as of this encounter Last Filed Vital Signs Vital Sign Reading Time Taken Comments Blood Pressure 107/77 05/22/2019 9:06 AM VTC TECHNICIAN Pulse 72 05/22/2019 9:06 AM VTC TECHNICIAN Temperature 36.7 ??C (98.1 ??F) 05/22/2019 9:06 AM CS T Respiratory Rate 20 05/22/2019 9:06 AM VTC TECHNICIAN Oxygen Saturation 98% 05/22/2019 9:06 AM VTC TECHNICIAN Inhaled Oxygen Concentration - - Weight 85.3 kg (188 lb) 05/22/2019 9:06 AM VTC TECHNICIAN Height 165.1 cm (5' 5 ) 05/22/2019 9:06 AM VTC TECHNICIAN Body Mass Index 31.28 05/22/2019 9:06 AM VTC TECHNICIAN documented in this encounter Patient Instructions * Patient Instructions* Yasmine Nagy - 05/22/2019 9:39 AM VTC TECHNICIAN Follow up in 1 year with MRI brain w/wo contrast Dx: Telangiectasia For any questions please call Yasmine [phone] TECHNICIAN documented in this encounter Progress Notes * Best Clarke MD - 05/22/2019 9:17 AM CST Neurosurgery Clinic Progress Note Reason for visit: incidental telangiectasia HISTORY OF PRESENT ILLNESS (HPI): This patient is a 39 year old female with a past medical history of anemia, depression and recent vaginal delivery, that presents to clinic today for evaluation of an 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 The patient reports that in January 2019 she had pre eclampsia and severe head aches. She was managed with blood pressure medications but in March 2019 she had to be induced emergently due to pre eclampsia. She also reports that she developed pulmonary embolism shortly afterand she currently takes warfarin. The patient reports that the headaches have not stopped since January. She saw a Neurologist who ordered an MRI Brain and demosntrated a left basal ganglia telangiectasia. She was referred to Neurosurgery for evaluation. Past Medical History: Diagnosis Date ??? Anemia ??? Heart murmur ??? Major depressive disorder ??? related nausea and vomiting, antepartum ??? PTSD (post-traumatic stress disorder) Past Surgical History: Procedure Laterality Date ??? Cervical Fusion 2012 ??? Cholecystectomy ??? Hemorrhoidectomy Current Outpatient Medications Medication ??? B-D 3CC LUER-TOBIN SYR 23GX1 23G X 1 3 ML MISC ??? atvrnzuzbp-xjjiguiubcyeh-pewzyqyj (FIORICET) 50-325-40 MG tablet ??? cyanocobalamin (VITAMIN B-12) injection ??? FLUoxetine (PROZAC) 20 MG capsule ??? ibuprofen (MOTRIN) 600 MG tablet ??? metoclopramide (REGLAN) 10 MG tablet ??? NIFEdipine CR 24hr (ADALAT CC) 30 MG tablet ??? Prenat w/o N-QE-Ceejndt-FA-DHA (ZATEAN-PN DHA) 27-0.6-0.4-300 MG CAPS ??? traMADol (ULTRAM) 50 MG tablet ??? vitamin D, ergocalciferol, (DRISDOL) 1.25 MG (28254 UT) capsule ??? warfarin (COUMADIN) 6 MG tablet No current facility-administered medications for this visit. Allergies Allergen Reactions ??? Erythromycin Rash Social History Tobacco Use ??? Smoking status: Former Smoker Years: 10.00 Types: Cigarettes Last attempt to quit: 2004 Years since quittin.1 ??? Smokeless tobacco: Never Used Substance Use Topics ??? Alcohol use: Not Currently No family history on file. REVIEW OF SYSTEMS Respiratory: Negative Cardiovascular: Negative Gastrointestinal: Negative Musculoskeletal:Negative Neurological: Negative PHYSICAL EXAM BP 107/77 (BP SITE: LEFT ARM) Pulse 72 Temp 98.1 ??F (36.7 ??C) (Oral) Resp 20 Ht 5' 5 (1.651 m) Wt 188 lb (85.3 kg) SpO2 98% BMI 31.28 kg/m2 General: no acute distress Cardiovascular: warm, well profused Respiratory: non-labored breathing Abdominal: soft, non tender, non distended Integument: no lesions found Vascular: capillary refill <3 seconds Neuro: alert and oriented x3, speech clear, pupils equal and reactive to light, extra-occular muscles intact, face symmetric, follows commands symmetrically in all extremities, no motor or sensory deficit. RADIOLOGICAL REVIEW: MRA/MRV Brain (04/2019): The posterior fossa circulation is intact, the basilar artery forms normalappearing bilateral posterior cerebral arteries. The posterior communicating arteries are not identified, this is a normal finding with MRA due to balanced flow. The bilateral intracranial cervical carotid arteries forming normal appearing bilateral A1 and M1 segments. The bilateral M3 segments arenormal. The anterior communicating artery is patent. The bilateral pericallosal and anterior cerebral arteries are normal. There is not evidence of neovascularity or an aneurysm. Normal MRV. MRI Brain (04/2019): 1. 9 mm left basal ganglia telangiectasia with associated developmental venous anomaly. 2. Otherwise, no acute intracranial pathology. 3. Diffuse sinus disease, right greater than left. Assessment/Plan: Ashley Stokes is a 39 year old female with a past medical history of anemia, depression and recent vaginal delivery, that presents to clinic today for evaluation of an incidentally found left basalganglia telangiectasia. She reports persistent headaches. Imaging was reviewed. The patient was educated on the fact that her headaches are unlikely to be originated from the incidentally found telangiectasia. She also informed of the benign nature of this finding. We will follow up in 1 year with an MRI Brain with and without contrast. Best Clarke MD 05/22/2019 9:17 AM TECHNICIAN * Harvey Grimaldo MD - 05/22/2019 8:57 AM CST Note from resident reviewed, edited, patient seen and examined, all images reviewed, and situation discussed with patient and any and all family present. For additional details please refer to communication to referring physician. TECHNICIAN documented in this encounter Plan of Treatment Not on file documented as of this encounter Visit Diagnoses Diagnosis Brain lesion- Primary Other conditions of brain Asymptomatic telangiectasia documented in this encounter Care Teams Pillowcase Maker Relationship Specialty Start Date End Date George Menjivar MD [address] [facility] [address] [place] [address] PCP - General 05/22/19 documented as of this encounter
--- OUTSIDE RECORDS SUMMARY | 2024-04-12 11:44 | XMS_ITS | Encounter Summary ---
Author Organization [facility] Address [address] [facility] [place] [address] Care Team Providers Care Industrial Psychologist Name Role Phone George Menjivar MD Primary Care Provider Reason for Referral * Radiology Services (Routine) - Closed Specialty Diagnoses / Procedures Referred By Contac t Referred To Contact MRI Diagnoses Telangiectasia Procedures MRI BRAIN WWO CONTRAST Harvey Grimaldo MD [address] [facility] [address] [place] [address] [facility] Mri [address] [place] [address] Referral ID Status Reason Start Date Expiration Date Visits Re quested Visits Authorized [id number] Closed 09/29/2020 10/28/2020 1 1 Reason for Visit * Radiology Services (Routine) - Closed Specialty Diagnoses / Procedures Referred By Contac t Referred To Contact MRI Diagnoses Telangiectasia Procedures MRI BRAIN WWO CONTRAST Harvey Grimaldo MD [address] [facility] [address] [place] [address] [facility] Mri [address] [place] [address] Referral ID Status Reason Start Date Expiration Date Visits Re quested Visits Authorized [id number] Closed 09/29/2020 10/28/2020 1 1 Encounter Details Date Type Department Care Team (Latest Contact Info) Description 10/07/2020 9:30 AM CDT - 10/07/2020 11:59 PM CDT Hospital Encounter [facility] MRI [address] [place] [address] Harvey Grimaldo MD [address] [facility] [address] [place] [address] Discharge Disposition: Home or Self Care Social [...] have Coronavirus / COVID-19? No / Unsure 10/07/2020 10:12 AM CDT documented as of this encounter Medications at Time of Discharge Medication Sig Dispensed Refills Start Date End Date albuterol HFA (PROVENTIL;VENTOLIN;P ROAIR) 108 (90 Base) MCG/ACT inhaler albuterol sulfate HFA 90 mcg/actuation aerosol inhaler INHALE 1 2 INHALATION EVERY 4 6 HOURS NEEDED FOR SHORTNESS OF BREATH OR WHEEZING atorvastatin (LIPITOR) 20 MG tablet atorvastatin 20 mg tablet TAKE 1 TABLET BY MOUTH EVERY DAY B-D 3CC LUER-TOBIN SYR 23GX1 23G X 1 3 ML MISC USE 1 MONTHLY 05/07/2019 benzonatate (TESSALON) 100 MG capsule benzonatate 100 mg capsule busPIRone (BUSPAR) 7.5 MG tablet Take 3.75 mg by mouth 2 times daily 09/25/2020 butalbital-acetaminop hen-caffeine (FIORICET) 50-325-40 MG tablet Take 1 tablet by mouth every 4 hours as needed for Headache cefUROXime (CEFTIN) 500 MG tablet cefuroxime axetil 500 mg tablet cyanocobalamin (VITAMIN B-12) injection INJECT 1 ML INTRAMUSCULARLY EVERY MONTH 3 11/22/2018 enoxaparin (LOVENOX) 80 MG/0.8ML injection enoxaparin 80 mg/0.8 mL subcutaneous syringe epinastine (ELESTAT) 0.05 % ophthalmic solution epinastine 0.05 % eye drops FLUoxetine (PROZAC) 20 MG capsule Take 20 mg by mouth once daily 03/31/2019 gentamicin (GARAMYCIN) 0.3 % ophthalmic solution gentamicin 0.3 % eye drops ibuprofen (MOTRIN) 600 MG tablet 600MG BY MOUTH EVERY 6 HOURS NEEDED 03/07/2019 lidocaine 2% jelly (XYLOCAINE) 2 % jelly lidocaine HCl 2 % mucosal jelly LORazepam (ATIVAN) 1 MG tablet lorazepam 1 mg tablet TAKE 1 TABLET BY MOUTH EVERY 12 HOURS metoclopramide (REGLAN) 10 MG tablet 05/15/2019 NIFEdipine CR 24hr (ADALAT CC) 30 MG tablet Take 30 mg by mouth every morning 05/07/2019 Prenat w/o Z-PV-Krwuowa-FA-DHA (ZATEAN-PN DHA) 27-0.6-0.4-300 MG CAPS 01/01/2019 SYMBICORT 160-4.5 MCG/ACT inhaler 09/30/2020 terconazole (TERAZOL 3) 0.8 % vaginal cream terconazole 0.8 % vaginal cream USE DIRECTED VAGINALLY AT BEDTIME tobramycin-dexAMETHas one (TOBRADEX) 0.3-0.1 % ophthalmic suspension tobramycin 0.3 %-dexamethasone 0.1 % eye drops,suspension topiramate ER 24hr (TROKENDI XR) 200 MG capsule Trokendi XR 200 mg capsule, extended release traMADol (ULTRAM) 50 MG tablet TAKE 1 TABLET BY MOUTH TWICE A DAY NEEDED 05/14/2019 VIIBRYD 40 MG tablet 10/05/2020 vitamin D, ergocalciferol, (DRISDOL) 1.25 MG (85541 UT) capsule TAKE 1 BY MOUTH WEEKLY 0 01/11/2019 warfarin (COUMADIN) 6 MG tablet 05/20/2019 documented as of this encounter Plan of Treatment Not on file documented as of this encounter Procedures Procedure Name Priority Date/Time Associated Diagnosis Comments MRI BRAIN WWO CONTRAST Routine 10/07/2020 11:21 AM CDT Telangiectasia CREATININE - POCT INTERFACED Routine 10/07/2020 10:44 AM CDT documented in this encounter Results * MRI BRAIN WWO CONTRAST (10/07/2020 11:21 AM CDT) Anatomical Region Laterality Modality Head Magnetic Resonan ce 10/07/2020 11:5 0 AM CDT Impressions 10/07/2020 6:33 PM CDT IMPRESSION: 1. Bilateral basal ganglia capillary teleangiectasia. No additional congenital vascular anomalies identified. 2. Otherwise unremarkable brain MRI. Dictated by Kevin Burgess MD (assistant to the president). I, Dr. JONATHON SORIA have personally reviewed and interpreted this examination/study. This report was electronically signed by JONATHON SORIA ??on 10/07/2020 6:33 PM . Narrative 10/07/2020 6:33 PM CDT EXAMINATION: MRI OF THE BRAIN WITHOUT AND WITH CONTRAST HISTORY: I78.1: Telangiectasia TECHNIQUE: MRI of the brain was performed prior to and following the uneventful administration of 8 mL Gadavist according to a tumor protocol. COMPARISON: No prior study is available for comparison at the time of this dictation. FINDINGS: There is evidence of symmetric capillary telangiectasia of bilateral basal ganglia on susceptibility weighted images (series 11, image 36) with associated faint enhancement (series 14, images 99-108). There is also a focal, subtle enhancing focus centered in the anterior limb of the left internal capsule measuring approximately 0.9 x 0.7 cm is identified (series 14, image 88). There is no associated flow void, indicating a low flow nature of these vascular lesions. A pontine capillary telangiectasia is not present. No abnormal enhancement is otherwise identified on the study. There are no additional congenital vascular anomalies visualized. No evidence of acute cerebral infarction is seen. The ventricles are of normal size, shape, and morphology. No mass, edema, white matter changes, mass effect or midline shift is seen. The corpus callosum and sella appear normal. The posterior fossa, brainstem, and craniocervical junction appear normal. The orbits and orbital contents are normal. The paranasal sinuses and mastoid air cells are clear. Normal flow voids are demonstrated in the carotid arteries and basilar artery. The calvarium and visualized cervical spine appear normal. Procedure Note Jonathon Soria MD - 10/07/2020 EXAMINATION: MRI OF THE BRAIN WITHOUT AND WITH CONTRAST HISTORY: I78.1: Telangiectasia TECHNIQUE: MRI of the brain was performed prior to and following the uneventful administration of 8 mL Gadavist according to a tumorprotocol. COMPARISON: No prior study is available for comparison at the time ofthis dictation. FINDINGS: There is evidence of symmetric capillary telangiectasia of bilateralbasal ganglia on susceptibility weighted images (series 11, image 36) with associated faint enhancement (series 14, images 99-108). There is also a focal, subtle enhancing focus centered in the anterior limb of the left internal capsule measuring approximately 0.9 x 0.7 cm is identified (series 14, image 88). There is no associated flow void, indicating alow flow nature of these vascular lesions. A pontine capillarytelangiectasia is not present. No abnormal enhancement is otherwise identified on the study. There areno additional congenital vascular anomalies visualized. No evidence of acute cerebral infarction is seen. The ventricles are of normal size, shape, and morphology. No mass, edema, white matterchanges, mass effect or midline shift is seen. The corpus callosum and sellaappear normal. The posterior fossa, brainstem, and craniocervical junctionappear normal. The orbits and orbital contents are normal. The paranasal sinuses and mastoid air cells are clear. Normal flow voids are demonstrated in the carotid arteries and basilar artery. The calvarium and visualizedcervical spine appear normal. IMPRESSION: 1. Bilateral basal ganglia capillary teleangiectasia. No additional congenital vascular anomalies identified. 2. Otherwise unremarkable brain MRI. Dictated by Kevin Burgess MD (assistant to the president). IDr. JONATHON have personally reviewed and interpreted this examination/study. This report was electronically signed by JONATHON SORIA on 10/07/2020 6:33PM . Harvey Grimaldo MD MR ORDERABLES * (ABNORMAL) CREATININE - POCT INTERFACED (10/07/2020 10:44 AM CDT) Creatinine POCT 1.19 0.30 - 1.30 mg/dL 10/07/2020 2:01 PM CDT [facility] eGFR 50(L) >60 mL/min/1.7 3 m2 10/07/2020 2:01 PM CDT [facility] Blood BLOOD SPECIMEN / Unknown 10/07/2020 10:44 AM CDT 10/07/2020 2:01 PM CDT Harvey Grimaldo MD LAB - POINT OF CARE ORDERABLES Performing Organization Address City/State/[facility] Co de Phone Number [facility] [address] [place] [address], [facility] [phone] documented in this encounter Visit Diagnoses Diagnosis Telangiectasia Other and unspecified capillary diseases documented in this encounter Administered Medications Inactive Administered Medications - up to 3 most recent administrations Medication Order MAR Action Action Date Dose Rate Site gadobutrol (Gadavist) injection Intravenous, CONTRAST ONCE, Starting on Luz 10/07/20 at 1106, Until 10/08/20 at 0145 $ Given - Contrast 10/07/2020 11:06 AM CDT 8 mL documented in this encounter Care Teams Industrial Psychologist Relationship Specialty Start Date End Date George Menjivar MD [address] [place] [phone] PCP - General 05/22/19 documented as of this encounter
--- OUTSIDE RECORDS SUMMARY | 2024-04-12 11:44 | XMS_ITS | Encounter Summary ---
Author Organization [facility] Address [address] [facility] [place] [address] Care Team Providers Care Cat Wagon Operator Name Role Phone George Menjivar MD Primary Care Provider Reason for Visit * Reason Onset Date Comments COVID-19 IMMUNIZATION/INJECTION 05/05/2020 Encounter Details Date Type Department Care Team (Latest Contact Info) Description 05/05/2020 8:00 AM LAMP ASSEMBLER Clinical Support [facility] COVID Vaccination [address]nd Floor [address] [place] [phone] Need for vaccination Social History Tobacco Use Types Packs/Day Years Used Date Smoking Tobacco: Former Cigarettes 2004 Smokeless Tobacco: Never Alcohol Use Standard Drinks/Week Comments Not Currently 0 (1 standard drink = 0.6 oz pur e alcohol) Sex and Gender Information Value Date Recorded Sex Assigned at Not on file Gender Identity Not on file Sexual Orientation Not on file documented as of this encounter Patient Instructions * Patient Instructions* Eric Blakely RN - 05/05/2020 8:18 AM LAMP ASSEMBLER Images from the original note were not included. Vaccine recipients are encouraged to enroll in the CDC V-SAFE program for post vaccination monitoring. Sign up with your smartphone's browser at Direct Sitters.cdc.gov or Aim your smartphone's camera at this code. ASSEMBLER documented in this encounter Progress Notes * Eric Blakely RN - 05/05/2020 8:18 AM CST COVID screening checklist was reviewed with the patient. The Information sheet was given prior to administration. Injection site aseptically cleansed and injection given per Immunization(s) protocol.See Imm/Injections activity for details. ASSEMBLER documented in this encounter Plan of Treatment Not on file documented as of this encounter Visit Diagnoses Diagnosis Need for vaccination- Primary Need for prophylactic vaccination and inoculation against unspecified single disease documented in this encounter Care Teams Cat Wagon Operator Relationship Specialty Start Date End Date George Menjivar MD [address] [facility] [place] [address] PCP - General 05/22/19 documented as of this encounter
--- OUTSIDE RECORDS SUMMARY | 2024-04-12 11:44 | XMS_ITS | Encounter Summary ---
Author Organization [facility] Address [address] [place] [address] Care Team Providers Care Employee Adviser Name Role Phone George Menjivar MD Primary Care Provider Encounter Details Date Type Department Care Team (Latest Contact Info) Description 10/07/2020 Travel Social History Tobacco Use Types Packs/Day [...] AM CDT documented as of this encounter Plan of Treatment Not on file documented as of this encounter Visit Diagnoses Not on filedocumented in this encounter Care Teams Employee Adviser Relationship Specialty Start Date End Date George Menjivar MD [address] [facility] [place] [phone] PCP - General 05/22/19 documented as of this encounter
--- OUTSIDE RECORDS SUMMARY | 2024-04-12 11:44 | XMS_ITS | Encounter Summary ---
Author Organization [facility] Address [address] [facility] [place] [address] Care Team Providers Care Top Precipitator Operator Name Role Phone George Menjivar MD Primary Care Provider Reason for Visit * Radiology Services (Routine) - Closed Specialty Diagnoses / Procedures Referred By Chunac t Referred To Contact MRI Diagnoses Asymptomatic telangiectasia Procedures MRI BRAIN WWO CONTRAST Harvey Grimaldo MD [address] [place] [address] [address] [place] [address] [facility] Mri [address] [place] [address] Referral ID Status Reason Start Date Expiration Date Visits Re quested Visits Authorized [id number] Closed 09/27/2021 11/25/2021 1 1 Encounter Details Date Type Department Care Team (Latest Contact Info) Description 10/06/2021 9:30 AM CDT - 10/06/2021 11:59 PM CDT Hospital Encounter [facility] MRI [address] [place] [phone] Harvey Grimaldo MD [facility] [facility] [address] [place] [address] Discharge Disposition: Home or Self Care Social History Tobacco Use Types Packs/Day Years Used Date Smoking Tobacco: Former Cigarettes 1 - 2004 Smokeless Tobacco: Never Alcohol Use [...] by mouth every morning 05/07/2019 Prenat w/o Y-AJ-Ayebmtd-FA-DHA (ZATEAN-PN DHA) 27-0.6-0.4-300 MG CAPS 01/01/2019 SYMBICORT [...] 10/05/2020 vitamin D, ergocalciferol, (DRISDOL) 1.25 MG (54831 UT) capsule TAKE 1 BY MOUTH WEEKLY 0 01/11/2019 warfarin (COUMADIN) 6 MG tablet 05/20/2019 documented as of this encounter Plan of Treatment Not on file documented as of this encounter Procedures Procedure Name Priority Date/Time Associated Diagnosis Comments MRI BRAIN WWO CONTRAST Routine 10/06/2021 12:49 PM CDT Asymptomatic telangiectasia CREATININE - POCT INTERFACED Routine 10/06/2021 12:08 PM CDT documented in this encounter Results * MRI BRAIN WWO CONTRAST (10/06/2021 12:49 PM CDT) Anatomical Region Laterality Modality Head Magnetic Resonan ce 10/06/2021 2:28 PM CDT Impressions 10/08/2021 9:40 AM CDT IMPRESSION: 1.Redemonstration of a small enhancing lesion in the left basal ganglia grossly unchanged from prior, allowing for slight differences in the imaging techniques. 2.No new acute intracranial findings are identified. Dictated by Aldo Quintero, DO (radiology interventional physician) This report was approved ??by Aldo Quintero [...] identified. Dictated by Aldo Quintero DO (radiology interventional physician) This report was approved by Aldo Quintero on 10/08/2021 9:40 AM . I, Dr. MEI JOEL have personally reviewed and interpreted this examination/study. This report was electronically signed by MEI JOEL on10/08/2021 9:40 AM . Harvey Grimaldo MD MR ORDERABLES * CREATININE - POCT INTERFACED (10/06/2021 12:08 PM CDT) Creatinine POCT 0.74 0.30 - 1.30 mg/dL 10/06/2021 12:11 PM CDT [facility] eGFR >90 >90 mL/min/1.7 3 m2 10/06/2021 12:11 PM CDT [facility] Blood BLOOD SPECIMEN / Unknown 10/06/2021 12:08 PM CDT 10/06/2021 12:11 PM CDT Harvey Grimaldo MD LAB - POINT OF CARE ORDERABLES [address] [address], [facility] [phone] documented in this encounter Visit Diagnoses Diagnosis Asymptomatic telangiectasia documented in this encounter Administered Medications Inactive Administered Medications - up to 3 most recent administrations Medication Order MAR Action Action Date Dose Rate Site gadobutrol (Gadavist) injection Intravenous, CONTRAST ONCE, Starting on Luz 10/06/21 at 1229, Until 10/07/21 at 0146 $ Given - Contrast 10/06/2021 12:30 PM CDT 7 mL documented in this encounter Care Teams Top Precipitator Operator Relationship Specialty Start Date End Date George Menjivar MD [address] [facility] [place] [phone] PCP - General 05/22/19 documented as of this encounter
--- OUTSIDE RECORDS SUMMARY | 2024-04-12 11:44 | XMS_ITS | Encounter Summary ---
Author Organization [facility] Address [address] [place] [address] Care Team Providers Care Detective Lieutenant Name Role Phone Unavailable Primary Care Provider Unavailabl e Reason for Referral * Consult, Test & Treat (Routine) - Closed Specialty Diagnoses / Procedures Referred By Contac t Referred To Contact Cardiology Diagnoses abnormality affecting management of mother, single or unspecified fetus (HCC) Procedures ECHO CONSULT - Judd Ramires MD [address] [facility] [address] [place] [address] [place] [id number] Referral ID Status Reason Start Date Expiration Date Visits Re quested Visits Authorized [id number] Closed 02/17/2019 08/16/2019 1 1 GER SOCIAL RESPONSIBILITY Encounter Details Date Type Department Care Team (Late st Contact Info) Description 02/17/2019 10:00 AM MANAGER SOCIAL RESPONSIBILITY - 02/17/2019 11:04 AM [facility] Hospital Encounter [facility] [place] [address] [place] [address] Judd Ramires MD [address] [address] Tigist Luis MD [address] [place] [address] Discharge Disposition: Home or Self Care Social [...] Sign Reading Time Taken Comments Blood Pressure 136/88 02/17/2019 10:25 AM MANAGER SOCIAL RESPONSIBILITY Pulse 78 02/17/2019 10:25 AM MANAGER SOCIAL RESPONSIBILITY Temperature - - Respiratory Rate - - Oxygen Saturation - - Inhaled Oxygen Concentration - - Weight 90 kg (198 lb 6.6 oz) 02/17/2019 10:25 AM MANAGER SOCIAL RESPONSIBILITY Height - - Body Mass Index - - documented in this encounter Discharge Instructions * Patient Instructions* Yasmine Ryenoso RN - 02/17/2019 11:29 AM MANAGER SOCIAL RESPONSIBILITY [facility] DISCHARGE INSTRUCTIONS You have had the following consults today: Nurse Coordinator: Yasmine Reynoso Ultrasound with Maternal Medicine: Dr. Luis echocardiogram with Pediatric Cardiology: Dr. Scott Certified Genetic Counselor: Vanessa Jang Barrel Builder: Nusrat Garza CALL YOUR DOCTOR ?? If you are less than 37 weeks and have more than 5 contractions an hour. ?? Blurring ofvision or spots before your eyes. ?? Ruptured membranes or leakage of vaginal fluid. ?? May be a steady trickle or large gush ?? May be clear, yellow, pink or green ?? Decreased movement--if your baby has stopped movingor is moving less than it normally does. Do Kick Counts as instructed. ?? Vaginal bleeding--bright red bleeding and/or clots needs medical care immediately. ?? Any temperature above 100 degrees. ?? Headache ?? Any burning or painful urination. ?? Increased swelling in your face, hands, or feet. ?? Stomach pains, cramps, nausea,or diarrhea. Call your care provider with related questions. If unable to reach your provideror you have additional questions, please call the [facility] at [phone], ex [phone]. Please continue care with Dr. Mariah Marsh with plans to deliver at [place]. GER SOCIAL RESPONSIBILITY documented in this encounter Medications at Time of Discharge Medication Sig Dispensed Refills Start Date End Date cyanocobalamin (VITAMIN B-12) injection INJECT 1 ML INTRAMUSCULARLY EVERY MONTH 3 11/22/2018 Prenat w/o M-CV-Mxbaumx-FA-DHA (ZATEAN-PN DHA) 27-0.6-0.4-300 MG CAPS 01/01/2019 vitamin D, ergocalciferol, (DRISDOL) 1.25 MG (38342 UT) capsule TAKE 1 BY MOUTH WEEKLY 0 01/11/2019 documented as of this encounter Progress Notes * Vanessa Jang - 02/17/2019 2:45 PM CST GENETICS CONSULTATION NOTE [facility] PATIENT: Jonathan Way DATE OF : 1980 DATE SEEN: 02/17/2019 SEEN BY: Vanessa Jang MS, [facility] - Genetic Counselor PATIENT PROFILE: Ms. Way is , 38 year old. She was accompanied by her , Joe. A total of 30 minutes was spent with the patient. CURRENT : Ms. Way was referred due to the diagnosis of a cleft lip. FAMILY HISTORY: Family history is remarkable for: 1) Pt's maternal uncle's son w/ hydrocephalus. Pt reports there were exposures/complications that have been implicated as the cause. Nonetheless, this cousin is now a healthy adult with healthy children and there is no additional family history of hydrocephalus. 2) There is no known family history of defects, cognitive disability, or recurrent loss. IMPRESSION: 1) At this time, the fetus appears to have an isolated unilateral cleft lip. The palate has not been fully visualized but there is no evidence of cleft palate at this time and there is no evidence ofadditional anomalies. Of note, the pt previously underwent non-invasive testing (NIPT) which was low risk for trisomies 13/18/21 and 22q deletion syndrome. We discussed the association between facial clefting and underlying genetic syndromes, explaining that the associations are strongest when the clefting is bilateral and/or involving the palate only or the lip and palate. Therefore, there remains an elevated but relatively low risk for underlying genetic syndrome in this fetus. If truly isolated, the risk for recurrence in future offspring is ~2.5%. We discussed that if an underlying syndrome were present, recurrence risk would depend on that diagnosis. Recommend evaluation and Genetic consult/testing if appropriate based on that evaluation. 2) Based on maternal uncle's son's history of hydrocephalus, this pt's offspring are likely not at significantly increased risk for this defect. PLAN: Follow up with primary mechanic field service for . Follow up with cleft lip team . Pt is not scheduled to return to CUSTODIAL. Vanessa Jang, MS, [facility] Genetic Counselor cc: Dr. Mariah Marsh GER SOCIAL RESPONSIBILITY * Celeste Mayo RN - 02/17/2019 2:15 PM CST Care consult completed with parents. Reviewed cleft lip and palate diagnosis and treatment. Anticipated surgical plan reviewed including pre-op, hospital admission, and post-op treatment. Team concept was reviewed including what to expect at the first visit. Appropriate web sites were given. Education material was given. Discussed various bottle methods used to feed a baby with a cleft palate including the Dr. Mcguire Specialty bottle and the Enfamil nurser. Parents have already ordered Dr. Sunil rivera bottels to have at delivery. Parents verbalized understanding with all questions answered. Contact information was given. Family will call to schedule a visit with the cleft palate team after the baby is born. ? 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 [place], [place] [address] Alternate Contacts: Diagnosis: CLCP Relevant Medical History: Pt is a 38 y/o white female at 34 weeks with an EDC of 03/31/19 senthere by primary OB after noting CLCP. PMH for cervical spinal fusion, gallbladder removal, hemorrhoid removal, oral surgery and anemia. Pt is a former smoker and denies alcohol and drug use. Previouschild was full term, healthy and a vaginal delivery. Baby is an XY and will be Dorian. She plans to deliver at [place]. Family Profile Family Dynamics/Household Composition: parents, for 6 years but together for over 20 years. 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 Jonathan changed jobs to stop the travel. Jose works remotely from[employer]. They have a 4 year old son, Deion. Family Support: Paternal family in [place]; maternal grandmother lives with them and they are her provider contracting consultant Spiritual and Cultural Considerations: Not assessed Mental Health History: Depression, PPD, Anxiety stopped medication with (Viibryd)-EPDS administered and scored an 8 Family Income: Both work maritime officer Insurance/Medicaid Coverage: [facility]- will be changing Community Agency Involvement/History: Ped is Dr. Winters- changing pediatricians School/Livestock Buyer: [employer] for Deion; unsure what they are planning for the baby Observations and Assessment Parents??? and/or Child???s Understanding of Illness: Parents report cleft lip with possible palate, unable to determine Family Strengths and Concerns: Strengths: Cohesive couple, both employed Concerns: Mental health history Primary Care/Barriers to Follow-up: None noted today Plan Interventions/Resources Provided: SHARDA met with the couple between testing today 02/17/19. They had a long morning already meeting withthe CLCP team. Jonathan discussed her medical history and her experience with medications. She stopped her anti-depressant that was working as soon as she found out about the baby. She had her first son and breastfed him for 13 months. They tried Zoloft which did not work. She went on Viibyrd whichwas working. She also used Lorazepam to sleep but stopped that as well. She did not score high on EPDS and does feel pretty good. 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 SHARDA educated on avoiding a high deductible plan this time because they are going to be using their insurance for this baby's surgeries. SW reiterated what to look for with insurance and also what to watch out for with PPD this time around as well. Discharge Plan: Pt to be dc home today SW to follow Nusrat Garza LMSW (Available M, , ) [facility]/Bleeding Disorder Bolt Labeler Extension [phone] *Pt made aware and understood that social sciences department chair is currently under supervision for PALAEONTOLOGIST GER SOCIAL RESPONSIBILITY * Tigist Luis MD - 02/17/2019 10:32 AM CST Maternal Medicine New Patient Visit: 02/17/[address] is a 38 year old at 34w0d presenting with the diagnosis of cleft lip,possible cleft palpate. Her is complicated by cleft lip. She has no complaints today outside of being anxious about the diagnosis of cleft lip. They have done extensive reading on the diagnosis and have come prepared with some questions. Positive FM. No VB or LOF. OB History Para Term AB Living 3 1 1 1 1 SAB TAB Ectopic Multiple Live Births 1 1 # Outcome Date GA Lbr Devin/2nd Weight Sex Delivery Anes PTL Lv 3 Current 2 Term 01/14/15 39w0d M Vag-Spont N MARY BETH 1 SAB 2011 Past Medical History: Diagnosis Date ??? Anemia ??? Heart murmur ??? Major depressive disorder ??? related nausea and vomiting, antepartum ??? PTSD (post-traumatic stress disorder) Past Surgical History: Procedure Laterality Date ??? Cervical Fusion 2012 ??? Cholecystectomy ??? Hemorrhoidectomy Current Outpatient Medications: ??? cyanocobalamin (VITAMIN B-12) injection, INJECT 1 ML INTRAMUSCULARLY EVERY MONTH, Disp: , Rfl: 3 ??? Prenat w/o Y-OU-Fthclnh-FA-DHA (ZATEAN-PN DHA) 27-0.6-0.4-300 MG CAPS, , Disp: , Rfl: Allergies Allergen Reactions ??? Erythromycin Rash FH: neg for cleft lip/palate Social History Tobacco Use ??? Smoking status: Former Smoker Years: 10.00 Types: Cigarettes Last attempt to quit: 2005 Years since quittin.8 ??? Smokeless tobacco: Never Used Substance Use Topics ??? Alcohol use: Not Currently ??? Drug use: Never On examination: There is no height or weight on file to calculate BMI. BP 136/88 Pulse 78 General: comfortable, alert, cooperative HEENT: normocephalic, atraumatic. Eyes PERRLA Cardiovascular: heart regular rate and rhythm, no pathologic murmurs Pulmonary: respirations unlabored no cough or wheeze Abd: soft, nontender, Fundus soft Ext: no edema, nontender. Skin:warm, normal turgor, no rashes nor lesions Neuro: cranial nerves 2-12 grossly intact, intact sensory and motor. Ultrasound (today): Please see separate imaging report for details. Labs: LR NIPT Impression: 38 year old at 34w0d with isolated cleft lip Counseling - The occurrence of cleft lip and palate stems from abnormal migration of the five tissue plates forming the face. Cleft lip/palate is more commonly unilateral than bilateral. In the [place], the incidence is between 7 to 10 per 10,000 births. Males are seen more often, 2 to 1. Furthermore, acomplex of genetic predispositions have been described/proposed. It is theorized that genetic penetrance is higher in females; thus a woman born with cleft lip/palate has a higher chance of having anaffected child than a man born with cleft lip/palate. A couple with one affected child has a higherrisk of a recurrence in a subsequent . Cleft lip/palate has been associated with many genetic syndromes; however the condition is generally considered to be idiopathic when found in isolation. Associated sonographic abnormalities can include craniofacial, FUNDRAISING CONSULTANT, and cardiac. All affected neonates should undergo careful assessment for additional abnormalities. Genetic amniocentesis is an option for any fetus with cleft lip/palate and was discussed today. Bilaterality is more often associated with chromosomal anomalies or genetic syndromes. Hearing loss is commonly noted in children with cleft lip and palate due to associated Eustachian tube malformation. Ectodermal dysplasia, or abnormal development of the skin, hair, teeth, etc, has also been described. There is an associated between certain adult cancers as well. Difficulties with feeding and speech development are addressed in a multidisciplinary fashion as is approach to surgical repair. Route of delivery is not affected by cleft lip and/or palate. Place and route of delivery are not affected by presence of a cleft lip/palate; however, the severity will dictate the rapidity of referral, especially if feeding is compromised. A tertiary care center will allow for both pre and consultations for coordination of care. Recommendations: -Delivery at term with primary mechanic field service. delivery only for routine obstetric indications. - echo (completed today) -The patient has met with a member of the cleft lip team today to review typical follow up and procedures. -Genetics consultation (completed today) -Follow up with primary mechanic field service for . Follow up with cleft lip team . Note that more than 50% of today's 45 minute consultation was devoted to baia-ww-wvdy counseling and coordination of care, separate from any additional procedures. Tigist Luis MD Division of Maternal- Medicine Department of Obstetrics, Gynecology, and Women's Health [facility] GER SOCIAL RESPONSIBILITY documented in this encounter Plan of Treatment Not on file documented as of this encounter Procedures Procedure Name Priority Date/Time Associated Diagnosis Comments SONOGRAM - COMPLETE Routine 02/17/2019 1 0:14 AM MANAGER SOCIAL RESPONSIBILITY abnormality affecting management of mother, single or unspecified fetus (HCC) documented in this encounter Results * ECHO CONSULT - (02/17/2019 1:03 PM MANAGER SOCIAL RESPONSIBILITY) 02/17/2019 1:03 PM MANAGER SOCIAL RESPONSIBILITY Narrative [facility] - 02/17/2019 4:30 PM MANAGER SOCIAL RESPONSIBILITY Anna Scott MD ? 02/17/2019 ??5:14 PM [...] aortic and pulmonary valves. There was normal mctcb-yu-nwwh shunting across the ductus arteriosus in systole [...] or arrhythmias later in life such as Eqtyg-Nakhbbxjb-Kerrp syndrome. Based on the findings today, no [...] MD Judd Ramires MD ECHO ORDERABLE S [facility] [address] [place] [address] * SONOGRAM - COMPLETE (02/17/2019 10:14 AM MANAGER SOCIAL RESPONSIBILITY) Anatomical Region Laterality Modality Other 02/17/2019 10:1 4 AM MANAGER SOCIAL RESPONSIBILITY Narrative 02/17/2019 4:30 PM MANAGER SOCIAL RESPONSIBILITY ?[facility] ? [facility] ?FAX: [phone] Pat. Name: ?JONATHAN WAY No: ?[id number] Study Date: ?? 02/17/2019 ??10:14am , Age: ? 1980, 38 Pregnancies: ?? 3, Para 1 Height: ? 65 in Weight: ? 234 lb LMP: ?06/27/2018 GA by LMP: ?33w4d GA by Base: ?? 33w4d ?? CARLO: 04/03/2019 GA Selected: ??33w4d (From [facility]) CARLO: ?04/03/2019 Referring MD: Bob Berger MD Behavioral Geneticist: ??Sol Hines CPT4: ? 01647 BMI: ?38.94 Hist/Ind: ? Cleft Lip and Possible Palate ?AMA ?LR NIPT MEASUREMENTS & AGE ? GROWTH EVALUATION Measurement ??GA ? Range ? Srce %for GA Ratios ----- ---- ------- Cere 4.2 cm 33w4d ([id number]) Hill Cere51% Heart Rate: 143 bpm Amniotic Fluid [...] isolation. Associated sonographic abnormalities can include craniofacial, FUNDRAISING CONSULTANT, and cardiac. ??All affected neonates should undergo [...] and cleft team today and no additional CUSTODIAL follow up is needed. Continue routine OB care with primary OB Delivery Location: Planned at [facility]. Delivery Timing: no delivery before 39 weeks is indicated. Timing of delivery to be determined by primary OB. Mode of Delivery: no contraindications to vaginal delivery. Genetics: NIPT was low risk. Tigist Luis MD <Electronic Signature> ??02/17/2019 04:30pm uJdd Ramires MD [facility] ORDER[facility]LES documented in this encounter Visit Diagnoses Diagnosis abnormality affecting management of mother, single or unspecified fetus (HCC)- Primary abnormality affecting management of mother, single or unspecified fetus (HCC)- Primary Encounter for supervision of high risk due to anomaly, second trimester (HCC) Advanced maternal age in multigravida, third trimester (HCC) complicated by cleft lip, not applicable or unspecified fetus (HCC) documented in this encounter
--- OUTSIDE RECORDS SUMMARY | 2024-04-12 11:44 | XMS_ITS | Encounter Summary ---
Author Organization [facility] Address [address] [place] [address] Care Team Providers Care Parasitologist Name Role Phone George Menjivar MD Primary Care Provider Reason for Visit * Reason Onset Date Comments COVID-19 IMMUNIZATION/INJECTION 05/28/2020 Encounter Details Date Type Department Care Team (Latest Contact Info) Description 05/28/2020 10:15 AM MULTIPLE SPINDLE SCREW MACHINE OPERATOR Clinical Support [facility] - COVID Vaccine [address] [place] [address] Chu Claire MD Need for vaccination Social History Tobacco Use [...] this encounter Patient Instructions * Patient Instructions* Flavia Lua APRN-BINH - 05/28/2020 10:19 AM MULTIPLE SPINDLE SCREW MACHINE OPERATOR Images from the original note were not included. Vaccine recipients are encouraged to enroll in the CDC V-SAFE program for post vaccination monitoring. Sign up with your smartphone's browser at [employer].cdc.gov or Aim your smartphone's camera at this code. COVID-19 Preparedness: Post-Vaccination Frequently Asked Questions Q. Do I need to continue to wear a mask and other PPE after both vaccine doses? A. Yes. While researchers and medical collections specialist learn more about the protection that COVID-19 vaccines provides, it will be important than ever for everyone to continue using all the tools available to us to help stop this pandemic, like covering your mouth and nose with a mask, washing your hands, and staying at least six feet away from others. Here are a few patterson reasons why it is important to continue with our current mitigation methods: ?? The initial clinical trials of the vaccine were not designed to determine whether vaccinated people could still spread the coronavirus without developing symptoms. Detailed data has not been released yet on whether the vaccines offer what???s known as sterilizing immunity, in which those who arevaccinated can???t contract or pass on the virus ?? The duration of protection from the vaccine against symptomatic disease is not yet known ?? The COVID-19 vaccines are not 100% effective. Effectiveness against symptomatic disease has beendocumented at 94-95% during the clinical trials. That means one out of every 20 people who get thisvaccine could still get a symptomatic infection. ?? Following the COVID-19 vaccination, immunity is not immediate. Q. Will [facility] change its current screening or testing protocols now that we have a vaccine? A. No. We do not anticipate changing any of our screening protocols, COVID testing protocols, or visitor policies in the near term until we have more data about the vaccine. Our infection control andinfectious disease team will continue to re-evaluate our guidelines as more data becomes avaialble. Q. What is the impact of the COVID-19 variants we hear about in the news? A. Viruses constantly change through mutation, and new variants of a virus are expected to occur over time. Multiple variants of the virus that causes COVID-19 have been documented in the [place] and globally during this pandemic. These variants haven't been around long enough to say for certain that the new vaccines are effective against it, but scientists aren't too worried about that -- lab studies suggest the vaccines will be protective against this strain. New variants will continue to appear as the effects of the COVID-19 pandemic continue. As new variants evolve scientists will continue to evaluate vaccine efficacy against the new variants. Given what we know about the coronavirus, it is unlikely that the virus would be able to rapidly change in such a way to escape the immune system. Escape from immunity requires that a virus accumulate a seriesof mutations, each allowing the virus to evade the effectiveness of the body???s defenses. Q. When can we stop wearing masks and social distancing? A.There is not enough information currently available to say if or when CDC or public health will stop recommending that people wear masks and avoid close contact with others to help prevent the spread of the virus. Experts need to understand more about the protection that COVID-19 vaccines providebefore making that decision. Other factors, including how many people get vaccinated and how the virus is spreading in communities, will also affect this decision. IPLE SPINDLE SCREW MACHINE OPERATOR documented in this encounter Progress Notes * Flavia Lua APRN-CNP - 05/28/2020 10:19 AM CST COVID screening checklist was reviewed with the patient. The Information sheet was given prior to administration. Injection site aseptically cleansed and injection given per Immunization(s) protocol.See Imm/Injections activity for details. IPLE SPINDLE SCREW MACHINE OPERATOR documented in this encounter Plan of Treatment Not on file documented as of this encounter Visit Diagnoses Diagnosis Need for vaccination- Primary Need for prophylactic vaccination and inoculation against unspecified single disease documented in this encounter Care Teams Parasitologist Relationship Specialty Start Date End Date George Menjivar MD [address] [place] [id number] PCP - General 05/22/19 documented as of this encounter
--- OUTSIDE RECORDS SUMMARY | 2024-04-12 11:44 | XMS_ITS | Encounter Summary ---
Author Organization [facility] Address [address] [place] [address]. 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 No / Unsure 06/28/2020 3:01 PM CDT documented as of this encounter Plan of Treatment Not on file documented as of this encounter Results * GI PANEL PCR - STOOL (07/03/2020 1:53 PM CDT) CAMPYLOBACTER PCR (STOOL) NOT DETECTED NOT DETECTED 07/05/2020 4:03 PM CDT [facility] PLESIOMONAS SHIGELLOIDES PCR (STOOL) NOT DETECTED NOT DETECTED 07/05/2020 4:03 PM CDT [facility] SALMONELLA PCR (STOOL) NOT DETECTED NOT DETECTED 07/05/2020 4:03 PM CDT [facility] VIBRIO PCR (STOOL) NOT DETECTED NOT DETECTED 07/05/2020 4:03 PM CDT [facility] VIBRIO CHOLERAE PCR (STOOL) NOT DETECTED NOT DETECTED 07/05/2020 4:03 PM T [facility] YERSINIA ENTEROCOLITICA PCR (STOOL) NOT DETECTED NOT DETECTED 07/05/2020 4:03 PM T [facility] ENTEROAGGREGATIVE ECOLI PCR (STOOL) NOT DETECTED NOT DETECTED 07/05/2020 4:03 PM T [facility] ENTEROPATHOGENIC ECOLI PCR (STOOL) NOT DETECTED NOT DETECTED 07/05/2020 4:03 PM T [facility] ENTEROTOXIGENIC ECOLI PCR (STOOL) NOT DETECTED NOT DETECTED 07/05/2020 4:03 PM T [facility] SHIGA LIKE TOXIN ECOLI PCR (STOOL) NOT DETECTED NOT DETECTED 07/05/2020 4:03 PM CDT [facility] SHIG/ENTEROINVASIVE ECOLI PCR (STOOL) NOT DETECTED NOT DETECTED 07/05/2020 4:03 PM CDT [facility] CRYPTOSPORIDIUM PCR (STOOL) NOT DETECTED NOT DETECTED 07/05/2020 4:03 PM T [facility] CYCLOSPORA CAYETANENSIS PCR (STOOL) NOT DETECTED NOT DETECTED 07/05/2020 4:03 PM T [facility] ENTAMOEBA HISTOLYTICA PCR (STOOL) NOT DETECTED NOT DETECTED 07/05/2020 4:03 PM T [facility] GIARDIA LAMBLIA PCR (STOOL) NOT DETECTED NOT DETECTED 07/05/2020 4:03 PM CDT [facility] ADENOVIRUS F40/41 PCR (STOOL) NOT DETECTED NOT DETECTED 07/05/2020 4:03 PM T [facility] ASTROVIRUS PCR (STOOL) NOT DETECTED NOT DETECTED 07/05/2020 4:03 PM T [facility] NOROVIRUS GI/GII PCR (STOOL) NOT DETECTED NOT DETECTED 07/05/2020 4:03 PM CDT [facility] ROTAVIRUS A PCR (STOOL) NOT DETECTED NOT DETECTED 07/05/2020 4:03 PM CDT [facility] SAPOVIRUS PCR (STOOL) NOT DETECTED NOT DETECTED 07/05/2020 4:03 PM CDT [facility] STOOL SPECIMEN / Unknown 07/03/2020 1:53 PM CDT George Menjivar MD MICROBIOLOGY - GENERAL ORDBarbara LANDON Final Result [facility] [address] [place] [address], * CLOSTRIDIUM DIFFICILE (07/03/2020 10:30 AM CDT) [facility] ANTIGEN NEGATIVE NEGATIVE 07/03/2020 1:59 PM CDT [facility] C DIFFICILE TOXIN A&B (STOOL) NEGATIVE NEGATIVE 07/03/2020 1:59 PM CDT [facility] COMMENT [facility] NEGATIVE/TOXI N A & B NEGATIVE: NEGATIVE FOR TOXIGENIC C. DIFFICILE. [facility] NEGATIVE/TOXI N A & B NEGATIVE: NEGATIVE FOR TOXIGENIC C. 07/03/2020 1:59 PM CDT [facility] STOOL SPECIMEN / Unknown 07/03/2020 10:30 AM CDT George Menjivar MD BODY FLUIDS AND STOOLS ORDBarbara LANDON Final Result [facility] [address] [place] [address], documented in this encounter Visit Diagnoses Diagnosis Diarrhea- Primary documented in this encounter Care Teams Combiner Relationship Specialty Start Date End Date George Menjivar MD [address] [place] [address] PCP - General FAMILY PRACTICE 11/30/20 documented as of this encounter
--- OUTSIDE RECORDS SUMMARY | 2024-04-12 11:44 | XMS_ITS | Referral Summary ---
Author Organization [facility] Address [address] [place] [address] Care Team Providers Care Tempering Kiln Tender Name Role Phone George Menjivar MD Primary Care Provider [phone] Source Comments [facility],non-owned Affiliates and Associated Physician Practices is amultiple site organization consisting of ambulatory clinics and hospital sitesin [place], [place], [place] and [place]. This disclosure is being madepursuant to the Care Everywhere program and may not contain all information available regarding this patient. Last updated 17.[facility] Allergies Active Allergy Reactions Criticality Noted Date Comments Erythromycin Rash Medium 02/10/2019 Medications * Be aware that medications may not be up to date on this document. Alwaysverify current medications with the patient. Medication Sig Dispensed Refills Start Date End Date Status cyanocobalamin (VITAMIN B-12) injection INJECT 1 ML INTRAMUSCULARLY EVERY MONTH 3 11/22/2018 Active Prenat w/o I-PZ-Lztvgth-FA-DH A (ZATEAN-PN DHA) 27-0.6-0.4-300 MG CAPS 01/01/2019 Active warfarin (COUMADIN) 6 MG tablet 05/20/2019 Active traMADol (ULTRAM) 50 MG tablet TAKE 1 TABLET BY MOUTH TWICE A DAY NEEDED 05/14/2019 Active B-D 3CC LUER-TOBIN SYR 23GX1 23G X 1 3 ML MISC USE 1 MONTHLY 05/07/2019 Active NIFEdipine CR 24hr (ADALAT CC) 30 MG tablet Take 30 mg by mouth every morning 05/07/2019 Active metoclopramide (REGLAN) 10 MG tablet 05/15/2019 Active ibuprofen (MOTRIN) 600 MG tablet 600MG BY MOUTH EVERY 6 HOURS NEEDED 03/07/2019 Active FLUoxetine (PROZAC) 20 MG capsule Take 20 mg by mouth once daily 03/31/2019 Active vitamin D, ergocalciferol, (DRISDOL) 1.25 MG (34734 UT) capsule TAKE 1 BY MOUTH WEEKLY 0 01/11/2019 Active butalbital-acetami nophen-caffeine (FIORICET) 50-325-40 MG tablet Take 1 tablet by mouth every 4 hours as needed for Headache Active albuterol HFA (PROVENTIL;VENTOLI N;PROAIR) 108 (90 Base) MCG/ACT inhaler albuterol sulfate HFA 90 mcg/actuation aerosol inhaler INHALE 1 2 INHALATION EVERY 4 6 HOURS NEEDED FOR SHORTNESS OF BREATH OR WHEEZING Active atorvastatin (LIPITOR) 20 MG tablet atorvastatin 20 mg tablet TAKE 1 TABLET BY MOUTH EVERY DAY Active benzonatate (TESSALON) 100 MG capsule benzonatate 100 mg capsule Active SYMBICORT 160-4.5 MCG/ACT inhaler 09/30/2020 Active busPIRone (BUSPAR) 7.5 MG tablet Take 3.75 mg by mouth 2 times daily 09/25/2020 Active cefUROXime (CEFTIN) 500 MG tablet cefuroxime axetil 500 mg tablet Active enoxaparin (LOVENOX) 80 MG/0.8ML injection enoxaparin 80 mg/0.8 mL subcutaneous syringe Active epinastine (ELESTAT) 0.05 % ophthalmic solution epinastine 0.05 % eye drops Active gentamicin (GARAMYCIN) 0.3 % ophthalmic solution gentamicin 0.3 % eye drops Active lidocaine 2% jelly (XYLOCAINE) 2 % jelly lidocaine HCl 2 % mucosal jelly Active LORazepam (ATIVAN) 1 MG tablet lorazepam 1 mg tablet TAKE 1 TABLET BY MOUTH EVERY 12 HOURS Active terconazole (TERAZOL 3) 0.8 % vaginal cream terconazole 0.8 % vaginal cream USE DIRECTED VAGINALLY AT BEDTIME Active tobramycin-dexAMET Hasone (TOBRADEX) 0.3-0.1 % ophthalmic suspension tobramycin 0.3 %-dexamethasone 0.1 % eye drops,suspension Active topiramate ER 24hr (TROKENDI XR) 200 MG capsule Trokendi XR 200 mg capsule, extended release Active VIIBRYD 40 MG tablet 10/05/2020 Active Active Problems Problem Noted Date Diagnosed Date Acute pulmonary embolism without acute cor pulmo nale 06/02/2019 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 al cleft lip, not applicable or unspecified fetus 02/17/2019 Advanced maternal age in multigravida, third tri mester 02/17/2019 Encounter for supervision of high risk due to anomaly, second trimester 02/10/2019 Overview (02/10/2019): Suspected cleft palate and lip A+/Neg/Imm/-/-/- NIPT- LR Resolved Problems Problem Noted Date Diagnosed Date Resolved Date Depression screen 02/17/2019 04/01/2019 Overview (02/17/2019): 02/17/[address] was screened for depression using the [place] Depression Scale (EPDS) at her [facility] initial evaluation on 02/17/2019. Her initial score at baseline was 8. Based off of her score of 8, Jonathan does not warrant follow up. Patient will continue to be screened throughout , at intervals no closer than two weeks, for continued surveillance and early identification of depression until delivery. Patient reports mental health history. Diagnoses include depression, depression and anxiety. abnormality in pregnan cy - Cleft Lip & Palate 02/11/2019 04/01/2019 Overview (02/18/2019): Images from the original note were not included. SNF PATIENT--PLEASE CALL [phone] (ex 2) IF TRIAGED OR ADMITTED Care Provider: Dr. Humphrey [facility] consultants involved: Yasmine Eisenberg-Nurse Coordinator; Dr. Luis-[facility]; Celeste Mayo- Cleft team Diagnosis: Cleft Lip Planned surveillance: Initial SNF appointment on 02.17.19; Routine care Delivery location: [facility] Delivery mode: hx Desired Delivery [place]: per obstetric indications follow up: family to call and schedule an appointment with craniofacial team after baby is born Child And Adolescent Psychologist: per patient report, changing pediatricians as of 11.18 [facility] Concerns: 02/17/19- Patient with depression, PPD and anxiety-no medications currently Care plan based on evaluation and is subject to change based on assessment. See Images or Cardiac under Chart Review for US/ ECHO/ MRI reports. Immunizations Name Administration Dates Next Due Carlos Enrique Butler primary monoval ent 12+ yr 0.3mL Purple cap 05/28/2020,05/05/2020 INFLUENZA VACCINE 01/14/2019 Social History Tobacco Use Types Packs/Day Years [...] Mass Index 26.63 10/07/2020 11:44 AM CDT Plan of Treatment Not on file Care Teams Tempering Kiln Tender Relationship Specialty Start Date End Date George Menjivar MD [address] [place] [phone] PCP - General 05/22/19
--- OUTSIDE RECORDS SUMMARY | 2024-04-12 11:44 | XMS_ITS | Clinical Summary ---
Author Organization [facility] Address [address] [facility] [place] [address] Care Team Providers Care Catering Sous Chef Name Role Phone George Menjivar MD Primary Care Provider Source Comments [facility],non-owned Affiliates and Associated Physician Practices is amultiple site organization consisting of ambulatory clinics and hospital sitesin [place], [place]. This disclosure is being madepursuant to the Care Everywhere program and may not contain all information available regarding this patient. Last updated 17.[facility] Allergies Active Allergy Reactions Criticality Noted Date Comments Erythromycin Rash Medium 02/10/2019 Medications * Be aware that medications may not be up to date on this document. Alwaysverify current medications with the patient. Medication Sig Dispensed Refills Start Date End Date Status cyanocobalamin (VITAMIN B-12) injection INJECT 1 ML INTRAMUSCULARLY EVERY MONTH 3 11/22/2018 Active Prenat w/o E-ET-Uyizwhx-FA-DH A (ZATEAN-PN DHA) 27-0.6-0.4-300 MG CAPS 01/01/2019 [...] Active vitamin D, ergocalciferol, (DRISDOL) 1.25 MG (01148 UT) capsule TAKE 1 BY MOUTH WEEKLY [...] Way was screened for depression using the [place] Depression Scale (EPDS) at her [facility] initial evaluation on 02/17/2019. Her initial score [...] from the original note were not included. [facility] PATIENT--PLEASE CALL [phone] (ex 2) IF TRIAGED OR ADMITTED Care Provider: Dr. Humphrey [facility] consultants involved: Yasmine Eisenberg-Nurse Coordinator; Dr. Luis-[facility]; Celeste Mayo- Cleft team Diagnosis: Cleft Lip Planned surveillance: Initial [facility] appointment on 02.17.19; Routine care Delivery location: [facility] Delivery mode: hx Desired Delivery [place]: per obstetric indications follow up: family to call and schedule an appointment with craniofacial team after baby is born Machine Loader: per patient report, changing pediatricians as of 11.18 Cost Coordinator Concerns: 02/17/19- Patient with depression, PPD and anxiety-no medications currently Care plan based on evaluation and is subject to change based on assessment. See Images or Cardiac under Chart Review for US/ ECHO/ MRI reports. Immunizations Name Administration Dates Next Due Covid Pfizer primary monoval ent 12+ yr 0.3mL Purple [...] 10/07/2020 11:44 AM CDT Plan of Treatment Health Maintenance Due Date Last Done Comments MAMMOGRAM 1980 PAP SMEAR 1980 HIV SCREENING 1995 HEPATITIS C SCREENING 04/10/1998 DTAP/TDAP/TD VACCINES (1 - Tdap) 1999 HEPATITIS B VACCINE (1 of 3 - 19+ 3-dose series) 1999 SCREENING FOR DIABETES 10/07/2020 COVID-19 VACCINE ( - 2023-2 5 season) 2023 05/28/2020, 05/05/2020 INFLUENZA VACCINE (#1) 2023 01/14/2019 DEPRESSION SCREENING 04/02/2024 ZOSTER VACCINE (1 of 2) 2030 HIB VACCINE Aged Out No longer eligi ble based on patient's age to complete this topic HPV VACCINE Aged Out No longer eligi ble based on patient's age to complete this topic MENINGOCOCCAL VACCINE Aged Out No lucas tasha eligible based on patient's age to complete this topic PNEUMOCOCCAL VACCINE Aged Out No long er eligible based on patient's age to complete this topic Care Teams Catering Sous Chef Relationship Specialty Start Date End Date George Menjivar MD [address] [place] [address] [place] [phone] PCP - General 05/22/19
--- OUTSIDE RECORDS SUMMARY | 2024-04-12 11:44 | XMS_ITS | Encounter Summary ---
Author Organization [facility] Address [address] [place] [address] Care Team Providers Care Hand Scudder Name Role Phone George Menjivar MD Primary Care Provider [phone] Reason for Referral * Radiology Services (Routine) - Closed Specialty Diagnoses / Procedures Referred By Contac t Referred To Contact MRI Diagnoses Asymptomatic telangiectasia Procedures MRI BRAIN WWO CONTRAST Harvey Grimaldo MD [address] [place] [address] [address] [address] [facility] [address] [place] [address] Referral ID Status Reason Start Date Expiration Date Visits Re quested Visits Authorized [id number] Closed 09/27/2021 11/25/2021 1 1 Reason for Visit * Reason Comments Establish Care Encounter Details Date Type Department Care Team (Latest Contact Info) Description 10/07/2020 10:45 AM CDT Office Visit [facility] [facility] [place] [phone] Harvey Grimaldo MD [address] [place] [address] [address] [place] [address] Asymptomatic telangiectasia (Primary Dx) Social History Tobacco Use Types Packs/Day Years [...] AM CDT documented as of this encounter Last Filed [...] Mass Index 26.63 10/07/2020 11:44 AM CDT documented in this encounter Patient Instructions * Patient Instructions* Yasmine Nagy - 10/07/2020 12:11 PM CDT Follow up in 1 year with MRI brain w/wo contrast For any questions please call Yasmine [phone] documented in this encounter Progress Notes * Sulma Jarrell APRN-CNP - 10/07/2020 11:44 AM CDT Neurosurgery Clinic Progress Note Chief Complaint (CC): Follow up telangiectasia HISTORY OF PRESENT ILLNESS (HPI): Patient is a 40 year old female with a history of anemia, depression and vaginal delivery that was complicated by blood clots, preeclampsia, and severe headaches. She underwent imaging at that time and incidentally found a left basal ganglia telangiectasia. The patient presents to clinic today for a 1 year follow up and MRI. Since last year, patient continues to endorse frequent headaches that have improved since last year. She denies any memory changes, seizures, new visual changes, or weakness. PMH: Past Medical History: Diagnosis Date ??? Anemia ??? Heart murmur ??? Major depressive disorder ??? related nausea and vomiting, antepartum ??? PTSD (post-traumatic stress disorder) PSH: Past Surgical History: Procedure Laterality Date ??? Cervical Fusion 2012 ??? Cholecystectomy ??? Hemorrhoidectomy Meds: Current Outpatient Medications Medication ??? albuterol HFA (PROVENTIL;VENTOLIN;PROAIR) 108 (90 Base) MCG/ACT inhaler ??? atorvastatin (LIPITOR) 20 MG tablet ??? B-D 3CC LUER-TOBIN SYR 23GX1 23G X 1 3 ML MISC ??? benzonatate (TESSALON) 100 MG capsule ??? busPIRone (BUSPAR) 7.5 MG tablet ??? lpxyzdmsqz-eaevzlghgjbxu-ppirztlk (FIORICET) 50-325-40 MG tablet ??? cefUROXime (CEFTIN) 500 MG tablet ??? cyanocobalamin (VITAMIN B-12) injection ??? enoxaparin (LOVENOX) 80 MG/0.8ML injection ??? epinastine (ELESTAT) 0.05 % ophthalmic solution ??? FLUoxetine (PROZAC) 20 MG capsule ??? gentamicin (GARAMYCIN) 0.3 % ophthalmic solution ??? ibuprofen (MOTRIN) 600 MG tablet ??? lidocaine 2% jelly (XYLOCAINE) 2 % jelly ??? LORazepam (ATIVAN) 1 MG tablet ??? metoclopramide (REGLAN) 10 MG tablet ??? NIFEdipine CR 24hr (ADALAT CC) 30 MG tablet ??? Prenat w/o Q-SH-Mphiqxw-FA-DHA (ZATEAN-PN DHA) 27-0.6-0.4-300 MG CAPS ??? SYMBICORT 160-4.5 MCG/ACT inhaler ??? terconazole (TERAZOL 3) 0.8 % vaginal cream ??? tobramycin-dexAMETHasone (TOBRADEX) 0.3-0.1 % ophthalmic suspension ??? topiramate ER 24hr (TROKENDI XR) 200 MG capsule ??? traMADol (ULTRAM) 50 MG tablet ??? VIIBRYD 40 MG tablet ??? vitamin D, ergocalciferol, (DRISDOL) 1.25 MG (14162 UT) capsule ??? warfarin (COUMADIN) 6 MG tablet No current facility-administered medications for this visit. Facility-Administered Medications Ordered in Other Visits Medication ??? gadobutrol (Gadavist) injection Allergies Allergies Allergen Reactions ??? Erythromycin Rash Social: Social History Tobacco Use ??? Smoking status: Former Smoker Years: 10.00 Types: Cigarettes Quit date: 2004 Years since quittin.5 ??? Smokeless tobacco: Never Used Substance Use Topics ??? Alcohol use: Not Currently Family: No family history on file. REVIEW OF SYSTEMS Constitutional: Negative Eyes: Positive for visual blurring bilaterally Ears, nose, mouth, throat, and face: Negative Respiratory: Negative Cardiovascular: Negative Gastrointestinal: Negative Genitourinary:negative Integument/breast: negative Hematologic/lymphatic: Negative Musculoskeletal:Negative Neurological: Positive for headaches PHYSICAL EXAM BP 109/76 (BP SITE: LEFT ARM) Pulse 69 Temp 97.7 ??F (36.5 ??C) (Temporal) Resp 20 Ht 5' 5 (1.651 m) Wt 160 lb (72.6 kg) SpO2 99% BMI 26.63 kg/m2 General: No acute distress Cardiovascular: warm, well profused Respiratory: non-labored breathing Integument: no lesions found. Neuro: awake, alert, and oriented to person, place and time. Speech is clear and fluent with normalrepetition. Pupils are equal and reactive to light. Extraocular movements are intact. Visual fieldsare full to confirmation. Facial sensation is intact to light touch and symmetric. Facial movementsare symmetric and full strength. Motor exam is full strength 5/5 throughout. Sensation is intact tolight touch in all extremities. Normal gait. RADIOLOGY: 10/07/2020: MRI BRAIN WWO CONTRAST FINDINGS: There is evidence of symmetric capillary [...] calvarium and visualized cervical spine appear normal. Impression: 1. Bilateral basal ganglia capillary teleangiectasia. No additional congenital vascular anomalies identified. 2. Otherwise unremarkable brain MRI. Assessment/Plan: Ashley Stokes is a 40 year old female with a history of incidentally found basal ganglia telangiectasia, who presents to clinic today for a 1 year follow up and MRI. Patient doing well. She continues to have frequent headaches that she feels are improved. Patient denies any other concerns today. MRI brain today demonstrates basal ganglia teleangiectasia that appears stable when compared to prior MRI report. Comparison images not available for review today. It is unlikely headaches are relatedto telangiectasia. We will plan to have the patient follow up in 1 year with a MRI brain with and without contrast prior. ASIA Dc 10/07/2020 12:11 PM documented in this encounter Plan of Treatment Not on file documented as of this encounter Results * MRI BRAIN WWO [...] are identified. Dictated by Aldo Quintero, DO (vice president of software engineering) This report was approved ??by Aldo Quintero [...] are identified. Dictated by Aldo Quintero DO (vice president of software engineering) This report was approved by Aldo Quintero on 10/08/2021 9:40 AM . I, Dr. MEI JOEL have personally reviewed and interpreted this examination/study. This report was electronically signed by MEI JOEL on10/08/2021 9:40 AM . Harvey Grimaldo MD MR ORDERABLES documented in this encounter Visit Diagnoses Diagnosis Asymptomatic telangiectasia- Primary Asymptomatic telangiectasia documented in this encounter Care Teams Hand Scudder Relationship Specialty Start Date End Date George Menjivar MD [address] [place] [address] [place] [phone] PCP - General 05/22/19 documented as of this encounter
--- OUTSIDE RECORDS SUMMARY | 2024-04-12 11:44 | XMS_ITS | Encounter Summary ---
Author Organization [facility] Address [address] [place] [address]. [place] [address] [place] [address] Care Team Providers Care Product Sales Engineer Name Role Phone George Carrasco MD Primary Care Provider [phone] Reason for Referral * Imaging (Routine) - Closed Specialty Diagnoses / Procedures Referred By Contac t Referred To Contact RADIOLOGY Diagnoses Abdominal pain, left lower quadrant Procedures CT ABD+PEL George Coronel MD [address] [place] [address] Phone: tel: fax: Referral ID Status Reason Start Date Expiration Date Visits Re quested Visits Authorized [id number] Closed 06/25/2020 07/24/2020 1 1 Reason for Visit * Imaging (Routine) - Closed Specialty Diagnoses / Procedures Referred By Contac t Referred To Contact RADIOLOGY Diagnoses Abdominal pain, left lower quadrant Procedures CT ABD+PEL WO George Hamilton MD [address] [place] [address] Phone: tel: fax: Referral ID Status Reason Start Date Expiration Date Visits Re quested Visits Authorized [id number] Closed 06/25/2020 07/24/2020 1 1 Encounter Details Date Type Department Care Team (Late st Contact Info) Description 06/28/2020 3:00 PM CDT - 06/28/2020 11:59 PM CDT Hospital Encounter 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 Normal appearance of the appendix. 2. No evidence of mechanical bowel obstruction nor perforation. 3. No evidence of ureteral stone or hydronephrosis on either side. 4. No evidence of significant mass lesion or adenopathy. 5. Chronic degenerative disease at the lumbosacral junction. Referred By: GEORGE CARRASCO Interpreted By: Ford Sanders MD, 06/28/2020 3:52 PM Narrative 06/28/2020 4:01 PM CDT Examination: CT ABD+PEL WO CON Exam time: 06/28/2020 3:15 PM Clinical history: Left lower quadrant pain for several weeks Comparison: CT abdomen/pelvis 12/04/2007 Technique: Axial images obtained from xiphoid process to pubic symphysis without contrast using low-dose CT technique. Sagittal and coronal reconstruction. Findings: CT ABDOMEN: Visualized portions of the lung bases are unremarkable. Small hiatal hernia. The liver is normal in size. No focal intrahepatic lesions are demonstrated. The gallbladder has been surgically removed and there are clips in the gallbladder fossa. The spleen, pancreas, and the adrenal glands are unremarkable. There is no significant acute perirenal inflammatory stranding or fluid. No renal calcifications. No evidence of ureteral stone nor hydronephrosis on either side. No evidence to suggest renal mass lesion. There is no acute inflammatory change, abscess nor ascites. Normal appearance of the appendix. No evidence of mechanical bowel obstruction nor perforation. No significant lymphadenopathy. Abdominal aorta and IVC are unremarkable. CT PELVIS: No evidence of pelvic mass nor adenopathy. No acute inflammatory change, abscess nor ascites. Calcified phleboliths are noted in the pelvis. Chronic degenerative disc disease/spondylosis at L5-S1. Procedure Note Ford Sanders MD - 06/28/2020 Examination: CT ABD+PEL WO CON Exam time: 06/28/2020 3:15 PM Clinical history: Left lower quadrant pain for several weeks Comparison: CT abdomen/pelvis 12/04/2007 Technique: Axial images obtained from xiphoid process to pubic symphysis without contrast using low-dose CT technique. Sagittal and coronal reconstruction. Findings: CT ABDOMEN: Visualized portions of the lung bases are unremarkable.Small hiatal hernia. The liver is normal in size. No focal intrahepatic lesions are demonstrated. The gallbladder has been surgically removed and there are clips in the gallbladder fossa. The spleen, pancreas, and the adrenal glands are unremarkable. There is no significant acute perirenal inflammatory stranding or fluid.No renal calcifications. No evidence of ureteral stone nor hydronephrosison either side. No evidence to suggest renal mass lesion. There is no acute inflammatory change, abscess nor ascites. Normal appearance of the appendix. No evidence of mechanical bowel obstructionnor perforation. No significant lymphadenopathy. Abdominal aorta and IVC are unremarkable. CT PELVIS: No evidence of pelvic mass nor adenopathy. No acuteinflammatory change, abscess nor ascites. Calcified phleboliths are noted in thepelvis. Chronic degenerative disc disease/spondylosis at L5-S1. IMPRESSION: 1) No evidence of acute inflammatory change, abscess or ascites. Normal appearance of the appendix. 2. No evidence of mechanical bowel obstruction nor perforation. 3. No evidence of ureteral stone or hydronephrosis on either side. 4. No evidence of significant mass lesion or adenopathy. 5. Chronic degenerative disease at the lumbosacral junction. Referred By: GEORGE CARRASCO Interpreted By: Ford Sanders MD, 06/28/2020 3:52 PM us George Carrasco MD CT Final Resul t documented in this encounter Visit Diagnoses Diagnosis Abdominal pain, left lower quadrant documented in this encounter Care Teams Product Sales Engineer Relationship Specialty [place] [address] [place] [address] [place] [address] PCP - General FAMILY PRACTICE 03/01/20 documented as of this encounter
--- OUTSIDE RECORDS SUMMARY | 2024-04-12 11:44 | XMS_ITS | Encounter Summary ---
Author Organization [facility] Address [address] [place] [address] Care Team Providers Care Clinical Cytogeneticist Scientist Name Role Phone George Menjivar MD Primary Care Provider Reason for Referral * Radiology Services (Routine) - Closed Specialty Diagnoses / Procedures Referred By Contac t Referred To Contact MRI Diagnoses Telangiectasia Procedures MRI BRAIN WWO CONTRAST Harvey Grimaldo MD [address] [place] [address] [address] [place] [address] [facility]ri [address] [place] [address] Referral ID Status Reason Start Date Expiration Date Visits Re quested Visits Authorized [id number] Closed 09/29/2020 10/28/2020 1 1 Encounter Details Date Type Department Care Team (Late st Contact Info) Description 09/15/2020 Orders Only [facility] [address] [facility], [place] [address] Harvey Grimaldo MD [address] [facility] [address] [place], [place] [id number] Telangiectasia Social History Tobacco Use Types Packs/Day Years [...] brain MRI. Dictated by Kevin Burgess MD (residential sales rep). I, Dr. JONATHON SORIA have personally reviewed [...] brain MRI. Dictated by Kevin Burgess MD (residential sales rep). I, Dr. JONATHON SORIA have personally reviewed and interpreted this examination/study. This report was electronically signed by JONATHON SORIA on 10/07/2020 6:33PM . Harvey Grimaldo MD MR ORDERABLES documented in this encounter Visit Diagnoses Diagnosis Telangiectasia- Primary Other and unspecified capillary diseases Telangiectasia Other and unspecified capillary diseases documented in this encounter Care Teams Clinical Cytogeneticist Scientist Relationship Specialty Start Date End Date George Menjivar MD [address] [place] [address] PCP - General 05/22/19 documented as of this encounter
--- OUTSIDE RECORDS SUMMARY | 2024-04-12 11:44 | XMS_ITS | Encounter Summary ---
Author Organization [facility] Address [address] [place] [address] Care Team Providers Care Kiln Burner Name Role Phone Unavailable Primary Care Provider Unavailabl e Reason for Visit * Reason Onset Date Comments Referral 02/11/2019 Encounter Details Date Type Department Care Team (Late st Contact Info) Description 02/11/2019 Telephone [facility] [place] [address] [place] [address] Renae Harris, ceramist Social History Tobacco Use Types Packs/Day Years [...] on file documented as of this encounter Miscellaneous Notes * Telephone Encounter - Renae Harris RN - 02/11/2019 4:35 PM GLASS LATHE OPERATOR I spoke with Ashley regarding her referral to [facility], she was expecting my call. She had an understanding as to why she was referred and the [facility] program was introduced. Ashley accepted the appointment date/time offered and stated she would not have trouble getting here. An appointment email was sent to her verified email address at her request. All questions were answered and she was provided the [facility] contact information should further question arise. I informed Ashley that someone from [facility] would contact her prior to her appointment if any changes were needed due to practitioner availability and she verbalized understanding. S LATHE OPERATOR documented in this encounter Plan of Treatment Not on file documented as of this encounter Visit Diagnoses Not on filedocumented in this encounter
--- OUTSIDE RECORDS SUMMARY | 2024-04-12 11:45 | XMS_ITS | Encounter Summary ---
Author Organization [facility] Address [address] [place] [address]. [place] [address] [place] [address] Care Team Providers Care Blanking Press Operator Name Role Phone Unavailable Primary Care Provider Unavailabl e Encounter Details Date Type Department Care Team (Late st Contact Info) Description 06/27/[address] 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
--- OUTSIDE RECORDS SUMMARY | 2024-04-12 11:45 | XMS_ITS | Encounter Summary ---
Author Organization [facility] Address [address] [place] [address]. [place] [address] [place] [address] Care Team Providers Care Immersion Metal Cleaner Name Role Phone Unavailable Primary Care Provider Unavailabl e Encounter Details Date Type Department Care Team (Late st Contact Info) Description 07/23/[address] [facility] [address] [place] [address] George Menjivar MD [address] [place] [address] Social History Tobacco Use Types Packs/Day Years Used Date Smoking Tobacco: Never Assessed Comments Unknown Sex and Gender Information Value Date Recorded Sex Assigned at Not on file Legal Sex Female 5:54 PM NURSE STAFF INDUSTRIAL Gender Identity Not on file Sexual Orientation Not on file documented as of this encounter Plan of Treatment Not on file documented as of this encounter Visit Diagnoses Diagnosis Pain in soft tissues of limb Pain in limb documented in this encounter
--- OUTSIDE RECORDS SUMMARY | 2024-04-12 11:45 | XMS_ITS | Encounter Summary ---
Author Organization [facility] Address [address] [place] [address]. [place] [address] [place] [address] Care Team Providers Care Rn Procedure Name Role Phone Unavailable Primary Care Provider Unavailabl e Encounter Details Date Type Department Care Team (Late st Contact Info) Description 01/21/[address] [facility] [address] [place] [address] George Menjivar MD [address] [place] [address] Social History Tobacco Use Types Packs/Day Years Used Date Smoking Tobacco: Never Assessed Comments Unknown Sex and Gender Information Value Date Recorded Sex Assigned at Not on file Legal Sex Female 5:54 PM COOK FRY Gender Identity Not on file Sexual Orientation Not on file documented as of this encounter Plan of Treatment Not on file documented as of this encounter Visit Diagnoses Diagnosis Family history of other blood disorders documented in this encounter
--- OUTSIDE RECORDS SUMMARY | 2024-04-12 11:45 | XMS_ITS | Encounter Summary ---
Author Organization [facility] Address [address] [place] [address]. [place] [address] [place] [address] Care Team Providers Care Financial Analysis Manager Name Role Phone Unavailable Primary Care Provider Unavailabl e Encounter Details Date Type Department Care Team (Late st Contact Info) Description 12/04/[address] [facility] [address] [place] [address] George Menjivar MD [address] [place] [address] Social History Tobacco Use Types Packs/Day Years Used Date Smoking Tobacco: Never Assessed Comments Unknown Sex and Gender Information Value Date Recorded Sex Assigned at Not on file Legal Sex Female 5:54 PM FLOAT OPERATOR Gender Identity Not on file Sexual Orientation Not on file documented as of this encounter Plan of Treatment Not on file documented as of this encounter Visit Diagnoses Not on filedocumented in this encounter
--- OUTSIDE RECORDS SUMMARY | 2024-04-12 11:45 | XMS_ITS | Encounter Summary ---
Author Organization [facility] Address [address] [place] [address]. [place] [address] [place] [address] Care Team Providers Care Internal Combustion Engineer Name Role Phone Unavailable Primary Care Provider Unavailabl e Encounter Details Date Type Department Care Team (Late st Contact Info) Description 06/23/[address] [facility] [address] [place] [address] George Menjivar MD [address] [place] [address] Social History Tobacco Use Types Packs/Day Years Used Date Smoking Tobacco: Never Assessed Comments Unknown Sex and Gender Information Value Date Recorded Sex Assigned at Not on file Legal Sex Female 5:54 PM OCCUPATIONAL THERAPY PROGRAM DIRECTOR Gender Identity Not on file Sexual Orientation Not on file documented as of this encounter Plan of Treatment Not on file documented as of this encounter Visit Diagnoses Diagnosis Spontaneous (HHS/HCC) Unspecified spontaneous without mention of complication documented in this encounter
--- OUTSIDE RECORDS SUMMARY | 2024-04-12 11:45 | XMS_ITS | Encounter Summary ---
Author Organization [facility] Address [address] [place] [address]. [place] [address] [place] [address] Care Team Providers Care Shortage Worker Name Role Phone Unavailable Primary Care Provider Unavailabl e Encounter Details Date Type Department Care Team (Late st Contact Info) Description 03/19/[address] [facility] [address] [place] [address] George Menjivar MD [address] [place] [address] Social History Tobacco Use Types Packs/Day Years Used Date Smoking Tobacco: Never Assessed Comments Unknown Sex and Gender Information Value Date Recorded Sex Assigned at Not on file Legal Sex Female 5:54 PM CELL TESTER Gender Identity Not on file Sexual Orientation Not on file documented as of this encounter Plan of Treatment Not on file documented as of this encounter Visit Diagnoses Diagnosis Galactorrhea not associated with childbirth documented in this encounter
--- OUTSIDE RECORDS SUMMARY | 2024-04-12 11:45 | XMS_ITS | Encounter Summary ---
Author Organization [facility] Address [address] [place] [address]. [place] [address] [place] [address] Care Team Providers Care Clinical Quality Assurance Associate Name Role Phone Unavailable Primary Care Provider Unavailabl e Encounter Details Date Type Department Care Team (Late st Contact Info) Description 07/04/[address] [facility] [address] [place] [address] George Menjivar MD [address] [place] [address] Social History Tobacco Use Types Packs/Day Years Used Date Smoking Tobacco: Never Assessed Comments Unknown Sex and Gender Information Value Date Recorded Sex Assigned at Not on file Legal Sex Female 5:54 PM STRAPPER AND BUFFER Gender Identity Not on file Sexual Orientation Not on file documented as of this encounter Plan of Treatment Not on file documented as of this encounter Visit Diagnoses Diagnosis Ectopic without intrauterine (HHS/HCC) Unspecified ectopic without intrauterine documented in this encounter
--- OUTSIDE RECORDS SUMMARY | 2024-04-12 11:45 | XMS_ITS | Encounter Summary ---
Author Organization [facility] Address [address] [place] [address]. [place] [address] [place] [address] Care Team Providers Care Rn Float Name Role Phone George Menjivar MD Primary Care Provider Encounter Details Date Type Department Care Team (Late st Contact Info) Description 03/01/2020 Orders Only [facility] [address] [place] [address] George Menjivar MD [address] [place] [address] Social History Tobacco Use Types Packs/Day Years Used Date Smoking Tobacco: Never Assessed Comments Unknown Sex and Gender Information Value Date Recorded Sex Assigned at Not on file Legal Sex Female 5:54 PM MANAGER OF IT Gender Identity Not on file Sexual Orientation Not on file COVID-19 Exposure Response Date Recorded In the last month, have you been in contact with someone who was confirmed or suspected to have Coronavirus / COVID-19? No / Unsure 03/01/2020 3:18 PM MANAGER OF IT documented as of this encounter Plan of Treatment Not on file documented as of this encounter Results * D-DIMER, QUANTITATIVE (03/01/2020 3:34 PM MANAGER OF IT) D-DIMER 457 0 - 500 ng{FEU}/mL 03/01/2020 3:[address] [facility] Comment: A D DIMER RESULT LESS THAN OR EQUAL TO 500 NG/ML FEU HAS A NEGATIVE PREDICTIVE VALUE GREATER THAN 95% FOR THE EXCLUSION OF ACUTE PULMONARY EMBOLISM OR DEEP VEIN THROMBOSIS WHEN THERE IS LOW TO MODERATE PRETEST PROBABILITY. 03/01/2020 3:34 PM MANAGER OF IT us George Menjivar MD LABORATORY Final Resul t [facility] [address] [place] [address], documented in this encounter Visit Diagnoses Diagnosis Dyspnea on exertion- Primary Other dyspnea and respiratory abnormality documented in this encounter Care Teams Rn Float Relationship Specialty Start Date End Date George Menjivar MD [address] [place] [id number] PCP - General FAMILY PRACTICE 03/01/20 documented as of this encounter
--- OUTSIDE RECORDS SUMMARY | 2024-04-12 11:45 | XMS_ITS | Encounter Summary ---
Author Organization [facility] Address [address] [place] [address]. [place] [address] [place] [address] Care Team Providers Care Architect Name Role Phone Unavailable Primary Care Provider Unavailabl e Encounter Details Date Type Department Care Team (Late st Contact Info) Description 03/04/1997 Abstract [facility] [address] [place] [address] , Generic Conversion, Social History Tobacco Use Types Packs/Day Years Used Date Smoking Tobacco: Never Assessed Comments Unknown Sex and Gender Information Value Date Recorded Sex Assigned at Not on file Legal Sex Female 5:54 PM PAVILION CUTTER Gender Identity Not on file Sexual Orientation Not on file documented as of this encounter Plan of Treatment Not on file documented as of this encounter Visit Diagnoses Not on filedocumented in this encounter
--- OUTSIDE RECORDS SUMMARY | 2024-04-12 11:45 | XMS_ITS | Encounter Summary ---
Author Organization [facility] Address [address] [place] [address]. [place] [address] [place] [address] Care Team Providers Care Field Logistics Coordinator Name Role Phone Unavailable Primary Care Provider Unavailabl e Encounter Details Date Type Department Care Team (Late st Contact Info) Description 03/09/1997 Abstract [facility] [address] [place] [address] , Generic Conversion, Social History Tobacco Use Types Packs/Day Years Used Date Smoking Tobacco: Never Assessed Comments Unknown Sex and Gender Information Value Date Recorded Sex Assigned at Not on file Legal Sex Female 5:54 PM CONSTRUCTION CARPENTER Gender Identity Not on file Sexual Orientation Not on file documented as of this encounter Plan of Treatment Not on file documented as of this encounter Visit Diagnoses Not on filedocumented in this encounter
--- OUTSIDE RECORDS SUMMARY | 2024-04-12 11:45 | XMS_ITS | Encounter Summary ---
Author Organization [facility] Address [address] [place] [address]. [place] [address] [place] [address] Care Team Providers Care Shell Fisherman Name Role Phone Unavailable Primary Care Provider Unavailabl e Encounter Details Date Type Department Care Team (Late st Contact Info) Description 05/16/2005 Abstract [facility] [address] [place] [address] George Menjivar MD [address] [place] [address] Social History Tobacco Use Types Packs/Day Years Used Date Smoking Tobacco: Never Assessed Comments Unknown Sex and Gender Information Value Date Recorded Sex Assigned at Not on file Legal Sex Female 5:54 PM CLIENT INSIGHTS CONSULTANT Gender Identity Not on file Sexual Orientation Not on file documented as of this encounter Plan of Treatment Not on file documented as of this encounter Visit Diagnoses Not on filedocumented in this encounter
--- OUTSIDE RECORDS SUMMARY | 2024-04-12 11:45 | XMS_ITS | Encounter Summary ---
Author Organization [facility] Address [address] [place] [address]. [place] [address] [place] [address] Care Team Providers Care Metal Mixer Name Role Phone Unavailable Primary Care Provider Unavailabl e Encounter Details Date Type Department Care Team (Late st Contact Info) Description 04/03/[address] [facility] [address] [place] [address] George Menjivar MD [address] [place] [address] Social History Tobacco Use Types Packs/Day Years Used Date Smoking Tobacco: Never Assessed Comments Unknown Sex and Gender Information Value Date Recorded Sex Assigned at Not on file Legal Sex Female 5:54 PM TRAWL NET MAKER Gender Identity Not on file Sexual Orientation Not on file documented as of this encounter Plan of Treatment Not on file documented as of this encounter Visit Diagnoses Not on filedocumented in this encounter
--- OUTSIDE RECORDS SUMMARY | 2024-04-12 11:45 | XMS_ITS | Encounter Summary ---
Author Organization [facility] Address [address] [place] [address]. [place] [address] [place] [address] Care Team Providers Care Acquisition Lead Name Role Phone Unavailable Primary Care Provider Unavailabl e Encounter Details Date Type Department Care Team (Late st Contact Info) Description 02/10/2002 Abstract [facility] [address] [place] [address] , Generic Conversion, Social History Tobacco Use Types Packs/Day Years Used Date Smoking Tobacco: Never Assessed Comments Unknown Sex and Gender Information Value Date Recorded Sex Assigned at Not on file Legal Sex Female 5:54 PM EMBEDDED FIRMWARE DEVELOPER Gender Identity Not on file Sexual Orientation Not on file documented as of this encounter Plan of Treatment Not on file documented as of this encounter Visit Diagnoses Not on filedocumented in this encounter
--- OUTSIDE RECORDS SUMMARY | 2024-04-12 11:45 | XMS_ITS | Encounter Summary ---
Author Organization [facility] Address [address] [place] [address]. [place] [address] [place] [address] Care Team Providers Care Hoisting Engineer Name Role Phone Unavailable Primary Care Provider Unavailabl e Encounter Details Date Type Department Care Team (Late st Contact Info) Description [address] [facility] [address] [place] [address] George Menjivar MD [address] [place] [address] Social History Tobacco Use Types Packs/Day Years Used Date Smoking Tobacco: Never Assessed Comments Unknown Sex and Gender Information Value Date Recorded Sex Assigned at Not on file Legal Sex Female 5:54 PM UNDERWRITING OPERATIONS MANAGER Gender Identity Not on file Sexual Orientation Not on file documented as of this encounter Plan of Treatment Not on file documented as of this encounter Visit Diagnoses Not on filedocumented in this encounter
--- OUTSIDE RECORDS SUMMARY | 2024-04-12 11:45 | XMS_ITS | Encounter Summary ---
Author Organization [facility] Address [address] [place] [address]. 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
--- OUTSIDE RECORDS SUMMARY | 2024-04-12 11:45 | XMS_ITS | Encounter Summary ---
Author Organization [facility] Address [address] [place] [address]. [place] [address] [place] [address] Care Team Providers Care Data Support Analyst Name Role Phone Unavailable Primary Care Provider Unavailabl e Encounter Details Date Type Department Care Team (Late st Contact Info) Description 02/06/1997 Abstract [facility] [address] [place] [address] , Generic Conversion, Social History Tobacco Use Types Packs/Day Years Used Date Smoking Tobacco: Never Assessed Comments Unknown Sex and Gender Information Value Date Recorded Sex Assigned at Not on file Legal Sex Female 5:54 PM SHIPPING HAND Gender Identity Not on file Sexual Orientation Not on file documented as of this encounter Plan of Treatment Not on file documented as of this encounter Visit Diagnoses Not on filedocumented in this encounter
--- OUTSIDE RECORDS SUMMARY | 2024-04-12 11:45 | XMS_ITS | Encounter Summary ---
Author Organization [facility] Address [address] [place] [address]. [place] [address] [place] [address] Care Team Providers Care Vacuum Truck Driver Name Role Phone Unavailable Primary Care Provider Unavailabl e Encounter Details Date Type Department Care Team (Late st Contact Info) Description 09/03/2001 Abstract [facility] [address] [place] [address] , Generic Conversion, Social History Tobacco Use Types Packs/Day Years Used Date Smoking Tobacco: Never Assessed Comments Unknown Sex and Gender Information Value Date Recorded Sex Assigned at Not on file Legal Sex Female 5:54 PM CORN PRESS OPERATOR Gender Identity Not on file Sexual Orientation Not on file documented as of this encounter Plan of Treatment Not on file documented as of this encounter Visit Diagnoses Not on filedocumented in this encounter
--- OUTSIDE RECORDS SUMMARY | 2024-04-12 11:45 | XMS_ITS | Encounter Summary ---
Author Organization [facility] Address [address] [place] [address]. [place] [address] [place] [address] Care Team Providers Care Golf Club Head Inspector Name Role Phone Unavailable Primary Care Provider Unavailabl e Encounter Details Date Type Department Care Team (Late st Contact Info) Description 03/21/[address] [facility] [address] [place] [address] George Menjivar MD [address] [place] [address] Social History Tobacco Use Types Packs/Day Years Used Date Smoking Tobacco: Never Assessed Comments Unknown Sex and Gender Information Value Date Recorded Sex Assigned at Not on file Legal Sex Female 5:54 PM SHREDDING FLOOR EQUIPMENT OPERATOR Gender Identity Not on file Sexual Orientation Not on file documented as of this encounter Plan of Treatment Not on file documented as of this encounter Visit Diagnoses Not on filedocumented in this encounter
--- OUTSIDE RECORDS SUMMARY | 2024-04-12 11:45 | XMS_ITS | Encounter Summary ---
Author Organization [facility] Address [address] [place] [address]. [place] [address] [place] [address] Care Team Providers Care Box Car Checker Name Role Phone Unavailable Primary Care Provider Unavailabl e Encounter Details Date Type Department Care Team (Late st Contact Info) Description 03/18/2003 Abstract [facility] [address] [place] [address] , Generic Conversion, Social History Tobacco Use Types Packs/Day Years Used Date Smoking Tobacco: Never Assessed Comments Unknown Sex and Gender Information Value Date Recorded Sex Assigned at Not on file Legal Sex Female 5:54 PM RETAIL CUSTODIAL ASSOCIATE Gender Identity Not on file Sexual Orientation Not on file documented as of this encounter Plan of Treatment Not on file documented as of this encounter Visit Diagnoses Not on filedocumented in this encounter
--- OUTSIDE RECORDS SUMMARY | 2024-04-12 11:45 | XMS_ITS | Encounter Summary ---
Author Organization [facility] Address [address] [place] [address]. [place] [address] [place] [address] Care Team Providers Care Soap Worker Name Role Phone Unavailable Primary Care Provider Unavailabl e Encounter Details Date Type Department Care Team (Late st Contact Info) Description 06/18/[address] [facility] [address] [place] [address] George Menjivar MD [address] [place] [address] Social History Tobacco Use Types Packs/Day Years Used Date Smoking Tobacco: Never Assessed Comments Unknown Sex and Gender Information Value Date Recorded Sex Assigned at Not on file Legal Sex Female 5:54 PM BIG DATA LEAD Gender Identity Not on file Sexual Orientation Not on file documented as of this encounter Plan of Treatment Not on file documented as of this encounter Visit Diagnoses Diagnosis Antepartum hemorrhage (HHS/HCC) Unspecified antepartum hemorrhage, unspecified as to episode of care documented in this encounter
--- OUTSIDE RECORDS SUMMARY | 2024-04-12 11:45 | XMS_ITS | Encounter Summary ---
Author Organization [facility] Address [address] [place] [address]. [place] [address] [place] [address] Care Team Providers Care Load Dispatcher Local Name Role Phone Unavailable Primary Care Provider Unavailabl e Encounter Details Date Type Department Care Team (Late st Contact Info) Description 05/24/1996 Abstract [facility] [address] [place] [address] , Generic Conversion, Social History Tobacco Use Types Packs/Day Years Used Date Smoking Tobacco: Never Assessed Comments Unknown Sex and Gender Information Value Date Recorded Sex Assigned at Not on file Legal Sex Female 5:54 PM CLOTH HANDLER Gender Identity Not on file Sexual Orientation Not on file documented as of this encounter Plan of Treatment Not on file documented as of this encounter Visit Diagnoses Not on filedocumented in this encounter
--- OUTSIDE RECORDS SUMMARY | 2024-04-12 11:45 | XMS_ITS | Encounter Summary ---
Author Organization [facility] Address [address] [place] [address]. [place] [address] [place] [address] Care Team Providers Care Laminator Hand Name Role Phone George Menjivar MD Primary Care Provider Encounter Details Date Type Department Care Team (Late st Contact Info) Description 03/01/2020 3:15 PM PLANT PACKER - 03/01/2020 11:59 PM PLANT PACKER Hospital Encounter [facility] [address] [place] [address] George Menjivar MD [address] [place] [id number] Discharge Disposition: Home or Self Care (Routine Discharge) Social History Tobacco Use Types Packs/Day Years Used Date Smoking Tobacco: Never Assessed Comments Unknown Sex and Gender Information Value Date Recorded Sex Assigned at Not on file Legal Sex Female 5:54 PM PLANT PACKER Gender Identity Not on file Sexual Orientation Not on file COVID-19 Exposure Response Date Recorded In the last month, have you been in contact with someone who was confirmed or suspected to have Coronavirus / COVID-19? No / Unsure 03/01/2020 3:18 PM PLANT PACKER documented as of this encounter Plan of Treatment Not on file documented as of this encounter Procedures Procedure Name Priority Date/Time Associated Diagnosis Comments D-DIMER, QUANTITATIVE STAT 03/01/2020 3:34 PM PLANT PACKER Dyspnea on exertion documented in this encounter Results * D-DIMER, QUANTITATIVE (03/01/2020 3:34 PM PLANT PACKER) D-DIMER 457 0 - 500 ng{FEU}/mL 03/01/2020 3:47 PM PLANT PACKER [facility] Comment: A D DIMER RESULT LESS THAN OR EQUAL TO 500 NG/ML FEU HAS A NEGATIVE PREDICTIVE VALUE GREATER THAN 95% FOR THE EXCLUSION OF ACUTE PULMONARY EMBOLISM OR DEEP VEIN THROMBOSIS WHEN THERE IS LOW TO MODERATE PRETEST PROBABILITY. 03/01/2020 3:34 PM PLANT PACKER us George Menjivar MD LABORATORY Final Resul t [facility] [address] [place], [place] [address] [phone] documented in this encounter Visit Diagnoses Diagnosis Dyspnea on exertion Other dyspnea and respiratory abnormality documented in this encounter Care Teams Laminator Hand Relationship Specialty Start Date End Date George Menjivar MD [address] [place] [address] PCP - General FAMILY PRACTICE 03/01/20 documented as of this encounter
--- OUTSIDE RECORDS SUMMARY | 2024-04-12 11:45 | XMS_ITS | Encounter Summary ---
Author Organization [facility] Address [address] [place] [address]. [place] [address] [place] [address] Care Team Providers Care Playground Director Name Role Phone Unavailable Primary Care Provider Unavailabl e Encounter Details Date Type Department Care Team (Late st Contact Info) Description 06/20/[address] [facility] [address] [place] [address] Trish Estes MD [address] [place] [address] Social History Tobacco Use Types Packs/Day Years Used Date Smoking Tobacco: Never Assessed Comments Unknown Sex and Gender Information Value Date Recorded Sex Assigned at Not on file Legal Sex Female 5:54 PM RESPIRATORY THERAPY MANAGER Gender Identity Not on file Sexual Orientation Not on file documented as of this encounter Plan of Treatment Not on file documented as of this encounter Visit Diagnoses Diagnosis Antepartum hemorrhage (HHS/HCC) Unspecified antepartum hemorrhage, unspecified as to episode of care documented in this encounter
--- OUTSIDE RECORDS SUMMARY | 2024-04-12 11:45 | XMS_ITS | Encounter Summary ---
Author Organization [facility] Address [address] [place] [address]. [place] [address] [place] [address] Care Team Providers Care Moss Bleacher Name Role Phone Unavailable Primary Care Provider Unavailabl e Encounter Details Date Type Department Care Team (Late st Contact Info) Description 06/14/[address] 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
--- OUTSIDE RECORDS SUMMARY | 2024-04-12 11:45 | XMS_ITS | Encounter Summary ---
Author Organization [facility] Address [address] [place] [address]. [place] [address] [place] [address] Care Team Providers Care Rn Gyn Name Role Phone Unavailable Primary Care Provider Unavailabl e Encounter Details Date Type Department Care Team (Late st Contact Info) Description 06/21/[address] 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
--- OUTSIDE RECORDS SUMMARY | 2024-04-12 11:45 | XMS_ITS | Encounter Summary ---
Author Organization [facility] Address [address] [place] [address]. [place] [address] [place] [address] Care Team Providers Care Shoder Filler Name Role Phone Unavailable Primary Care Provider Unavailabl e Encounter Details Date Type Department Care Team (Late st Contact Info) Description 05/22/[address] [facility] [address] [place] [address] George Menjivar MD [address] [place] [address] Social History Tobacco Use Types Packs/Day Years Used Date Smoking Tobacco: Never Assessed Comments Unknown Sex and Gender Information Value Date Recorded Sex Assigned at Not on file Legal Sex Female 5:54 PM EMBEDDER Gender Identity Not on file Sexual Orientation Not on file documented as of this encounter Plan of Treatment Not on file documented as of this encounter Visit Diagnoses Diagnosis Encounter for supervision of normal in multigravida ([facility] documented in this encounter
--- OUTSIDE RECORDS SUMMARY | 2024-04-12 11:45 | XMS_ITS | Encounter Summary ---
Author Organization [facility] Address [address] [place] [address]. [place] [address] [place] [address] Care Team Providers Care Epic Application Coordinator Name Role Phone Unavailable Primary Care Provider Unavailabl e Encounter Details Date Type Department Care Team (Late st Contact Info) Description 12/14/[address] [facility] [address] [place] [address] George Menjivar MD [address] [place] [address] Social History Tobacco Use Types Packs/Day Years Used Date Smoking Tobacco: Never Assessed Comments Unknown Sex and Gender Information Value Date Recorded Sex Assigned at Not on file Legal Sex Female 5:54 PM FACSIMILE MACHINE OPERATOR Gender Identity Not on file Sexual Orientation Not on file documented as of this encounter Plan of Treatment Not on file documented as of this encounter Visit Diagnoses Diagnosis Abdominal pain, left lower quadrant documented in this encounter
--- OUTSIDE RECORDS SUMMARY | 2024-04-12 11:45 | XMS_ITS | Encounter Summary ---
Author Organization [facility] Address [address] [place] [address]. [place] [address] [place] [address] Care Team Providers Care Nitroglycerin Separator Operator Name Role Phone Unavailable Primary Care Provider Unavailabl e Encounter Details Date Type Department Care Team (Late st Contact Info) Description 08/07/2004 Abstract [facility] [address] [place] [address] [place] [address] [place] [address] Social History Tobacco Use Types Packs/Day Years Used Date Smoking Tobacco: Never Assessed Comments Unknown Sex and Gender Information Value Date Recorded Sex Assigned at Not on file Legal Sex Female 5:54 PM CORING MACHINE OPERATOR Gender Identity Not on file Sexual Orientation Not on file documented as of this encounter Plan of Treatment Not on file documented as of this encounter Visit Diagnoses Not on filedocumented in this encounter
--- OUTSIDE RECORDS SUMMARY | 2024-04-12 11:45 | XMS_ITS | Encounter Summary ---
Author Organization [facility] Address [address] [place] [address]. [place] [address] [place] [address] Care Team Providers Care Head Greenskeeper Name Role Phone Unavailable Primary Care Provider Unavailabl e Encounter Details Date Type Department Care Team (Late st Contact Info) Description 05/12/[address] [facility] [address] [place] [address] George Menjivar MD [address] [place] [address] Social History Tobacco Use Types Packs/Day Years Used Date Smoking Tobacco: Never Assessed Comments Unknown Sex and Gender Information Value Date Recorded Sex Assigned at Not on file Legal Sex Female 5:54 PM INVENTORY MANAGEMENT SPECIALIST Gender Identity Not on file Sexual Orientation Not on file documented as of this encounter Plan of Treatment Not on file documented as of this encounter Visit Diagnoses Not on filedocumented in this encounter
--- OUTSIDE RECORDS SUMMARY | 2024-04-12 11:45 | XMS_ITS | Encounter Summary ---
Author Organization [facility] Address [address] [place] [address]. [place] [address] [place] [address] Care Team Providers Care Vinyl Hanger Name Role Phone Unavailable Primary Care Provider Unavailabl e Encounter Details Date Type Department Care Team (Late st Contact Info) Description 06/16/[address] [facility] [address] [place] [address] George Menjivar MD [address] [place] [address] Social History Tobacco Use Types Packs/Day Years Used Date Smoking Tobacco: Never Assessed Comments Unknown Sex and Gender Information Value Date Recorded Sex Assigned at Not on file Legal Sex Female 5:54 PM HOME DEMONSTRATOR Gender Identity Not on file Sexual Orientation Not on file documented as of this encounter Plan of Treatment Not on file documented as of this encounter Visit Diagnoses Diagnosis Antepartum hemorrhage (HHS/HCC) Unspecified antepartum hemorrhage, unspecified as to episode of care documented in this encounter
--- OUTSIDE RECORDS SUMMARY | 2024-04-12 11:45 | XMS_ITS | Encounter Summary ---
Author Organization [facility] Address [address] [place] [address]. [place] [address] [place] [address] Care Team Providers Care Mortgage Loan Specialist Name Role Phone Unavailable Primary Care Provider Unavailabl e Encounter Details Date Type Department Care Team (Late st Contact Info) Description 03/30/2007 Abstract [facility] [address] [facility] [place] [address] [place] [address] [place] [address] Social History Tobacco Use Types Packs/Day Years Used Date Smoking Tobacco: Never Assessed Comments Unknown Sex and Gender Information Value Date Recorded Sex Assigned at Not on file Legal Sex Female 5:54 PM PERINATAL INSTRUCTOR Gender Identity Not on file Sexual Orientation Not on file documented as of this encounter Plan of Treatment Not on file documented as of this encounter Visit Diagnoses Not on filedocumented in this encounter
--- OUTSIDE RECORDS SUMMARY | 2024-04-12 11:45 | XMS_ITS | Encounter Summary ---
Author Organization [facility] Address [address] [place] [address]. 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
--- OUTSIDE RECORDS SUMMARY | 2024-04-12 11:45 | XMS_ITS | Encounter Summary ---
Author Organization [facility] Address [address] [place] [address]. [place] [address] [place] [address] Care Team Providers Care Home Energy Inspector Name Role Phone Unavailable Primary Care Provider Unavailabl e Encounter Details Date Type Department Care Team (Late st Contact Info) Description 01/16/2001 Abstract [facility] [address] [place] [address] , Generic Conversion, Social History Tobacco Use Types Packs/Day Years Used Date Smoking Tobacco: Never Assessed Comments Unknown Sex and Gender Information Value Date Recorded Sex Assigned at Not on file Legal Sex Female 5:54 PM DISPLAY SCREEN FABRICATOR Gender Identity Not on file Sexual Orientation Not on file documented as of this encounter Plan of Treatment Not on file documented as of this encounter Visit Diagnoses Not on filedocumented in this encounter
--- OUTSIDE RECORDS SUMMARY | 2024-04-12 11:45 | XMS_ITS | Encounter Summary ---
Author Organization [facility] Address [address] [place] [address]. [place] [address] [place] [address] Care Team Providers Care Delivery Technician Name Role Phone Unavailable Primary Care Provider Unavailabl e Encounter Details Date Type Department Care Team (Late st Contact Info) Description 09/01/2001 Abstract [facility] [address] [place] [address] , Generic Conversion, Social History Tobacco Use Types Packs/Day Years Used Date Smoking Tobacco: Never Assessed Comments Unknown Sex and Gender Information Value Date Recorded Sex Assigned at Not on file Legal Sex Female 5:54 PM AUTOMATIC GLUING MACHINE OPERATOR Gender Identity Not on file Sexual Orientation Not on file documented as of this encounter Plan of Treatment Not on file documented as of this encounter Visit Diagnoses Not on filedocumented in this encounter
--- OUTSIDE RECORDS SUMMARY | 2024-04-12 11:45 | XMS_ITS | Encounter Summary ---
Author Organization [facility] Address [address] [place] [address]. [place] [address] [place] [address] Care Team Providers Care Eye Surgeon Name Role Phone Unavailable Primary Care Provider Unavailabl e Encounter Details Date Type Department Care Team (Late st Contact Info) Description 10/09/[address] 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
--- OUTSIDE RECORDS SUMMARY | 2024-04-12 11:45 | XMS_ITS | Encounter Summary ---
Author Organization [facility] Address [address] [place] [address]. [place], [place] [address] [place] [address] Care Team Providers Care Internet Merchant Name Role Phone George Menjivar MD Primary Care Provider [phone] Encounter Details Date Type Department Care Team (Latest Contact Info) Description 03/01/2020 Travel Social History Tobacco Use Types Packs/Day Years Used Date Smoking Tobacco: Never Assessed Comments Unknown Sex and Gender Information Value Date Recorded Sex Assigned at Not on file Legal Sex Female 5:54 PM NUCLEAR EQUIPMENT DESIGN ENGINEER Gender Identity Not on file Sexual Orientation Not on file COVID-19 Exposure Response Date Recorded In the last month, have you been in contact with someone who was confirmed or suspected to have Coronavirus / COVID-19? No / Unsure 03/01/2020 3:18 PM NUCLEAR EQUIPMENT DESIGN ENGINEER documented as of this encounter Plan of Treatment Not on file documented as of this encounter Visit Diagnoses Not on filedocumented in this encounter Care Teams Internet Merchant Relationship Specialty Start [place] [address] [place] [address] [place] [id number] PCP - General FAMILY PRACTICE 03/01/20 documented as of this encounter
--- OUTSIDE RECORDS SUMMARY | 2024-04-12 11:45 | XMS_ITS | Encounter Summary ---
Author Organization [facility] Address [address] [place] [address]. [place] [address] [place] [address] Care Team Providers Care Lead Software Tester Name Role Phone Unavailable Primary Care Provider Unavailabl e Encounter Details Date Type Department Care Team (Late st Contact Info) Description 04/08/1997 Abstract [facility] [address] [place] [address] , Generic Conversion, Social History Tobacco Use Types Packs/Day Years Used Date Smoking Tobacco: Never Assessed Comments Unknown Sex and Gender Information Value Date Recorded Sex Assigned at Not on file Legal Sex Female 5:54 PM BOBBIN CLEANER HAND Gender Identity Not on file Sexual Orientation Not on file documented as of this encounter Plan of Treatment Not on file documented as of this encounter Visit Diagnoses Not on filedocumented in this encounter
--- OUTSIDE RECORDS SUMMARY | 2024-04-12 11:45 | XMS_ITS | Encounter Summary ---
Author Organization [facility] Address [address] [place] [address]. [place] [address] [place] [address] Care Team Providers Care Electric Motor Assembler And Tester Name Role Phone Unavailable Primary Care Provider Unavailabl e Encounter Details Date Type Department Care Team (Late st Contact Info) Description 10/14/[address] 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
--- OUTSIDE RECORDS SUMMARY | 2024-04-12 11:45 | XMS_ITS | Encounter Summary ---
Author Organization [facility] Address [address] [place] [address]. [place] [address] [place] [address] Care Team Providers Care Nail Setter Name Role Phone George Carrasco MD Primary Care Provider Encounter Details Date Type Department Care Team (Late st Contact Info) Description 06/21/2020 4:21 PM CDT - 06/21/2020 11:59 PM CDT Hospital Encounter [facility] [address] [facility] [place] [address] George Carrasco MD [address] [facility] [id number] Discharge Disposition: Home or Self Care (Routine Discharge) Social History Tobacco Use Types Packs/Day Years Used Date Smoking Tobacco: Never Assessed Comments Unknown Sex and Gender Information Value Date Recorded Sex Assigned at Not on file 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 Referred By: GEORGE CARRASCO Interpreted By: Christos Stephens MD, 06/21/2020 4:55 PM Narrative 06/21/2020 4:57 PM CDT Examination: Two-view chest Exam time: 1627 hours. Clinical history: Fever. Dyspnea. Comparison: ??None. Technique: PA and lateral views Findings: The cardiomediastinal silhouette is within normal limits. Pulmonary vascularity is within normal limits. The lungs and pleural spaces appear free of any active process. There is mild rightward convex thoracic scoliosis. Plate and screw fusion in the lower cervical spine is noted. 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 Clips from cholecystectomy are noted. Procedure Note Christos Stephens MD - 06/21/2020 Examination: Two-view chest Exam time: 1627 hours. Clinical history: Fever. Dyspnea. Comparison: None. Technique: PA and lateral views Findings: The cardiomediastinal silhouette is within normal limits. Pulmonary vascularity is within normal limits. The lungs and pleuralspaces appear free of any active process. There is mild rightward convexthoracic scoliosis. Plate and screw fusion in the lower cervical spine is noted. 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 Clips from cholecystectomyare noted. IMPRESSION: No acute disease. Referred By: GEROGE CARRASCO Interpreted By: Christos Stephens MD, 06/21/2020 4:55 PM George Carrasco MD GENERAL IMAGING Final Resul t documented in this encounter Visit Diagnoses Diagnosis Fever Fever, unspecified documented in this encounter Care Teams Nail Setter Relationship Specialty Start Date End Date George Carrasco MD [address] [place] [address] PCP - General FAMILY PRACTICE 03/01/20 documented as of this encounter
--- OUTSIDE RECORDS SUMMARY | 2024-04-12 11:46 | XMS_ITS | Clinical Summary ---
Author Organization [facility] Address [address] [place] [address] [address] [place] [address] Care Team Providers Care Heel Seater Name Role Phone Dru Menjivar MD Primary Care Provider [phone] Allergies Active Allergy Reactions Criticality Noted Date Comments Erythromycin Rash,Anaphylaxis High 03/22/2018 Medications Medication Sig Dispensed Refills Start Date End Date Status BD LUER-TOBIN SYRINGE 3 mL 23 x 1 Syringe USE 1 MONTHLY 05/07/2019 Active ergocalciferol (VITAMIN D2) 50,000 unit capsule TAKE 1 BY MOUTH WEEKLY 01/11/2019 Ac tive cyanocobalamin (VITAMIN B-12) 1,000 mcg/mL Solution INJECT 1 ML INTRAMUSCULARLY EVERY MONTH 11/22/2018 Active topiramate (TOPAMAX) 100 mg tablet TAKE 1/2 A TABLET BY MOUTH DAILY FOR 1 WEEK. INCREASE BY HALF A TAB EACH WEEK. MAX OF 200MG PER DAY 03/01/2020 Active vilazodone (Viibryd) 40 mg Tablet Take 40 mg by mouth. 02/05/2018 Acti ve Active Problems Problem Noted Date Diagnosed Date Acute pulmonary embolism without acute cor pulmo nale 06/02/2019 Family History Medical History Relation Name Comments Diabetes Father Diabetes Mother Relation Name Status Comments Father Mother Alive Sister Alive Social History Tobacco Use Types Packs/Day Years Used Date Smoking Tobacco: Former Cigarettes 1 5 Smokeless Tobacco: Never Tobacco Cessation:Counseling Given: No Alcohol Use Standard Drinks/Week Comments Not Currently 0 (1 standard drink = 0.6 oz pur e alcohol) Sex and Gender Information Value Date Recorded Sex Assigned at Not on file Gender Identity Not on file Sexual Orientation Not on file Last Filed Vital Signs Vital Sign Reading Time Taken Comments Blood Pressure 122/90 04/12/2020 10:49 AM BOILING OFF WINDER Pulse 84 04/12/2020 10:49 AM BOILING OFF WINDER Temperature 36.5 ??C (97.7 ??F) 04/12/2020 1 0:49 AM BOILING OFF WINDER Respiratory Rate - - Oxygen Saturation 98% 04/12/2020 10: 49 AM BOILING OFF WINDER Inhaled Oxygen Concentration - - Weight 82.1 kg (180 lb 14.4 oz) 021 10:49 AM BOILING OFF WINDER Height 165.1 cm (5' 5 ) 04/12/2020 10:4 9 AM BOILING OFF WINDER Body Mass Index 30.1 04/12/2020 10:49 AM BOILING OFF WINDER Plan of Treatment Health Maintenance Due Date Last Done Comments DTAP/TDAP/TD VACCINES (1 - Tdap) 1999 HEPATITIS B VACCINES (1 of 3 - 19+ 3-dose series) 1999 CERVICAL CANCER SCREENING 2010 BREAST CANCER SCREENING 2020 INFLUENZA VACCINE (#1) 2023 HPV VACCINES Aged Out No longer eligi ble based on patient's age to complete this topic PNEUMOCOCCAL VACCINE 0-64 YEARS Aged Out No longer eligible based on patient's age to complete this topic Care Teams Heel Seater Relationship Specialty Start Date End Date Dru Menjivar MD PCP - General Family Practice 04/11/19
--- OUTSIDE RECORDS SUMMARY | 2024-04-12 11:46 | XMS_ITS | Encounter Summary ---
Author Organization [facility] Address [address] Malik: Epic Prelude ADT [place] [address] Care Team Providers Care Life Skills Instructor Name Role Phone Dru Menjivar MD Primary Care Provider [phone] Encounter Details Date Type Department Care Team (Latest Contact Info) Description 07/14/2019 Travel Social History Tobacco Use Types Packs/Day Years Used Date Smoking Tobacco: Former Cigarettes 1 5 Smokeless Tobacco: Never Alcohol Use Standard Drinks/Week [...] have Coronavirus / COVID-19? No / Unsure 07/14/2019 9:34 AM CDT documented as of this encounter Plan of Treatment Not on file documented as of this encounter Visit Diagnoses Not on filedocumented in this encounter Care Teams Life Skills Instructor Relationship Specialty Start Date End Date Dru Menjivar MD PCP - General Family Practice 04/11/19 documented as of this encounter
--- OUTSIDE RECORDS SUMMARY | 2024-04-12 11:46 | XMS_ITS | Encounter Summary ---
Author Organization [facility] Address [address] [place] [address] Care Team Providers Care Piece Goods Packer Name Role Phone Dru Menjivar MD Primary Care Provider [phone] Encounter Details Date Type Department Care Team (Late st Contact Info) Description 01/13/2020 Orders Only [facility] Oncology and Hematology - [place] [address] [phone] Hien Addison, RN Other acute pulmonary embolism without acute cor pulmonale Social History Tobacco Use Types Packs/Day Years [...] as of this encounter Visit Diagnoses Diagnosis Other acute pulmonary embolism without acute cor pulmonale documented in this encounter Care Teams Piece Goods Packer Relationship Specialty Start Date End Date Dru Menjivar MD PCP - General Family Practice 04/11/19 documented as of this encounter
--- OUTSIDE RECORDS SUMMARY | 2024-04-12 11:46 | XMS_ITS | Encounter Summary ---
Author Organization [facility] Address [address] Malik: Epic Prelude ADT [place] [address] Care Team Providers Care Tungsten Tender Name Role Phone Dru Menjivar MD Primary Care Provider [phone] Encounter Details Date Type Department Care Team (Latest Contact Info) Description 03/31/2020 Travel Social History Tobacco Use Types Packs/Day [...] have Coronavirus / COVID-19? No / Unsure 03/31/2020 11:05 AM AREA CLEANER documented as of this encounter Plan of Treatment Not on file documented as of this encounter Visit Diagnoses Not on filedocumented in this encounter Care Teams Tungsten Tender Relationship Specialty Start Date End Date Dru Menjivar MD PCP - General Family Practice 04/11/19 documented as of this encounter
--- OUTSIDE RECORDS SUMMARY | 2024-04-12 11:46 | XMS_ITS | Encounter Summary ---
Author Organization [facility] Address [address] Malik: Epic Prelude ADT [place] [address] Care Team Providers Care Inhalation Therapy Aide Name Role Phone Dru Menjivar MD Primary Care Provider [phone] Encounter Details Date Type Department Care Team (Latest Contact Info) Description 07/22/2019 Travel Social History Tobacco Use Types Packs/Day [...] have Coronavirus / COVID-19? No / Unsure 07/22/2019 2:59 PM CDT documented as of this encounter Plan of Treatment Not on file documented as of this encounter Visit Diagnoses Not on filedocumented in this encounter Care Teams Inhalation Therapy Aide Relationship Specialty Start Date End Date Dru Menjivar MD PCP - General Family Practice 04/11/19 documented as of this encounter
--- OUTSIDE RECORDS SUMMARY | 2024-04-12 11:46 | XMS_ITS | Encounter Summary ---
Author Organization [facility] Address [address] Malik: Epic Prelude ADT [place] [address] Care Team Providers Care Burrer Machine Name Role Phone Dru Menjivar MD Primary Care Provider [phone] Encounter Details Date Type Department Care Team (Latest Contact Info) Description 01/21/2020 Travel Social History Tobacco Use Types Packs/Day [...] have Coronavirus / COVID-19? No / Unsure 01/21/2020 1:01 PM CDT documented as of this encounter Plan of Treatment Not on file documented as of this encounter Visit Diagnoses Not on filedocumented in this encounter Care Teams Burrer Machine Relationship Specialty Start Date End Date Dru Menjivar MD PCP - General Family Practice 04/11/19 documented as of this encounter
--- OUTSIDE RECORDS SUMMARY | 2024-04-12 11:46 | XMS_ITS | Encounter Summary ---
Author Organization [facility] Address [address] [place] [address] Care Team Providers Care Loss Prevention Operations Manager Name Role Phone Dru Menjivar MD Primary Care Provider [phone] Reason for Visit * Reason Comments Follow Up [address] fu w/labs Encounter Details Date Type Department Care Team (Late st Contact Info) Description 07/22/2019 3:00 PM CDT Office Visit [facility] Oncology and Hematology - [place] [address] [facility] [address] [place] [address] Magdi Monteiro MD [address] [facility] [address] [place] [address] Other acute pulmonary embolism without acute cor pulmonale (Primary Dx); Secondary hypercoagulable state; History of pulmonary embolism; Elevated homocysteine Social History Tobacco Use Types Packs/Day Years [...] have Coronavirus / COVID-19? 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 documented as of this encounter Last Filed Vital Signs Vital Sign Reading Time Taken Comments Blood Pressure 118/100 07/22/2019 3:06 PM CDT Pulse 99 07/22/2019 3:06 PM CDT Temperature 37.3 ??C (99.2 ??F) 07/22/2019 3:06 PM CD T Respiratory Rate - - Oxygen Saturation 98% 07/22/2019 3:06 PM CDT Inhaled Oxygen Concentration - - Weight 89.1 kg (196 lb 8 oz) 07/22/2019 3:06 PM CDT Height 165.1 cm (5' 5 ) 07/22/2019 3:06 PM CDT Body Mass Index 32.7 07/22/2019 3:06 PM CDT documented in this encounter Progress Notes * Magdi Monteiro MD - 07/22/2019 4:26 PM CDT HEMATOLOGY / ONCOLOGY PROGRESS NOTE Patient Identification: Name: Ashley Stokes Age: 39 y.o. Sex: female : 1980 DIAGNOSIS Provoked bilateral pulmonary embolism diagnosed in March 29, 2019. CURRENT TREATMENT Coumadin TREATMENT HISTORY SUBJECTIVE Patient came into the office for follow-up visit. She denies any chest pain and shortness of breath. Denies any bleeding and bruising. Denies any leg swelling and pain. No other new complaints. Review of system Constitutional: denies fevers, sweats, fatigue, malaise, weight loss HEENT: denies sinus congestion, hearing or vision problems Respiratory: denies cough, dyspnea, wheeze Cardiovascular: denies chest pain, exertional chest pressure/discomfort, nausea, syncope, shortnessof breath GI: denies constipation, diarrhea, dsyphagia, reflux symptoms, vomiting, melena : denies dysuria, frequency, incontinence, urgency Integumentary system: no lymphadenopathy, sweats, flushing Musculoskeletal: denies: myalgia, arthralgia Neurological: denies blurry or disturbed vision, numbness/weakness, dizziness Skin: No lumps, bumps or rashes. Objective: Vital signs in last 24 hours: As per nursing note Exam: General appearance: alert, cooperative, no distress, appears stated age Head: normocephalic, without obvious abnormality, atraumatic Eyes: conjunctivae/corneas clear, EOM's intact Ears: normal external ear canals AU Nose: Nares normal. Septum midline. Mucosa normal. No drainage or sinus tenderness Throat: Lips, mucosa, and tongue normal. Teeth and gums normal Neck: supple, symmetrical, trachea midline. Lungs: clear to auscultation bilaterally Heart: regular rate and rhythm, S1, S2 normal, no murmur, click, rub or gallop Abdomen: soft, non-tender. Bowel sounds normal. No masses, No organomegaly Extremities: extremities normal, atraumatic, no cyanosis or edema Skin: Skin color, texture, turgor normal. No rashes or lesions Lymph nodes: No lymphadenopathy Neuro: No obvious focal deficit PATH LABS @IMAGEIMP@ Assessment: Plan: Patient Active Problem List Diagnosis Date Noted ??? Acute pulmonary embolism without acute cor pulmonale 06/02/2019 Hypercoagulable state with provoked bilateral pulmonary embolism diagnosed in March 21, 2019 is status post normal vaginal delivery on March 05, 2019. Doppler study showed no evidence of DVT butCT chest showed bilateral pulmonary embolism. Patient was also started on control pills rightafter the delivery. Factor V Leiden mutation and prothrombin gene mutation came back negative. CT chest done on July 14 showed no evidence of pulmonary embolism but there was a few 4 mm pulmonary nodules. I will discontinue warfarin. I will start her on baby aspirin. We will complete the restof the hypercoagulable work-up in 4 weeks. I will repeat CT scan of chest in 1 year to check stability of the pulmonary nodules. Follow-up with me in 6 months. ? TOBACCO COUNSELING She is not a tobacco user. 07/22/2019 Magdi Monteiro MD documented in this encounter Plan of Treatment Scheduled Orders Name Type Priority Associated Diagnoses Orde r Schedule ANTITHROMBIN III ACTIVITY Lab Routine Other acute pulmonary embolism without acute cor pulmonale Expected: 08/21/2019 (Approximate), Expires: 07/21/2020 BETA 2 GLYCOPROTEIN I ANTIBODIES Lab Routine Other acute pulmonary embolism without acute cor pulmonale Expected: 08/21/2019 (Approximate), Expires: 07/21/2020 CARDIOLIPIN IGG/IGM Lab Routine Other acute pulmonary embolism without acute cor pulmonale Expected: 08/21/2019 (Approximate), Expires: 07/21/2020 HOMOCYSTEINE Lab Routine Other acute pulmonary embolism without acute cor pulmonale Expected: 08/21/2019 (Approximate), Expires: 07/21/2020 LUPUS ANTICOAGULANT W/REFLEX CONFIRMATION Lab Routine Secondary hypercoagulable state History of pulmonary embolism Elevated homocysteine Expected: 08/21/2019 (Approximate), Expires: 07/21/2020 PROTEIN C & S ACTIVITY Lab Routine Other acute pulmonary embolism without acute cor pulmonale Expected: 08/21/2019 (Approximate), Expires: 07/21/2020 documented as of this encounter Visit Diagnoses Diagnosis Other acute pulmonary embolism without acute cor pulmonale- Primary Secondary hypercoagulable state History of pulmonary embolism Personal history of pulmonary embolism 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
--- OUTSIDE RECORDS SUMMARY | 2024-04-12 11:46 | XMS_ITS | Encounter Summary ---
Author Organization [facility] [employer] [facility] Address [address] [place] [address] Care Team Providers Care Personal Caregiver Name Role Phone Dru Menjivar MD Primary Care Provider Reason for Referral * Eval and Treat (Routine) - Closed Specialty Diagnoses / Procedures Referred By Hema johns Referred To Contact Endocrinology Diagnoses Hyperlipidemia, unspecified hyperlipidemia type Magdi Monteiro MD [address] [place] [phone] Referral ID Status Reason Start Date Expiration Date Visits Requested Visits Authorized [id number] Closed Ordering Department To Schedule 04/12/2020 04/12/2021 1 1 D CERTIFIED ORTHODONTIST Reason for Visit * Reason Comments Follow Up 6 month f/u with lab results Encounter Details Date Type Department Care Team (Late st Contact Info) Description 04/12/2020 10:45 AM BOARD CERTIFIED ORTHODONTIST Office Visit [facility] Oncology and Hematology - [place] [address] [place] [address] [address] [place] [address] Magdi Monteiro MD [address] [place] [address] Secondary hypercoagulable state (Primary Dx); Hyperlipidemia, unspecified hyperlipidemia type Social History Tobacco Use Types Packs/Day Years [...] COVID-19? No / Unsure 04/12/2020 10:41 AM BOARD CERTIFIED ORTHODONTIST documented as of this encounter Last Filed Vital Signs Vital Sign Reading Time Taken Comments Blood Pressure 122/90 04/12/2020 10:49 AM BOARD CERTIFIED ORTHODONTIST Pulse 84 04/12/2020 10:49 AM BOARD CERTIFIED ORTHODONTIST Temperature 36.5 ??C (97.7 ??F) 04/12/2020 1 0:49 AM BOARD CERTIFIED ORTHODONTIST Respiratory Rate - - Oxygen Saturation 98% 04/12/2020 10: 49 AM BOARD CERTIFIED ORTHODONTIST Inhaled Oxygen Concentration - - Weight 82.1 kg (180 lb 14.4 oz) 021 10:49 AM BOARD CERTIFIED ORTHODONTIST Height 165.1 cm (5' 5 ) 04/12/2020 10:4 9 AM BOARD CERTIFIED ORTHODONTIST Body Mass Index 30.1 04/12/2020 10:49 AM BOARD CERTIFIED ORTHODONTIST documented in this encounter Progress Notes * Magdi Monteiro MD - 04/12/2020 12:35 PM CST HEMATOLOGY / ONCOLOGY PROGRESS NOTE Patient Identification: Name: Ashley Stokes Age: 39 y.o. Sex: female : 1980 DIAGNOSIS Provoked bilateral pulmonary embolism diagnosed in March 29, 2019. CURRENT TREATMENT Aspirin 81 mg daily TREATMENT HISTORY SUBJECTIVE Patient came to the office for follow-up visit. She denies any night sweats fever chills and weightloss. She denies any chest pain or shortness of breath. No other new complaints. Review of system [...] dizziness Skin: No lumps, bumps or rashes. 12 point review system was reviewed and as above Objective: Vital signs in last 24 hours: [...] No lymphadenopathy Neuro: No obvious focal deficit Examination as above PATH LABS Labs from April 01, 2020 showed homocystine level of 26.8 protein C 158 protein S 122 anticardiolipin antibody negative lupus anticoagulant not detected Antithrombin III 139 beta-2 glycoprotein negative @IMAGEIMP@ Assessment: Plan: Patient Active Problem List [...] was a few 4 mm pulmonary nodules. Coumadin was discontinued in July 2019 and baby aspirin was started. Hypercoagulable work-up was performed and that showed elevated homocystine level. I will start her on folic acid 1 mg daily. She will continue baby aspirin. I will see her back in 6months. Hyperlipidemia. This is possibly congenital hyperlipidemia. I will refer to Dr. Melida Lion. History of pulmonary nodules. Repeat CT scan of the chest will be ordered at next visit. TOBACCO COUNSELING She is not a tobacco user. 04/12/2020 Magdi Monteiro MD D CERTIFIED ORTHODONTIST documented in this encounter Plan of Treatment Scheduled Orders Name Type Priority Associated Diagnoses Orde r Schedule LIPID PANEL Lab Routine Hyperlipidemia, unspecified hyperlipidemia type Expected: 04/16/2020, Expires: 04/12/2021 Scheduled Referrals Name Type Priority Associated Diagnoses Orde r Schedule AMB REFERRAL TO ENDOCRINOLOGY Outpatient Referral Routine Hyperlipidemia, unspecified hyperlipidemia type Ordered: 04/12/2020 documented as of this encounter Results * HOMOCYSTEINE (04/01/2020) Blood Magdi Monteiro MD CHEMISTRY ORDERABLES NON [facility] documented in this encounter Visit Diagnoses Diagnosis Secondary hypercoagulable state- Primary Hyperlipidemia, unspecified hyperlipidemia type documented in this encounter Care Teams Personal Caregiver Relationship Specialty Start Date End Date Dru Menjivar MD PCP - General Family Practice 04/11/19 documented as of this encounter
--- OUTSIDE RECORDS SUMMARY | 2024-04-12 11:46 | XMS_ITS | Encounter Summary ---
Author Organization [facility] Address [address] [place] [address] Care Team Providers Care Hosting Engineer Name Role Phone Dru Menjivar MD Primary Care Provider [phone] Encounter Details Date Type Department Care Team (Late st Contact Info) Description 05/03/2020 Orders Only [facility] Oncology and Hematology - [place] [address] [facility] [address] [place] [address] Magdi Monteiro MD [address] [facility] [address] [place] [address] Hyperlipidemia, unspecified hyperlipidemia type; Secondary hypercoagulable state Social History Tobacco Use Types Packs/Day Years [...] COVID-19? 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 documented as of this encounter Plan of Treatment Not on file documented as of this encounter Procedures Procedure Name Priority Date/Time Associated Diagnosis Comments CHG CP PNL ANTICARDIOLIPIN Routine 04/01/2020 BETA 2 GLYCOPROTEIN I ANTIBODIES Routine 04/01/2020 HOMOCYSTEINE Routine 04/01/2020 Secondary hypercoagulable state documented in this encounter Results * CHG CP PNL ANTICARDIOLIPIN (04/01/2020) Abstract Provider CHG - LABORATORY NON [facility] * BETA 2 GLYCOPROTEIN I ANTIBODIES (04/01/2020) Blood Abstract Provider CHEMISTRY ORDERABLES Performing Organization Address City/[facility] Co de Phone Number NON [facility] * HOMOCYSTEINE (04/01/2020) Blood Magdi Monteiro MD CHEMISTRY ORDERABLES Performing Organization Address [facility] Co de Phone Number NON [facility] documented in this encounter Visit Diagnoses Diagnosis Hyperlipidemia, unspecified hyperlipidemia type Secondary hypercoagulable state documented in this encounter Care Teams Hosting Engineer Relationship Specialty Start Date End Date Dru Menjivar MD PCP - General Family Practice 04/11/19 documented as of this encounter
--- OUTSIDE RECORDS SUMMARY | 2024-04-12 11:46 | XMS_ITS | Encounter Summary ---
Author Organization [facility] Address [address] [place] [address] Care Team Providers Care Asbestos Abatement Worker Name Role Phone Dru Menjivar MD Primary Care Provider [phone] Reason for Referral * CT Scan (Routine) - Closed Specialty Diagnoses / Procedures Referred By Contac t Referred To Contact Diagnoses Other acute pulmonary embolism without acute cor pulmonale Procedures CTA CHEST W WO CONTRAST Magdi Monteiro MD [address] [place] [phone] [address] Referral ID Status Reason Start Date Expiration Date Visits Requested Visits Authorized [id number] Closed Ordering Department To Schedule 06/02/2019 07/02/2020 1 1 MOTIVE OPERATOR Reason for Visit * Reason Comments Establish Care new patient care / P ulmaonary Embolism Encounter Details Date Type Department Care Team (Late st Contact Info) Description 06/02/2019 2:15 PM LOCOMOTIVE OPERATOR Office Visit [facility] Oncology and Hematology - [place] [address] [place] [address] [facility] [address] [place] [address] Magdi Monteiro MD [address] [place] [address] Other acute pulmonary embolism without acute cor pulmonale (Primary Dx) Social History Tobacco Use Types [...] Sign Reading Time Taken Comments Blood Pressure 104/65 06/02/2019 2:02 PM LOCOMOTIVE OPERATOR Pulse 60 06/02/2019 2:02 PM LOCOMOTIVE OPERATOR Temperature 36.8 ??C (98.2 ??F) 06/02/2019 2:02 PM CS T Respiratory Rate - - Oxygen Saturation 98% 06/02/2019 2:02 PM LOCOMOTIVE OPERATOR Inhaled Oxygen Concentration - - Weight 86.1 kg (189 lb 12.8 oz) 06/02/2019 2:02 PM LOCOMOTIVE OPERATOR Height 165.1 cm (5' 5 ) 06/02/2019 2:02 PM LOCOMOTIVE OPERATOR Body Mass Index 31.58 06/02/2019 2:02 PM LOCOMOTIVE OPERATOR documented in this encounter Progress Notes * Magdi Monteiro MD - 06/02/2019 3:08 PM CST Hematology-oncology consult Note Requesting Physician Dru Menjivar MD Primary Care Physician Dru Mejnivar MD Problem list There is no problem list on file for this patient. Previous TREATMENT ? Measurable Disease ? Reason for Visit Ashley Stokes is a 39 y.o. female who was referred for consultation for hypercoagulable state. History of present illness This is a 39-year-old pleasant female who developed shortness of breath after having second baby delivery in March 05, 2019. She came into the hospital on March 29, 2019 with increasing shortness of breath and CT chest was performed that showed bilateral pulmonary embolism with moderate clot burden. Patient was started on Lovenox and subsequently discharged home on warfarin. Lower extremity Doppler studies were also performed came back negative for DVT. Patient has a family history of blood clot in the mother. She denies any personal history of blood clot. She has been started on control pills as well. She is feeling better without any chest pain and shortness of breath. Denies any bleeding and bruising. She remains quite active. Past Medical History Past Medical History: Diagnosis Date ??? Gall bladder stones 2007 GALL BLADDER REMOVED ??? H/O blood clots ??? H/O blood clots ??? H/O hemorrhoids 2009 PT HAS HAD 2 SURGERIES ??? HTN (hypertension) ??? Hyperlipidemia ??? Infection associated with spinal infusion catheter 2012 ??? Nutritional anemia, unspecified History of bilateral pulmonary bothersome diagnosed March 29, 2019 Surgical History Past Surgical History: Procedure Laterality Date ??? HX DENTAL SURGERY Medications Current Outpatient Medications Medication Sig Dispense Refill ??? vit-iron thlgrjut-cc-mhf (Zatean-Pn DHA) 27 mg iron-1 mg -300 mg Capsule per capsule ??? ergocalciferol (VITAMIN D2) 50,000 unit capsule TAKE 1 BY MOUTH WEEKLY ??? cyanocobalamin (VITAMIN B-12) 1,000 mcg/mL Solution INJECT 1 ML INTRAMUSCULARLY EVERY MONTH ??? warfarin (COUMADIN) 5 mg tablet TAKE 1 TABLET BY MOUTH EVERY DAY ??? traMADoL (ULTRAM) 50 mg tablet TAKE 1 TABLET BY MOUTH TWICE A DAY NEEDED ??? BD LUER-TOBIN SYRINGE 3 mL 23 x 1 Syringe USE 1 MONTHLY ??? metoclopramide HCl (REGLAN) 10 mg tablet TAKE 1 TAB BY MOUTH 3 TIMES DAILY FOR 2 WEEKS, THEN TWICE DAILY FOR 1 WEEK, THEN DAILY FOR 1 WEEK ??? ibuprofen (MOTRIN) 600 mg tablet 600MG BY MOUTH EVERY 6 HOURS NEEDED ??? FLUoxetine (PROzac) 20 mg capsule TAKE 1 CAPSULE BY MOUTH EVERY DAY ??? zngnumscwt-kwkuryqyjczxr-acltiqfq (FIORICET) 50-325-40 mg tablet Take 1 Tablet by mouth every 4hours as needed. No current facility-administered medications for this visit. Allergies Allergies Allergen Reactions ??? Erythromycin Rash Immunizations: There is no immunization history on file for this patient. Family History Family History Problem Relation Name Age of Onset ??? Diabetes Father ??? Diabetes Mother Mother had pulmonary embolism history. Social History Social History Tobacco Use ??? Smoking status: Former Smoker Packs/day: 1.00 Years: 5.00 Pack years: 5.00 Types: Cigarettes ??? Smokeless tobacco: Never Used Substance Use Topics ??? Alcohol use: Not Currently Review of Systems Constitutional: No fever; no night sweats; no anorexia; no weight loss; no fatique NEENT: No headache; no change in vision; no change in hearing; no sore throat; no dysphagia Respiratory: No shortness of breath; no pleuritic chest pain; no cough; no hemoptysis Cardiac: No cardiac-like chest pain; no palpitations; no orthopnea; no PND; no HILL Breasts: No tenderness; no masses GI: No abdominal pain; no nausea; no vomiting; no diarrhea; no hematochezia; no melena : No dysuria; no frequency; no hesitancy; no hematuria CLAIM ANALYST: Musculosketetal: no bone pain; no arthralgia; no joint swelling; no myalgia; Skin: no pruritis; no rash; no petechiae; no ecchymoses Endocrine: no polydipsia; no polyuria; no unusual weight gain Neuro: No headache; no change in vision; no sensory changes; no muscle weakness; no confusion; no seizures Psych: no anxiety; no depression; Physical Exam Vitals: As per nursing note Constitutional: Well developed, well nourished, no acute distress, non-toxic appearance Teeth and gum. No signs of infection or swelling. Eyes: PERRL, conjunctiva normal HEENT: Atraumatic, external ears normal, nose normal, oropharynx moist, no pharyngeal exudates. no sinus tenderness Neck- normal range of motion, no tenderness, supple Respiratory: No respiratory distress, normal breath sounds, no rales, no wheezing Cardiovascular: Normal rate, normal rhythm, no murmurs, no gallops, no rubs GI: Soft, nondistended, normal bowel sounds, nontender, no splenomegaly, no hepatomegaly, no mass, no rebound, no guarding : No costovertebral angle tenderness Musculoskeletal: No edema, no tenderness, no deformities. Back- no tenderness Integument: Well hydrated, no rash, Digits and nails inspection normal Lymphatic: No lymphadenopathy noted Neurologic: Alert & oriented x 3, CN 2-12 normal, normal motor function, normal sensory function, no focal deficits noted Psychiatric: Speech and behavior appropriate ? labs No results found for this or any previous visit (from the past 24 hour(s)). Pathology ? Imaging & Other Studies Performance Status? Assessment / Plan: ? Hypercoagulable state with bilateral provoked pulmonary bowel is not diagnosed on March 21, 2019. Patient is a 39-year-old female who had normal vaginal delivery done on March 05, 2019and came into the hospital on March 29, 2019 with increasing shortness of breath. CTA chest showed bilateral pulmonary embolism with moderate thrombus burden. Lower extremity Doppler study showed no evidence of DVT. Patient has a family history of blood clot in mother who had pulmonary embolism.She denies any personal history of blood clot. She was started on oral contraceptive after the delivery. Clinically she is feeling better while on warfarin and denies any chest pain and shortness of breath. I have recommended repeating CT chest in 1 month. Factor V Leiden was performed and came back negative. Prothrombin gene mutation also came back negative. Complete hypercoagulable work-up willbe done after completion of anticoagulation therapy. I have also recommended discontinuation of oral contraceptive and discussion with the dinkey operator regarding copper IUD. I have answered all the questions to patient satisfaction. Thank you very much for allowing me to participate in Ashley Stokes's evaluation and management. Please feel free to contact if I can be of any further assistance in your patient???s care requiringhematology or oncology evaluation. Sincerely, ? ? Magdi Monteiro M.D. cell TOBACCO COUNSELING She is not a tobacco user. Magdi Monteiro MD ,06/02/2019 3:08 PM ? Total time spent 80 minutes, two third of the total time spent counseling patient [id number]. CC:?Dru Menjivar MD MOTIVE OPERATOR documented in this encounter Plan of Treatment Not on file documented as of this encounter Results * CTA CHEST W WO CONTRAST (07/15/2019) Anatomical Region Laterality Modality Chest Other Magdi Monteiro MD CT ORDERABLES documented in this encounter Visit Diagnoses Diagnosis Other acute pulmonary embolism without acute cor pulmonale- Primary documented in this encounter Care Teams Asbestos Abatement Worker Relationship Specialty Start Date End Date Dru Menjivar MD PCP - General Family Practice 04/11/19 documented as of this encounter
--- OUTSIDE RECORDS SUMMARY | 2024-04-12 11:46 | XMS_ITS | Encounter Summary ---
Author Organization [facility] Address [address] Malik: Epic Prelude ADT [place] [address] Care Team Providers Care Sulfuric Acid Plant Operator Name Role Phone Dru Menjivar MD Primary Care Provider [phone] Encounter Details Date Type Department Care Team (Latest Contact Info) Description 04/12/2020 Travel Social History Tobacco Use Types Packs/Day [...] COVID-19? No / Unsure 04/12/2020 10:41 AM SECURITY REPRESENTATIVE documented as of this encounter Plan of Treatment Not on file documented as of this encounter Visit Diagnoses Not on filedocumented in this encounter Care Teams Sulfuric Acid Plant Operator Relationship Specialty Start Date End Date Dru Menjivar MD PCP - General Family Practice 04/11/19 documented as of this encounter
--- OUTSIDE RECORDS SUMMARY | 2024-04-12 11:46 | XMS_ITS | Encounter Summary ---
Author Organization [facility] [employer] [facility] Address [address] [place] [address] Care Team Providers Care In Home Tutor Name Role Phone Dru Menjivar MD Primary Care Provider [phone] Reason for Visit * Reason Onset Date Comments Update 02/02/2020 Encounter Details Date Type Department Care Team (Late st Contact Info) Description 02/02/2020 Telephone [facility] Oncology and Hematology - [place] [address] [facility] [address] [place] [address] Magdi Monteiro MD [address] [facility] [address] [place] [address] Update Social History Tobacco Use Types Packs/Day Years [...] PM CDT documented as of this encounter Miscellaneous Notes * Telephone Encounter - Hien House RN - 02/02/2020 1:41 PM CST Duane Vila insurance does not cover BETA 2 GLYCOPROTEIN I ANTIBODIES. Lab cancelled. RE SYSTEMS ADMINISTRATOR documented in this encounter Plan of Treatment Not on file documented as of this encounter Visit Diagnoses Not on filedocumented in this encounter Care Teams In Home Tutor Relationship Specialty Start Date End Date Dru Menjivar MD PCP - General Family Practice 04/11/19 documented as of this encounter
--- OUTSIDE RECORDS SUMMARY | 2024-04-12 11:46 | XMS_ITS | Encounter Summary ---
Author Organization [facility] [employer] [facility] Address [address] [place] [address] Care Team Providers Care Vocational Training Instructor Name Role Phone Dru Menjivar MD Primary Care Provider [phone] Encounter Details Date Type Department Care Team (Late st Contact Info) Description 07/15/2019 Orders Only [facility] Oncology and Hematology - [place] [address] [address] Hien Addison RN Other acute pulmonary embolism without acute [...] Procedure Name Priority Date/Time Associated Diagnosis Comments CTA CHEST W WO CONTRAST Routine 07/15/2019 Other acute pulmonary embolism without acute cor pulmonale documented in this encounter Results * CTA CHEST W WO CONTRAST (07/15/2019) Anatomical Region Laterality Modality Chest Other Magdi Monteiro MD CT ORDERABLES documented in this encounter Visit Diagnoses Diagnosis Other acute pulmonary embolism without acute cor pulmonale documented in this encounter Care Teams Vocational Training Instructor Relationship Specialty Start Date End Date Dru Menjivar MD PCP - General Family Practice 04/11/19 documented as of this encounter
--- OUTSIDE RECORDS SUMMARY | 2024-04-12 11:46 | XMS_ITS | Encounter Summary ---
Author Organization [facility] Address [address] [place] [address] Care Team Providers Care Bid Analyst Name Role Phone Dru Menjivar MD Primary Care Provider [phone] Encounter Details Date Type Department Care Team (Late st Contact Info) Description 04/22/2020 Orders Only [facility] Oncology and Hematology - [place] [address] [place] [phone] Provider, Abstract NO ADDRESS ON FILE Social History Tobacco Use Types Packs/Day Years [...] COVID-19? No / Unsure 04/12/2020 10:41 AM DANCE PROFESSOR documented as of this encounter Plan of Treatment Not on file documented as of this encounter Procedures Procedure Name Priority Date/Time Associated Diagnosis Comments TRIGLYCERIDE Routine 04/19/2020 documented in this encounter Results * TRIGLYCERIDE (04/19/2020) Blood Abstract Provider CHEMISTRY ORDERABLES NON [facility] documented in this encounter Visit Diagnoses Not on filedocumented in this encounter Care Teams Bid Analyst Relationship Specialty Start Date End Date Dru Menjivar MD PCP - General Family Practice 04/11/19 documented as of this encounter
--- OUTSIDE RECORDS SUMMARY | 2024-04-12 11:46 | XMS_ITS | Encounter Summary ---
Author Organization [facility] Address [address] Malik: Epic Prelude ADT MAIDA [place] [address] Care Team Providers Care Body Bumper Name Role Phone Dru Menjivar MD Primary Care Provider [phone] Encounter Details Date Type Department Care Team (Latest Contact Info) Description 06/02/2019 Travel Social History Tobacco Use Types Packs/Day [...] on filedocumented in this encounter Care Teams Body Bumper Relationship Specialty Start Date End Date Dru Menjivar MD PCP - General Family Practice 04/11/19 documented as of this encounter
--- OUTSIDE RECORDS SUMMARY | 2024-04-12 11:46 | XMS_ITS | Encounter Summary ---
Author Organization [facility] [employer] [facility] Address [address] [place] [address] Care Team Providers Care Supervisor Molding Name Role Phone Dru Menjivar MD Primary Care Provider [phone] Reason for Visit * Reason Onset Date Comments Needs Orders Written 04/16/2020 Encounter Details Date Type Department Care Team (Late st Contact Info) Description 04/16/2020 Telephone [facility] Oncology and Hematology - [place] [address] [facility] [address] [place] [address] Magdi Monteiro MD [address] [facility] [address] [place] [address] Needs Orders Written Social History Tobacco Use Types Packs/Day Years [...] COVID-19? 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
--- OUTSIDE RECORDS SUMMARY | 2024-04-12 11:46 | XMS_ITS | Encounter Summary ---
Author Organization [facility] [employer] [facility] Address [address] [place] [address] Care Team Providers Care Certified Social Workers In Health Care Name Role Phone Dru Menjivar MD Primary Care Provider [phone] Encounter Details Date Type Department Care Team (Late st Contact Info) Description 05/06/2020 Orders Only [facility] Oncology and Hematology - [address] [place] [id number] Provider, Abstract NO ADDRESS ON FILE Social [...] COVID-19? No / Unsure 04/12/2020 10:41 AM [facility] documented as of this encounter Plan of Treatment Not on file documented as of this encounter Procedures Procedure Name Priority Date/Time Associated Diagnosis Comments HOMOCYSTEINE Routine 04/16/2020 documented in this encounter Results * HOMOCYSTEINE (04/16/2020) Blood Abstract Provider CHEMISTRY ORDERABLES documented in this encounter Visit Diagnoses Not on filedocumented in this encounter Care Teams Certified Social Workers In Health Care Relationship Specialty Start Date End Date Dru Menjivar MD PCP - General Family Practice 04/11/19 documented as of this encounter
--- OUTSIDE RECORDS SUMMARY | 2024-04-12 11:47 | XMS_ITS | Referral Summary ---
Author Organization [facility] Address [address] [place] [address] Care Team Providers Care Food Service Worker Hospital Name Role Phone George Menjivar MD Unavailable [phone] George Menjivar MD Primary Care Provider + [phone] Penny Barrera RN Unavailable [phone] Kelly YanezW Unavailable [phone] Encounters Date Type Department Care Team Description 04/09/2024 Documentation [facility] Transplant Kidney [address] [facility] [address] Mailstop [id number] [place] [address] Marilyn Smith 04/09/2024 Documentation [facility] Transplant Kidney [address] [facility] [address] Mailstop [phone] [place] [address] Marilyn Smith 04/07/2024 Telephone [facility] Transplant Kidney [address] [facility] [address] Mailstop [phone] [place] [address] Penny Barrera, ASIA Donor Evaluation Update/Follow Up 04/05/2024 7:16 AM ARTS ADMINISTRATOR OR MANAGER - 04/05/2024 11:59 PM ARTS ADMINISTRATOR OR MANAGER Hospital Encounter [facility] Breast Imaging [address] [place] [address] Screening mammogram for breast cancer Discharge Disposition: Discharge to home or self care 04/04/2024 Telephone [facility] [address] [place] [address] Referral, Self Appointment Request 03/31/2024 9:37 AM ARTS ADMINISTRATOR OR MANAGER - 03/31/2024 11:59 PM ARTS ADMINISTRATOR OR MANAGER Hospital Encounter [id number] [place] [address] Acquired hypothyroidism Discharge Disposition: Discharge to home or self care 03/31/2024 9:40 AM ARTS ADMINISTRATOR OR MANAGER Lab [facility] Infectious Diseases [address] [facility] [address] [place] [id number] 03/31/2024 9:00 AM ARTS ADMINISTRATOR OR MANAGER Office Visit [facility] Endocrinology Metabolism and Lipid [address] [facility] [address] [place] [phone] Jesi Washington MD Acquired hypothyroidism (Primary Dx) 03/27/2024 Telephone [facility] Transplant Kidney [address] [facility] [address] Mailstop [phone] [place] [address] Penny Barrera, brick pitcher Results 03/17/2024 Telephone [facility] Transplant Kidney [address] [facility] [address] Mailstop [phone] [place] [address] Penny Barrera, brick pitcher Results 03/14/2024 11:05 AM ARTS ADMINISTRATOR OR MANAGER Lab [facility] Lab [address] [place] [address] Encounter for donation of kidney 03/05/2024 Telephone [facility] Transplant Kidney [address] [facility] [address] Mailstop [phone] [place] [address] Penny Barrera, ASIA Donor Evaluation Update/Follow Up 02/22/2024 Documentation [facility] Transplant Kidney [address] [facility] [address] Mailstop [phone] [place] [address] Marilyn Smith 02/19/2024 Telephone [facility] Transplant Kidney [address] [facility] [address] Mailstop [phone] [place] [address] Penny Barrera, RN Donor Evaluation Update/Follow Up 02/19/2024 Telephone [facility] Transplant Kidney [address] [facility] [address] Mailstop [phone] [place] [address] Kelly Yanez LCSW Successfully Completed 02/18/2024 Documentation [facility] Transplant Kidney [address] [facility] [address] Mailstop [phone] [place] [address] Marilyn Smith 02/18/2024 Telephone [facility] Transplant Kidney [address] [facility] [address] Mailstop [phone] [place] [address] Penny Barrera RN Forms/questionnaires 02/11/2024 Documentation [facility] Transplant Kidney [address] [place] [address] 34[address] Mailstop [phone] [place] [address] Marilyn Smith Referral - Donor Txp 02/08/2024 Documentation [facility] Transplant Kidney [address] [place] [address] 34[address] Mailstop [phone] [place] [address] Marilyn Smith Referral - Donor Txp 02/06/2024 Telephone [facility] Transplant Kidney [address] [place] [address] [address] Mailstop [phone] [place] [address] Ling Waldron Referral - Kidney Txp from Last 3 Months Allergies Active Allergy Reactions Criticality Noted Date Comments Erythromycin Anaphylaxis High 03/22/2018 Medications ALYACEN , 28, 1-35 mg-mcg per tablet Take 1 tablet by mouth daily. 3 8 Active LORazepam (ATIVAN) 1 mg tablet Take 1 mg by mouth daily. 1 8 Active ergocalciferol (VITAMIN D) 50,000 unit capsule Take 1 capsule (50,000 Units total) by mouth once a week 1 8 Active epinastine 0.05 % ophthalmic solution INSTILL 1 DROP INTO BOTH EYES TWICE A DAY 6 8 Active cyanocobalamin (Vitamin B-12) 1,000 mcg/mL injection 8 Active TROKENDI XR 200 mg capsule,extende d release 24hr TAKE 1 (ONE) CAPSULE DAILY TO PROMOTE WEIGHT LOSS 0 8 Active VIIBRYD 40 mg tabletIndicatio ns:major depressive disorder Take 40 mg by mouth daily. 3 8 Active levothyroxine (SYNTHROID) 50 mcg tablet Take 1 tablet (50 mcg total) by mouth daily 90 tablet 4 Active levothyroxine (SYNTHROID) 50 mcg tablet Take 1 tablet (50 mcg total) by mouth daily 4 03/31/20 24 Discontinu ed(Reorder ) Active Problems No known active problems Social History Tobacco Use Types Packs/Day Years Used Date Smoking Tobacco: Never Smokeless Tobacco: Never Alcohol Use Standard Drinks/Week Comments No 0 (1 standard drink = 0.6 oz pur e alcohol) Comments No Sex and Gender Information Value Date Recorded Sex Assigned at Not on file Legal Sex Female 10:20 AM ARTS ADMINISTRATOR OR MANAGER Gender Identity Female 03/22/2018 10:13 AM ARTS ADMINISTRATOR OR MANAGER Sexual Orientation Not on file Last Filed Vital Signs Vital Sign Reading Time Taken Comments Blood Pressure 113/71 03/31/2024 8:50 AM ARTS ADMINISTRATOR OR MANAGER Pulse 78 03/31/2024 8:50 AM ARTS ADMINISTRATOR OR MANAGER Temperature 37 ??C (98.6 ??F) 03/31/2024 8:50 AM ARTS ADMINISTRATOR OR MANAGER Respiratory Rate - - Oxygen Saturation 98% 12/20/2012 5:03 AM CDT Inhaled Oxygen Concentration - - Weight 58.5 kg (129 lb) 03/31/2024 8:50 AM ARTS ADMINISTRATOR OR MANAGER Height 165.1 cm (5' 5 ) 03/31/2024 8:50 AM ARTS ADMINISTRATOR OR MANAGER Body Mass Index 21.47 03/31/2024 8:50 AM ARTS ADMINISTRATOR OR MANAGER Plan of Treatment Not on file Procedures Procedure Name Priority Date/Time Associated Diagnosis Comments SCREENING MAMMOGRAM BILATERAL W LEODAN Schedule Routine, Read Routine (OP Routine) 04/05/2024 7:33 AM ARTS ADMINISTRATOR OR MANAGER Screening mammogram for breast cancer THYROID PEROXIDASE ANTIBODY Routine 03/31/2024 9:37 AM ARTS ADMINISTRATOR OR MANAGER Acquired hypothyroidism TSH Routine 03/31/2024 9:37 AM ARTS ADMINISTRATOR OR MANAGER Acquired hypothyroidism T4, FREE Routine 03/31/2024 9:37 AM ARTS ADMINISTRATOR OR MANAGER Acquired hypothyroidism ABO/RH Routine 03/24/2024 DIFFERENTIAL AUTO Routine 03/14/2024 11:40 AM ARTS ADMINISTRATOR OR MANAGER Encounter for donation of kidney HCG, BLOOD, QUANTITATIVE Routine 03/14/2024 11:40 AM ARTS ADMINISTRATOR OR MANAGER Encounter for donation of kidney CBC WITH AUTO DIFFERENTIAL Routine 03/14/2024 11:40 AM ARTS ADMINISTRATOR OR MANAGER Encounter for donation of kidney GAMMA GT Routine 03/14/2024 11:40 AM ARTS ADMINISTRATOR OR MANAGER Encounter for donation of kidney URIC ACID Routine 03/14/2024 11:40 AM ARTS ADMINISTRATOR OR MANAGER Encounter for donation of kidney PHOSPHORUS Routine 03/14/2024 11:40 AM ARTS ADMINISTRATOR OR MANAGER Encounter for donation of kidney PROTIME-INR Routine 03/14/2024 11:40 AM ARTS ADMINISTRATOR OR MANAGER Encounter for donation of kidney APTT Routine 03/14/2024 11:40 AM ARTS ADMINISTRATOR OR MANAGER Encounter for donation of kidney LIPID PANEL Routine 03/14/2024 11:40 AM ARTS ADMINISTRATOR OR MANAGER Encounter for donation of kidney HEPATITIS B CORE ANTIBODY, TOTAL Routine 03/14/2024 11:40 AM ARTS ADMINISTRATOR OR MANAGER Encounter for donation of kidney HEPATITIS B SURFACE ANTIBODY (IMMUNE STATUS) Routine 03/14/2024 11:40 AM ARTS ADMINISTRATOR OR MANAGER Encounter for donation of kidney HEPATITIS B SURFACE ANTIGEN Routine 03/14/2024 11:40 AM ARTS ADMINISTRATOR OR MANAGER Encounter for donation of kidney HEPATITIS C ANTIBODY Routine 03/14/2024 11:40 AM ARTS ADMINISTRATOR OR MANAGER Encounter for donation of kidney HIV 1/2 ANTIBODY PLUS P24 ANTIGEN Routine 03/14/2024 11:40 AM ARTS ADMINISTRATOR OR MANAGER Encounter for donation of kidney CMV, IGG Routine 03/14/2024 11:40 AM ARTS ADMINISTRATOR OR MANAGER Encounter for donation of kidney RPR Routine 03/14/2024 11:40 AM ARTS ADMINISTRATOR OR MANAGER Encounter for donation of kidney LISETH-MENDOZA VIRUS VCA ANTIBODY PANEL Routine 03/14/2024 11:40 AM ARTS ADMINISTRATOR OR MANAGER Encounter for donation of kidney ALBUMIN CREATININE RATIO, URINE Routine 03/14/2024 11:33 AM ARTS ADMINISTRATOR OR MANAGER Encounter for donation of kidney URINE CULTURE Routine 03/14/2024 11:33 AM ARTS ADMINISTRATOR OR MANAGER Encounter for donation of kidney from Last 3 Months Results * Screening Mammogram Bilateral W Leoadn (04/05/2024 7:33 AM ARTS ADMINISTRATOR OR MANAGER) Anatomical Region Laterality Modality Breast Bilateral Mammography Impressions 04/06/2024 9:35 PM ARTS ADMINISTRATOR OR MANAGER BI-RADS?? ATLAS category (overall): 1 - Negative There is no mammographic evidence of malignancy. A 1 year screening mammogram is recommended. The patient has been or will be contacted. We recommend annual screening mammography for women at average risk of breast cancer beginning at age 40, based on guidelines of the [employer] (ACR Practice Parameter for the Performance of Screening and Diagnostic Mammography) and [employer]. For women with and elevated risk of breast cancer, please refer to the ACR Practice Parameter for specific screening recommendations. The patient will be entered into a reminder system with a target due date of 1 year for her next screening exam. Narrative 04/06/2024 9:35 PM ARTS ADMINISTRATOR OR MANAGER Screening Mammogram Bilateral W Leodan: 04/05/24 The study was acquired using full field digital technology and interpreted from soft copy. 2D digital mammographic views, as well as 3D digital tomosynthesis were performed in the CC and MLO projections. This study was resulted using Computer-Aided Detection (CAD). CLINICAL: ??Screening mammogram for breast cancer. ??No relevant medical history has been documented for this patient. ??History of breast cancer in Neg Hx. COMPARISON: ??Baseline Screening Mammography. No prior mammography is available for comparison. BREAST TISSUE: There are scattered areas of fibroglandular density. FINDINGS: No suspicious masses, suspicious calcifications, or other suspicious findings are seen within either breast. Bob Marsh MD IMG MAMMO PROCEDURES Madiha l Result * Thyroid peroxidase antibody (TPO) (03/31/2024 9:37 AM ARTS ADMINISTRATOR OR MANAGER) Anti Thyroid Peroxidase <30 <=34 IUnits/mL Comment: ATPO Interpretive Data Results may be up to 28% higher in patients receiving Itraconazole. Current interpretive data was last revised 2020. Testing performed by: [facility], [address] [place]., [address] Blood 03/31/2024 9:37 AM ARTS ADMINISTRATOR OR MANAGER 04/01/2024 9:51 AM ARTS ADMINISTRATOR OR MANAGER Jesi Thomas MD LAB BLOOD ORDERABLES Final Result Performing Organization Address [facility] [place] [address] [address] [place], [place] [id number] * TSH (03/31/2024 9:37 AM ARTS ADMINISTRATOR OR MANAGER) Thyroid Stimulating Hormone 1.94 0.30 - 4.20 mcIUnit/mL Blood 03/31/2024 9:37 AM ARTS ADMINISTRATOR OR MANAGER 03/31/2024 4:05 PM ARTS ADMINISTRATOR OR MANAGER Jesi Thomas MD LAB BLOOD ORDERABLES Final Result Performing Organization Address City/[facility] [place] [address] [address] [place] [address] * T4, free (03/31/2024 9:37 AM ARTS ADMINISTRATOR OR MANAGER) Free T4 0.92 0.90 - 1.70 ng/dL Blood 03/31/2024 9:37 AM ARTS ADMINISTRATOR OR MANAGER 03/31/2024 4:05 PM ARTS ADMINISTRATOR OR MANAGER Jesi Thomas MD LAB BLOOD ORDERABLES Final Result [facility] [address] [place] [address] * ABO/Rh (03/24/2024) SCRIBED ABO/Rh A+ Blood 03/24/2024 Historical Provider LAB BLOOD BANK TEST ORDER DIVYA Final Result * Differential, auto (03/14/2024 11:40 AM ARTS ADMINISTRATOR OR MANAGER) Neutrophil abs 4.1 1.5 - 6.5 K/cumm Imm gran abs 0.0 0.0 - 0.1 K/cumm [facility] Lymphocyte abs 1.6 0.8 - 3.3 K/cumm [facility] Monocyte abs 0.4 0.2 - 0.8 K/cumm [facility] Eosinophil abs 0.1 0.0 - 0.5 K/cumm [facility] Basophil abs 0.1 0.0 - 0.1 K/cumm [facility] Neutrophil pct 66.0 % [facility] Comment: Interpretive Data Percent cell count reference ranges are not reported, since discordance with absolute values may lead to misinterpretation of CBC data. Current Interpretive Data was last revised on 2017. Imm gran pct 0.2 % [facility] Comment: Interpretive Data Percent cell count reference ranges are not reported, since discordance with absolute values may lead to misinterpretation of CBC data. Current Interpretive Data was last revised on 2017. Lymphocyte pct 25.3 % [facility] Comment: Interpretive Data Percent cell count reference ranges are not reported, since discordance with absolute values may lead to misinterpretation of CBC data. Current Interpretive Data was last revised on 2017. Monocyte pct 6.6 % [facility] Comment: Interpretive Data Percent cell count reference ranges are not reported, since discordance with absolute values may lead to misinterpretation of CBC data. Current Interpretive Data was last revised on 2017. Eosinophil pct 1.1 % [facility] Comment: Interpretive Data Percent cell count reference ranges are not reported, since discordance with absolute values may lead to misinterpretation of CBC data. Current Interpretive Data was last revised on 2017. Basophil pct 0.8 % [facility] Comment: Interpretive Data Percent cell count reference ranges are not reported, since discordance with absolute values may lead to misinterpretation of CBC data. Current Interpretive Data was last revised on 2017. Blood 03/14/2024 11:4 0 AM ARTS ADMINISTRATOR OR MANAGER 03/14/2024 12:01 PM ARTS ADMINISTRATOR OR MANAGER Jono Merritt MD LAB BLOOD ORDERABLES Final Resu lt Performing Organization Address City/[facility]/ZIP Co de Phone Number [facility] [employer] [place], [place] [id number] * HIV 1/2 Antibody plus p24 Antigen Blood (03/14/2024 11:40 AM ARTS ADMINISTRATOR OR MANAGER) [facility] HIV 1/2 ab + p24 ag Nonreactive Nonreactive Comment:Nonreactive for HIV- 1 antigen and HIV-1/HIV-2 antibodies. No laboratory evidence of HIV infection. If acute HIV infection is suspected, consider testing for HIV-1 RNA. Current interpretive data was last revised on 21. Blood 03/14/2024 11:4 0 AM ARTS ADMINISTRATOR OR MANAGER 03/14/2024 12:01 PM ARTS ADMINISTRATOR OR MANAGER Narrative [facility] - 03/14/2024 1:02 PM ARTS ADMINISTRATOR OR MANAGER Please bill to: [facility] Mailstop [phone] ATTN: Wanda Shirley-visual merchandising specialist [address] [place] [phone] / [email or web address] Jono Merritt MD LAB MICROBIOLOGY - GENERAL ORDE RABLES Final Result Performing Organization Address City/[facility]/ZIP Co de Phone Number [facility] [address] [facility] [place] [address] * CMV, IgG Blood (03/14/2024 11:40 AM ARTS ADMINISTRATOR OR MANAGER) [facility] CMV IgG Negative Negative Comment: Interpretive Data Negative - Individuals with negative CMV IgG results are presumed to not have had prior exposure or infection with CMV and are, therefore, considered susceptible to primary infection. Equivocal - Equivocal results may occur during acute infection or may be due to nonspecific binding reactions. Submit an additional sample for testing if clinically indicated. Positive - Indicates presence of detectable CMV IgG antibody. Results indicate past or recent CMV infection. Testing performed by: [facility], [address] [place]., [address] Blood 03/14/2024 11:4 0 AM ARTS ADMINISTRATOR OR MANAGER 03/14/2024 5:49 PM ARTS ADMINISTRATOR OR MANAGER Narrative [facility] - 03/15/2024 12:00 PM ARTS ADMINISTRATOR OR MANAGER Please bill to: [facility] Mailstop [phone] ATTN: Wanda Shirley-visual merchandising specialist [address] [place] [phone] / [email or web address] Jono Merritt MD LAB MICROBIOLOGY - GENERAL RAJAN LANDON Final Result [facility] [address] [facility] Department [place] [address] * (ABNORMAL) CBC with auto differential (03/14/2024 11:40 AM ARTS ADMINISTRATOR OR MANAGER) [facility] WBC 6.3 3.8 - 9.9 K/cumm Hgb 14.1 11.9 - 15.5 g/dL [facility] Hct 41.8 35.6 - 45.5 % [facility] Plt 300 150 - 400 K/cumm [facility] MPV 9.1 9.1 - 12.3 fL [facility] RBC 4.33 3.90 - 5.20 M/cumm [facility] MCV 96.5(H) 81.3 - 96.4 fL [facility] MCH 32.6 27.1 - 33.3 pg [facility] MCHC 33.7 32.3 - 35.7 g/dL [facility] RDW CV 12.4 11.1 - 14.9 % [facility] RDW SD 44.6 35.7 - 48.1 fL [facility] NRBC abs 0.00 0.00 - 0.01 K/cumm [facility] Blood 03/14/2024 11:4 0 AM ARTS ADMINISTRATOR OR MANAGER 03/14/2024 12:01 PM ARTS ADMINISTRATOR OR MANAGER Narrative [facility] - 03/14/2024 12:01 PM ARTS ADMINISTRATOR OR MANAGER Please bill to: [facility] Mailstop [phone] ATTN: Wanda Shirley-visual merchandising specialist [address] [place] [phone] / [email or web address] Jono Merritt MD LAB BLOOD ORDERABLES Final Resu lt [facility] [address] [facility] Department [place] [address] * Hepatitis C antibody Blood (03/14/2024 11:40 AM ARTS ADMINISTRATOR OR MANAGER) Hep C Ab Nonreactive Nonreactive Comment: Antibodies to HCV not detected. Does NOT exclude the possibility of recent exposure to HCV. Current interpretive data was last revised on 21 Interpretive Data Nonreactive: Antibodies to HCV not detected. Does NOT exclude the possibility of recent exposure to HCV. Equivocal: Equivocal for HCV antibodies. Supplemental molecular testing will be automatically performed to determine infection status in accordance with current CDC screening recommendations. ?? Reactive: Positive for HCV antibodies. ??This may represent current or past HCV infection. Supplemental molecular testing will be automatically performed to determine ??current infection status in accordance with current CDC screening recommendations. Interpretive data was last revised on 2019. Blood 03/14/2024 11:4 0 AM ARTS ADMINISTRATOR OR MANAGER 03/14/2024 12:01 PM ARTS ADMINISTRATOR OR MANAGER Narrative [facility] - 03/14/2024 2:23 PM ARTS ADMINISTRATOR OR MANAGER Please bill to: [facility] Mailstop [phone] ATTN: Wanda Aguilarvisual merchandising specialist [address] [place] [phone] / [email or web address] Jono Merritt MD LAB MICROBIOLOGY - GENERAL RAJAN LANDON Final Result [facility] [address] [facility] Department [place] [address] * (ABNORMAL) Liseth-Mendoza virus (EBV) antibody panel Blood (03/14/2024 11:40 AM ARTS ADMINISTRATOR OR MANAGER) EBV nuclear Ab Positive(A) Negative Comment: Indicates the presence of detectable IgG antibody to EBV Nuclear Antigen. Testing performed by: [facility], [address] [place]., [address] EBV VCA IgG Positive(A) Negative [facility] Comment: Indicates the presence of antibody; 90% of the adult population will have been infected with EBV sometime in the past. Testing performed by: [facility], [address] [place]., [address] EBV VCA IgM Negative Negative [facility] Comment: No detectable IgM antibody to EBV-VCA. ??A negative result indicates no current infection with EBV. If clinical suspicion of acute EBV infection is present, testing should be repeated after one week. Testing performed by: [facility], [address] [place] [address] EBV interp Past Infection [facility] Comment:Testing performed by : [facility], [address] [place]., [address] Blood 03/14/2024 11:4 0 AM ARTS ADMINISTRATOR OR MANAGER 03/14/2024 5:49 PM ARTS ADMINISTRATOR OR MANAGER Narrative [facility] - 03/15/2024 12:21 PM ARTS ADMINISTRATOR OR MANAGER Please bill to: [facility] Mailstop [phone] ATTN: Wanda Shirley-visual merchandising specialist [address] [facility] [address] / Jono Merritt MD LAB MICROBIOLOGY - GENERAL RAJAN LANDON Final Result Performing Organization Address [facility] Co de Phone Number [facility] [place] [address] * Hepatitis B core antibody, total Blood (03/14/2024 11:40 AM ARTS ADMINISTRATOR OR MANAGER) Hep B core IgG/IgM Nonreactive Nonreactive Comment:Testing performed by : [facility], [address] [facility], [address] Blood 03/14/2024 11:4 0 AM ARTS ADMINISTRATOR OR MANAGER 03/14/2024 5:47 PM ARTS ADMINISTRATOR OR MANAGER Narrative [facility] - 03/14/2024 7:24 PM ARTS ADMINISTRATOR OR MANAGER Please bill to: [facility] Mailstop [phone] ATTN: Wanda Shirley-visual merchandising specialist [address] [facility] [phone] / Jono Merritt MD LAB MICROBIOLOGY - GENERAL RAJAN LANDON Final Result Performing Organization Address [facility] Co de Phone Number [facility] [place] [address] * RPR Blood (03/14/2024 11:40 AM ARTS ADMINISTRATOR OR MANAGER) Pathologist [facility] [place] RPR Nonreactive Nonreactive Comment:Testing performed by : [facility], [address] [facility], [address] Blood 03/14/2024 11:4 0 AM ARTS ADMINISTRATOR OR MANAGER 03/14/2024 5:49 PM ARTS ADMINISTRATOR OR MANAGER Narrative [facility] - 03/14/2024 7:37 PM ARTS ADMINISTRATOR OR MANAGER Please bill to: [facility] Mailstop [phone] ATTN: Wanda Shirley-visual merchandising specialist [address] [facility] [address] / Jono Merritt MD LAB MICROBIOLOGY - GENERAL RAJAN LANDON Final Result Performing Organization Address City/[facility] Co de Phone Number [facility] [address] [place] [address] * Hepatitis B surface antibody (immune status) Blood (03/14/2024 11:40 AM ARTS ADMINISTRATOR OR MANAGER) HBsAb (immune status) Reactive Comment: Interpretive Data Nonreactive: This result is consistent with a lack of immunity to Hepatitis B Virus when used in the setting of routine screening. Equivocal: The immune status of the individual should be further assessed, if appropriate, after consideration of clinical status, risk factors, and additional diagnostic information. Reactive: This result is consistent with immunity to Hepatitis B Virus when used in the setting of routine screening. Current interpretive data was last revised on 19. HBsAb (immune status) index 14.8 mIUnits/m L [facility] Blood 03/14/2024 11:4 0 AM ARTS ADMINISTRATOR OR MANAGER 03/14/2024 12:01 PM ARTS ADMINISTRATOR OR MANAGER Narrative TOMASZ - 03/14/2024 2:23 PM ARTS ADMINISTRATOR OR MANAGER Please bill to: [facility] Mailstop [phone] ATTN: Wanda Shirley-visual merchandising specialist [address] [place] [address] / Jono Merritt MD LAB MICROBIOLOGY - GENERAL RAJAN LANDON Final Result Performing Organization Address City/[facility]/ZIP Co de Phone Number TOMASZ [address] [facility] [place] [address] * Hepatitis B Surface Antigen Blood (03/14/2024 11:40 AM ARTS ADMINISTRATOR OR MANAGER) HepBsAg Nonreactive Nonreactive Blood 03/14/2024 11:4 0 AM ARTS ADMINISTRATOR OR MANAGER 03/14/2024 12:01 PM ARTS ADMINISTRATOR OR MANAGER Narrative [facility] - 03/14/2024 2:23 PM ARTS ADMINISTRATOR OR MANAGER Please bill to: [facility] Mailstop [phone] ATTN: Wanda Aguilarvisual merchandising specialist [address] [phone] / [email or web address] Jono Merritt MD LAB MICROBIOLOGY - GENERAL ORDE RABLES Final Result Performing Organization Address [facility] de Phone Number TOMASZ [address] [address] * aPTT (03/14/2024 11:40 AM ARTS ADMINISTRATOR OR MANAGER) aPTT 26 22 - 37 sec Comment: Interpretive data aPTT test has not been evaluated for monitoring heparin therapy. The anti-Xa is the preferred test. Current interpretive data was last revised on 2019. Blood 03/14/2024 11:4 0 AM ARTS ADMINISTRATOR OR MANAGER 03/14/2024 12:01 PM ARTS ADMINISTRATOR OR MANAGER Narrative TOMASZ - 03/14/2024 12:21 PM ARTS ADMINISTRATOR OR MANAGER Please bill to: [facility] Mailstop [phone] ATTN: Wanda Shirley-visual merchandising specialist [address] [place] [phone] / [email or web address] Result [facility] Jono Merritt MD LAB BLOOD ORDERABLES Final Resu lt Performing Organization Address [facility] Co de Phone Number IVORY[address] [address] * Protime-INR (03/14/2024 11:40 AM ARTS ADMINISTRATOR OR MANAGER) PT 13.5 12.0 - 14.6 sec INR 1.0 0.9 - 1.2 TOMASZ Comment: Ref Range High Interpretive data Oral anticoagulant therapeutic ranges: Venous thromboembolism prophylaxis or treatment: 2.0-3.0 CARDIOLOGY Standard range: 2.0-3.0 High-intensity range: 2.5-3.5 Refer to indication-specific guidelines for appropriate target ranges for prosthetic heart valve replacement. Current interpretive data was last revised on 2019. Blood 03/14/2024 11:4 0 AM ARTS ADMINISTRATOR OR MANAGER 03/14/2024 12:01 PM ARTS ADMINISTRATOR OR MANAGER Narrative TOMASZ - 03/14/2024 12:21 PM ARTS ADMINISTRATOR OR MANAGER Please bill to: [facility] Mailstop [phone] ATTN: Wanda Aguilarvisual merchandising specialist [address] [place] [phone] / [email or web address] Jono Merritt MD LAB BLOOD ORDERABLES Final Resu lt Performing Organization Address [facility] Co de Phone Number TOMASZ [address] [place] [address] * hCG, blood, quantitative (03/14/2024 11:40 AM ARTS ADMINISTRATOR OR MANAGER) hCG, quant <5.0 0.0 - 5.0 IUnits/L Comment: Interpretive Data Male: < 5 IU/L Non- premenopausal Female: <5 IU/L The Pratima hCG Beta Quant assay procedure was used. Results from different manufacturers or methods may not be comparable. ??Serial testing should be performed using the same method. Interpretive Data was last revised on 2023 Blood 03/14/2024 11:4 0 AM ARTS ADMINISTRATOR OR MANAGER 03/14/2024 12:01 PM ARTS ADMINISTRATOR OR MANAGER Narrative TOMASZ - 03/14/2024 12:53 PM ARTS ADMINISTRATOR OR MANAGER Please bill to: [facility] Mailstop [phone] ATTN: Wanda Aguilarvisual merchandising specialist [address] [place] [phone] / Jono Merritt MD LAB BLOOD ORDERABLES Final Resu lt Performing Organization Address City/[facility]/ZIP Co de Phone Number TOMASZ [address] [employer] [place], [place] [id number] * Uric acid (03/14/2024 11:40 AM ARTS ADMINISTRATOR OR MANAGER) Pathologist [facility] Uric acid 3.6 2.5 - 7.0 mg/dL Blood 03/14/2024 11:4 0 AM ARTS ADMINISTRATOR OR MANAGER 03/14/2024 12:01 PM ARTS ADMINISTRATOR OR MANAGER Narrative TOMASZ - 03/14/2024 12:53 PM ARTS ADMINISTRATOR OR MANAGER Please bill to: [facility] Mailstop [phone] ATTN: Wanda Shirley-visual merchandising specialist [address] [place] [address] / [email or web address] Jono Merritt MD LAB BLOOD ORDERABLES Final Resu lt TOMASZ [address] [place] [address] * Phosphorus (03/14/2024 11:40 AM ARTS ADMINISTRATOR OR MANAGER) [facility] Phosphorus, pl 2.5 2.3 - 4.5 mg/dL Blood 03/14/2024 11:4 0 AM ARTS ADMINISTRATOR OR MANAGER 03/14/2024 12:01 PM ARTS ADMINISTRATOR OR MANAGER Narrative TOMASZ - 03/14/2024 12:53 PM ARTS ADMINISTRATOR OR MANAGER Please bill to: [facility] Mailstop [phone] ATTN: Wanda Aguilarvisual merchandising specialist [address] [place] [address] / [email or web address] Jono Merritt MD LAB BLOOD ORDERABLES Final Resu lt TOMASZ [address] [place] [address] * Gamma GT (03/14/2024 11:40 AM ARTS ADMINISTRATOR OR MANAGER) [facility] GGT 27 5 - 35 Units/L Blood 03/14/2024 11:4 0 AM ARTS ADMINISTRATOR OR MANAGER 03/14/2024 12:01 PM ARTS ADMINISTRATOR OR MANAGER Narrative TOMASZ - 03/14/2024 12:53 PM ARTS ADMINISTRATOR OR MANAGER Please bill to: [facility] Mailstop [phone] ATTN: Wanda Shirley-visual merchandising specialist [address] [facility] [phone] / [email or web address] Jono Merritt MD LAB BLOOD ORDERABLES Final Resu lt TOMASZ [address] [facility] Department [place] [address] * (ABNORMAL) Lipid panel (03/14/2024 11:40 AM ARTS ADMINISTRATOR OR MANAGER) Cholesterol 200(H) 30 - 199 mg/dL Comment: Interpretive Data Ages < or = 19 years ??Acceptable: ? <170 mg/dL ??Borderline high: ??170-199 mg/dL ??High: ? >or= 200 mg/dL Ages > or = 20 years ??Desirable: ?<200 mg/dL ??Borderline high: ??200-239 mg/dL ??High: ? >or= 240 mg/dL Literature References: 1. Expert Panel on Integrated Guidelines for Cardiovascular Health and Risk Reduction in Children and Adolescents. Pediatrics 2011;128:S213 2. NCEP Expert Panel. Circulation 2004;110:227 Current Interpretive Data was last revised on 2017. Triglycerides 129 <=149 mg/dL TOMASZ Comment: Interpretive Data Ages < or = 9 years ??Acceptable: ? <75 mg/dL ??Borderline high: ??75-99 mg/dL ??High: ? >or= 100 mg/dL Ages 10 to 20 years ??Acceptable: ? <90 mg/dL ??Borderline high: ??90-129 mg/dL ??High: ? >or= 130 mg/dL Ages > or = 20 years ??Desirable: ?<150 mg/dL ??Borderline high: ??150-199 mg/dL ??High: ? 200-499 mg/dL ?Very high: ?? >or= 499 mg/dL Literature References: 1. Expert Panel on Integrated Guidelines for Cardiovascular Health and Risk Reduction in Children and Adolescents. Pediatrics 2011;128:S213 2. NCEP Expert Panel. Circulation 2004;110:227 Current Interpretive Data was last revised on 2017. HDL 64 >=40 mg/dL TOMASZ Comment: Interpretive Data Ages < or = 19 years ??Acceptable: ? >45 mg/dL ??Borderline low: ?? 40-45 mg/dL ??Low: ? <40 mg/dL Ages > or = 20 years ??Desirable: ?>or= 60 mg/dL ??Low: ? <40 mg/dL Literature References: 1. Expert Panel on Integrated Guidelines for Cardiovascular Health and Risk Reduction in Children and Adolescents. Pediatrics 2011;128:S213 2. NCEP Expert Panel. Circulation 2004;110:227 Current Interpretive Data was last revised on 2017. LDL, calculated 113 <=129 mg/dL TOMASZ Comment: Interpretive Data Ages < or = 19 years ??Acceptable: ? <110 mg/dL ??Borderline high: ??110-129 mg/dL ??High: ?>or= 130 mg/dL Ages > or = 20 years ??Optimal: ? <100 mg/dL ??Near optimal: ?100-129 mg/dL ??Borderline high: ?? 130-159 mg/dL ??High: ?>160 mg/dL Calculated using the Hawthorne LDL-C estimating equation. This equation was implemented on 2023. Prior to this date LDL-C was estimated using the Friedewald equation. Literature References: 1. Expert Panel on Integrated Guidelines for Cardiovascular Health and Risk Reduction in Children and Adolescents. Pediatrics 2011;128:S213 2. NCEP Expert Panel. Circulation 2004;110:227 3. Hawthorne M et al. CHON Cardiol. 2020 July 31;5(5):540-548. doi: 10.1001/jamacardio.2020.0013 Current Interpretive Data was last revised on 2023. Non-HDL Cholesterol 136 mg/dL TOMASZ DURHAM Comment: Interpretive Data Ages < or = 19 years ??Acceptable: ?<120 mg/dL ??Borderline high: ??120-144 mg/dL ??High: ?>145 mg/dL Ages > or = 20 years ??When triglycerides are >200 mg/dL, Non-HDL cholesterol is a secondary target of ? therapy with treatment goals that are 30 mg/dL greater than the LDL cholesterol target. ? Literature References: 1. Expert Panel on Integrated Guidelines for Cardiovascular Health and Risk Reduction in Children and Adolescents. Pediatrics 2011;128:S213 2. NCEP Expert Panel. Circulation 2004;110:227 Current Interpretive Data was last revised on 2017. Chol/HDL ratio 3 TOMASZ Blood 03/14/2024 11:4 0 AM ARTS ADMINISTRATOR OR MANAGER 03/14/2024 12:01 PM ARTS ADMINISTRATOR OR MANAGER Narrative TOMASZ - 03/14/2024 12:53 PM ARTS ADMINISTRATOR OR MANAGER Please bill to: [facility] Mailstop [phone] ATTN: Wanda Shirley-visual merchandising specialist [address] [place] [address] / [email or web address] Jono Merritt MD LAB BLOOD ORDERABLES Final Resu lt TOMASZ [address] [facility] Department [place] [address] * Albumin Creatinine Ratio, Urine (03/14/2024 11:33 AM ARTS ADMINISTRATOR OR MANAGER) Albumin Ur <12.0 mg/L Comment: Interpretive Data No reference range established. Current interpretive data was last revised 2018. Creatinine Ur 77.5 mg/dL [facility] Comment: Interpretive Data No reference range established. Current interpretive data was last revised 2018. Albumin Creatinine Ratio, Ur <15 1 - 29 mg/g [facility] Urine 03/14/2024 11:3 3 AM ARTS ADMINISTRATOR OR MANAGER 03/14/2024 12:14 PM ARTS ADMINISTRATOR OR MANAGER Narrative [facility] 03/14/2024 1:15 PM ARTS ADMINISTRATOR OR MANAGER Please bill to: [facility] Mailstop [phone] ATTN: Wanda Shirley-visual merchandising specialist [address] [place] [phone] / [email or web address] Jono Merritt MD LAB URINE ORDERABLES Final Resu lt Performing Organization Address [facility] Co de Phone Number TOMASZ [address] Department of Laboratories [place] [phone] * Urine culture Urine, clean voided (03/14/2024 11:33 AM ARTS ADMINISTRATOR OR MANAGER) Report Final Report: Less than 100,000 colonies/mL (clinically insignificant growth based on current clinical standards) Comment:Testing performed by : [facility], [address] [place] [address]., [address] Organism (CLINICALLY INSIGNIFICANT GROWTH [facility] Urine, clean voided 03/14/2024 11:33 AM ARTS ADMINISTRATOR OR MANAGER 03/14/2024 7:34 PM ARTS ADMINISTRATOR OR MANAGER Narrative [facility] - 03/15/2024 9:20 PM ARTS ADMINISTRATOR OR MANAGER Please bill to: [facility] Mailstop [phone] ATTN: Wanda Shirley-visual merchandising specialist [address] [facility] [address] / Testing performed by [facility] Microbiology Laboratory ([phone]) Jono Merritt MD LAB MICROBIOLOGY - GENERAL ORDE RABLES Final Result Performing Organization Address City/[facility]/ZIP Co de Phone Number CERNER MH [address] [facility] Department [place] [address] from Last 3 Months Insurance [facility] HMO/PPO Address: [facility] [address] [place] [address] [facility] [employer] Care Teams Food Service Worker Hospital Relationship Specialty Start Date End Date George Menjivar MD [address] [place] [address] PCP - General Family Medicine 06/29/20 George Menjivar MD [address] [place] [address] Family Medicine 03/22/18 Penny Barrera, RN [address] [place] [address] Official Greeter 02/11/24 Kelly Yanez LCSW [address] [facility] [place] Mailstop [phone] [place] [address] Independent Living Donor Advocate 02/19/24
--- OUTSIDE RECORDS SUMMARY | 2024-04-12 11:47 | XMS_ITS | Clinical Summary ---
Author Organization [facility] Address [address] [place] [address] Care Team Providers Care Army Manager Name Role Phone George Menjivar MD Unavailable [phone] George Menjivar MD Primary Care Provider [phone] Penny Barrera RN Unavailable [phone] Kelly YanezW Unavailable [phone] Allergies Active Allergy Reactions Criticality Noted Date Comments Erythromycin Anaphylaxis High 03/22/2018 Medications ALYACEN 135, 28, 1-35 mg-mcg per tablet Take 1 [...] ) Active Problems No known active problems Encounters Date Type Department Care Team Description 04/09/2024 Documentation [facility] Transplant Kidney [address] [facility] [address] Mailstop [phone] [place] [address] Marilyn Smith 04/09/2024 Documentation [facility] Trans[facility]ney [address] [facility] [address] Mailstop [phone] [place] [address] Marilyn Smith 04/07/2024 Telephone [facility] Trans[facility] Kidney [address] [place] [address] 3409 Mailstop [phone] [place] [address] Penny Barrera RN Donor Evaluation Update/Follow Up 04/05/2024 7:16 AM HEALTH NURSE - 04/05/2024 11:59 PM HEALTH NURSE Hospital Encounter [facility] Breast Imaging [address] [place] [address] Screening mammogram for breast cancer Discharge Disposition: Discharge to home or self care 04/04/2024 Telephone [facility] [address] [place] [phone] Referral, Self Appointment Request 03/31/2024 9:40 AM HEALTH NURSE Lab [facility] Infectious Diseases [address] [facility] [address] [place] [phone] 03/31/2024 9:37 AM HEALTH NURSE - 03/31/2024 11:59 PM HEALTH NURSE Hospital Encounter [facility] [address] [place] [address] Acquired hypothyroidism Discharge Disposition: Discharge to home or self care 03/31/2024 9:00 AM HEALTH NURSE Office Visit [facility] Endocrinology Metabolism and Lipid [address] [facility] [address] [place] [phone] Jesi Washington MD Acquired hypothyroidism (Primary Dx) 03/27/2024 Telephone [facility] Transplant Kidney [address] Mailstop 26-10-088 [place] [address] Penny Barrera, occupational therapy aides teacher Results 03/17/2024 Telephone [facility] Transplant Kidney [address] [facility] [address] Mailstop -[phone] [place] [address] Penny Barrera, occupational therapy aides teacher Results 03/14/2024 11:05 AM HEALTH NURSE Lab [facility] Lab [address] [place] [address] Encounter for donation of kidney 03/05/2024 Telephone [facility] Transplant Kidney [address] [facility] 3401 Mailstop -380 [place] [address] Penny Barrera, ASIA Donor Evaluation Update/Follow Up 02/22/2024 Documentation [facility] Transplant Kidney [address] [facility] [address] Mailstop -779 [place] [address] Marilyn Smith 02/19/2024 Telephone [facility] Transplant Kidney [address] [facility] 3401 Mailstop -664 [place] [address] Penny Barrera, ASIA Donor Evaluation Update/Follow Up 02/19/2024 Telephone [facility] Transplant Kidney [address] [facility] [address] Mailstop -666 [place] [address] Kelly Yanez LCSW Successfully Completed 02/18/2024 Documentation [facility] Transplant Kidney [address] [facility] [address] Mailstop [phone] [place] [address] Marilyn Smith 02/18/2024 Telephone [facility] Transplant Kidney [address] [facility] [address] Mailstop [phone] [place] [address] Penny Barrera, ASIA Forms/questionnaires 02/11/2024 Documentation [facility] Transplant Kidney [address] Mailstop [phone] [place] [address] Marilyn Smith Referral - Donor Txp 02/08/2024 Documentation [facility] Transplant Kidney [address] [facility] [address] Mailstop [phone] [place] [address] Marilyn Smith Referral - Donor Txp 02/06/2024 Telephone [facility] Transplant Kidney [address] [facility] 340 Mailstop 21-10-650 [place] [address] ClarkjulianLing cardona Referral - Kidney Txp from Last 3 Months Surgical History Surgery Date Site/Laterality Comments CHOLECYSTECTOMY 04/02/2013 - 04/01/2014 N/A HERNIA REPAIR 04/02/2015 - 04/01/2016 N/A x2 HYSTERECTOMY Family History Medical History Relation Name Comments COPD Father Hypertension Father Diabetes Mother Stroke Mother Breast cancer Neg Hx Ovarian cancer Neg Hx Relation Name Status Comments Father Mother Social History Tobacco Use Types Packs/Day Years Used Date Smoking Tobacco: Never Smokeless Tobacco: Never Alcohol Use Standard Drinks/Week Comments No 0 (1 standard drink = 0.6 oz pur e alcohol) Comments No Sex and Gender Information Value Date Recorded Sex Assigned at Not on file Legal Sex Female 10:20 AM HEALTH NURSE Gender Identity Female 03/22/2018 10:13 AM HEALTH NURSE Sexual Orientation Not on file Obstetrics History Para Term AB IAB SAB Ectopic Multiple Livin g Live Births 3 2 2 Date Outcome GA Total Labor Labor/2nd/3rd Weight Sex Type Anes PTL Rosemary A1 A5 Name Clin Term Term Last Filed Vital Signs Vital Sign Reading Time Taken Comments Blood Pressure 113/71 03/31/2024 8:50 AM HEALTH NURSE Pulse 78 03/31/2024 8:50 AM HEALTH NURSE Temperature 37 ??C (98.6 ??F) 03/31/2024 8:50 AM HEALTH NURSE Respiratory Rate - - Oxygen Saturation 98% 12/20/2012 5:03 AM CDT Inhaled Oxygen Concentration - - Weight 58.5 kg (129 lb) 03/31/2024 8:50 AM HEALTH NURSE Height 165.1 cm (5' 5 ) 03/31/2024 8:50 AM HEALTH NURSE Body Mass Index 21.47 03/31/2024 8:50 AM HEALTH NURSE Plan of Treatment Health Maintenance Due Date Last Done Comments Depression Screening 1980 DTaP/Tdap/Td Vaccine (1 - Tdap) 1991 Varicella Vaccines (1 of 2 - 13+ 2-dose series) 1993 Regular Well Visit/Exam 18-64 1998 Covid-19 Vaccine (3 - 2023-2 5 season) 2023 05/28/2020, 05/05/2020 Influenza Vaccine (#1) 2023 01/14/2019 Breast Cancer Screening-Mammogram 04/05/2025 04/05/2024 Hepatitis B Screening Completed 03/14/2024 Hepatitis C Screening Completed 03/14/2024 HPV Vaccines Aged Out No longer eligi ble based on patient's age to complete this topic Pneumococcal vaccine <65 Aged Out No longer eligible based on patient's age to complete this topic Procedures Procedure Name Priority Date/Time Associated Diagnosis Comments SCREENING MAMMOGRAM BILATERAL W LEODAN Schedule Routine, Read Routine (OP Routine) 04/05/2024 7:33 AM HEALTH NURSE Screening mammogram for breast cancer THYROID PEROXIDASE ANTIBODY Routine 03/31/2024 9:37 AM HEALTH NURSE Acquired hypothyroidism TSH Routine 03/31/2024 9:37 AM HEALTH NURSE Acquired hypothyroidism T4, FREE Routine 03/31/2024 9:37 AM HEALTH NURSE Acquired hypothyroidism ABO/RH Routine 03/24/2024 DIFFERENTIAL AUTO Routine 03/14/2024 11:40 AM HEALTH NURSE Encounter for donation of kidney HCG, BLOOD, QUANTITATIVE Routine 03/14/2024 11:40 AM HEALTH NURSE Encounter for donation of kidney CBC WITH AUTO DIFFERENTIAL Routine 03/14/2024 11:40 AM HEALTH NURSE Encounter for donation of kidney GAMMA GT Routine 03/14/2024 11:40 AM HEALTH NURSE Encounter for donation of kidney URIC ACID Routine 03/14/2024 11:40 AM HEALTH NURSE Encounter for donation of kidney PHOSPHORUS Routine 03/14/2024 11:40 AM HEALTH NURSE Encounter for donation of kidney PROTIME-INR Routine 03/14/2024 11:40 AM HEALTH NURSE Encounter for donation of kidney APTT Routine 03/14/2024 11:40 AM HEALTH NURSE Encounter for donation of kidney LIPID PANEL Routine 03/14/2024 11:40 AM HEALTH NURSE Encounter for donation of kidney HEPATITIS B CORE ANTIBODY, TOTAL Routine 03/14/2024 11:40 AM HEALTH NURSE Encounter for donation of kidney HEPATITIS B SURFACE ANTIBODY (IMMUNE STATUS) Routine 03/14/2024 11:40 AM HEALTH NURSE Encounter for donation of kidney HEPATITIS B SURFACE ANTIGEN Routine 03/14/2024 11:40 AM HEALTH NURSE Encounter for donation of kidney HEPATITIS C ANTIBODY Routine 03/14/2024 11:40 AM HEALTH NURSE Encounter for donation of kidney HIV 1/2 ANTIBODY PLUS P24 ANTIGEN Routine 03/14/2024 11:40 AM HEALTH NURSE Encounter for donation of kidney CMV, IGG Routine 03/14/2024 11:40 AM HEALTH NURSE Encounter for donation of kidney RPR Routine 03/14/2024 11:40 AM HEALTH NURSE Encounter for donation of kidney LISETH-MENDOZA VIRUS VCA ANTIBODY PANEL Routine 03/14/2024 11:40 AM HEALTH NURSE Encounter for donation of kidney ALBUMIN CREATININE RATIO, URINE Routine 03/14/2024 11:33 AM HEALTH NURSE Encounter for donation of kidney URINE CULTURE Routine 03/14/2024 11:33 AM HEALTH NURSE Encounter for donation of kidney from Last 3 Months Results * Screening Mammogram Bilateral W Leodan (04/05/2024 7:33 AM HEALTH NURSE) Anatomical Region Laterality Modality Breast Bilateral Mammography Impressions 04/06/2024 9:35 PM HEALTH NURSE BI-RADS?? ATLAS category (overall): 1 - Negative There is no mammographic evidence of malignancy. A 1 year screening mammogram is recommended. The patient has been or will be contacted. We recommend annual screening mammography for women at average risk of breast cancer beginning at age 40, based on guidelines of the [employer] (ACR Practice Parameter for the Performance of Screening and Diagnostic Mammography) and [employer]. For women with and elevated risk of breast cancer, please refer to the ACR Practice Parameter for specific screening recommendations. The patient will be entered into a reminder system with a target due date of 1 year for her next screening exam. Narrative 04/06/2024 9:35 PM HEALTH NURSE Screening Mammogram Bilateral W Leodan: 04/05/24 The [...] suspicious findings are seen within either breast. us Bob Marsh MD IMG MAMMO PROCEDURES Madiha l Result * Thyroid peroxidase antibody (TPO) (03/31/2024 9:37 AM HEALTH NURSE) Anti Thyroid Peroxidase <30 <=34 IUnits/mL Comment: ATPO Interpretive Data Results may be up to 28% higher in patients receiving Itraconazole. Current interpretive data was last revised 2020. Testing performed by: [facility], [address] [facility] [place] [address] Blood 03/31/2024 9:37 AM HEALTH NURSE 04/01/2024 9:51 AM HEALTH NURSE Jesi Thomas MD LAB BLOOD ORDERABLES Final Result Performing Organization Address [facility] Co de Phone Number TOMASZ RIZO [address] [facility] [employer] [place] [address] * TSH (03/31/2024 9:37 AM HEALTH NURSE) Thyroid Stimulating Hormone 1.94 0.30 - 4.20 mcIUnit/mL Blood 03/31/2024 9:37 AM HEALTH NURSE 03/31/2024 4:05 PM HEALTH NURSE Jesi Thomas MD LAB BLOOD ORDERABLES Final Result Performing Organization Address [facility] Co de Phone Number TOMASZ RIZO [address] [employer] [place] [address] * T4, free (03/31/2024 9:37 AM HEALTH NURSE) Free T4 0.92 0.90 - 1.70 ng/dL Blood 03/31/2024 9:37 AM HEALTH NURSE 03/31/2024 4:05 PM HEALTH NURSE Result [facility] Jesi Thomas MD LAB BLOOD ORDERABLES Final Result Performing Organization Address [facility] de Phone Number TOMASZ RIZO [address] [employer] [place] [address] * ABO/Rh (03/24/2024) SCRIBED ABO/Rh A+ Blood 03/24/2024 Margarita Sanders MD LAB BLOOD BANK TEST ORDER DIVYA Final Result * Differential, auto (03/14/2024 11:40 AM HEALTH NURSE) Neutrophil abs 4.1 1.5 - 6.5 K/cumm Imm gran abs 0.0 0.0 - 0.1 K/cumm [facility] Lymphocyte abs 1.6 0.8 - 3.3 K/cumm [facility] Monocyte abs 0.4 0.2 - 0.8 K/cumm [facility] Eosinophil abs 0.1 0.0 - 0.5 K/cumm [facility] Basophil abs 0.1 0.0 - 0.1 K/cumm [facility] Neutrophil pct 66.0 % [facility] Comment: Interpretive Data Percent cell count reference ranges are not reported, since discordance with absolute values may lead to misinterpretation of CBC data. Current Interpretive Data was last revised on 2017. Imm gran pct 0.2 % [facility] Comment: Interpretive Data Percent cell count reference ranges are not reported, since discordance with absolute values may lead to misinterpretation of CBC data. Current Interpretive Data was last revised on 2017. Lymphocyte pct 25.3 % [facility] Comment: Interpretive Data Percent cell count reference ranges are not reported, since discordance with absolute values may lead to misinterpretation of CBC data. Current Interpretive Data was last revised on 2017. Monocyte pct 6.6 % [facility] Comment: Interpretive Data Percent cell count reference ranges are not reported, since discordance with absolute values may lead to misinterpretation of CBC data. Current Interpretive Data was last revised on 2017. Eosinophil pct 1.1 % [facility] Comment: Interpretive Data Percent cell count reference ranges are not reported, since discordance with absolute values may lead to misinterpretation of CBC data. Current Interpretive Data was last revised on 2017. Basophil pct 0.8 % [facility] Comment: Interpretive Data Percent cell count reference ranges are not reported, since discordance with absolute values may lead to misinterpretation of CBC data. Current Interpretive Data was last revised on 2017. Blood 03/14/2024 11:4 0 AM HEALTH NURSE 03/14/2024 12:01 PM HEALTH NURSE us Jono Merritt MD LAB BLOOD ORDERABLES Final Resu lt TOMASZ [address] [facility] [place] [address] * HIV 1/2 Antibody plus p24 Antigen Blood (03/14/2024 11:40 AM HEALTH NURSE) HIV 1/2 ab + p24 ag Nonreactive Nonreactive Comment:Nonreactive for HIV- 1 antigen and HIV-1/HIV-2 antibodies. No laboratory evidence of HIV infection. If acute HIV infection is suspected, consider testing for HIV-1 RNA. Current interpretive data was last revised on 21. Blood 03/14/2024 11:4 0 AM HEALTH NURSE 03/14/2024 12:01 PM HEALTH NURSE Narrative TOMASZ - 03/14/2024 1:02 PM HEALTH NURSE Please bill to: [facility] Mailstop [phone] ATTN: Wanda Shirley-technical training specialist [address] [place] [phone] / [email or web address] Jono Merritt MD LAB MICROBIOLOGY - GENERAL RAJAN LANDON Final Result TOMASZ [address] [facility] Department [place] [address] * CMV, IgG Blood (03/14/2024 11:40 AM HEALTH NURSE) CMV IgG Negative Negative Comment: Interpretive Data [...] or recent CMV infection. Testing performed by: [facility], [address] [place]., [address] Blood 03/14/2024 11:4 0 AM HEALTH NURSE 03/14/2024 5:49 PM HEALTH NURSE Narrative TOMASZ - 03/15/2024 12:00 PM HEALTH NURSE Please bill to: [facility] Mailstop [phone] ATTN: Wanda Shirley-technical training specialist [address] [facility] [phone] / [email or web address] us Jono Merritt MD LAB MICROBIOLOGY - GENERAL ORDE RABROCCO Final Result Performing Organization Address City/[facility]/ZIP Co de Phone Number TOMASZ [address] [facility] [place] [address] * (ABNORMAL) CBC with auto differential (03/14/2024 11:40 AM HEALTH NURSE) Pathologist [facility] WBC 6.3 3.8 - 9.9 K/cumm Hgb 14.1 11.9 - 15.5 g/dL [facility] Hct 41.8 35.6 - 45.5 % [facility] Plt 300 150 - 400 K/cumm [facility] MPV 9.1 9.1 - 12.3 fL [facility] RBC 4.33 3.90 - 5.20 M/cumm [facility] MCV 96.5(H) 81.3 - 96.4 fL [facility] MCH 32.6 27.1 - 33.3 pg [facility] MCHC 33.7 32.3 - 35.7 g/dL [facility] RDW CV 12.4 11.1 - 14.9 % [facility] RDW SD 44.6 35.7 - 48.1 fL [facility] NRBC abs 0.00 0.00 - 0.01 K/cumm [facility] Blood 03/14/2024 11:4 0 AM HEALTH NURSE 03/14/2024 12:01 PM HEALTH NURSE Narrative [facility] - 03/14/2024 12:01 PM HEALTH NURSE Please bill to: [facility] Mailstop [phone] ATTN: Wanda Shirley-technical training specialist [address] [facility] [phone] / [email or web address] Jono Merritt MD LAB BLOOD ORDERABLES Final Resu lt Performing Organization Address City/[facility]/ZIP Co de Phone Number TOMASZ DURHAM [address] [facility] [place] [address] * Hepatitis C antibody Blood (03/14/2024 11:40 AM HEALTH NURSE) Pathologist [facility] Hep C Ab Nonreactive Nonreactive Comment: Antibodies [...] on 2019. Blood 03/14/2024 11:4 0 AM HEALTH NURSE 03/14/2024 12:01 PM HEALTH NURSE Narrative [facility] - 03/14/2024 2:23 PM HEALTH NURSE Please bill to: [facility] Mailstop [phone] ATTN: Wanda Shirley-technical training specialist [address] [place] [phone] / [email or web address] Jono Merritt MD LAB MICROBIOLOGY - GENERAL RAJAN LANDON Final Result [facility] [address] [facility] Department [place] [address] * (ABNORMAL) Liseth-Mendoza virus (EBV) antibody panel Blood (03/14/2024 11:40 AM HEALTH NURSE) [facility] EBV nuclear Ab Positive(A) Negative Comment: Indicates the presence of detectable IgG antibody to EBV Nuclear Antigen. Testing performed by: [facility], [address] [place] [address]., [address] EBV VCA IgG Positive(A) Negative [facility] Comment: Indicates the presence of antibody; 90% of the adult population will have been infected with EBV sometime in the past. Testing performed by: [facility], [address] [place]., [address] EBV VCA IgM Negative Negative TOMASZ DURHAM Comment: No detectable IgM antibody to EBV-VCA. ??A negative result indicates no current infection with EBV. If clinical suspicion of acute EBV infection is present, testing should be repeated after one week. Testing performed by: [facility], [address] [place]., [address] EBV interp Past Infection TOMASZ Comment:Testing performed by : [facility], [address] [place]., [address] Blood 03/14/2024 11:4 0 AM HEALTH NURSE 03/14/2024 5:49 PM HEALTH NURSE Narrative TOMASZ - 03/15/2024 12:21 PM HEALTH NURSE Please bill to: [facility] Mailstop [phone] ATTN: Wanda Shirley-technical training specialist [address] [place] [phone] / [email or web address] Jono Merritt MD LAB MICROBIOLOGY - GENERAL ORDBarbara LANDON Final Result TOMASZ [address] [facility] Department [place] [address] * Hepatitis B core antibody, total Blood (03/14/2024 11:40 AM HEALTH NURSE) Hep B core IgG/IgM Nonreactive Nonreactive Comment:Testing performed by : [facility], [address] [place]., [address] Blood 03/14/2024 11:4 0 AM HEALTH NURSE 03/14/2024 5:47 PM HEALTH NURSE Narrative TOMASZ - 03/14/2024 7:24 PM HEALTH NURSE Please bill to: [facility] Mailstop [phone] ATTN: Wanda Shirley-technical training specialist [address] [facility] [phone] / [email or web address] Jono Merritt MD LAB MICROBIOLOGY - GENERAL ORDBarbara LANDON Final Result Performing Organization Address [facility] Co de Phone Number TOMASZ [address] [address] * RPR Blood (03/14/2024 11:40 AM HEALTH NURSE) RPR Nonreactive Nonreactive Comment:Testing performed by : [facility], [address] [place] [address]., [address] Blood 03/14/2024 11:4 0 AM HEALTH NURSE 03/14/2024 5:49 PM HEALTH NURSE Narrative TOM[facility]Z [facility] 03/14/2024 7:37 PM HEALTH NURSE Please bill to: [facility] Mailstop [phone] ATTN: Wanda Shirley-technical training specialist [address] [facility] [phone] / [email or web address] Jono Merritt MD LAB MICROBIOLOGY - GENERAL RAJAN LANDON Final Result Performing Organization Address [facility] de Phone Number IVORY[address] [employer] [place] [address] * Hepatitis B surface antibody (immune status) Blood (03/14/2024 11:40 AM HEALTH NURSE) HBsAb (immune status) Reactive Comment: Interpretive Data [...] L TOMASZ Blood 03/14/2024 11:4 0 AM HEALTH NURSE 03/14/2024 12:01 PM HEALTH NURSE Narrative TOMASZ - 03/14/2024 2:23 PM HEALTH NURSE Please bill to: [facility] Mailstop [phone] ATTN: Wanda Shirley-technical training specialist [address] [place] [address] / [email or web address] Jono Merritt MD LAB MICROBIOLOGY - GENERAL RAJAN LANDON Final Result Performing Organization Address City/[facility] Co de Phone Number TOMASZ [address] [place] [address] * Hepatitis B Surface Antigen Blood (03/14/2024 11:40 AM HEALTH NURSE) Pathologist [facility] HepBsAg Nonreactive Nonreactive Blood 03/14/2024 11:4 0 AM HEALTH NURSE 03/14/2024 12:01 PM HEALTH NURSE Narrative TOMASZ - 03/14/2024 2:23 PM HEALTH NURSE Please bill to: [facility] Mailstop [phone] ATTN: Wanda Aguilartechnical training specialist [address] [place] [phone] / [email or web address] Jono Merritt MD LAB MICROBIOLOGY - GENERAL RAJAN LANDON Final Result Performing Organization Address City/[facility]/ZIP Co de Phone Number [address] [employer] [place] [address] * aPTT (03/14/2024 11:40 AM HEALTH NURSE) aPTT 26 22 - 37 sec Comment: Interpretive data aPTT test has not been evaluated for monitoring heparin therapy. The anti-Xa is the preferred test. Current interpretive data was last revised on 2019. Blood 03/14/2024 11:4 0 AM HEALTH NURSE 03/14/2024 12:01 PM HEALTH NURSE Narrative TOMASZ - 03/14/2024 12:21 PM HEALTH NURSE Please bill to: [facility] Mailstop [phone] ATTN: Wanda Aguilartechnical training specialist [address] [place] [phone] / [email or web address] Jono Merritt MD LAB BLOOD ORDERABLES Final Resu lt Performing Organization Address [facility] Co de Phone Number TOMASZ [address] [place] [address] * Protime-INR (03/14/2024 11:40 AM HEALTH NURSE) PT 13.5 12.0 - 14.6 sec INR 1.0 0.9 - 1.2 TOMASZ Comment: Ref Range High Interpretive data Oral anticoagulant therapeutic ranges: Venous thromboembolism prophylaxis or treatment: 2.0-3.0 CARDIOLOGY Standard range: 2.0-3.0 High-intensity range: 2.5-3.5 Refer to indication-specific guidelines for appropriate target ranges for prosthetic heart valve replacement. Current interpretive data was last revised on 2019. Blood 03/14/2024 11:4 0 AM HEALTH NURSE 03/14/2024 12:01 PM HEALTH NURSE Narrative TOMASZ - 03/14/2024 12:21 PM HEALTH NURSE Please bill to: [facility] Mailstop [phone] ATTN: Wanda Aguilartechnical training specialist [address] [place] [address] / [email or web address] Jono Merritt MD LAB BLOOD ORDERABLES Final Resu lt Performing Organization Address City/[facility]/ZIP Co de Phone Number TOMASZ [address] [facility] [employer] [place] [address] * hCG, blood, quantitative (03/14/2024 11:40 AM HEALTH NURSE) hCG, quant <5.0 0.0 - 5.0 IUnits/L Comment: Interpretive Data Male: < 5 IU/L Non- premenopausal Female: <5 IU/L The Pratima hCG Beta Quant assay procedure was used. Results from different manufacturers or methods may not be comparable. ??Serial testing should be performed using the same method. Interpretive Data was last revised on 2023 Blood 03/14/2024 11:4 0 AM HEALTH NURSE 03/14/2024 12:01 PM HEALTH NURSE Narrative TOMASZ - 03/14/2024 12:53 PM HEALTH NURSE Please bill to: [facility] Mailstop [phone] ATTN: Wanda Shirley-technical training specialist [address] [place] [address] / [email or web address] Jono Merritt MD LAB BLOOD ORDERABLES Final Resu lt Performing Organization Address City/[facility] Co de Phone Number TOMASZ [address] [place] [address] * Uric acid (03/14/2024 11:40 AM HEALTH NURSE) Uric acid 3.6 2.5 - 7.0 mg/dL Blood 03/14/2024 11:4 0 AM HEALTH NURSE 03/14/2024 12:01 PM HEALTH NURSE Narrative TOMASZ - 03/14/2024 12:53 PM HEALTH NURSE Please bill to: [facility] Mailstop [phone] ATTN: Wanda Shirley-technical training specialist [address] [place] [address] / [email or web address] Jono Merritt MD LAB BLOOD ORDERABLES Final Resu lt IVORYJEFF [address] [address] * Phosphorus (03/14/2024 11:40 AM HEALTH NURSE) [facility] Phosphorus, pl 2.5 2.3 - 4.5 mg/dL Blood 03/14/2024 11:4 0 AM HEALTH NURSE 03/14/2024 12:01 PM HEALTH NURSE Narrative TOMASZ - 03/14/2024 12:53 PM HEALTH NURSE Please bill to: [facility] Mailstop [phone] ATTN: Wanda Shirley-technical training specialist [address] [place], [place] [id number] / [email or web address] Jono Merritt MD LAB BLOOD ORDERABLES Final Resu lt Performing Organization Address City/[facility]/ZIP Co de Phone Number [facility] [address] [address] * Gamma GT (03/14/2024 11:40 AM HEALTH NURSE) [facility] GGT 27 5 - 35 Units/L Blood 03/14/2024 11:4 0 AM HEALTH NURSE 03/14/2024 12:01 PM HEALTH NURSE Narrative TOMASZ [facility] 03/14/2024 12:53 PM HEALTH NURSE Please bill to: [facility] Mailstop [phone] ATTN: Wanda Shirley-technical training specialist [address] [place] [address] / [email or web address] Jono Merritt MD LAB BLOOD ORDERABLES Final Resu lt TOMASZ [address] [address] * (ABNORMAL) Lipid panel (03/14/2024 11:40 AM HEALTH NURSE) [facility] Cholesterol 200(H) 30 - 199 mg/dL Comment: [...] on 2017. Triglycerides 129 <=149 mg/dL TOMASZ [place] Comment: Interpretive Data Ages [...] on 2017. HDL 64 >=40 mg/dL TOMASZ [place] Comment: Interpretive Data Ages [...] mg/dL ??High: ?>160 mg/dL Calculated using the Christoph LDL-C estimating equation. This equation was implemented on 2023. Prior to this date LDL-C was estimated using the Friedewald equation. Literature References: 1. Expert Panel on Integrated Guidelines for Cardiovascular Health and Risk Reduction in Children and Adolescents. Pediatrics 2011;128:S213 2. NCEP Expert Panel. Circulation 2004;110:227 3. Christoph Gleason et al. CHON Cardiol. 2020 July 31;5(5):540-548. doi: 10.1001/jamacardio.2020.0013 Current Interpretive Data was last revised on 2023. Non-HDL Cholesterol 136 mg/dL TOMASZ Comment: Interpretive Data Ages < [...] 3 TOMASZ Blood 03/14/2024 11:4 0 AM HEALTH NURSE 03/14/2024 12:01 PM HEALTH NURSE Narrative TOMASZ - 03/14/2024 12:53 PM HEALTH NURSE Please bill to: [facility] Mailstop [phone] ATTN: Wanda Shirley-technical training specialist [address] [place], [place] [id number] / [email or web address] Result [facility] Jono Merritt MD LAB BLOOD ORDERABLES Final Resu lt TOMASZ [address] [facility] Department of Laboratories [place], [place] [id number] * Albumin Creatinine Ratio, Urine (03/14/2024 11:33 AM HEALTH NURSE) Albumin Ur <12.0 mg/L Comment: Interpretive Data No reference range established. Current interpretive data was last revised 2018. Creatinine Ur 77.5 mg/dL IVORYJEFF Comment: Interpretive Data No reference range established. Current interpretive data was last revised 2018. Albumin Creatinine Ratio, Ur <15 1 - 29 mg/g TOMASZ Urine 03/14/2024 11:3 3 AM HEALTH NURSE 03/14/2024 12:14 PM HEALTH NURSE Narrative TOMASZ - 03/14/2024 1:15 PM HEALTH NURSE Please bill to: [facility] Mailstop [phone] ATTN: Wanda Aguilartechnical training specialist [address] [place] [address] / [email or web address] Jono Merritt MD LAB URINE ORDERABLES Final Resu lt Performing Organization Address [facility] Co de Phone Number TOMASZ [address] [facility] [place] [address] * Urine culture Urine, clean voided (03/14/2024 11:33 AM HEALTH NURSE) Report Final Report: Less than 100,000 colonies/mL (clinically insignificant growth based on current clinical standards) Comment:Testing performed by : [facility], [address] [place] [address]., [id number] Organism (CLINICALLY INSIGNIFICANT GROWTH [facility] Urine, clean voided 03/14/2024 11:33 AM HEALTH NURSE 03/14/2024 7:34 PM HEALTH NURSE Narrative TOMASZ - 03/15/2024 9:20 PM HEALTH NURSE Please bill to: [facility] Mailstop [phone] ATTN: Wanda Shirley-technical training specialist [address] [place] [address] / [email or web address] Testing performed by [facility] Microbiology Laboratory ([phone]) Jono Merritt MD LAB MICROBIOLOGY - GENERAL RAJNA LANDON Final Result Performing Organization Address [facility] Co de Phone Number TOMASZ [address] [facility] [place] [address] from Last 3 Months Insurance [facility] FEDERAL R [facility] Member Subscriber Plan / Payer ( fective 2024-Present) Name:Jonathan Stokes Relation to Subscriber:Organ Donor Name:Joe Stokes Date of :1977 (Home) Address: [facility] [place] [address] Payer ID:[id number] (NAIC) Group ID:[id number] Type:BC DEST[place]EE Address: [place] [id number] [place] [id number] Care Teams Army Manager Relationship Specialty Start Date End Date George Menjivar MD [address] [place] [address] PCP - General Family Medicine 06/29/20 George Menjivar MD [address] [place] [address] Family Medicine 03/22/18 Penny Barrera, RN [address] [facility] [address] [place] [address] Budder 02/11/24 Kelly Yanez LCSW 4590 [facility] ([facility]) Mailstop [phone] [place] [address] Independent Living Donor Advocate 02/19/24
--- OUTSIDE RECORDS SUMMARY | 2024-04-12 11:48 | XMS_ITS | Encounter Summary ---
Author Organization [facility] Healthcare Address [address] [place] [address] Care Team Providers Care Body Maker Name Role Phone George Menjivar MD Unavailable [phone] George Menjivar MD Primary Care Provider + [phone] Penny Barrera RN Unavailable [phone] Kelly YanezW Unavailable [phone] Reason for Visit * Reason Onset Date Comments Lab Results 03/17/2024 Encounter Details Date Type Department Care Team (Late st Contact Info) Description 03/17/2024 Telephone [facility] Transplant Kidney [address] [facility] 340 Mailstop [phone] [place], [place] [id number] Penny Barrera, RN [address] [facility] [address] [place] [address] Lab Results Social History Tobacco Use Types Packs/Day Years Used Date Smoking Tobacco: Never Smokeless Tobacco: Never Alcohol Use Standard Drinks/Week Comments No 0 (1 standard drink = 0.6 oz pur e alcohol) Comments Unknown Sex and Gender Information Value Date Recorded Sex Assigned at Not on file Legal Sex Female 10:20 AM SEO ANALYST Gender Identity Female 03/22/2018 10:13 AM SEO ANALYST Sexual Orientation Not on file documented as of this encounter Miscellaneous Notes * Telephone Encounter - Penny Barrera RN - 03/17/2024 1:47 PM SEO ANALYST Asked what [facility] facility she is going to and it sounds like it's an outpatient office. She says she will take the order form to [facility]. Sent her Rx and she will take there to get completed. ANALYST * Telephone Encounter - Penny Barrera RN - 03/17/2024 7:51 AM SEO ANALYST Received the following email: I completed the lab work earlier today while Jose had his shoulder scoped. I saw the lab work results in my portal. I wanted to email and advise when I was in high school I had a series of vaccines for hepatitis B. I think it was something my mom had to give permission for me to have and I believe it was 3 shots. Please let me know if I should try to get records about it. Confirmed that I received most of her lab results. Advised that there were 4 missed: CMP, ABO, A1C,and UA with Urine Micro. Advised that we would need to get these completed to determine next steps.Asked where she would like to get completed. Advised that the positive Hep B sAb shows immunity. Reviewed that for our purposes this can be positive or negative and is fine. Told her we do not need the records. ANALYST documented in this encounter Plan of Treatment Not on file documented as of this encounter Visit Diagnoses Not on filedocumented in this encounter Care Teams Body Maker Relationship Specialty Start Date End Date George Menjivar MD [address] [place] [address] PCP - General Family Medicine 06/29/20 George Menjivar MD [address] [place] [address] Family Medicine 03/22/18 Penny Barrera RN [address] [facility] [address] [place], [place] [id number] Ship Steward 02/11/24 Kelly Yanez LCSW 4579 [facility] ([facility]) Mailstop [phone] [place] [phone] Independent Living Donor Advocate 02/19/24 documented as of this encounter
--- OUTSIDE RECORDS SUMMARY | 2024-04-12 11:48 | XMS_ITS | Encounter Summary ---
Author Organization [facility] Address [address] [place] [address] Phone Care Team Providers Care Supervisor Gluing Name Role Phone George Menjivar MD Unavailable [phone] George Menjivar MD Primary Care Provider + [phone] Penny Barrera RN Unavailable [phone] Kelly Yanez LCSW Unavailable [phone] Encounter Details Date Type Department Care Team (Late st Contact Info) Description 03/31/2024 9:40 AM SCUBA DIVE TRAINING INSTRUCTOR Lab [facility] Infectious Diseases [address] [place] [address] [address] [place] [address] Social History Tobacco Use Types Packs/Day Years Used Date Smoking Tobacco: Never Smokeless Tobacco: Never Alcohol Use Standard Drinks/Week Comments No 0 (1 standard drink = 0.6 oz pur e alcohol) Comments Unknown Sex and Gender Information Value Date Recorded Sex Assigned at Not on file Legal Sex Female 10:20 AM SCUBA DIVE TRAINING INSTRUCTOR Gender Identity Female 03/22/2018 10:13 AM SCUBA DIVE TRAINING INSTRUCTOR Sexual Orientation Not on file documented as of this encounter Plan of Treatment Not on file documented as of this encounter Visit Diagnoses Not on filedocumented in this encounter Care Teams Supervisor Gluing Relationship Specialty Start Date End Date [place] [address] PCP - General Family Medicine 06/29/20 George [place] [address] [place] [address] Family Medicine 03/22/18 Penny Barrera, RN 4590 [facility] [address] [place] [address] Technical Administrator 02/11/24 Kelly Yanez LCSW 4590 [facility] ([facility]) Mailstop [phone] [place] [address] Independent Living Donor Advocate 02/19/24 documented as of this encounter
--- OUTSIDE RECORDS SUMMARY | 2024-04-12 11:48 | XMS_ITS | Encounter Summary ---
Author Organization [facility] Healthcare Address [address] [place] [address] Care Team Providers Care Specification Manager Name Role Phone George Menjivar MD Unavailable [phone] George Menjivar MD Primary Care Provider + [phone] Penny Barrera RN Unavailable [phone] Kelly YanezW Unavailable [phone] Reason for Visit * Reason Onset Date Comments Donor Evaluation Update/Follow Up 02/19/2024 Encounter Details Date Type Department Care Team (Late st Contact Info) Description 02/19/2024 Telephone [facility] Transplant Kidney [address] [facility] 340 Mailstop [phone] [place], [place] [phone] Penny Barrera, RN [address] [facility] [address] [place], [place] [id number] Donor Evaluation Update/Follow Up Social History Tobacco Use Types Packs/Day Years Used Date Smoking Tobacco: Never Smokeless Tobacco: Never Alcohol Use Standard Drinks/Week Comments No 0 (1 standard drink = 0.6 oz pur e alcohol) Comments Unknown Sex and Gender Information Value Date Recorded Sex Assigned at Not on file Legal Sex Female 10:20 AM MIGRATION AGENT Gender Identity Female 03/22/2018 10:13 AM MIGRATION AGENT Sexual Orientation Not on file documented as of this encounter Miscellaneous Notes * Telephone Encounter - Penny Barrera RN - 02/19/2024 12:42 PM MIGRATION AGENT Reviewed with Angela that I see she spoke with LDA. Advised that I'm just awaiting records that we requested and once we get okay from donor physician can we proceed with donor testing. ATION AGENT documented in this encounter Plan of Treatment Not on file documented as of this encounter Visit Diagnoses Not on filedocumented in this encounter Care Teams Specification Manager Relationship Specialty Start Date End Date George Menjivar MD [address] [place] [address] PCP - General Family Medicine 06/29/20 George Menjivar MD [address] [place] [address] Family Medicine 03/22/18 Penny Barrera, RN 4590 [facility] [address] [place] [address] Wastewater Design Engineer 02/11/24 Kelly Yanez LCSW 4590 [facility] ([facility]) Mailstop [phone] [place] [address] Independent Living Donor Advocate 02/19/24 documented as of this encounter
--- OUTSIDE RECORDS SUMMARY | 2024-04-12 11:48 | XMS_ITS | Encounter Summary ---
Author Organization [facility] Healthcare Address [address] [place] [id number] Care Team Providers Care Bar Hostess Name Role Phone George Menjivar MD Unavailable [phone] George Menjivar MD Primary Care Provider + [phone] Penny Barrera RN Unavailable [phone] Kelly Yanez LCSW Unavailable [phone] Encounter Details Date Type Department Care Team (Late st Contact Info) Description 03/14/2024 11:05 AM RIVER CROSSING SUPERVISOR Lab [facility] Lab [address] [place] [id number] Encounter for donation of kidney Social History Tobacco Use Types Packs/Day Years Used Date Smoking Tobacco: Never Smokeless Tobacco: Never Alcohol Use Standard Drinks/Week Comments No 0 (1 standard drink = 0.6 oz pur e alcohol) Comments Unknown Sex and Gender Information Value Date Recorded Sex Assigned at Not on file Legal Sex Female 10:20 AM RIVER CROSSING SUPERVISOR Gender Identity Female 03/22/2018 10:13 AM RIVER CROSSING SUPERVISOR Sexual Orientation Not on file documented as of this encounter Plan of Treatment Not on file documented as of this encounter Procedures Procedure Name Priority Date/Time Associated Diagnosis Comments DIFFERENTIAL AUTO Routine 03/14/2024 11: 40 AM RIVER CROSSING SUPERVISOR Encounter for donation of kidney HIV 1/2 ANTIBODY PLUS P24 ANTIGEN Routine 03/14/2024 11:40 AM RIVER CROSSING SUPERVISOR Encounter for donation of kidney CMV, IGG Routine 03/14/2024 11:40 AM RIVER CROSSING SUPERVISOR Encounter for donation of kidney CBC WITH AUTO DIFFERENTIAL Routine 03/14/2024 11:40 AM RIVER CROSSING SUPERVISOR Encounter for donation of kidney HEPATITIS C ANTIBODY Routine 03/14/2024 11:40 AM RIVER CROSSING SUPERVISOR Encounter for donation of kidney LISETH-GOLDSTEIN VIRUS VCA ANTIBODY PANEL Routine 03/14/2024 11:40 AM RIVER CROSSING SUPERVISOR Encounter for donation of kidney HEPATITIS B CORE ANTIBODY, TOTAL Routine 03/14/2024 11:40 AM RIVER CROSSING SUPERVISOR Encounter for donation of kidney RPR Routine 03/14/2024 11:40 AM RIVER CROSSING SUPERVISOR Encounter for donation of kidney HEPATITIS B SURFACE ANTIBODY (IMMUNE STATUS) Routine 03/14/2024 11:40 AM RIVER CROSSING SUPERVISOR Encounter for donation of kidney HEPATITIS B SURFACE ANTIGEN Routine 03/14/2024 11:40 AM RIVER CROSSING SUPERVISOR Encounter for donation of kidney APTT Routine 03/14/2024 11:40 AM RIVER CROSSING SUPERVISOR Encounter for donation of kidney PROTIME-INR Routine 03/14/2024 11:40 AM RIVER CROSSING SUPERVISOR Encounter for donation of kidney HCG, BLOOD, QUANTITATIVE Routine 03/14/2024 11:40 AM RIVER CROSSING SUPERVISOR Encounter for donation of kidney URIC ACID Routine 03/14/2024 11:40 AM RIVER CROSSING SUPERVISOR Encounter for donation of kidney PHOSPHORUS Routine 03/14/2024 11:40 AM RIVER CROSSING SUPERVISOR Encounter for donation of kidney GAMMA GT Routine 03/14/2024 11:40 AM RIVER CROSSING SUPERVISOR Encounter for donation of kidney LIPID PANEL Routine 03/14/2024 11:40 AM RIVER CROSSING SUPERVISOR Encounter for donation of kidney ALBUMIN CREATININE RATIO, URINE Routine 03/14/2024 11:33 AM RIVER CROSSING SUPERVISOR Encounter for donation of kidney URINE CULTURE Routine 03/14/2024 11:33 AM RIVER CROSSING SUPERVISOR Encounter for donation of kidney documented in this encounter Results * Differential, auto (03/14/2024 11:40 AM RIVER CROSSING SUPERVISOR) Neutrophil abs 4.1 1.5 - 6.5 K/cumm Imm gran abs 0.0 0.0 - 0.1 K/cumm [facility] Lymphocyte abs 1.6 0.8 - 3.3 K/cumm [facility] Monocyte abs 0.4 0.2 - 0.8 K/cumm [facility] Eosinophil abs 0.1 0.0 - 0.5 K/cumm [facility] Basophil abs 0.1 0.0 - 0.1 K/cumm [facility] Neutrophil pct 66.0 % [facility] Comment: Interpretive Data Percent cell count reference ranges are not reported, since discordance with absolute values may lead to misinterpretation of CBC data. Current Interpretive Data was last revised on 2017. Imm gran pct 0.2 % [facility] Comment: Interpretive Data Percent cell count reference ranges are not reported, since discordance with absolute values may lead to misinterpretation of CBC data. Current Interpretive Data was last revised on 2017. Lymphocyte pct 25.3 % [facility] Comment: Interpretive Data Percent cell count reference ranges are not reported, since discordance with absolute values may lead to misinterpretation of CBC data. Current Interpretive Data was last revised on 2017. Monocyte pct 6.6 % [facility] Comment: Interpretive Data Percent cell count reference ranges are not reported, since discordance with absolute values may lead to misinterpretation of CBC data. Current Interpretive Data was last revised on 2017. Eosinophil pct 1.1 % [facility] Comment: Interpretive Data Percent cell count reference ranges are not reported, since discordance with absolute values may lead to misinterpretation of CBC data. Current Interpretive Data was last revised on 2017. Basophil pct 0.8 % [facility] Comment: Interpretive Data Percent cell count reference ranges are not reported, since discordance with absolute values may lead to misinterpretation of CBC data. Current Interpretive Data was last revised on 2017. Blood 03/14/2024 11:4 0 AM RIVER CROSSING SUPERVISOR 03/14/2024 12:01 PM RIVER CROSSING SUPERVISOR Jono Merritt MD LAB BLOOD ORDERABLES Final Resu lt Performing Organization Address [facility] Co de Phone Number TOMASZ [facility] [place] [address] * hCG, blood, quantitative (03/14/2024 11:40 AM RIVER CROSSING SUPERVISOR) Pathologist [facility] hCG, quant <5.0 0.0 - 5.0 IUnits/L Comment: Interpretive Data Male: < 5 IU/L Non- premenopausal Female: <5 IU/L The [employer]at[employer] hCG Beta Quant assay procedure was used. Results from different manufacturers or methods may not be comparable. ??Serial testing should be performed using the same method. Interpretive Data was last revised on 2023 Blood 03/14/2024 11:4 0 AM RIVER CROSSING SUPERVISOR 03/14/2024 12:01 PM RIVER CROSSING SUPERVISOR Narrative TOMASZ - 03/14/2024 12:53 PM RIVER CROSSING SUPERVISOR Please bill to: [facility] [phone] ATTN: Wanda Shirley-compliance specialist [address] [place] [address] / [email or web address] Jono Merritt MD LAB BLOOD ORDERABLES Final Resu lt Performing Organization Address [facility] Co de Phone Number TOMASZ [facility] [place] [address] * Hepatitis B core antibody, total Blood (03/14/2024 11:40 AM RIVER CROSSING SUPERVISOR) Pathologist [facility] Hep B core IgG/IgM Nonreactive Nonreactive Comment:Testing performed by : [facility], [address] [place] [address]., [id number] Blood 03/14/2024 11:4 0 AM RIVER CROSSING SUPERVISOR 03/14/2024 5:47 PM RIVER CROSSING SUPERVISOR Narrative [facility] - 03/14/2024 7:24 PM RIVER CROSSING SUPERVISOR Please bill to: [facility] [phone] ATTN: Wanda Shirley-compliance specialist [address] [place] [address] / [email or web address] Jono Merritt MD LAB MICROBIOLOGY - GENERAL RAJAN LANDON Final Result Performing Organization Address City/[facility]/ZIP Co de Phone Number TOMASZ [address] [place] [address] * Hepatitis B surface antibody (immune status) Blood (03/14/2024 11:40 AM RIVER CROSSING SUPERVISOR) [facility] HBsAb (immune status) Reactive Comment: Interpretive Data [...] L TOMASZ Blood 03/14/2024 11:4 0 AM RIVER CROSSING SUPERVISOR 03/14/2024 12:01 PM RIVER CROSSING SUPERVISOR Narrative TOMASZ - 03/14/2024 2:23 PM RIVER CROSSING SUPERVISOR Please bill to: [facility] [phone] ATTN: Wanda Shirley-compliance specialist [address] [place] [address] / Jono Merritt MD LAB MICROBIOLOGY - GENERAL RAJAN LANDON Final Result Performing Organization Address City/[facility]/ZIP Co de Phone Number TOMASZ [address] [place] [address] * Hepatitis B Surface Antigen Blood (03/14/2024 11:40 AM RIVER CROSSING SUPERVISOR) HepBsAg Nonreactive Nonreactive Blood 03/14/2024 11:4 0 AM RIVER CROSSING SUPERVISOR 03/14/2024 12:01 PM RIVER CROSSING SUPERVISOR Narrative TOMASZ - 03/14/2024 2:23 PM RIVER CROSSING SUPERVISOR Please bill to: [facility] [phone] ATTN: Wanda Shirley-compliance specialist [address] [place] [address] / [email or web address] Jono Merritt MD LAB MICROBIOLOGY - GENERAL [facility] Final Result [facility]OM[facility] [place] [address] [facility] [place] [address] * Hepatitis C antibody Blood (03/14/2024 11:40 AM RIVER CROSSING SUPERVISOR) Pathologist [facility] Hep C Ab Nonreactive [...] on 2019. Blood 03/14/2024 11:4 0 AM RIVER CROSSING SUPERVISOR 03/14/2024 12:01 PM RIVER CROSSING SUPERVISOR Narrative TOMASZ - 03/14/2024 2:23 PM RIVER CROSSING SUPERVISOR Please bill to: [facility] [phone] ATTN: Wanda Aguilarcompliance specialist [address] [place] [address] / Jono Merritt MD LAB MICROBIOLOGY - GENERAL ORDE ZACROCCO Final Result TOM[facility]Z [place] [address] [place] [address] [employer] [place] [address] * (ABNORMAL) CBC with auto differential (03/14/2024 11:40 AM RIVER CROSSING SUPERVISOR) Pathologist [facility] WBC 6.3 3.8 - 9.9 K/cumm Hgb 14.1 11.9 - 15.5 g/dL [facility] Hct 41.8 35.6 - 45.5 % [facility] Plt 300 150 - 400 K/cumm [facility] MPV 9.1 9.1 - 12.3 fL [facility] RBC 4.33 3.90 - 5.20 M/cumm [facility] MCV 96.5(H) 81.3 - 96.4 fL [facility] MCH 32.6 27.1 - 33.3 pg [facility] MCHC 33.7 32.3 - 35.7 g/dL [facility] RDW CV 12.4 11.1 - 14.9 % [facility] RDW SD 44.6 35.7 - 48.1 fL [facility] NRBC abs 0.00 0.00 - 0.01 K/cumm [facility] Blood 03/14/2024 11:4 0 AM RIVER CROSSING SUPERVISOR 03/14/2024 12:01 PM RIVER CROSSING SUPERVISOR Narrative [facility] - 03/14/2024 12:01 PM RIVER CROSSING SUPERVISOR Please bill to: [facility] [phone] ATTN: Wanda Shirley-compliance specialist [address] [place] [phone] / [email or web address] Jono Merritt MD LAB BLOOD ORDERABLES Final Resu lt [facility] [employer] [place] [address] * Gamma GT (03/14/2024 11:40 AM RIVER CROSSING SUPERVISOR) Pathologist [facility] GGT 27 5 - 35 Units/L Blood 03/14/2024 11:4 0 AM RIVER CROSSING SUPERVISOR 03/14/2024 12:01 PM RIVER CROSSING SUPERVISOR Narrative TOMASZ - 03/14/2024 12:53 PM RIVER CROSSING SUPERVISOR Please bill to: [facility] [phone] ATTN: Wanda Shirley-compliance specialist [address] [place] [address] / [email or web address] Jono Merritt MD LAB BLOOD ORDERABLES Final Resu lt Performing Organization Address City/[facility] Co de Phone Number TOMASZ [address] [place] [employer] [place] [address] * Uric acid (03/14/2024 11:40 AM RIVER CROSSING SUPERVISOR) Uric acid 3.6 2.5 - 7.0 mg/dL Blood 03/14/2024 11:4 0 AM RIVER CROSSING SUPERVISOR 03/14/2024 12:01 PM RIVER CROSSING SUPERVISOR Narrative TOMASZ [facility] 03/14/2024 12:53 PM RIVER CROSSING SUPERVISOR Please bill to: [facility] [phone] ATTN: Wanda Shirley-compliance specialist [address] [place] [address] / [email or web address] Jono Merritt MD LAB BLOOD ORDERABLES Final Resu lt Performing Organization Address City/[facility]/ZIP Co de Phone Number TOMASZ [address] [place] [address] * Phosphorus (03/14/2024 11:40 AM RIVER CROSSING SUPERVISOR) Phosphorus, pl 2.5 2.3 - 4.5 mg/dL Blood 03/14/2024 11:4 0 AM RIVER CROSSING SUPERVISOR 03/14/2024 12:01 PM RIVER CROSSING SUPERVISOR Narrative TOMASZ - 03/14/2024 12:53 PM RIVER CROSSING SUPERVISOR Please bill to: [facility] [phone] ATTN: Wanda Shirley-compliance specialist [address] [place] [address] / [email or web address] Result [facility] Jono Merritt MD LAB BLOOD ORDERABLES Final Resu lt Performing Organization Address City/[facility]/ZIP Co de Phone Number TOMASZ [address] [place] [address] * Protime-INR (03/14/2024 11:40 AM RIVER CROSSING SUPERVISOR) PT 13.5 12.0 - 14.6 sec INR 1.0 0.9 - 1.2 TOMASZ Comment: Ref Range High Interpretive data Oral anticoagulant therapeutic ranges: Venous thromboembolism prophylaxis or treatment: 2.0-3.0 CARDIOLOGY Standard range: 2.0-3.0 High-intensity range: 2.5-3.5 Refer to indication-specific guidelines for appropriate target ranges for prosthetic heart valve replacement. Current interpretive data was last revised on 2019. Blood 03/14/2024 11:4 0 AM RIVER CROSSING SUPERVISOR 03/14/2024 12:01 PM RIVER CROSSING SUPERVISOR Narrative IVORYJEFF - 03/14/2024 12:21 PM RIVER CROSSING SUPERVISOR Please bill to: [facility] [phone] ATTN: Wanda Shirley-compliance specialist [address] [place] [phone] / [email or web address] Jono Merritt MD LAB BLOOD ORDERABLES Final Resu lt TOMASZ [address] [place] [place] [address] * aPTT (03/14/2024 11:40 AM RIVER CROSSING SUPERVISOR) aPTT 26 22 - 37 sec Comment: Interpretive data aPTT test has not been evaluated for monitoring heparin therapy. The anti-Xa is the preferred test. Current interpretive data was last revised on 2019. Blood 03/14/2024 11:4 0 AM RIVER CROSSING SUPERVISOR 03/14/2024 12:01 PM RIVER CROSSING SUPERVISOR Narrative TOMASZ [place] - 03/14/2024 12:21 PM RIVER CROSSING SUPERVISOR Please bill to: [facility] [phone] ATTN: Wanda Shirley-compliance specialist [address] [facility] [phone] / [email or web address] us Jono Merritt MD LAB BLOOD ORDERABLES Final Resu lt [facility]OM[facility] [place] [address] [facility] [place] [address] * (ABNORMAL) Lipid panel (03/14/2024 11:40 AM RIVER CROSSING SUPERVISOR) Cholesterol 200(H) 30 - 199 mg/dL Comment: [...] 2017. LDL, calculated 113 <=129 mg/dL TOM[facility]Z [place] Comment: Interpretive Data Ages [...] 3. Christoph Gleason et al. CHON Cardiol. 2019July 31;5(5):540-548. doi: 10.1001/[email or web address] Current Interpretive Data was [...] 3 TOMASZ Blood 03/14/2024 11:4 0 AM RIVER CROSSING SUPERVISOR 03/14/2024 12:01 PM RIVER CROSSING SUPERVISOR Narrative TOMASZ - 03/14/2024 12:53 PM RIVER CROSSING SUPERVISOR Please bill to: [facility] [phone] ATTN: Wnada Shirley-compliance specialist [address] [facility] [phone] / [email or web address] us Jono Merritt MD LAB BLOOD ORDERABLES Final Resu lt TOMASZ [address] [facility] [place] [address] * HIV 1/2 Antibody plus p24 Antigen Blood (03/14/2024 11:40 AM RIVER CROSSING SUPERVISOR) Pathologist [facility] HIV 1/2 ab + p24 ag Nonreactive Nonreactive Comment:Nonreactive for HIV- 1 antigen and HIV-1/HIV-2 antibodies. No laboratory evidence of HIV infection. If acute HIV infection is suspected, consider testing for HIV-1 RNA. Current interpretive data was last revised on 21. Blood 03/14/2024 11:4 0 AM RIVER CROSSING SUPERVISOR 03/14/2024 12:01 PM RIVER CROSSING SUPERVISOR Narrative TOMASZ - 03/14/2024 1:02 PM RIVER CROSSING SUPERVISOR Please bill to: [facility] [phone] ATTN: Wanda Shirley-compliance specialist [address] [place] [address] / [email or web address] Jono Merritt MD LAB MICROBIOLOGY - GENERAL RAJAN LANDON Final Result TOMASZ [address] [facility] [place] [address] * CMV, IgG Blood (03/14/2024 11:40 AM RIVER CROSSING SUPERVISOR) Pathologist [facility] CMV IgG Negative Negative Comment: Interpretive Data [...] or recent CMV infection. Testing performed by: [facility], [address] [place] [address]., [address] Blood 03/14/2024 11:4 0 AM RIVER CROSSING SUPERVISOR 03/14/2024 5:49 PM RIVER CROSSING SUPERVISOR Narrative TOMASZ - 03/15/2024 12:00 PM RIVER CROSSING SUPERVISOR Please bill to: [facility] [phone] ATTN: Wanda Shirley-compliance specialist [address] [place] [address] / [email or web address] Jono Merritt MD LAB MICROBIOLOGY - GENERAL RAJAN LANDON Final Result Performing Organization Address [facility] Co de Phone Number TOMASZ [address] [address] * RPR Blood (03/14/2024 11:40 AM RIVER CROSSING SUPERVISOR) Pathologist [facility] RPR Nonreactive Nonreactive Comment:Testing performed by : [facility], [address] [place] [address], [address] Blood 03/14/2024 11:4 0 AM RIVER CROSSING SUPERVISOR 03/14/2024 5:49 PM RIVER CROSSING SUPERVISOR Narrative TOMASZ - 03/14/2024 7:37 PM RIVER CROSSING SUPERVISOR Please bill to: [facility] [phone] ATTN: Wanda Shirley-compliance specialist [address] [place] [address] / [email or web address] Result [facility] Jono Merritt MD LAB MICROBIOLOGY - GENERAL RAJAN LANDON Final Result Performing Organization Address [facility] Co de Phone Number IVORY[address] [address] * (ABNORMAL) Liseth-Goldstein virus (EBV) antibody panel Blood (03/14/2024 11:40 AM RIVER CROSSING SUPERVISOR) [facility] EBV nuclear Ab Positive(A) Negative Comment: Indicates the presence of detectable IgG antibody to EBV Nuclear Antigen. Testing performed by: [facility], [address] [place] [address]., [address] EBV VCA IgG Positive(A) Negative TOMASZ Comment: Indicates the presence of antibody; 90% of the adult population will have been infected with EBV sometime in the past. Testing performed by: [facility], [address] [place]., [address] EBV VCA IgM Negative Negative TOMASZ Comment: No detectable IgM antibody to EBV-VCA. ??A negative result indicates no current infection with EBV. If clinical suspicion of acute EBV infection is present, testing should be repeated after one week. Testing performed by: [facility], [address] [place]., [address] EBV interp Past Infection TOMASZ Comment:Testing performed by : [facility], [address] [facility], [address] Blood 03/14/2024 11:4 0 AM RIVER CROSSING SUPERVISOR 03/14/2024 5:49 PM RIVER CROSSING SUPERVISOR Narrative TOMASZ - 03/15/2024 12:21 PM RIVER CROSSING SUPERVISOR Please bill to: [facility] [phone] ATTN: Wanda Shirley-compliance specialist [address] [place] [phone] / [email or web address] Jono Merritt MD LAB MICROBIOLOGY - GENERAL RAJAN LANDON Final Result TOMASZ [address] [facility] [place] [address] * Urine culture Urine, clean voided (03/14/2024 11:33 AM RIVER CROSSING SUPERVISOR) Report Final Report: Less than 100,000 colonies/mL (clinically insignificant growth based on current clinical standards) Comment:Testing performed by : [facility], [address] [place]., [address] Organism (CLINICALLY INSIGNIFICANT GROWTH TOMASZ Urine, clean voided 03/14/2024 11:33 AM RIVER CROSSING SUPERVISOR 03/14/2024 7:34 PM RIVER CROSSING SUPERVISOR Narrative TOMASZ - 03/15/2024 9:20 PM RIVER CROSSING SUPERVISOR Please bill to: [facility] [phone] ATTN: Wanda Shirley-compliance specialist [address] [place] [phone] / [email or web address] Testing performed by [facility] ([phone]) Jono Merritt MD LAB MICROBIOLOGY - GENERAL ORDE [facility] Final Result Performing Organization Address City/[facility]/ZIP Co de Phone Number TOMASZ [address] [place] [place] [address] * Albumin Creatinine Ratio, Urine (03/14/2024 11:33 AM RIVER CROSSING SUPERVISOR) Albumin Ur <12.0 mg/L Comment: Interpretive Data No reference range established. Current interpretive data was last revised 2018. Creatinine Ur 77.5 mg/dL TOMASZ Comment: Interpretive Data No reference range established. Current interpretive data was last revised 2018. Albumin Creatinine Ratio, Ur <15 1 - 29 mg/g TOMASZ Urine 03/14/2024 11:3 3 AM RIVER CROSSING SUPERVISOR 03/14/2024 12:14 PM RIVER CROSSING SUPERVISOR Narrative [facility] - 03/14/2024 1:15 PM RIVER CROSSING SUPERVISOR Please bill to: [facility] [phone] ATTN: Wanda Shirley-compliance specialist [address] [place], [place] [phone] / [email or web address] Jono Merritt MD LAB URINE ORDERABLES Final Resu lt Performing Organization Address City/[facility]/ZIP Co de Phone Number TOMASZ [address] [place] [address] documented in this encounter Visit Diagnoses Diagnosis Encounter for donation of kidney documented in this encounter Care Teams Bar Hostess Relationship Specialty Start Date End Date George Menjivar MD [address] [facility] [place] [address] PCP - General Family Medicine 06/29/20 George Menjivar MD [address] [facility] [place] [address] Family Medicine 03/22/18 Penny Barrera, RN [address] [facility] [address] [place] [address] Cable Engineer 02/11/24 Kelly Yanez LCSW [address] [facility] Mailstop [phone] [place] [address] Independent Living Donor Advocate 02/19/24 documented as of this encounter
--- OUTSIDE RECORDS SUMMARY | 2024-04-12 11:48 | XMS_ITS | Encounter Summary ---
Author Organization [facility] Healthcare Address [address] [place] [address] Care Team Providers Care Coding Compliance Manager Name Role Phone George Menjivar MD Unavailable [phone] George Menjivar MD Primary Care Provider + [phone] Penny Barrera RN Unavailable [phone] Kelly YanezW Unavailable [phone] Reason for Visit * Reason Onset Date Comments Appointment Request 04/04/2024 Encounter Details Date Type Department Care Team (Late st Contact Info) Description 04/04/2024 Telephone [facility] [address] [place] [phone] Referral, Self Appointment Request Social History Tobacco Use Types Packs/Day Years Used Date Smoking Tobacco: Never Smokeless Tobacco: Never Alcohol Use Standard Drinks/Week Comments No 0 (1 standard drink = 0.6 oz pur e alcohol) Comments Unknown Sex and Gender Information Value Date Recorded Sex Assigned at Not on file Legal Sex Female 10:20 AM HEALTH SCREENER Gender Identity Female 03/22/2018 10:13 AM HEALTH SCREENER Sexual Orientation Not on file documented as of this encounter Miscellaneous Notes * Telephone Encounter - Kaylen Lomax RN - 04/04/2024 9:55 AM HEALTH SCREENER Pt called in to schedule annual mammogram. Referral placed. Warm transfer completed with Olga in centralized scheduling. TH SCREENER documented in this encounter Plan of Treatment Not on file documented as of this encounter Visit Diagnoses Not on filedocumented in this encounter Care Teams Coding Compliance Manager Relationship Specialty Start Date End Date Goerge Menjivar MD [address] [place] [address] PCP - General Family Medicine 06/29/20 George Menjivar MD [address] [place] [address] [address] Family Medicine 03/22/18 Penny Barrera, RN 4590 [facility] [address] [place] [address] Sleeve Fixer 02/11/24 Kelly Yanez LCSW 4590 [facility] ([facility] Mailstop [phone] [place] [address] Independent Living Donor Advocate 02/19/24 documented as of this encounter
--- OUTSIDE RECORDS SUMMARY | 2024-04-12 11:48 | XMS_ITS | Encounter Summary ---
Author Organization [facility] Healthcare Address [address] [place] [address] Care Team Providers Care Engineering Department Chair Name Role Phone George Menjivar MD Unavailable [phone] George Menjivar MD Primary Care Provider + [phone] Penny Bliss RN Unavailable [phone] Kelyl Yanez [facility] Unavailable [phone] Reason for Referral * Cardiology (Routine) - Authorized Specialty Diagnoses / Procedures Referred By Contac t Referred To Contact Diagnoses Encounter for donation of kidney Procedures ECG 12 lead Jono Merritt MD [address] [facility] [address] [place] [address] Phone: tel: fax: [address] [address] Referral ID Status Reason Start Date Expiration Date V isits Requested Visits Authorized [id number] Authorized 03/06/2024 04/05/2025 1 1 SHIP Reason for Visit * Reason Onset Date Comments Donor Evaluation Update/Follow Up 03/05/2024 Encounter Details Date Type Department Care Team (Late st Contact Info) Description 03/05/2024 Telephone [facility] Transplant Kidney 4590 [facility] 3401 Mailstop [phone] [place], [place] [phone] Penny Bliss, ASIA [address] [facility] [address] [place], [place] [id number] Donor Evaluation Update/Follow Up Social History Tobacco Use Types Packs/Day Years Used Date Smoking Tobacco: Never Smokeless Tobacco: Never Alcohol Use Standard Drinks/Week Comments No 0 (1 standard drink = 0.6 oz pur e alcohol) Comments Unknown Sex and Gender Information Value Date Recorded Sex Assigned at Not on file Legal Sex Female 10:20 AM MATE SHIP Gender Identity Female 03/22/2018 10:13 AM MATE SHIP Sexual Orientation Not on file documented as of this encounter Miscellaneous Notes * Addendum Note - Penny Bliss RN - 03/06/2024 2:10 PM CSTAddended by: PENNY BLISS on: 03/06/2024 02:10 PM Modules accepted: Orders SHIP * Telephone Encounter - Penny Bliss RN - 03/06/2024 2:07 PM MATE SHIP Her response: Jose advised it is [facility]. Confirmed that orders were in for [facility]. SHIP * Telephone Encounter - Penny Bliss RN - 03/06/2024 10:40 AM MATE SHIP Her response: I was hoping to call about this later today. Jose has surgery to scope his shoulder next Sunday and I was going to see if I can do it that day since I will be at the hospital with him. As soon as I get a break at work, I will check what hospital he is having the surgery at. Told her that sounds like a good plan. Asked her to let me know where and I would put the orders inthe system. SHIP * Telephone Encounter - Penny Bliss RN - 03/05/2024 11:36 AM MATE SHIP Reviewed blood clot history and records with donor physician: The risk is not zero, and this is something we can discuss at Step 3 if she makes it to that point.Given that it was in the context of , I would be OK with still moving forward with the workup. Reviewed with Ashley that we are fine to proceed with donor testing. Reviewed how to complete. Sent her instructions and Rx. Asked her to let me know where she gets completed. Told her to let me know if she has any questions. SHIP documented in this encounter Plan of Treatment Scheduled Orders Name Type Priority Associated Diagnoses Order Schedule Urinalysis reflex to microscopic Lab Routine Encounter for donation of kidney Expected: 03/09/2024, Expires: 03/06/2025 hCG, urine, qualitative Lab Routine Encounter for donation of kidney Expected: 03/09/2024, Expires: 03/06/2025 XR Chest Pa Lateral 2 Views Imaging Schedule Routine, Read Routine (OP Routine) Encounter for donation of kidney Expected: 03/06/2024, Expires: 03/06/2025 ECG 12 lead ECG Routine Encounter for donation of kidney 1 Occurrences starting 03/06/2024 until 03/06/2025 ABO/Rh Lab Routine Encounter for donation of kidney Expected: 03/09/2024, Expires: 03/06/2025 Hemoglobin A1c Lab Routine Encounter for donation of kidney Expected: 03/09/2024, Expires: 03/06/2025 Comprehensive metabolic panel Lab Routine Encounter for donation of kidney Expected: 03/09/2024, Expires: 03/06/2025 documented as of this encounter Results * hCG, blood, quantitative (03/14/2024 11:40 AM MATE SHIP) hCG, quant <5.0 0.0 - 5.0 IUnits/L Comment: Interpretive Data Male: < 5 IU/L Non- premenopausal Female: <5 IU/L The Pratima hCG Beta Quant assay procedure was used. Results from different manufacturers or methods may not be comparable. ??Serial testing should be performed using the same method. Interpretive Data was last revised on 2023 Blood 03/14/2024 11:4 0 AM MATE SHIP 03/14/2024 12:01 PM MATE SHIP Narrative TOMASZ - 03/14/2024 12:53 PM MATE SHIP Please bill to: [facility] Mailstop [phone] ATTN: Wanda Shirley-processing specialist 4590 [facility] [address] / [email or web address] us Jono Merritt MD LAB BLOOD ORDERABLES Final Resu lt TOMASZ [address] [facility] Department [place] [address] * (ABNORMAL) Liseth-Goldstein virus (EBV) antibody panel Blood (03/14/2024 11:40 AM MATE SHIP) Pathologist [facility] EBV nuclear Ab Positive(A) Negative Comment: Indicates the presence of detectable IgG antibody to EBV Nuclear Antigen. Testing performed by: [facility], [address] [place] [address]., [address] EBV VCA IgG Positive(A) Negative TOMASZ Comment: Indicates the presence of antibody; 90% of the adult population will have been infected with EBV sometime in the past. Testing performed by: [facility], [address] [place]., [address] EBV VCA IgM Negative Negative TOMASZ Comment: No detectable IgM antibody to EBV-VCA. ??A negative result indicates no current infection with EBV. If clinical suspicion of acute EBV infection is present, testing should be repeated after one week. Testing performed by: [facility], [address] [place]., [address] EBV interp Past Infection TOMASZ Comment:Testing performed by : [facility], [address] [place] [address]., [address] Blood 03/14/2024 11:4 0 AM MATE SHIP 03/14/2024 5:49 PM MATE SHIP Narrative TOMASZ DURHAM - 03/15/2024 12:21 PM MATE SHIP Please bill to: [facility] Mailstop [phone] ATTN: Wanda Shirley-processing specialist [address] [place] [address] / [email or web address] Jono Merritt MD LAB MICROBIOLOGY - GENERAL RAJAN LANDON Final Result Performing Organization Address [facility] Co de Phone Number IV[address] [address] * RPR Blood (03/14/2024 11:40 AM MATE SHIP) Pathologist [facility] RPR Nonreactive Nonreactive Comment:Testing performed by : [facility], [address] [place] [address]., [address] Blood 03/14/2024 11:4 0 AM MATE SHIP 03/14/2024 5:49 PM MATE SHIP Narrative [facility] - 03/14/2024 7:37 PM MATE SHIP Please bill to: [facility] Mailstop [phone] ATTN: Wanda Shirley-processing specialist [address] [place] [address] / [email or web address] Jono Merritt MD LAB MICROBIOLOGY - GENERAL RAJAN LANDON Final Result Performing Organization Address [facility] de Phone Number [address] [address] * CMV, IgG Blood (03/14/2024 11:40 AM MATE SHIP) [facility] CMV IgG Negative Negative Comment: Interpretive Data [...] or recent CMV infection. Testing performed by: [facility], [address] [place] [address], [place]., [address] Blood 03/14/2024 11:4 0 AM MATE SHIP 03/14/2024 5:49 PM MATE SHIP Narrative TMOASZ - 03/15/2024 12:00 PM MATE SHIP Please bill to: [facility] Mailstop [phone] ATTN: Wanda Aguilarprocessing specialist [address] [place] [address] / [email or web address] Jono Merritt MD LAB MICROBIOLOGY - GENERAL RAJAN LANDON Final Result Performing Organization Address City/[facility]/ZIP Co de Phone Number TOMASZ [address] [employer] [place] [address] * HIV 1/2 Antibody plus p24 Antigen Blood (03/14/2024 11:40 AM MATE SHIP) Pathologist [facility] HIV 1/2 ab + p24 ag Nonreactive Nonreactive Comment:Nonreactive for HIV- 1 antigen and HIV-1/HIV-2 antibodies. No laboratory evidence of HIV infection. If acute HIV infection is suspected, consider testing for HIV-1 RNA. Current interpretive data was last revised on 21. Blood 03/14/2024 11:4 0 AM MATE SHIP 03/14/2024 12:01 PM MATE SHIP Narrative [facility] - 03/14/2024 1:02 PM MATE SHIP Please bill to: [facility] Mailstop [phone] ATTN: Wanda Aguilarprocessing specialist [address] [place] [phone] / [email or web address] Jono Merritt MD LAB MICROBIOLOGY - GENERAL RAJAN LANDON Final Result TOMASZ [address] [place] [address] * (ABNORMAL) Lipid panel (03/14/2024 11:40 AM MATE SHIP) Pathologist [facility] Cholesterol 200(H) 30 - 199 mg/dL Comment: [...] 3 TOMASZ Blood 03/14/2024 11:4 0 AM MATE SHIP 03/14/2024 12:01 PM MATE SHIP Narrative TOMASZ - 03/14/2024 12:53 PM MATE SHIP Please bill to: [facility] Mailstop [phone] ATTN: Wanda Shirley-processing specialist 459[address] [facility] [address] / [email or web address] Jono Merritt MD LAB BLOOD ORDERABLES Final Resu lt Performing Organization Address [facility] de Phone Number TOMASZ [address] [place] [address] * aPTT (03/14/2024 11:40 AM MATE SHIP) aPTT 26 22 - 37 sec Comment: Interpretive data aPTT test has not been evaluated for monitoring heparin therapy. The anti-Xa is the preferred test. Current interpretive data was last revised on 2019. Blood 03/14/2024 11:4 0 AM MATE SHIP 03/14/2024 12:01 PM MATE SHIP Narrative TOMASZ - 03/14/2024 12:21 PM MATE SHIP Please bill to: [facility] Mailstop [phone] ATTN: Wanda Shirley-processing specialist 4575 [facility] [address] / [email or web address] Jono Merritt MD LAB BLOOD ORDERABLES Final Resu lt Performing Organization Address [facility] de Phone Number TOMASZ [address] [facility] [place] [address] * Protime-INR (03/14/2024 11:40 AM MATE SHIP) PT 13.5 12.0 - 14.6 sec INR 1.0 0.9 - 1.2 TOMASZ DURHAM Comment: Ref Range High Interpretive data Oral anticoagulant therapeutic ranges: Venous thromboembolism prophylaxis or treatment: 2.0-3.0 CARDIOLOGY Standard range: 2.0-3.0 High-intensity range: 2.5-3.5 Refer to indication-specific guidelines for appropriate target ranges for prosthetic heart valve replacement. Current interpretive data was last revised on 2019. Blood 03/14/2024 11:4 0 AM MATE SHIP 03/14/2024 12:01 PM MATE SHIP Narrative TOMASZ - 03/14/2024 12:21 PM MATE SHIP Please bill to: [facility] Mailstop [phone] ATTN: Wanda Shirley-processing specialist [address] [place] [address] / [email or web address] Result [facility] Jono Merritt MD LAB BLOOD ORDERABLES Final Resu lt TOMASZ DURHAM [address] [facility] Department [place] [address] * Phosphorus (03/14/2024 11:40 AM MATE SHIP) Phosphorus, pl 2.5 2.3 - 4.5 mg/dL Blood 03/14/2024 11:4 0 AM MATE SHIP 03/14/2024 12:01 PM MATE SHIP Narrative TOMASZ - 03/14/2024 12:53 PM MATE SHIP Please bill to: [facility] Mailstop [phone] ATTN: Wanda Aguilarprocessing specialist [address] [place] [address] / [email or web address] Jono Merritt MD LAB BLOOD ORDERABLES Final Resu lt Performing Organization Address [facility] Co de Phone Number [address] [address] * Uric acid (03/14/2024 11:40 AM MATE SHIP) [facility] Uric acid 3.6 2.5 - 7.0 mg/dL Blood 03/14/2024 11:4 0 AM MATE SHIP 03/14/2024 12:01 PM MATE SHIP Narrative TOMASZ - 03/14/2024 12:53 PM MATE SHIP Please bill to: [facility] Mailstop [phone] ATTN: Wanda Shirley-processing specialist [address] [place] [phone] / [email or web address] Jono Merritt MD LAB BLOOD ORDERABLES Final Resu lt Performing Organization Address [facility] Co de Phone Number [address] [address] * Gamma GT (03/14/2024 11:40 AM MATE SHIP) [facility] GGT 27 5 - 35 Units/L Blood 03/14/2024 11:4 0 AM MATE SHIP 03/14/2024 12:01 PM MATE SHIP Narrative [facility] 03/14/2024 12:53 PM MATE SHIP Please bill to: [facility] Mailstop [phone] ATTN: Wanda Shirley-processing specialist [address] [place] [address] / [email or web address] Result [facility] Jono Merritt MD LAB BLOOD ORDERABLES Final Resu lt Performing Organization Address City/[facility] Co de Phone Number [address] [employer] [place] [address] * (ABNORMAL) CBC with auto differential (03/14/2024 11:40 AM MATE SHIP) [facility] WBC 6.3 3.8 - 9.9 K/cumm Hgb 14.1 11.9 - 15.5 g/dL [facility] Hct 41.8 35.6 - 45.5 % [facility] Plt 300 150 - 400 K/cumm [facility] MPV 9.1 9.1 - 12.3 fL [facility] RBC 4.33 3.90 - 5.20 M/cumm [facility] MCV 96.5(H) 81.3 - 96.4 fL [facility] MCH 32.6 27.1 - 33.3 pg [facility] MCHC 33.7 32.3 - 35.7 g/dL [facility] RDW CV 12.4 11.1 - 14.9 % [facility] RDW SD 44.6 35.7 - 48.1 fL [facility] NRBC abs 0.00 0.00 - 0.01 K/cumm [facility] Blood 03/14/2024 11:4 0 AM MATE SHIP 03/14/2024 12:01 PM MATE SHIP Narrative [facility] - 03/14/2024 12:01 PM MATE SHIP Please bill to: [facility] Mailstop [phone] ATTN: Wanda Shirley-processing specialist [address] [place] [address] / [email or web address] Jono Merritt MD LAB BLOOD ORDERABLES Final Resu lt [employer] [facility] [address] [facility] Department [place] [address] * Hepatitis C antibody Blood (03/14/2024 11:40 AM MATE SHIP) [facility] Hep C Ab Nonreactive Nonreactive Comment: Antibodies [...] on 2019. Blood 03/14/2024 11:4 0 AM MATE SHIP 03/14/2024 12:01 PM MATE SHIP Narrative [facility] - 03/14/2024 2:23 PM MATE SHIP Please bill to: [facility] Mailstop [phone] ATTN: Wanda Shirley-processing specialist [address] [place] [phone] / [email or web address] Jono Merritt MD LAB MICROBIOLOGY - GENERAL RAJAN LANDON Final Result Performing Organization Address City/[facility] Co de Phone Number TOMASZ [address] [place] [address] * Hepatitis B Surface Antigen Blood (03/14/2024 11:40 AM MATE SHIP) HepBsAg Nonreactive Nonreactive Blood 03/14/2024 11:4 0 AM MATE SHIP 03/14/2024 12:01 PM MATE SHIP Narrative [facility] 03/14/2024 2:23 PM MATE SHIP Please bill to: [facility] Mailstop [phone] ATTN: Wanda Shirley-processing specialist [address] [place] [phone] / [email or web address] Jono Merritt MD LAB MICROBIOLOGY - GENERAL ORDBarbara LANDON Final Result Performing Organization Address City/[facility] Co de Phone Number TOMASZ [address] [place] [address] * Hepatitis B surface antibody (immune status) Blood (03/14/2024 11:40 AM MATE SHIP) HBsAb (immune status) Reactive Comment: Interpretive Data [...] L TOMASZ Blood 03/14/2024 11:4 0 AM MATE SHIP 03/14/2024 12:01 PM MATE SHIP Narrative TOMASZ - 03/14/2024 2:23 PM MATE SHIP Please bill to: [facility] Mailstop [phone] ATTN: Wanda Shirley-processing specialist [address] [place] [address] / [email or web address] Jono Merritt MD LAB MICROBIOLOGY - GENERAL RAJAN LANDON Final Result TOMASZ [address] [facility] Department [place] [address] * Hepatitis B core antibody, total Blood (03/14/2024 11:40 AM MATE SHIP) Hep B core IgG/IgM Nonreactive Nonreactive Comment:Testing performed by : [facility], [address] [facility]., [address] Blood 03/14/2024 11:4 0 AM MATE SHIP 03/14/2024 5:47 PM MATE SHIP Narrative TOMASZ - 03/14/2024 7:24 PM MATE SHIP Please bill to: [facility] Mailstop [phone] ATTN: Wanda Shirley-processing specialist [address] [place] [address] / [email or web address] Jono Merritt MD LAB MICROBIOLOGY - GENERAL ORDE DIPESH Final Result Performing Organization Address [facility] Co de Phone Number TOMASZ [address] [address] * Albumin Creatinine Ratio, Urine (03/14/2024 11:33 AM MATE SHIP) Albumin Ur <12.0 mg/L Comment: Interpretive Data No reference range established. Current interpretive data was last revised 2018. Creatinine Ur 77.5 mg/dL [facility] Comment: Interpretive Data No reference range established. Current interpretive data was last revised 2018. Albumin Creatinine Ratio, Ur <15 1 - 29 mg/g [facility] Urine 03/14/2024 11:3 3 AM MATE SHIP 03/14/2024 12:14 PM MATE SHIP Narrative [facility] - 03/14/2024 1:15 PM MATE SHIP Please bill to: [facility] Mailstop [phone] ATTN: Wanda Shirley-processing specialist [address] [place] [phone] / [email or web address] Jono Merritt MD LAB URINE ORDERABLES Final Resu lt Performing Organization Address [facility]/ZIP Co de Phone Number IV[address] [address] * Urine culture Urine, clean voided (03/14/2024 11:33 AM MATE SHIP) Report Final Report: Less than 100,000 colonies/mL (clinically insignificant growth based on current clinical standards) Comment:Testing performed by : [facility], [address] [place] [address]., [address] Organism (CLINICALLY INSIGNIFICANT GROWTH [facility] Urine, clean voided 03/14/2024 11:33 AM MATE SHIP 03/14/2024 7:34 PM MATE SHIP Narrative [facility] - 03/15/2024 9:20 PM MATE SHIP Please bill to: [facility] Mailstop [phone] ATTN: Wanda Shirley-processing specialist [address] [facility] [address] / [email or web address] Testing performed by [facility] Microbiology Laboratory ([phone]) Jono Merritt MD LAB MICROBIOLOGY - GENERAL RAJAN LANDON Final Result TOMASZ [address] [facility] Department of Laboratories [place], [place] [id number] documented in this encounter Visit Diagnoses Diagnosis Encounter for donation of kidney- Primary Encounter for donation of kidney documented in this encounter Care Teams Engineering Department Chair Relationship Specialty Start Date End Date George Menjivar MD [address] [place] [address] PCP - General Family Medicine 06/29/20 George Menjivar MD [address] [place] [address] Family Medicine 03/22/18 Penny Bliss, RN 45[address] [facility] [address] [place] [address] [employer] 02/11/24 Kelly Yanez LCSW 4590 [facility] Mailstop [phone] [place], [place] [phone] Independent Living Donor Advocate 02/19/24 documented as of this encounter
--- OUTSIDE RECORDS SUMMARY | 2024-04-12 11:48 | XMS_ITS | Encounter Summary ---
Author Organization [facility] Address [address] [place] [address] Phone Care Team Providers Care Family Consultant Name Role Phone George Menjivar MD Unavailable [phone] George Menjivar MD Primary Care Provider [phone]- [phone] Penny Barrera RN Unavailable [phone] Kelly Yanez LCSW Unavailable [phone] Reason for Visit * Consultation (Routine) - Canceled Specialty Diagnoses / Procedures Referred By Contac t Referred To Contact Endocrinology Diagnoses [place], [place] [address] [place] [address] [place] [address] Phone: tel: fax: [facility] (All Locations) Referral ID Status Reason Start Date Expiration Date Visits Requested Visits Authorized [id number] Canceled Specialty Services Required 01/24/2023 03/31/2024 12 12 Encounter Details Date Type Department Care Team (Latest Contact Info) Description 03/31/2024 9:00 AM RUG CUTTER Office Visit [facility] Endocrinology Metabolism and Lipid 1 [facility] [address] [place] [address] Jesi Washington MD [address] [place] [address] Acquired hypothyroidism (Primary Dx) Social History Tobacco Use Types Packs/Day Years Used Date Smoking Tobacco: Never Smokeless Tobacco: Never Alcohol Use Standard Drinks/Week Comments No 0 (1 standard drink = 0.6 oz pur e alcohol) Comments Unknown Sex and Gender Information Value Date Recorded Sex Assigned at Not on file Legal Sex Female 10:20 AM RUG CUTTER Gender Identity Female 03/22/2018 10:13 AM RUG CUTTER Sexual Orientation Not on file documented as of this encounter Last Filed Vital Signs Vital Sign Reading Time Taken Comments Blood Pressure 113/71 03/31/2024 8:50 AM RUG CUTTER Pulse 78 03/31/2024 8:50 AM RUG CUTTER Temperature 37 ??C (98.6 ??F) 03/31/2024 8:50 AM RUG CUTTER Respiratory Rate - - Oxygen Saturation - - Inhaled Oxygen Concentration - - Weight 58.5 kg (129 lb) 03/31/2024 8:50 AM RUG CUTTER Height 165.1 cm (5' 5 ) 03/31/2024 8:50 AM RUG CUTTER Body Mass Index 21.47 03/31/2024 8:50 AM RUG CUTTER documented in this encounter Ordered Prescriptions Prescription Sig Dispense Quantity Refills Last Filled Start Date End Date levothyroxine (SYNTHROID) 50 mcg tablet Take 1 tablet (50 mcg total) by mouth daily 90 tablet 03/31/2024 documented in this encounter Progress Notes * Jesi Washington MD - 03/31/2024 9:00 AM CST Endocrinology Outpatient Clinic Note Patient: Ashley Stokes, 43 y.o. female (: 1980 ) PCP: George Menjivar MD (Referring: George Menjivar MD) CC: hypothyroidism HPI & Subjective She was in 2019 and developed preeclampsia with severe features and has a severe headache for weeks. 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 Mother has HT and a goiter for whichshe had it removed. Taking levothyroxine - forgets to take it daily often. Her dose is 50 mcg/day - might have taken liothyronine in the afternoon and thought did help with energy. Symptoms: low energy and thinning of her skin. Had cyclical vomiting with stress and thinning of her hair. It was also a stressful time with work. Dry eye, uses drops as she has had corneal abrasionsin the past. Does have history of high cholesterol - takes a pill daily. Trying to donate a kidney, her in on dialysis and she isn't a match but was told would get a voucher for her to get a kidney faster. Takes lansoprazole. Takes her coffee w/ oatmilk History Past medical history, past surgical history, social history, and family history reviewed with patient and in Epic encounter. Review of Systems Twelve point ROS reviewed and negative except as noted in HPI. All other systems negative. Vitals & Physical Exam Blood pressure 113/71, pulse 78, temperature 37 ??C (98.6 ??F), temperature source Temporal, ugujxa462.1 cm (5' 5 ), weight 58.5 kg (129 lb). Body mass index is 21.47 kg/m??. Physical Exam Gen : no acute distress, alert, appropriate, cooperative, appears stated age, well-developed, well-nourished HENT : normocephalic, atraumatic, moist mucus membranes, thyroid is small and no nodules are palpable. Eyes : conjunctiva clear, anicteric, no proptosis/exophthalmos/lid lag, EOMI Pulm : non-labored, on room air CV : regular rate & rhythm Extr : atraumatic, no cyanosis/clubbing/edema Skin : turgor normal, no rashes/wounds/lesions Neuro : alert, speech fluent, comprehension intact, moving all extremities Psych : cooperative, appropriate affect & mood, good insight & judgment Data Medications, labs, imaging, and diagnostics independently reviewed in Epic and commented on below. No results found for: TSH , T3FREE , FREET4 , TSI , THYROGLOBULI , THGAB Lab Results Component Value Date CHOL 200 (H) 03/14/2024 TRIG 129 03/14/2024 HDL 64 03/14/2024 LDLCALC 113 03/14/2024 No results found for: CORTISOL , PTH , 25HYDROVITD , CPEPTIDE , FOD42HD , IA2AB No results found for: HGBA1C , [id number] Assessment & Plan Primary hypothyroidism - per rapport due to Noe's thyroiditis. No thyroid labs were sent to review. I am checking today. Dose of levothyroxine appears appropriate for weight at 50 mcg/day, continue Reviewed recent lipid panel which showed normal HLD at 64, LDL 113 and Tg 129 on 03/14/24. Orders Placed This Encounter TSH T4, free Thyroid peroxidase antibody (TPO) DISCONTD: levothyroxine (SYNTHROID) 50 mcg tablet levothyroxine (SYNTHROID) 50 mcg tablet RTC 6 months. -- Jesi Sosa MD aligner barrel and receiver Endocrinology, Metabolism, & Lipid Research CUTTER documented in this encounter Plan of Treatment Not on file documented as of this encounter Results * Thyroid peroxidase antibody (TPO) (03/31/2024 9:37 AM RUG CUTTER) Anti Thyroid Peroxidase <30 <=34 IUnits/mL Comment: ATPO Interpretive Data Results may be up to 28% higher in patients receiving Itraconazole. Current interpretive data was last revised 2020. Testing performed by: [facility], [address] [place] [address]., [id number] Blood 03/31/2024 9:37 AM RUG CUTTER 04/01/2024 9:51 AM RUG CUTTER Jesi Thomas MD LAB BLOOD ORDERABLES Final Result Performing Organization Address [facility] Co de Phone Number [facility] [address] [place] [address] * T4, free (03/31/2024 9:37 AM RUG CUTTER) Free T4 0.92 0.90 - 1.70 ng/dL Blood 03/31/2024 9:37 AM RUG CUTTER 03/31/2024 4:05 PM RUG CUTTER Jesi Thomas MD LAB BLOOD ORDERABLES Final Result Performing Organization Address City/[facility]/ZIP Co de Phone Number [facility] [place] [address] [address] [place] [address] * TSH (03/31/2024 9:37 AM RUG CUTTER) Thyroid Stimulating Hormone 1.94 0.30 - 4.20 mcIUnit/mL Blood 03/31/2024 9:37 AM RUG CUTTER 03/31/2024 4:05 PM RUG CUTTER us Jesi Thomas MD LAB BLOOD ORDERABLES Final Result [facility] [address] Department [place] [address] documented in this encounter Visit Diagnoses Diagnosis Acquired hypothyroidism- Primary Unspecified hypothyroidism documented in this encounter Discontinued Medications Medication Sig Discontinue Reason Start Date End Da te levothyroxine (SYNTHROID) 50 mcg tablet Take 1 tablet (50 mcg total) by mouth daily Reorder 02/25/2024 03/31/2024 documented as of this encounter Historical Medications * This list may reflect changes made after this encounter. levothyroxine (SYNTHROID) 50 mcg tablet Take 1 tablet (50 mcg total) by mouth daily 02/25/2024 03/31/2024 added in this encounter Care Teams Family Consultant Relationship Specialty Start Date End Date George Menjivar MD [address] [place] [address] PCP - General Family Medicine 06/29/20 George Menjivar MD [address] [place] [address] Family Medicine 03/22/18 Penny Barrera, RN [address] [facility] [address] [place] [address] Associate Professor Of Literacy 02/11/24 Kelly Yanez LCSW [address] [facility] ([facility]) Mailstop [phone] [place] [address] Independent Living Donor Advocate 02/19/24 documented as of this encounter
--- OUTSIDE RECORDS SUMMARY | 2024-04-12 11:48 | XMS_ITS | Encounter Summary ---
Author Organization [facility] Healthcare Address [address] [place] [address] Care Team Providers Care Head Butler Name Role Phone George Menjivar MD Unavailable George Menjivar MD Primary Care Provider [phone] Encounter Details Date Type Department Care Team (Late st Contact Info) Description 09/21/2020 1:15 PM CDT Lab [address] [id number] Fever of unknown origin Social History Tobacco Use Types Packs/Day Years Used Date Smoking Tobacco: Never Smokeless Tobacco: Never Alcohol Use Standard Drinks/Week Comments No 0 (1 standard drink = 0.6 oz pur e alcohol) Comments Unknown Sex and Gender Information Value Date Recorded Sex Assigned at Not on file Legal Sex Female 10:20 AM SUPERVISOR ASSEMBLY ROOM Gender Identity Female 03/22/2018 10:13 AM SUPERVISOR ASSEMBLY ROOM Sexual Orientation Not on file documented as of this encounter Plan of Treatment Not on file documented as of this encounter Procedures Procedure Name Priority Date/Time Associated Diagnosis Comments LUPUS ANTICOAGULANT PANEL PLUS REFLEXES Routine 09/21/2020 11:59 AM CDT Fever of unknown origin PRUDENCE QUALITATIVE WITH REFLEX TO PRUDENCE QUANTITATIVE Routine 09/21/2020 11:59 AM CDT Fever of unknown origin C4 COMPLEMENT Routine 09/21/2020 11:59 AM CDT Fever of unknown origin SARAH ANTIBODY EVALUATION WITH REFLEX Routine 09/21/2020 11:59 AM CDT Fever of unknown origin ANTI-NEUTROPHILIC CYTOPLASMIC ANTIBODY (ANCA) WITH REFLEX TO MPO AND PR3 ABS Routine 09/21/2020 11:59 AM CDT Fever of unknown origin CARDIOLIPIN ANTIBODY, IGG AND IGM Routine 09/21/2020 11:59 AM CDT Fever of unknown origin ERYTHROCYTE SEDIMENTATION RATE Routine 09/21/2020 11:59 AM CDT Fever of unknown origin C3 COMPLEMENT Routine 09/21/2020 11:59 AM CDT Fever of unknown origin CRP (ACUTE PHASE) Routine 09/21/2020 11: 59 AM CDT Fever of unknown origin HOMOCYSTEINE Routine 09/21/2020 11:59 AM CDT Fever of unknown origin documented in this encounter Results * Anti-Neutrophilic Cytoplasmic Antibody (ANCA) with Reflex to MPO and PR3 Abs (09/21/2020 11:59 AM CDT) ANCA Negative [facility] Blood specimen (specimen) 09/21/2020 11:59 AM CDT 09/21/2020 1:20 PM CDT us Steven Antony MD LAB BLOOD ORDERABLES Final Re sult Performing Organization Address [facility] Co de Phone Number [facility] Department [place] [address] * (ABNORMAL) Homocysteine (09/21/2020 11:59 AM CDT) Homocysteine 18.2(H) 0.0 - 15.0 mcmol/L [facility] Blood specimen (specimen) 09/21/2020 11:59 AM CDT 09/21/2020 1:20 PM CDT Steven Antony MD LAB BLOOD ORDERABLES Final Re sult [facility] Department [place] [address] * Cardiolipin antibody, IgG and IgM (09/21/2020 11:59 AM CDT) Cardiolipin, IgG <1.6 <=19.9 GPL U/mL [facility] Comment: Interpretive Data Negative: <20 GPL U/mL Positive: > or = 20 GPL U/mL Anticardiolipin antibodies are associated with certain clinical events including unexplained arterial and venous thromboemboli, and unexplained morbidity. However, detection of low levels of anticardiolipin antibodies occurs in both healthy individuals and patients with co-morbidities not associated with the antiphospholipid antibody (APA) syndrome including inflammatory and infectious conditions. In order to improve specificity, the International Congress on Antiphospholipid Antibodies recommends ACL antibodies of IgG or IgM isotype present in medium or high titer (e.g. > 40 GPL, or >the 99th percentile), on two or more occasions, at least 12 weeks apart, to support a diagnosis of antiphospholipid syndrome. The cutoff for this assay was developed from data based on the 99th percentile. In addition, the International Congress on Antiphospholipid Antibodies does not recommend testing for IgA ALEXIS. These results were obtained with the Biodirection 2200 System. Cardiolipin IgG values obtained with different manufacturers' assay methods may not be used interchangeably. Current interpretive data was last revised on 2016. Cardiolipin, IgM 14.7 <=19.9 MPL U/mL [facility] Comment: Interpretive Data Negative: <20 MPL U/mL Positive: > or = 20 MPL U/mL Anticardiolipin antibodies are associated with certain clinical events including unexplained arterial and venous thromboemboli, and unexplained morbidity. However, detection of low levels of anticardiolipin antibodies occurs in both healthy individuals and patients with co-morbidities not associated with the antiphospholipid antibody (APA) syndrome including inflammatory and infectious conditions. In order to improve specificity, the International Congress on Antiphospholipid Antibodies recommends ACL antibodies of IgG or IgM isotype present in medium or high titer (e.g. > 40 MPL, or >the 99th percentile), on two or more occasions, at least 12 weeks apart, to support a diagnosis of antiphospholipid syndrome. The cutoff for this assay was developed from data based on the 99th percentile. ?? In addition, the International Congress on Antiphospholipid Antibodies does not recommend testing for IgA ALEXIS. The ACL IgM test can produce false positive results due to cross- reactivity with Rheumatoid factor, dsDNA or certain infectious disease antibodies. ??These results were obtained with the Biodirection 2200 System. Cardiolipin IgM values obtained with different manufacturers' assay methods may not be used interchangeably. Current interpretive data was last revised on 2016. Blood specimen (specimen) 09/21/2020 11:59 AM CDT 09/21/2020 1:20 PM CDT us Steven Antony MD LAB BLOOD ORDERABLES Final Re sult [facility] Department [place] [address] * Lupus Anticoagulant Panel plus Reflexes (09/21/2020 11:59 AM CDT) PT 11.0 9.5 - 13.6 sec [facility] INR 1.0 0.9 - 1.2 [facility] Comment: Interpretive data Oral anticoagulant therapeutic ranges: Venous thromboembolism prophylaxis or treatment: 2.0-3.0 CARDIOLOGY Standard range: 2.0-3.0 High-intensity range: 2.5-3.5 Refer to indication-specific guidelines for appropriate target ranges for prosthetic heart valve replacement. Current interpretive data was last revised on 2019. aPTT 31 27 - 37 sec [facility] Comment: Interpretive Data Therapeutic heparin range: 60.0 - 94.0 seconds. Based on correlation with therapeutic heparin activity range of 0.3-0.7 Units/mL. Current interpretive data was last revised on 2020. DRVVT screen ratio 1.03 0.00 - 1.20 Ratio [facility] SCT Screen Ratio 0.91 0.00 - 1.16 Ratio [facility] Lupus anticoagulant, interp Negative [facility] Comment: Interpretive data ?? Lupus anticoagulants (LA) are acquired autoantibodies that interfere with invitro clotting in a phospholipid-dependent manner and are associated with an increased risk of thromboembolic events and complications. ?? Routine APTT and PT reagents are not sensitive to inhibition by LA, and should not be used as screening tests. ? The laboratory follows ISTH 2009 guidelines (Pengo, 2009) for LA testing and interpretation: Two sensitive methods performed in parallel improve sensitivity. One activates the intrinsic pathway (Silica-APTT) and one activates the common pathway (dilute Manuel's viper venom time - dRVVT). ?? Each method begins with a SCREEN step, and if neither is prolonged, no further testing is performed and the interpretation is: NO LA DETECTED. ?? If either screening test is prolonged, then additional steps are performed to provide specificity. A POSITIVE LA result occurs if either one or both tests produce a positive CONFIRM result. ?? An INDETERMINATE result means results cannot distinguish between coagulopathy and a weak LA. Consider retesting when PT/INR is less prolonged, if clinical indicated. ?? To support laboratory confirmation of antiphospholipid syndrome, persistence of a positive LA result should be verified by repeat testing at least 12 weeks later (Kelli, 2006). ?? Prior to LA testing, the laboratory screens patient plasma samples for evidence of heparin contamination, which is neutralized prior to LA testing, and the following interfering conditions which require canceling LA testing: INR >3.0, fibrinogen < 100 mg/dl, use of direct oral or IV anticoagulants other than heparin. ?? References: 1) Jones V, Kathi A, Evette JH, Orleidy TL, Anamika M, De Pranav PG. Update of the guidelines for lupus anticoagulant detection. J Thromb Haemost. 2009; 7:6953-5357. 2. Kelli Stveens et al. International consensus statement on an update of the classification criteria for definite antiphospholipid syndrome (APS). J Thromb Haemost. 2006; 4:295-306. Current interpretive data was last revised on 2018 Blood specimen (specimen) 09/21/2020 11:59 AM CDT 09/21/2020 1:20 PM CDT us Steven Antony MD LAB BLOOD ORDERABLES [place] [address] * SARAH Antibody Evaluation with Reflex (09/21/2020 11:59 AM CDT) Pathologist [facility] SARAH ab Negative Negative [facility] Comment: Interpretive Data Positive Screens will be reflexed to specific testing for the following antigens: Veronica-1 Ab, BUSINESS CHANGE MANAGER Ab, Scl-70 Ab, Martinez Ab, SS-A/Ro Ab, and SS-B/La Ab. Further testing for dsDNA, Centromere, or Ribosomal P antibodies is suggested in patient with a positive screen and negative specific antibodies. Current interpretive data was last revised on 16. Blood specimen (specimen) 09/21/2020 11:59 AM CDT 09/21/2020 1:20 PM CDT Steven Antony MD LAB BLOOD ORDERABLES Final Re sult Performing Organization Address City/[facility]/[place] [address] * CRP (acute phase) (09/21/2020 11:59 AM CDT) Pathologist [facility] CRP 0.6 <=10.0 mg/L [facility] Blood specimen (specimen) 09/21/2020 11:59 AM CDT 09/21/2020 1:20 PM CDT Steven Antony MD LAB BLOOD ORDERABLES [place] [address] * Erythrocyte sedimentation rate (09/21/2020 11:59 AM CDT) Pathologist [facility] Erythrocyte sedimentation rate 8 1 - 20 mm/hr [facility] Blood specimen (specimen) 09/21/2020 11:59 AM CDT 09/21/2020 1:20 PM CDT us Steven Antony MD LAB BLOOD ORDERABLES Final Re sult Performing Organization Address [facility] de Phone Number [facility] [place] [address] * C4 complement (09/21/2020 11:59 AM CDT) Complement C4 28.1 10.0 - 40.0 mg/dL [facility] Blood specimen (specimen) 09/21/2020 11:59 AM CDT 09/21/2020 1:20 PM CDT Steven Antony MD LAB BLOOD ORDERABLES Final Re sult Performing Organization Address [facility] de Phone Number [facility] [place] [address] * C3 complement (09/21/2020 11:59 AM CDT) Complement C3 98.0 90.0 - 180.0 mg/dL [facility] Blood specimen (specimen) 09/21/2020 11:59 AM CDT 09/21/2020 1:20 PM CDT Steven Antony MD LAB BLOOD ORDERABLES Final Re sult Performing Organization Address [facility] de Phone Number [facility] [place] [address] * PRUDENCE qualitative with reflex to PRUDENCE Quantitative (09/21/2020 11:59 AM CDT) PRUDENCE Negative [facility] Comment: Interpretive Data Normal range for PRUDENCE Qualitative Antibody = Negative. 1. PRUDENCE is performed using indirect immunofluorescence against HEp-2 cells 2. PRUDENCE titers are performed on all positive qualitative results. 3. A significantly positive PRUDENCE result is defined as a positive nuclear fluorescence at a titer of 1:80 or greater. 4. 15% of normal people above age 65 have significantly positive PRUDENCE results. ??5% or less of normal people age 65 or under have significantly positive PRUDENCE results. Current interpretive data was last revised on 2019. Blood specimen (specimen) 09/21/2020 11:59 AM CDT 09/21/2020 1:20 PM CDT us Steven Antony MD LAB BLOOD ORDERABLES Final Re sult [facility] Department [place] [address] documented in this encounter Visit Diagnoses Diagnosis Fever of unknown origin Fever, unspecified documented in this encounter Care Teams Head Butler Relationship Specialty Start Date End Date George Menjivar MD [address] [place] [address] PCP - General Family Medicine 06/29/20 George Menjivar MD [address] [place] [address] [address] Family Medicine 03/22/18 documented as of this encounter
--- OUTSIDE RECORDS SUMMARY | 2024-04-12 11:48 | XMS_ITS | Encounter Summary ---
Author Organization [facility] Healthcare Address [address] [place] [address] Care Team Providers Care Upholstery Mechanic Name Role Phone George Menjivar MD Unavailable [phone] George Menjivar MD Primary Care Provider + [phone] Penny Barrera RN Unavailable [phone] Kelly Yanez LCSW Unavailable [phone] Encounter Details Date Type Department Care Team (Late st Contact Info) Description 02/22/2024 Documentation [facility] Transplant Kidney [address] [facility] [address] Mailstop [phone] [place] [address] Marilyn Smith Social History Tobacco Use Types Packs/Day Years Used Date Smoking Tobacco: Never Smokeless Tobacco: Never Alcohol Use Standard Drinks/Week Comments No 0 (1 standard drink = 0.6 oz pur e alcohol) Comments Unknown Sex and Gender Information Value Date Recorded Sex Assigned at Not on file Legal Sex Female 10:20 AM CITY DISTRIBUTION CLERK Gender Identity Female 03/22/2018 10:13 AM CITY DISTRIBUTION CLERK Sexual Orientation Not on file documented as of this encounter Progress Notes * Marilyn Smith - 02/22/2024 2:56 PM CST Received the following records via [employer] and saved to [facility] records DISTRIBUTION CLERK documented in this encounter Plan of Treatment Not on file documented as of this encounter Visit Diagnoses Not on filedocumented in this encounter Care Teams Upholstery Mechanic Relationship Specialty Start Date End Date George Menjivar MD [address] [place] [address] PCP - General Family Medicine 06/29/20 George Menjivar MD [address] [place] [address] Family Medicine 03/22/18 Penny Barrera, RN [address] [facility] [address] [place] [address] Hand Turner 02/11/24 Kelly Yanez LCSW [address] [facility] ([facility] Mailstop [phone] [place] [address] Independent Living Donor Advocate 02/19/24 documented as of this encounter
--- OUTSIDE RECORDS SUMMARY | 2024-04-12 11:48 | XMS_ITS | Encounter Summary ---
Author Organization [facility] Healthcare Address [address] [place] [address] Care Team Providers Care Set O Type Operator Name Role Phone George Menjivar MD Unavailable [phone] George Menjivar MD Primary Care Provider + [phone] Penny Barrera RN Unavailable [phone] Reason for Visit * Reason Onset Date Comments Referral - Donor Txp 02/11/2024 Encounter Details Date Type Department Care Team (Late st Contact Info) Description 02/11/2024 Documentation [facility] Transplant Kidney [address] [facility] 340 Mailstop [phone] [place] [address] Marilyn Smith Referral - Donor Txp Social History Tobacco Use Types Packs/Day Years Used Date Smoking Tobacco: Never Smokeless Tobacco: Never Alcohol Use Standard Drinks/Week Comments No 0 (1 standard drink = 0.6 oz pur e alcohol) Comments Unknown Sex and Gender Information Value Date Recorded Sex Assigned at Not on file Legal Sex Female 10:20 AM BLANKET CUTTER HAND Gender Identity Female 03/22/2018 10:13 AM BLANKET CUTTER HAND Sexual Orientation Not on file documented as of this encounter Last Filed Vital Signs Vital Sign Reading Time Taken Comments Blood Pressure - - Pulse - - Temperature - - Respiratory Rate - - Oxygen Saturation - - Inhaled Oxygen Concentration - - Weight 53.5 kg (118 lb) 02/11/2024 8:00 AM BLANKET CUTTER HAND Height 165.1 cm (5' 5 ) 02/11/2024 8:00 AM BLANKET CUTTER HAND Body Mass Index 19.64 02/11/2024 8:00 AM BLANKET CUTTER HAND documented in this encounter Progress Notes * Marilyn Smith - 02/11/2024 8:00 AM CST Recipient Coordinator: Helen Donor Coordinator: Penny Potential Living Donor for: Joe Stokes, spouse Donor does have insurance Donor Questionnaire, ARCADIO, and consents saved to chart KET CUTTER HAND documented in this encounter Plan of Treatment Not on file documented as of this encounter Visit Diagnoses Not on filedocumented in this encounter Care Teams Set O Type Operator Relationship Specialty Start Date End Date George Menjivar MD [address] [place] [address] PCP - General Family Medicine 06/29/20 George Menjivar MD [address] [place] [address] [address] Family Medicine 03/22/18 Penny Barrera, RN [address] [address] Route Clerk 02/11/24 documented as of this encounter
--- OUTSIDE RECORDS SUMMARY | 2024-04-12 11:48 | XMS_ITS | Encounter Summary ---
Author Organization [facility] Healthcare Address [address] [place] [address] Care Team Providers Care Biochemistry Teacher Name Role Phone George Menjivar MD Unavailable [phone] George Menjivar MD Primary Care Provider [phone] Reason for Visit * Reason Onset Date Comments Referral - Kidney Txp 02/06/2024 Encounter Details Date Type Department Care Team (Late st Contact Info) Description 02/06/2024 Telephone [facility] Transplant Kidney [address] [address] Mailstop [phone] [place] [address] Ling Waldron Referral - Kidney Txp Social History Tobacco Use Types Packs/Day Years Used Date Smoking Tobacco: Never Smokeless Tobacco: Never Alcohol Use Standard Drinks/Week Comments No 0 (1 standard drink = 0.6 oz pur e alcohol) Comments Unknown Sex and Gender Information Value Date Recorded Sex Assigned at Not on file Legal Sex Female 10:20 AM FASHION CONSULTANT SALES Gender Identity Female 03/22/2018 10:13 AM FASHION CONSULTANT SALES Sexual Orientation Not on file documented as of this encounter Miscellaneous Notes * Telephone Encounter - Ling Waldron - 02/06/2024 2:28 PM CST Completed pre screen with patient Emailed donor packet to patient ION CONSULTANT SALES documented in this encounter Plan of Treatment Not on file documented as of this encounter Visit Diagnoses Not on filedocumented in this encounter Care Teams Biochemistry Teacher Relationship Specialty Start Date End Date George Menjivar MD [address] [place] [address] PCP - General Family Medicine 06/29/20 George Menjivar MD [address] [place] [address] [address] Family Medicine 03/22/18 documented as of this encounter
--- OUTSIDE RECORDS SUMMARY | 2024-04-12 11:48 | XMS_ITS | Encounter Summary ---
Author Organization [facility] Healthcare Address [address] [place] [address] Care Team Providers Care Quality Control Coordinator Name Role Phone George Menjivar MD Unavailable [phone] George Menjivar MD Primary Care Provider [phone] Reason for Visit * Reason Onset Date Comments Referral - Donor Txp 02/08/2024 Encounter Details Date Type Department Care Team (Late st Contact Info) Description 02/08/[address] [facility] Transplant Kidney [address] [address] Mailstop [phone] [place] [address] Marilyn Smith Referral - Donor Txp Social History Tobacco Use Types Packs/Day Years Used Date Smoking Tobacco: Never Smokeless Tobacco: Never Alcohol Use Standard Drinks/Week Comments No 0 (1 standard drink = 0.6 oz pur e alcohol) Comments Unknown Sex and Gender Information Value Date Recorded Sex Assigned at Not on file Legal Sex Female 10:20 AM BIOLOGICS SPECIALIST Gender Identity Female 03/22/2018 10:13 AM BIOLOGICS SPECIALIST Sexual Orientation Not on file documented as of this encounter Progress Notes * Marilyn Smith - 02/08/2024 8:18 AM CST Questionnaire and ARCADIO saved to media. Emailed Consent and KPD agreement to patient for signature. [email or web address] OGICS SPECIALIST documented in this encounter Plan of Treatment Not on file documented as of this encounter Visit Diagnoses Not on filedocumented in this encounter Care Teams Quality Control Coordinator Relationship Specialty Start Date End Date George Menjivar MD [address] [place] [address] PCP - General Family Medicine 06/29/20 George Menjivar MD [address] [place] [address] [address] Family Medicine 03/22/18 documented as of this encounter
--- OUTSIDE RECORDS SUMMARY | 2024-04-12 11:48 | XMS_ITS | Encounter Summary ---
Author Organization [facility] Healthcare Address [address] [place] [address] Care Team Providers Care Sales Communications Manager Name Role Phone George Menjivar MD Unavailable [phone] George Menjivar MD Primary Care Provider [phone] Reason for Visit * Diagnostic Imaging (Routine) - Closed Specialty Diagnoses / Procedures Referred By Contac t Referred To Contact Diagnoses Fever of unknown origin Procedures XR Chest Pa Lateral 2 Views Steven Antony MD [address] [address] Phone: tel: fax: Referral ID Status Reason Start Date Expiration Date Visits Re quested Visits Authorized [id number] Closed 09/21/2020 10/21/2021 1 1 Encounter Details Date Type Department Care Team (Latest Contact Info) Description 09/21/2020 12:10 PM CDT - 09/21/2020 11:59 PM CDT Hospital Encounter [facility] [address] [place] [address] Steven Antony MD [address] [facility] [address] [place] [address] Discharge Disposition: Discharge to home or self care Social History Tobacco Use Types Packs/Day Years Used Date Smoking Tobacco: Never Smokeless Tobacco: Never Alcohol Use Standard Drinks/Week Comments No 0 (1 standard drink = 0.6 oz pur e alcohol) Comments Unknown Sex and Gender Information Value Date Recorded Sex Assigned at Not on file Legal Sex Female 10:20 AM PRESIDENT COMMERCIAL BANK Gender Identity Female 03/22/2018 10:13 AM PRESIDENT COMMERCIAL BANK Sexual Orientation Not on file documented as of this encounter Medications at Time of Discharge DEYSI , 28, 1-35 mg-mcg per tablet Take 1 tablet by mouth daily. 3 12/29/2017 cyanocobalamin (Vitamin B-12) 1,000 mcg/mL injection 02/25/2018 epinastine 0.05 % ophthalmic solution INSTILL 1 DROP INTO BOTH EYES TWICE A DAY 6 12/29/2017 ergocalciferol (VITAMIN D) 50,000 unit capsule Take 1 capsule (50,000 Units total) by mouth once a week 1 01/01/2018 LORazepam (ATIVAN) 1 mg tablet Take 1 mg by mouth daily. 1 01/02/2018 TROKENDI XR 200 mg capsule,extended release 24hr TAKE 1 (ONE) CAPSULE DAILY TO PROMOTE WEIGHT LOSS 0 02/01/2018 VIIBRYD 40 mg tabletIndications :major depressive disorder Take 40 mg by mouth daily. 3 02/05/2018 documented as of this encounter Discharge Disposition Disposition Code Departure Means Destination Discharge to home or self care documented in this encounter Plan of Treatment Not on file documented as of this encounter Procedures Procedure Name Priority Date/Time Associated Diagnosis Comments XR CHEST PA LATERAL 2 VIEWS Schedule Routine, Read Routine (OP Routine) 09/21/2020 12:23 PM CDT Fever of unknown origin documented in this encounter Results * XR Chest Pa Lateral 2 Views (09/21/2020 12:23 PM CDT) Anatomical Region Laterality Modality Body, Chest N/A Computed Radiogr aphy 09/21/2020 1:22 PM CDT Impressions 09/21/2020 1:23 PM CDT No comparison imaging is available for review. Anterior cervical instrumented spinal fusion. Cholecystectomy clips overlie the right upper quadrant. Cardiomediastinal silhouette is normal. The lungs are clear. ??No pneumothorax, no pleural effusion, no focal consolidation, no mass. Dictated by: Marylu Valencia M.D. The radiology attending physician has personally reviewed this study, and had reviewed and/or edited this written report and agrees with it. Electronically signed by: Aliya Ann M.D. Narrative 09/21/2020 1:23 PM CDT EXAMINATION: 2 view chest radiograph Procedure Note Aliya Ann MD - 09/21/2020 EXAMINATION: 2 view chest radiograph IMPRESSION: No comparison imaging is available for review. Anterior cervical instrumented spinal fusion. Cholecystectomy clips overlie the right upper quadrant. Cardiomediastinal silhouette is normal. The lungs are clear. No pneumothorax, no pleural effusion, no focal consolidation, no mass. Dictated by: Marylu Valencia M.D. The radiology attending physician has personally reviewed this study, and had reviewed and/or edited this written report and agrees with it. Electronically signed by: Aliya Ann M.D. us Steven Antony MD IMG XR PROCEDURES Final Resul t documented in this encounter Visit Diagnoses Not on filedocumented in this encounter Care Teams Sales Communications Manager Relationship Specialty Start Date End Date George Menjivar MD [address] [place] [address] PCP - General Family Medicine 06/29/20 George Menjivar MD [address] [place] [address] [address] Family Medicine 03/22/18 documented as of this encounter
--- OUTSIDE RECORDS SUMMARY | 2024-04-12 11:48 | XMS_ITS | Encounter Summary ---
Author Organization [facility] Healthcare Address [address] [place] [address] Care Team Providers Care Diabetes Manager Name Role Phone George Menjivar MD Unavailable [phone] George Menjivar MD Primary Care Provider + [phone] Penny Barrera RN Unavailable [phone] Kelly Yanez LCSW Unavailable [phone] Encounter Details Date Type Department Care Team (Latest Contact Info) Description 03/31/2024 9:37 AM STAKE SETTER - 03/31/2024 11:59 PM STAKE SETTER Hospital Encounter [address] [id number] Acquired hypothyroidism Discharge Disposition: Discharge to home or self care Social History Tobacco Use Types Packs/Day Years Used Date Smoking Tobacco: Never Smokeless Tobacco: Never Alcohol Use Standard Drinks/Week Comments No 0 (1 standard drink = 0.6 oz pur e alcohol) Comments Unknown Sex and Gender Information Value Date Recorded Sex Assigned at Not on file Legal Sex Female 10:20 AM STAKE SETTER Gender Identity Female 03/22/2018 10:13 AM STAKE SETTER Sexual Orientation Not on file documented as of this encounter Medications at Time of Discharge ALYACEN , 28, 1-35 mg-mcg per tablet Take 1 tablet by mouth daily. 3 12/29/2017 cyanocobalamin (Vitamin B-12) 1,000 mcg/mL injection 02/25/2018 epinastine 0.05 % ophthalmic solution INSTILL 1 DROP INTO BOTH EYES TWICE A DAY 6 12/29/2017 ergocalciferol (VITAMIN D) 50,000 unit capsule Take 1 capsule (50,000 Units total) by mouth once a week 1 01/01/2018 levothyroxine (SYNTHROID) 50 mcg tablet Take 1 tablet (50 mcg total) by mouth daily 90 tablet 03/31/2024 LORazepam (ATIVAN) 1 mg tablet Take 1 [...] Procedure Name Priority Date/Time Associated Diagnosis Comments THYROID PEROXIDASE ANTIBODY Routine 03/31/2024 9:37 AM STAKE SETTER Acquired hypothyroidism TSH Routine 03/31/2024 9:37 AM STAKE SETTER Acquired hypothyroidism T4, FREE Routine 03/31/2024 9:37 AM STAKE SETTER Acquired hypothyroidism documented in this encounter Results * Thyroid peroxidase antibody (TPO) (03/31/2024 9:37 AM STAKE SETTER) Anti Thyroid Peroxidase <30 <=34 IUnits/mL Comment: ATPO Interpretive Data Results may be up to 28% higher in patients receiving Itraconazole. Current interpretive data was last revised 2020. Testing performed by: [facility], [address] [place] [address] Blood 03/31/2024 9:37 AM STAKE SETTER 04/01/2024 9:51 AM STAKE SETTER us Jesi Thomas MD LAB BLOOD ORDERABLES Final Result [facility] [address] [facility] [place] [address] * TSH (03/31/2024 9:37 AM STAKE SETTER) Thyroid Stimulating Hormone 1.94 0.30 - 4.20 mcIUnit/mL Blood 03/31/2024 9:37 AM STAKE SETTER 03/31/2024 4:05 PM STAKE SETTER Jesi Thomas MD LAB BLOOD ORDERABLES Final Result [facility] [address] [facility] [place] [address] * T4, free (03/31/2024 9:37 AM STAKE SETTER) Free T4 0.92 0.90 - 1.70 ng/dL Blood 03/31/2024 9:37 AM STAKE SETTER 03/31/2024 4:05 PM STAKE SETTER Jesi Thomas MD LAB BLOOD ORDERABLES Final Result Performing Organization Address City/[facility] Co de Phone Number [facility] [address] [place] [address] documented in this encounter Visit Diagnoses Diagnosis Acquired hypothyroidism Unspecified hypothyroidism documented in this encounter Care Teams Diabetes Manager Relationship Specialty Start Date End Date George Menjivar MD [address] [place] [address] PCP - General Family Medicine 06/29/20 George Menjivar MD [address] [place] [address] Family Medicine 03/22/18 Penny Barrera, RN [address] [facility] [address] [place] [address] Concert Manager 02/11/24 Kelly Yanez LCSW 45[address] [facility] Mailstop [phone] [place] [address] Independent Living Donor Advocate 02/19/24 documented as of this encounter
--- OUTSIDE RECORDS SUMMARY | 2024-04-12 11:48 | XMS_ITS | Encounter Summary ---
Author Organization [facility] Healthcare Address [address] [place] [address] Care Team Providers Care Statuary Painter Name Role Phone George Menjivar MD Unavailable [phone] George Menjivar MD Primary Care Provider + [phone] Penny Barrera RN Unavailable [phone] Encounter Details Date Type Department Care Team (Late st Contact Info) Description 02/18/[address] [facility] Transplant Kidney [address] [facility] [address] Mail[address] [id number] [place] [address] Marilyn Smith Social History Tobacco Use Types Packs/Day Years Used Date Smoking Tobacco: Never Smokeless Tobacco: Never Alcohol Use Standard Drinks/Week Comments No 0 (1 standard drink = 0.6 oz pur e alcohol) Comments Unknown Sex and Gender Information Value Date Recorded Sex Assigned at Not on file Legal Sex Female 10:20 AM CASH MANAGEMENT SPECIALIST Gender Identity Female 03/22/2018 10:13 AM CASH MANAGEMENT SPECIALIST Sexual Orientation Not on file documented as of this encounter Progress Notes * Marilyn Smith - 02/18/2024 3:23 PM CST Requested records via [facility] Thank you! Your request was successfully submitted. Confirmation # [id number] MANAGEMENT SPECIALIST documented in this encounter Plan of Treatment Not on file documented as of this encounter Visit Diagnoses Not on filedocumented in this encounter Care Teams Statuary Painter Relationship Specialty Start Date End Date George Menjivar MD [address] [place] [address] PCP - General Family Medicine 06/29/20 George Menjivar MD [address] [place] [address] [address] Family Medicine 03/22/18 Penny Barrera, RN [address] [address] Director Asset 02/11/24 documented as of this encounter
--- OUTSIDE RECORDS SUMMARY | 2024-04-12 11:48 | XMS_ITS | Encounter Summary ---
Author Organization [facility] Healthcare Address [address] [place] [address] Care Team Providers Care Design Technology Teacher Name Role Phone George Menjivar MD Unavailable [phone] George Menjivar MD Primary Care Provider + [phone] Penny Barrera RN Unavailable [phone] Kelly Yanez LCSW Unavailable [phone] Reason for Visit * Reason Comments Successfully Completed Encounter Details Date Type Department Care Team (Late st Contact Info) Description 02/19/2024 Telephone [facility] Transplant Kidney [address] [facility] 34[address] Mailstop [phone] [place] [address] Kelly Yanez LCSW 45[address] [facility] ([facility] Mailstop [phone] [place] [address] Successfully Completed Social History Tobacco Use Types Packs/Day Years Used Date Smoking Tobacco: Never Smokeless Tobacco: Never Alcohol Use Standard Drinks/Week Comments No 0 (1 standard drink = 0.6 oz pur e alcohol) Comments Unknown Sex and Gender Information Value Date Recorded Sex Assigned at Not on file Legal Sex Female 10:20 AM GED TEACHER Gender Identity Female 03/22/2018 10:13 AM GED TEACHER Sexual Orientation Not on file documented as of this encounter Miscellaneous Notes * Living Donor Advocate - Kelly Yanez LCSW - 02/19/2024 9:20 AM GED TEACHER Questions presented to the living donor candidate: What is your relationship to the transplant patient? He is my . How did you find out that the patient needed a kidney? He came and announced that he needed to start dialysis and was in kidney failure. This was three orso years ago. Tell me briefly how the conversation (if there was one) about you becoming a potential donor took place. (Did you offer to donate, did they ask?) I offered. He doesn't want me to donate. It is actually a very tough topic at our house. He wants to wait for a donor but he has been waiting for a long time. Do you feel any pressure to do this? Not at all. I am only concerned about him waiting and what could happen in the meantime. Has anyone tried to coerce you or force you to do this? No, absolutely not. Comments: ANA MARIA provided personal contact information and explained to the living donor candidate the ANA MARIA's roles and responsibilities throughout the entire evaluation, donation, and post-donation processes. Recommendations: Patient should proceed with the donor evaluation. TEACHER * Telephone Encounter - Kelly Yanez LCSW - 02/19/2024 9:14 AM GED TEACHER See ANA MARIA Documentation. TEACHER documented in this encounter Plan of Treatment Not on file documented as of this encounter Visit Diagnoses Not on filedocumented in this encounter Care Teams Design Technology Teacher Relationship Specialty Start Date End Date George Menjivar MD [address] [place] [address] [address] PCP - General Family Medicine 06/29/20 George Menjivar MD [address] [place] [address] Family Medicine 03/22/18 Penny Barrera, RN [address] [address] Defect Cutter 02/11/24 Kelly Yanez LCSW 52[address] [facility] ([facility]) Mailstop [phone] [place] [address] Independent Living Donor Advocate 02/19/24 documented as of this encounter
--- OUTSIDE RECORDS SUMMARY | 2024-04-12 11:48 | XMS_ITS | Encounter Summary ---
Author Organization [facility] Address [address] [place] [address] Phone Care Team Providers Care Lane Attendant Name Role Phone George Menjivar MD Unavailable [phone] George Menjivar MD Primary Care Provider [phone] Encounter Details Date Type Department Care Team (Late st Contact Info) Description 09/21/2020 12:10 PM CDT Lab [facility] Endocrinology Metabolism and Lipid [address] [facility] 5th [place] [address] [place] [address] Fever of unknown origin Social History Tobacco Use Types Packs/Day Years Used Date Smoking Tobacco: Never Smokeless Tobacco: Never Alcohol Use Standard Drinks/Week Comments No 0 (1 standard drink = 0.6 oz pur e alcohol) Comments Unknown Sex and Gender Information Value Date Recorded Sex Assigned at Not on file Legal Sex Female 10:20 AM SUPERVISOR REAL ESTATE OFFICE Gender Identity Female 03/22/2018 10:13 AM SUPERVISOR REAL ESTATE OFFICE Sexual Orientation Not on file documented as of this encounter Plan of Treatment Not on file documented as of this encounter Procedures Procedure Name Priority Date/Time Associated Diagnosis Comments FERRITIN Routine 09/21/2020 11:59 AM CDT Fever of unknown origin documented in this encounter Results * Ferritin (09/21/2020 11:59 AM CDT) Ferritin 15.5 10.0 - 291.0 ng/mL [facility] Blood specimen (specimen) 09/21/2020 11:59 AM CDT 09/21/2020 12:57 PM CDT us Steven Antony MD LAB BLOOD ORDERABLES Final Re sult [facility] documented in this encounter Visit Diagnoses Diagnosis Fever of unknown origin Fever, unspecified documented in this encounter Care Teams Lane Attendant Relationship Specialty Start Date End Date George Menjivar MD [address] [place] [address] PCP - General Family Medicine 06/29/20 George Menjivar MD [address] [place] [address] Family Medicine 03/22/18 documented as of this encounter
--- OUTSIDE RECORDS SUMMARY | 2024-04-12 11:48 | XMS_ITS | Encounter Summary ---
Author Organization [facility] Healthcare Address [address] [place] [address] Care Team Providers Care Hostess Party Sales Representative Name Role Phone George Menjivar MD Unavailable [phone] George Menjivar MD Primary Care Provider + [phone] Penny Barrera RN Unavailable [phone] Kelly YanezW Unavailable [phone] Reason for Visit * Reason Onset Date Comments Lab Results 03/27/2024 Encounter Details Date Type Department Care Team (Late st Contact Info) Description 03/27/2024 Telephone [facility] Transplant Kidney [address] [facility] [address] [id number] [place], [place] [id number] Penny Barrera, RN [address] [facility] [address] [place] [address] Lab Results Social History Tobacco Use Types Packs/Day Years Used Date Smoking Tobacco: Never Smokeless Tobacco: Never Alcohol Use Standard Drinks/Week Comments No 0 (1 standard drink = 0.6 oz pur e alcohol) Comments Unknown Sex and Gender Information Value Date Recorded Sex Assigned at Not on file Legal Sex Female 10:20 AM ENTERPRISE SOFTWARE DEVELOPER Gender Identity Female 03/22/2018 10:13 AM ENTERPRISE SOFTWARE DEVELOPER Sexual Orientation Not on file documented as of this encounter Miscellaneous Notes * Telephone Encounter - Penny Barrera RN - 03/27/2024 9:36 AM ENTERPRISE SOFTWARE DEVELOPER Her response: Yes, that is what I have planned for. We knew we were not compatible. I spent dozens of hours researching this over the past year or so and again recently. I'm excited to proceed. Please send the orders and I will get it completed. Reviewed that next step of evaluation is a 24hr urine collection. Reviewed how to complete. Sent her instructions and Rx. Asked her to let me know where she gets completed. RPRISE SOFTWARE DEVELOPER * Telephone Encounter - Penny Barrera RN - 03/27/2024 9:21 AM ENTERPRISE SOFTWARE DEVELOPER Reviewed lab results with Ashley. Blood counts, infectious disease work-up, urine, and kidney numbers look good. Blood type is A+ and not compatible with recipient. Reviewed KPD. Sent her KPD education brochure and [employer] KPD patient resource website. Told her to look through and let me know if interested in proceeding. RPRISE SOFTWARE DEVELOPER documented in this encounter Plan of Treatment Not on file documented as of this encounter Visit Diagnoses Not on filedocumented in this encounter Care Teams Hostess Party Sales Representative Relationship Specialty Start Date End Date George Menjivar MD [address] [place] [address] PCP - General Family Medicine 06/29/20 George Menjivar MD [address] [place] [address] Family Medicine 03/22/18 Penny Barrera, RN [address] [facility] [address] [place] [address] Heel Attacher Wood 02/11/24 Kelly Yanez LCSW [address] [facility] Mailstop [phone] [place] [address] Independent Living Donor Advocate 02/19/24 documented as of this encounter
--- OUTSIDE RECORDS SUMMARY | 2024-04-12 11:48 | XMS_ITS | Encounter Summary ---
Author Organization [facility] Healthcare Address [address] [place] [address] Care Team Providers Care Pharmacy Aide Name Role Phone George Menjivar MD Unavailable [phone] George Menjivar MD Primary Care Provider + [phone] Penny Barrera RN Unavailable [phone] Reason for Visit * Reason Onset Date Comments Forms/questionnaires 02/18/2024 Encounter Details Date Type Department Care Team (Late st Contact Info) Description 02/18/2024 Telephone [facility] Transplant Kidney [address] [facility] [address] [id number] [place], [place] [id number] Penny Barrera, RN [address] [facility] [address] [place] [address] Forms/questionnaires Social History Tobacco Use Types Packs/Day Years Used Date Smoking Tobacco: Never Smokeless Tobacco: Never Alcohol Use Standard Drinks/Week Comments No 0 (1 standard drink = 0.6 oz pur e alcohol) Comments Unknown Sex and Gender Information Value Date Recorded Sex Assigned at Not on file Legal Sex Female 10:20 AM REPROGRAPHICS TECHNICIAN Gender Identity Female 03/22/2018 10:13 AM REPROGRAPHICS TECHNICIAN Sexual Orientation Not on file documented as of this encounter Miscellaneous Notes * Telephone Encounter - Penny Barrera RN - 02/18/2024 2:44 PM REPROGRAPHICS TECHNICIAN Reviewed questionnaire with donor physician: The pernicious anemia issue shouldn't be a problem. However, the prior clot and h/o a clotting disorder could be a problem. We would need more outside records for this. Called to review with Ashley. She reports having a blood clot after her that was a result from untreated pre-eclampsia. She coughed up a blood clot, came to the ER, when they did labs, itshowed a clotting disorder that they told her to take ASA and Folic Acid for. No issues since and no problems when she had to hold her ASA for other surgeries. Told her I would request records and review with donor physician. Emailed her so she had my contact information. Told her to [facility] from [facility]. Verbalized understanding. Marilyn- can we please request all records from [facility] in [place], [place] from January 2019-2020. OGRAPHICS TECHNICIAN documented in this encounter Plan of Treatment Not on file documented as of this encounter Visit Diagnoses Not on filedocumented in this encounter Care Teams Pharmacy Aide Relationship Specialty Start Date End Date George Menjivar MD [address] [place] [address] PCP - General Family Medicine 06/29/20 George Menjivar MD [address] [place] [address] Family Medicine 03/22/18 Penny Barrera, RN [address] [facility] [address] [place] [address] Supplier Quality Manager 02/11/24 documented as of this encounter
--- OUTSIDE RECORDS SUMMARY | 2024-04-12 11:49 | XMS_ITS | Encounter Summary ---
Author Organization [facility] Address [address] [place] [address] Phone Care Team Providers Care Topographical Engineer Name Role Phone George Menjivar MD Primary Care Provider [phone] Encounter Details Date Type Department Care Team (Late st Contact Info) Description 03/01/2018 Orders Only [facility] Gastroenterology [address] [facility] 8th [place] [address] [place] [address] [facility] [place] Social History Tobacco Use Types Packs/Day Years Used Date Smoking Tobacco: Never Assessed Comments Unknown Sex and Gender Information Value Date Recorded Sex Assigned at Not on file Legal Sex Female 10:20 AM SANDER OPERATOR Gender Identity Female 03/22/2018 10:13 AM SANDER OPERATOR Sexual Orientation Not on file documented as of this encounter Plan of Treatment Not on file documented as of this encounter Visit Diagnoses Not on filedocumented in this encounter Historical Medications * This list may reflect changes made after this encounter. epinastine 0.05 % ophthalmic solution INSTILL 1 DROP INTO BOTH EYES TWICE A DAY 6 12/29/2017 ergocalciferol (VITAMIN D) 50,000 unit capsule Take 1 capsule (50,000 Units total) by mouth once a week 1 01/01/2018 LORazepam (ATIVAN) 1 mg tablet Take 1 mg by mouth daily. 1 01/02/2018 ALYACEN 1/35, 28, 1-35 mg-mcg per tablet Take 1 tablet by mouth daily. 3 12/29/2017 fluconazole (DIFLUCAN) 150 mg tablet 1 (ONE) TABLET TAKE 1 INITIALLY, MAY REPEAT IN 1 WEEK 0 01/11/2018 03/22/2018 tobramycin-dexame thasone (TOBRADEX) ophthalmic solution INSTILL 1 DROP INTO BOTH EYES FOUR TIMES A DAY SHAKE WELL 0 12/21/2017 03/22/2018 added in this encounter Care Teams Topographical Engineer Relationship Specialty [place] [address] [place] [address] [place] [address] PCP - General Family Medicine 09/21/17 03/21/18 documented as of this encounter
--- OUTSIDE RECORDS SUMMARY | 2024-04-12 11:49 | XMS_ITS | Encounter Summary ---
Author Organization [facility] Address [address] [place] [address] Phone Care Team Providers Care Orderly Name Role Phone George Menjivar MD Primary Care Provider [phone] Encounter Details Date Type Department Care Team (Late st Contact Info) Description 03/04/2018 1:30 PM TOOL ROOM SUPERVISOR Office Visit [facility] Gastroenterology [address] [facility] 8th [place] [address] [place] [id number] Robbie Foster MD [address] [place] [address] Generalized abdominal pain (Primary Dx); Constipation, unspecified constipation type Social History Tobacco Use Types Packs/Day Years Used Date Smoking Tobacco: Never Smokeless Tobacco: Never Comments Unknown Sex and Gender Information Value Date Recorded Sex Assigned at Not on file Legal Sex Female 10:20 AM TOOL ROOM SUPERVISOR Gender Identity Female 03/22/2018 10:13 AM TOOL ROOM SUPERVISOR Sexual Orientation Not on file documented as of this encounter Last Filed Vital Signs Vital Sign Reading Time Taken Comments Blood Pressure 111/71 03/04/2018 1:31 PM TOOL ROOM SUPERVISOR Pulse 64 03/04/2018 1:31 PM TOOL ROOM SUPERVISOR Temperature 36.4 ??C (97.6 ??F) 03/04/2018 1:31 PM CS T Respiratory Rate - - Oxygen Saturation - - Inhaled Oxygen Concentration - - Weight 79 kg (174 lb 3.2 oz) 03/04/2018 1:31 PM TOOL ROOM SUPERVISOR Height 165.1 cm (5' 5 ) 03/04/2018 1:31 PM TOOL ROOM SUPERVISOR Body Mass Index 28.99 03/04/2018 1:31 PM TOOL ROOM SUPERVISOR documented in this encounter Progress Notes * Kendell Orlando MD - 03/04/2018 1:30 PM CST GI Consult Subjective Patient is a 37 y.o. female with chief complaint of abdominal discomfort. Reason for consult: IBS Requesting Provider: Dr. George Menjivar HPI: This 37 year old woman with depression was referred for evaluation of abdominal discomfort. She has longstanding issues with her bowels. She has had stabbing abdominal cramps that occur with eating certain food. This is sometimes associated with nausea and vomiting. It is not affected by having a BM. She has alternating diarrhea and constipation. When she is constipated she sometimes does not go for four days. When she has diarrhea she can go up to 10 times per day. Pizza and pastries make the symptoms worse, as do stress and lack of sleep. She often has painless red blood with her bowel movements. Occasionally she will see clots. She has identified food that makes the symptoms worse and she has eliminated them. She is actually happy with how her symptoms are right now. As part of the workup of these symptoms she had an EGD that showed a hiatal hernia and a colonoscopy that showed colon polyps in 2013. She was supposed to get a repeat colonoscopy in 3 years. She hashad 2 hemorrhoidectomies, neither of which improved her bleeding. PMH Depression PSH CCK Hemorrhoidectomy x2 Current Outpatient Prescriptions: ??? ALYACEN , 1-35 mg-mcg per tablet, Take 1 tablet by mouth daily., Disp: , Rfl: 3 ??? cyanocobalamin (Vitamin B-12) 1,000 mcg/mL injection, , Disp: , Rfl: ??? diclofenac DR (VOLTAREN) 75 mg EC tablet, Take 75 mg by mouth 2 (two) times a day., Disp: , Rfl: 2 ??? epinastine 0.05 % ophthalmic solution, INSTILL 1 DROP INTO BOTH EYES TWICE A DAY, Disp: , Rfl: 6 ??? ergocalciferol (VITAMIN D) 50,000 unit capsule, Take 50,000 Units by mouth once a week., Disp: , Rfl: 1 ??? fluconazole (DIFLUCAN) 150 mg tablet, 1 (ONE) TABLET TAKE 1 INITIALLY, MAY REPEAT IN 1 WEEK, Disp: , Rfl: 0 ??? LORazepam (ATIVAN) 1 mg tablet, Take 1 mg by mouth daily., Disp: , Rfl: 1 ??? tobramycin-dexamethasone (TOBRADEX) ophthalmic solution, INSTILL 1 DROP INTO BOTH EYES FOUR TIMES A DAY SHAKE WELL, Disp: , Rfl: 0 ??? TROKENDI XR 200 mg capsule,extended release 24hr, TAKE 1 (ONE) CAPSULE DAILY TO PROMOTE WEIGHT LOSS, Disp: , Rfl: 0 ??? VIIBRYD 40 mg tablet, Take 40 mg by mouth daily., Disp: , Rfl: 3 No Known Allergies Social History Substance Use Topics ??? Smoking status: Never Smoker ??? Smokeless tobacco: Never Used ??? Alcohol use Not on file Family History Problem Relation Age of Onset ??? Diabetes Mother ??? Stroke Mother ??? Hypertension Father No FH of colon cancer. Social History Social History ??? Marital status: N/A Spouse name: N/A ??? Number of children: N/A ??? Years of education: N/A Occupational History ??? Not on file. Social History Main Topics ??? Smoking status: Never Smoker ??? Smokeless tobacco: Never Used ??? Alcohol use Not on file ??? Drug use: Unknown ??? Sexual activity: Not on file Other Topics Concern ??? Not on file Social History Narrative ??? No narrative on file Review of Systems: As outlined in HPI; all other systems negative. Vitals: Most Recent : Vitals BP 111/71 Pulse 64 Temp 36.4 ??C (97.6 ??F) Ht 165.1 cm (5' 5 ) Wt 79 kg (174 lb 3.2 oz) BMI 28.99 kg/m?? Objective Physical Exam: General appearance: appears stated age and cooperative Head: Normocephalic, without obvious abnormality, atraumatic Eyes: conjunctivae/corneas clear. PERRL Throat: lips, mucosa, and tongue normal; teeth and gums normal Lungs: clear to auscultation bilaterally Heart: regular rate and rhythm, S1, S2 normal, no murmur, click, rub or gallop Abdomen: soft, non-tender; bowel sounds normal; no masses, no organomegaly Extremities: extremities normal, warm and well-perfused Pulses: 2+ and symmetric Skin: Skin color, texture, turgor normal. No rashes or lesions Neurologic: Alert and oriented x4, non-focal Lab/Radiology/Diagnostic Review: Normal CBC and CMP 07/2017 Assessment /Plan #IBS -Her symptoms seem like IBS-mixed type. Her symptoms are actually pretty well controlled. We talkedto her about a low FODMAP diet and to consider it if her symptoms get worse. #Colon polyps -We do not have the records or pathology, but she was told to have this repeated in 2017. We recommended she get this done. She says she will call to schedule it when her work slows down. #Rectal bleeding -Mild, chronic. This sounds like bleeding hemorrhoids. She had a colonoscopy while having these symptoms that did not show another cause. We will consider referring her to colorectal surgery after her colonoscopy. Cosigned by Robbie Foster MD at 03/05/2018 9:31 AM TOOL ROOM SUPERVISOR ROOM SUPERVISOR ROOM SUPERVISOR documented in this encounter Plan of Treatment Not on file documented as of this encounter Visit Diagnoses Diagnosis Generalized abdominal pain- Primary Abdominal pain, generalized Constipation, unspecified constipation type documented in this encounter Care Teams Orderly Relationship Specialty Start Date End Date George Menjivar MD [address] [facility] [place] [address] PCP - General Family Medicine 09/21/17 03/21/18 documented as of this encounter
--- OUTSIDE RECORDS SUMMARY | 2024-04-12 11:49 | XMS_ITS | Encounter Summary ---
Author Organization [facility] Address [address] [place] [address] Phone Care Team Providers Care Pickle Maker Name Role Phone Unknown, Notinfile Primary Care Provider Unavail able George Menjivar MD Unavailable Reason for Referral * Diagnostic Imaging (Routine) - Closed Specialty Diagnoses / Procedures Referred By Contac t Referred To Contact Diagnoses Inflammatory arthritis Procedures XR Foot Right 2 Views Karin Johnson NP Phone: tel: fax: [facility] Referral ID Status Reason Start Date Expiration Date Visits Re quested Visits Authorized [id number] Closed 03/22/2018 10/01/2019 1 1 ICAL MENTAL HEALTH COUNSELOR * Diagnostic Imaging (Routine) - Closed Specialty Diagnoses / Procedures Referred By Contac t Referred To Contact Diagnoses Inflammatory arthritis Procedures XR Foot Left 2 Views Karin Johnson NP Phone: tel: fax: [facility] Referral ID Status Reason Start Date Expiration Date Visits Re quested Visits Authorized [id number] Closed 03/22/2018 10/01/2019 1 1 ICAL MENTAL HEALTH COUNSELOR * Diagnostic Imaging (Routine) - Closed Specialty Diagnoses / Procedures Referred By Contac t Referred To Contact Diagnoses Inflammatory arthritis Procedures XR Sacroiliac Joints Less than 3 Views Karin Johnson NP Phone: tel: fax: [facility] Referral ID Status Reason Start Date Expiration Date Visits Re quested Visits Authorized [id number] Closed 03/22/2018 10/01/2019 1 1 ICAL MENTAL HEALTH COUNSELOR * Diagnostic Imaging (Routine) - Closed Specialty Diagnoses / Procedures Referred By Contac t Referred To Contact Diagnoses Inflammatory arthritis Procedures XR Hand Right 2 Views Karin Johnson NP Phone: tel: fax: [facility] Referral ID Status Reason Start Date Expiration Date Visits Re quested Visits Authorized [id number] Closed 03/22/2018 10/01/2019 1 1 ICAL MENTAL HEALTH COUNSELOR * Diagnostic Imaging (Routine) - Closed Specialty Diagnoses / Procedures Referred By Contac t Referred To Contact Diagnoses Inflammatory arthritis Procedures XR Hand Left 2 Views Karin Johnson NP Phone: tel: fax: [facility] Referral ID Status Reason Start Date Expiration Date Visits Re quested Visits Authorized [id number] Closed 03/22/2018 10/01/2019 1 1 ICAL MENTAL HEALTH COUNSELOR Reason for Visit * Reason Comments Establish Care * Consultation (Routine) - Closed Specialty Diagnoses / Procedures Referred By Contac t Referred To Contact Rheumatology Diagnoses Multiple joint pain George Menjivar MD Phone: tel: fax: [facility] [address] [place] [address] Phone: tel: Referral ID Status Reason Start Date Expiration Date V isits Requested Visits Authorized [id number] Closed Specialty Services Required 10/12/2017 04/23/2019 1 1 Encounter Details Date Type Department Care Team (Late st Contact Info) Description 03/22/2018 9:30 AM CLINICAL MENTAL HEALTH COUNSELOR Office Visit [facility] [address] [place] [address] Advanced Medicine 5th [place] [address] [place] [address] Karin Johnson NP [address] [place] [address] Inflammatory arthritis (Primary Dx) Social History Tobacco Use Types Packs/Day Years Used Date Smoking Tobacco: Never Smokeless Tobacco: Never Alcohol Use Standard Drinks/Week Comments No 0 (1 standard drink = 0.6 oz pur e alcohol) Comments Unknown Sex and Gender Information Value Date Recorded Sex Assigned at Not on file Legal Sex Female 10:20 AM CLINICAL MENTAL HEALTH COUNSELOR Gender Identity Female 03/22/2018 10:13 AM CLINICAL MENTAL HEALTH COUNSELOR Sexual Orientation Not on file documented as of this encounter Last Filed Vital Signs Vital Sign Reading Time Taken Comments Blood Pressure 119/76 03/22/2018 9:51 AM CLINICAL MENTAL HEALTH COUNSELOR Pulse 99 03/22/2018 9:51 AM CLINICAL MENTAL HEALTH COUNSELOR Temperature 37.3 ??C (99.1 ??F) 03/22/2018 9:51 AM CS T Respiratory Rate - - Oxygen Saturation - - Inhaled Oxygen Concentration - - Weight 79.4 kg (175 lb) 03/22/2018 9:51 AM CLINICAL MENTAL HEALTH COUNSELOR Height 165.1 cm (5' 5 ) 03/22/2018 9:51 AM CLINICAL MENTAL HEALTH COUNSELOR Body Mass Index 29.12 03/22/2018 9:51 AM CLINICAL MENTAL HEALTH COUNSELOR documented in this encounter Progress Notes * Karin Johnson NP - 03/22/2018 9:30 AM CST Subjective/Objective Patient ID: Ashley Stokes is a 37 y.o. female. Chief Complaint Establish Care Patient presents to the office today at the urging of her primary care doctor. Patient's HPI is as follows. Patient states when she is approximately [age] years old she had difficulty coloring and her hands cramped with pencil gripping. Her parents were in the so continuity of care was sometimes difficult but patient states she was diagnosed with ???childhood arthritis ???. Patient doesnot think she was placed on any medications. Patient states she had a persistent but mild multi joint arthralgia up until a few years ago when patient states her multi joint arthralgias worsened. Patient presented to her primary care doctor who did complete a right foot x-ray which was virtually nor mal and an PRUDENCE that was negative, ESR 2, rheumatoid factor negative. Based on her stated history ofJRA, she was referred to this office for further evaluation. Patient denies any personal or family history of IBD, psoriasis, blood clot. Patient is up-to-date on her Pap smear. Patient states she did have 1 miscarriage but states that was a tubal . Patient's symptoms include a low-grade fever without illness (less than 101), fatigue, insomnia secondary to stress, random periodic night sweats, chronic thinning hair, numbness in her hands and feet bilaterally, dry eye that has recently diagnosed as an allergy, IBS symptoms managed by GI here, headaches that are mild and not consistent, mid to low back pain, occasional random muscle spasms, morning stiffness lasting approximately 45 min, red color changes to her hands with cold exposure, and mu lti joint arthralgias primarily affecting her bilateral hands, feet, shoulders. Patient has been diagnosed with bilateral plantar fasciitis and states her orthotics do help as well as NSAIDs. ROS Review of systems per HPI and otherwise all other systems are negative. Physical Exam Constitutional: She is oriented to person, place, and time. She appears well- developed and well-nourished. Neck: Normal range of motion. Cardiovascular: Normal rate, regular rhythm and normal heart sounds. Pulmonary/Chest: Effort normal and breath sounds normal. Musculoskeletal: Hand, wrists, and elbows without synovitis, erythema. Tenderness to MCPs and DIPs bilaterally. ROM WNL. Neurological: She is alert and oriented to person, place, and time. Skin: Skin is warm and dry. No rash noted. Psychiatric: She has a normal mood and affect. Assessment/Plan Diagnoses and all orders for this visit: Inflammatory arthritis (Primary) - Comprehensive metabolic panel; Future - CBC with auto differential; Future - Erythrocyte sedimentation rate; Future - CRP (acute phase); Future - Cyclic citrul peptide antibody, IgG; Future - XR Hand Left 2 Views; Future - XR Hand Right 2 Views; Future - XR Sacroiliac Joints Less than 3 Views; Future - XR Foot Left 2 Views; Future - XR Foot Right 2 Views; Future Patient does have some inflammatory symptoms. I have requested records from her JRA diagnosis to confirm. Will draw additional serologies and obtain baseline images now. Will call pt with results of test/s and discuss results, diagnosis, treatment plan, and when/if to follow up in this office. ICAL MENTAL HEALTH COUNSELOR documented in this encounter Plan of Treatment Not on file documented as of this encounter Results * Cyclic citrul peptide antibody, IgG (03/22/2018 12:04 PM CLINICAL MENTAL HEALTH COUNSELOR) CCP Ab <0.5 <=2.9 units/mL [facility] Comment: Interpretive data Negative: <3 units/mL Positive: > or equal to 3 units/mL Current interpretive data was last revised on 2016. Blood specimen (specimen) 03/22/2018 12:04 PM CLINICAL MENTAL HEALTH COUNSELOR 03/22/2018 1:34 PM CLINICAL MENTAL HEALTH COUNSELOR Narrative [facility] - 03/23/2018 1:44 PM CLINICAL MENTAL HEALTH COUNSELOR Karin Johnson [facility] LAB BLOOD ORDERABLES Fi nal Result Performing Organization Address City/[facility] [address]/ZIP Co de Phone Number [facility] [place] [address] * CRP (acute phase) (03/22/2018 12:04 PM CLINICAL MENTAL HEALTH COUNSELOR) [facility] CRP 0.6 <=10.0 mg/L [facility] Blood specimen (specimen) 03/22/2018 12:04 PM CLINICAL MENTAL HEALTH COUNSELOR 03/22/2018 1:34 PM CLINICAL MENTAL HEALTH COUNSELOR Narrative [facility] - 03/22/2018 3:44 PM CLINICAL MENTAL HEALTH COUNSELOR Karin Johnson NP LAB BLOOD ORDERABLES Fi nal Result [facility] [place] [address] * Erythrocyte sedimentation rate (03/22/2018 12:04 PM CLINICAL MENTAL HEALTH COUNSELOR) Pathologist [facility] Erythrocyte sedimentation rate 5 1 - 20 mm/hr [facility] Blood specimen (specimen) 03/22/2018 12:04 PM CLINICAL MENTAL HEALTH COUNSELOR 03/22/2018 1:34 PM CLINICAL MENTAL HEALTH COUNSELOR Narrative [facility] - 03/22/2018 2:41 PM CLINICAL MENTAL HEALTH COUNSELOR Karin Johnson NP LAB BLOOD ORDERABLES Fi nal Result [facility] [place] [address] * XR Foot Right 2 Views (03/22/2018 11:06 AM CLINICAL MENTAL HEALTH COUNSELOR) Anatomical Region Laterality Modality Lower Extremities, Foot Right Computed Radiography 03/22/2018 11:1 5 AM CLINICAL MENTAL HEALTH COUNSELOR Impressions 03/22/2018 11:15 AM CLINICAL MENTAL HEALTH COUNSELOR 1. Questionable erosion at the left ring finger proximal phalanx base. 2. Normal radiographs of the sacroiliac joints. 3. Nonspecific erosions at the right first metatarsal head. Electronically signed by: Shayne Kramer M.D. Narrative 03/22/2018 11:15 AM CLINICAL MENTAL HEALTH COUNSELOR EXAMINATION: 1. Left hand 2 views. 2. Right foot 2 views. 3. Right hand 2 views. 4. Sacroiliac joints minimum 3 views. 5. Left foot 2 views. HISTORY: ??Inflammatory arthritis FINDINGS: Sacroiliac joints: 3 views of the sacroiliac joints are submitted for interpretation without comparison. The sacroiliac joints are normal and symmetric. There is mild L5-S1 degenerative disc disease. Feet: 2 views of each foot are submitted for interpretation without comparison. The joint spaces of each foot are normal. There is no fracture. There are nonspecific erosions at the right first metatarsal head. Hands: 2 views of each hand are submitted for interpretation without comparison. The joint spaces of each hand are normal. There is no fracture. There is a questionable erosion at the base of the left ring finger proximal phalanx. Procedure Note Shayne Kramer MD - 03/22/2018 EXAMINATION: 1. Left hand 2 views. 2. Right foot 2 views. 3. Right hand 2 views. 4. Sacroiliac joints minimum 3 views. 5. Left foot 2 views. HISTORY: Inflammatory arthritis FINDINGS: Sacroiliac joints: 3 views of the sacroiliac joints are submitted for interpretation without comparison. The sacroiliac joints are normal and symmetric. There is mild L5-S1 degenerative disc disease. Feet: 2 views of each foot are submitted for interpretation without comparison. The joint spaces of each foot are normal. There is no fracture. There are nonspecific erosions at the right first metatarsal head. Hands: 2 views of each hand are submitted for interpretation without comparison. The joint spaces of each hand are normal. There is no fracture. There is a questionable erosion at the base of the left ring finger proximal phalanx. IMPRESSION: 1. Questionable erosion at the left ring finger proximal phalanx base. 2. Normal radiographs of the sacroiliac joints. 3. Nonspecific erosions at the right first metatarsal head. Electronically signed by: Shayne Kramer M.D. Karin Johnson NP IMG XR PROCEDURES Final Result * XR Foot Left 2 Views (03/22/2018 11:06 AM CLINICAL MENTAL HEALTH COUNSELOR) Anatomical Region Laterality Modality Lower Extremities, Foot Left Computed Radiography 03/22/2018 11:1 5 AM CLINICAL MENTAL HEALTH COUNSELOR Impressions 03/22/2018 11:15 AM CLINICAL MENTAL HEALTH COUNSELOR 1. Questionable erosion at the left ring finger proximal phalanx base. 2. Normal radiographs of the sacroiliac joints. 3. Nonspecific erosions at the right first metatarsal head. Electronically signed by: Shayne Kramer M.D. Narrative 03/22/2018 11:15 AM CLINICAL MENTAL HEALTH COUNSELOR EXAMINATION: 1. Left hand 2 views. 2. Right foot 2 views. 3. Right hand 2 views. 4. Sacroiliac joints minimum 3 views. 5. Left foot 2 views. HISTORY: ??Inflammatory arthritis FINDINGS: Sacroiliac joints: 3 views of the sacroiliac joints are submitted for interpretation without comparison. The sacroiliac joints are normal and symmetric. There is mild L5-S1 degenerative disc disease. Feet: 2 views of each foot are submitted for interpretation without comparison. The joint spaces of each foot are normal. There is no fracture. There are nonspecific erosions at the right first metatarsal head. Hands: 2 views of each hand are submitted for interpretation without comparison. The joint spaces of each hand are normal. There is no fracture. There is a questionable erosion at the base of the left ring finger proximal phalanx. Procedure Note Shayne Kramer MD - 03/22/2018 EXAMINATION: 1. Left hand 2 views. 2. Right foot 2 views. 3. Right hand 2 views. 4. Sacroiliac joints minimum 3 views. 5. Left foot 2 views. HISTORY: Inflammatory arthritis FINDINGS: Sacroiliac joints: 3 views of the sacroiliac joints are submitted for interpretation without comparison. The sacroiliac joints are normal and symmetric. There is mild L5-S1 degenerative disc disease. Feet: 2 views of each foot are submitted for interpretation without comparison. The joint spaces of each foot are normal. There is no fracture. There are nonspecific erosions at the right first metatarsal head. Hands: 2 views of each hand are submitted for interpretation without comparison. The joint spaces of each hand are normal. There is no fracture. There is a questionable erosion at the base of the left ring finger proximal phalanx. IMPRESSION: 1. Questionable erosion at the left ring finger proximal phalanx base. 2. Normal radiographs of the sacroiliac joints. 3. Nonspecific erosions at the right first metatarsal head. Electronically signed by: Shayne Kramer M.D. Karin Johnson NP IMG XR PROCEDURES Final Result * XR Sacroiliac Joints Less than 3 Views (03/22/2018 11:06 AM CLINICAL MENTAL HEALTH COUNSELOR) Anatomical Region Laterality Modality Pelvis, Body N/A Computed Radiogr aphy 03/22/2018 11:1 5 AM CLINICAL MENTAL HEALTH COUNSELOR Impressions 03/22/2018 11:15 AM CLINICAL MENTAL HEALTH COUNSELOR 1. Questionable erosion at the left ring finger proximal phalanx base. 2. Normal radiographs of the sacroiliac joints. 3. Nonspecific erosions at the right first metatarsal head. Electronically signed by: Shayne Kramer M.D. [facility] 03/22/2018 11:15 AM CLINICAL MENTAL HEALTH COUNSELOR EXAMINATION: 1. Left hand 2 views. 2. Right foot 2 views. 3. Right hand 2 views. 4. Sacroiliac joints minimum 3 views. 5. Left foot 2 views. HISTORY: ??Inflammatory arthritis FINDINGS: Sacroiliac joints: 3 views of the sacroiliac joints are submitted for interpretation without comparison. The sacroiliac joints are normal and symmetric. There is mild L5-S1 degenerative disc disease. Feet: 2 views of each foot are submitted for interpretation without comparison. The joint spaces of each foot are normal. There is no fracture. There are nonspecific erosions at the right first metatarsal head. Hands: 2 views of each hand are submitted for interpretation without comparison. The joint spaces of each hand are normal. There is no fracture. There is a questionable erosion at the base of the left ring finger proximal phalanx. Procedure Note Shayne Kramer MD - 03/22/2018 EXAMINATION: 1. Left hand 2 views. 2. Right foot 2 views. 3. Right hand 2 views. 4. Sacroiliac joints minimum 3 views. 5. Left foot 2 views. HISTORY: Inflammatory arthritis FINDINGS: Sacroiliac joints: 3 views of the sacroiliac joints are submitted for interpretation without comparison. The sacroiliac joints are normal and symmetric. There is mild L5-S1 degenerative disc disease. Feet: 2 views of each foot are submitted for interpretation without comparison. The joint spaces of each foot are normal. There is no fracture. There are nonspecific erosions at the right first metatarsal head. Hands: 2 views of each hand are submitted for interpretation without comparison. The joint spaces of each hand are normal. There is no fracture. There is a questionable erosion at the base of the left ring finger proximal phalanx. IMPRESSION: 1. Questionable erosion at the left ring finger proximal phalanx base. 2. Normal radiographs of the sacroiliac joints. 3. Nonspecific erosions at the right first metatarsal head. Electronically signed by: Shayne Kramer M.D. Karin Johnson NP IMG XR PROCEDURES Final Result * XR Hand Right 2 Views (03/22/2018 11:06 AM CLINICAL MENTAL HEALTH COUNSELOR) Anatomical Region Laterality Modality Upper Extremities, Hand Right Computed Radiography 03/22/2018 11:1 5 AM CLINICAL MENTAL HEALTH COUNSELOR Impressions 03/22/2018 11:15 AM CLINICAL MENTAL HEALTH COUNSELOR 1. Questionable erosion at the left ring finger proximal phalanx base. 2. Normal radiographs of the sacroiliac joints. 3. Nonspecific erosions at the right first metatarsal head. Electronically signed by: Shayne Kramer M.D. [facility] 03/22/2018 11:15 AM CLINICAL MENTAL HEALTH COUNSELOR EXAMINATION: 1. Left hand 2 views. 2. Right foot 2 views. 3. Right hand 2 views. 4. Sacroiliac joints minimum 3 views. 5. Left foot 2 views. HISTORY: ??Inflammatory arthritis FINDINGS: Sacroiliac joints: 3 views of the sacroiliac joints are submitted for interpretation without comparison. The sacroiliac joints are normal and symmetric. There is mild L5-S1 degenerative disc disease. Feet: 2 views of each foot are submitted for interpretation without comparison. The joint spaces of each foot are normal. There is no fracture. There are nonspecific erosions at the right first metatarsal head. Hands: 2 views of each hand are submitted for interpretation without comparison. The joint spaces of each hand are normal. There is no fracture. There is a questionable erosion at the base of the left ring finger proximal phalanx. Procedure Note Shayne Kramer MD - 03/22/2018 EXAMINATION: 1. Left hand 2 views. 2. Right foot 2 views. 3. Right hand 2 views. 4. Sacroiliac joints minimum 3 views. 5. Left foot 2 views. HISTORY: Inflammatory arthritis FINDINGS: Sacroiliac joints: 3 views of the sacroiliac joints are submitted for interpretation without comparison. The sacroiliac joints are normal and symmetric. There is mild L5-S1 degenerative disc disease. Feet: 2 views of each foot are submitted for interpretation without comparison. The joint spaces of each foot are normal. There is no fracture. There are nonspecific erosions at the right first metatarsal head. Hands: 2 views of each hand are submitted for interpretation without comparison. The joint spaces of each hand are normal. There is no fracture. There is a questionable erosion at the base of the left ring finger proximal phalanx. IMPRESSION: 1. Questionable erosion at the left ring finger proximal phalanx base. 2. Normal radiographs of the sacroiliac joints. 3. Nonspecific erosions at the right first metatarsal head. Electronically signed by: Shayne Kramer M.D. Karin GleasonTeja Johnson [facility] IMG XR PROCEDURES Final Result * XR Hand Left 2 Views (03/22/2018 11:06 AM CLINICAL MENTAL HEALTH COUNSELOR) Anatomical Region Laterality Modality Upper Extremities, Hand Left Computed Radiography 03/22/2018 11:1 5 AM CLINICAL MENTAL HEALTH COUNSELOR Impressions 03/22/2018 11:15 AM CLINICAL MENTAL HEALTH COUNSELOR 1. Questionable erosion at the left ring finger proximal phalanx base. 2. Normal radiographs of the sacroiliac joints. 3. Nonspecific erosions at the right first metatarsal head. Electronically signed by: Shayne Kramer M.D. Narrative 03/22/2018 11:15 AM CLINICAL MENTAL HEALTH COUNSELOR EXAMINATION: 1. Left hand 2 views. 2. Right foot 2 views. 3. Right hand 2 views. 4. Sacroiliac joints minimum 3 views. 5. Left foot 2 views. HISTORY: ??Inflammatory arthritis FINDINGS: Sacroiliac joints: 3 views of the sacroiliac joints are submitted for interpretation without comparison. The sacroiliac joints are normal and symmetric. There is mild L5-S1 degenerative disc disease. Feet: 2 views of each foot are submitted for interpretation without comparison. The joint spaces of each foot are normal. There is no fracture. There are nonspecific erosions at the right first metatarsal head. Hands: 2 views of each hand are submitted for interpretation without comparison. The joint spaces of each hand are normal. There is no fracture. There is a questionable erosion at the base of the left ring finger proximal phalanx. Procedure Note Shayne Kramer MD - 03/22/2018 EXAMINATION: 1. Left hand 2 views. 2. Right foot 2 views. 3. Right hand 2 views. 4. Sacroiliac joints minimum 3 views. 5. Left foot 2 views. HISTORY: Inflammatory arthritis FINDINGS: Sacroiliac joints: 3 views of the sacroiliac joints are submitted for interpretation without comparison. The sacroiliac joints are normal and symmetric. There is mild L5-S1 degenerative disc disease. Feet: 2 views of each foot are submitted for interpretation without comparison. The joint spaces of each foot are normal. There is no fracture. There are nonspecific erosions at the right first metatarsal head. Hands: 2 views of each hand are submitted for interpretation without comparison. The joint spaces of each hand are normal. There is no fracture. There is a questionable erosion at the base of the left ring finger proximal phalanx. IMPRESSION: 1. Questionable erosion at the left ring finger proximal phalanx base. 2. Normal radiographs of the sacroiliac joints. 3. Nonspecific erosions at the right first metatarsal head. Electronically signed by: Shayne Kramer M.D. Karin Johnson [facility] IMG XR PROCEDURES Final Result * CBC with auto differential (03/22/2018 10:38 AM CLINICAL MENTAL HEALTH COUNSELOR) White Blood Count 6.1 3.6 - 11.2 K/uL [facility] RBC 4.59 3.63 - 4.92 M/uL [facility] Hemoglobin 13.9 11.9 - 15.5 g/dL [facility] Hematocrit 42.2 36.1 - 44.3 % [facility] MCV 92.0 80.0 - 97.6 fL [facility] MCH 30.3 26.7 - 33.7 pg [facility] MCHC 32.9 32.7 - 35.5 g/dL [facility] RBC Dist Width 12.6 12.3 - 17.0 % [facility] Platelet Count 353 140 - 440 K/uL [facility] MPV 7.5 6.8 - 10.4 fL [facility] Neutrophils % 58.9 38.7 - 74.5 % [facility] Lymphocyte % 33.5 20.0 - 54.3 % [facility] Monocytes % 7.0 4.3 - 13.5 % [facility] Eosinophils % 0.2 0.0 - 6.0 % [facility] Basophil % 0.4 0.0 - 3.0 % [facility] Absolute Neutrophil 3.6 1.8 - 6.6 K/uL [facility] Absolute Lymphocyte 2.0 0.8 - 3.3 K/uL [facility] Absolute Monocyte 0.4 0.2 - 1.2 K/uL [facility] Absolute Eosinophil 0.0 0.0 - 0.5 K/uL [facility] Absolute Basophil 0.0 0.0 - 0.2 K/uL [facility] Nucleated RBC % 0.2 0.0 - 0.4 /100 WBC [facility] Blood specimen (specimen) 03/22/2018 10:38 AM CLINICAL MENTAL HEALTH COUNSELOR 03/22/2018 12:04 PM CLINICAL MENTAL HEALTH COUNSELOR Karin Johnson [facility] LAB BLOOD ORDERABLES Fi nal Result [facility] * Comprehensive metabolic panel (03/22/2018 10:38 AM CLINICAL MENTAL HEALTH COUNSELOR) Total Protein 7.0 6.1 - 8.4 g/dL [facility] Albumin 4.2 3.5 - 5.2 g/dL [facility] Calcium 9.1 8.6 - 10.3 mg/dL [facility] BUN 8 7 - 23 mg/dL [facility] Total Bilirubin 0.49 0.20 - 1.40 mg/dL [facility] Alk Phos, Total 58 35 - 129 IU/L [facility] AST (SGOT) 19 11 - 47 IU/L [facility] ALT (SGPT) 19 6 - 53 IU/L [facility] Creatinine 0.88 0.60 - 1.10 mg/dL [facility] Sodium 138 135 - 145 mmol/L [facility] Potassium 4.3 3.3 - 5.1 mmol/L [facility] Chloride 102 95 - 107 mmol/L [facility] CO2 Content 22 21 - 29 mmol/L [facility] Glucose 79 64 - 99 mg/dL [facility] Comment: NONFASTING GLUCOSE RANGE = 64-199 mg/dL FASTING GLUCOSE 64 - 99 = NORMAL FASTING GLUCOSE 100 - 125 = IMPAIRED FASTING GLUCOSE FASTING GLUCOSE >=126 = PROVISIONAL DIAGNOSIS OF DIABETES eGFR NON-AFR. [place] 83.9 >60.0 mL/min/1.7 3 m2 [facility] eGFR >90.0 >60.0 mL/min/1.7 3 m2 [facility] Blood specimen (specimen) 03/22/2018 10:38 AM CLINICAL MENTAL HEALTH COUNSELOR 03/22/2018 12:04 PM CLINICAL MENTAL HEALTH COUNSELOR Karin Johnson [facility] BLOOD ORDERABLES Fi nal Result [facility] documented in this encounter Visit Diagnoses Diagnosis Inflammatory arthritis- Primary Unspecified inflammatory polyarthropathy Inflammatory arthritis Unspecified inflammatory polyarthropathy Inflammatory arthritis Unspecified inflammatory polyarthropathy documented in this encounter Discontinued Medications Medication Sig Discontinue Reason Start Date End Da te fluconazole (DIFLUCAN) 150 mg tablet 1 (ONE) TABLET TAKE 1 INITIALLY, MAY REPEAT IN 1 WEEK 01/11/2018 03/22/2018 tobramycin-dexamethasone (TOBRADEX) ophthalmic solution INSTILL 1 DROP INTO BOTH EYES FOUR TIMES A DAY SHAKE WELL 12/21/2017 03/22/[address] (VOLTAREN) 75 mg EC tablet Take 75 mg by mouth 2 (two) times a day. 02/05/2018 03/22/2018 documented as of this encounter Care Teams Pickle Maker Relationship Specialty Start Date End Date Unknown, Notinfile PCP - General 03/22/18 06/28/20 George Menjivar MD [address] [place] [address] Family Medicine 03/22/18 documented as of this encounter
--- OUTSIDE RECORDS SUMMARY | 2024-04-12 11:49 | XMS_ITS | Encounter Summary ---
Author Organization [facility] Healthcare Address [address] [place] [address] Care Team Providers Care Pulp And Paper Tester Name Role Phone Unknown, Notinfile Primary Care Provider George Moraes MD Unavailable [phone] Reason for Referral * Diagnostic Imaging (Routine) - Closed Specialty Diagnoses / Procedures Referred By Contac t Referred To Contact Diagnoses Inflammatory arthritis Procedures US Hand Complete Karin Johnson NP Phone: tel: fax: [address] [address] Referral ID Status Reason Start Date Expiration Date Visits Re quested Visits Authorized [id number] Closed 04/15/2018 10/25/2019 1 1 GER TRANSPORTATION Reason for Visit * Diagnostic Imaging (Routine) - Closed Specialty Diagnoses / Procedures Referred By Contac t Referred To Contact Diagnoses Inflammatory arthritis Procedures US Hand Complete Karin Johnson NP Phone: tel: fax: [address] [address] Referral ID Status Reason Start Date Expiration Date Visits Re quested Visits Authorized [id number] Closed 04/15/2018 10/25/2019 1 1 Encounter Details Date Type Department Care Team (Latest Contact Info) Description 05/14/2018 9:23 AM MANAGER TRANSPORTATION - 05/14/2018 11:59 PM MANAGER TRANSPORTATION Hospital Encounter [facility] [address] [place] [id number] Karin Johnson, CAR CLEANER [address] [place] [address] Inflammatory arthritis Discharge Disposition: Discharge to home or self care Social History Tobacco Use Types Packs/Day Years Used Date Smoking Tobacco: Never Smokeless Tobacco: Never Alcohol Use Standard Drinks/Week Comments No 0 (1 standard drink = 0.6 oz pur e alcohol) Comments Unknown Sex and Gender Information Value Date Recorded Sex Assigned at Not on file Legal Sex Female 10:20 AM MANAGER TRANSPORTATION Gender Identity Female 03/22/2018 10:13 AM MANAGER TRANSPORTATION Sexual Orientation Not on file documented as [...] Procedure Name Priority Date/Time Associated Diagnosis Comments US HAND COMPLETE Schedule Routine, Read Routine (OP Routine) 05/14/2018 11:54 AM MANAGER TRANSPORTATION Inflammatory arthritis documented in this encounter Results * US Hand Complete (05/14/2018 11:54 AM MANAGER TRANSPORTATION) Anatomical Region Laterality Modality Hand N/A Ultrasound 05/14/2018 1:01 PM MANAGER TRANSPORTATION Impressions 05/14/2018 1:01 PM MANAGER TRANSPORTATION No sonographic evidence of synovitis of the right or left hand and wrist. Electronically signed by: Cristina De Paz M.D. Narrative 05/14/2018 1:01 PM MANAGER TRANSPORTATION EXAMINATION: Ultrasound hand bilateral complete HISTORY: 38-year-old female with polyarthralgia; recent normal CRP, sedimentation rate and CCP antibody. ??Patient gives a history of JRA.. FINDINGS: Right hand and wrist: There is mild synovial hypertrophy over the distal ulna but no increased color Doppler flow. ??There is a small effusion on the ulnar side of the proximal compartment and synovial hypertrophy with no increased color Doppler flow. ??Extensor compartments 4 and 6, the radioulnar joint and the mid compartment and 2nd and 3rd MCP and PIP joints are normal. ??No bony erosions at any level. Left hand and wrist: There is mild synovial hypertrophy over the distal ulna but no increased color Doppler flow. ??The proximal and mid compartment, extensor compartments 4 and 6, the radioulnar joint and the 2nd and 3rd MCP and PIP joints are normal. ??No bony erosions at any level. Procedure Note Cristina De Paz MD - 05/14/2018 EXAMINATION: Ultrasound hand bilateral complete HISTORY: 38-year-old female with polyarthralgia; recent normal CRP, sedimentation rate and CCP antibody. Patient gives a history of JRA.. FINDINGS: Right hand and wrist: There is mild synovial hypertrophy over the distal ulna but no increased color Doppler flow. There is a small effusion on the ulnar side of the proximal compartment and synovial hypertrophy with no increased color Doppler flow. Extensor compartments 4 and 6, the radioulnar joint and the mid compartment and 2nd and 3rd MCP and PIP joints are normal. No bony erosions at any level. Left hand and wrist: There is mild synovial hypertrophy over the distal ulna but no increased color Doppler flow. The proximal and mid compartment, extensor compartments 4 and 6, the radioulnar joint and the 2nd and 3rd MCP and PIP joints are normal. No bony erosions at any level. IMPRESSION: No sonographic evidence of synovitis of the right or left hand and wrist. Electronically signed by: Cristina A. Teefey, M.D. us Karin Johnson CAR CLEANER IMG US PROCEDURES Final Result documented in this encounter Visit Diagnoses Diagnosis Inflammatory arthritis Unspecified inflammatory polyarthropathy documented in this encounter Care Teams Pulp And Paper Tester Relationship Specialty Start Date End Date Unknown, Notinfile PCP - General 03/22/18 06/28/20 George Menjivar MD [address] [place] [address] Family Medicine 03/22/18 documented as of this encounter
--- OUTSIDE RECORDS SUMMARY | 2024-04-12 11:49 | XMS_ITS | Encounter Summary ---
Author Organization [facility] Address [address] [place] [address] Phone Care Team Providers Care Wire Turning Machine Operator Name Role Phone Unknown, Notinfile Primary Care Provider Unavail able George Menjivar MD Unavailable [phone] Encounter Details Date Type Department Care Team (Late st Contact Info) Description 03/27/2018 Telephone [facility] Gastroenterology [address] [facility] Medical Office Building [address] [place] [id number] Karin Johnson, DIRECTOR OF CONSUMER AFFAIRS [address] [place], [place] [id number] Social History Tobacco Use Types Packs/Day Years Used Date Smoking Tobacco: Never Smokeless Tobacco: Never Alcohol Use Standard Drinks/Week Comments No 0 (1 standard drink = 0.6 oz pur e alcohol) Comments Unknown Sex and Gender Information Value Date Recorded Sex Assigned at Not on file Legal Sex Female 10:20 AM JEWEL BEARING MAKER Gender Identity Female 03/22/2018 10:13 AM JEWEL BEARING MAKER Sexual Orientation Not on file documented as of this encounter Miscellaneous Notes * Telephone Encounter - Terra Hastings - 03/27/2018 12:03 PM JEWEL BEARING MAKER Pt is aware L BEARING MAKER * Addendum Note - Terra Hastings - 03/27/2018 11:22 AM CSTAddended by: TERRA HASTINGS on: 03/27/2018 11:22 AM Modules accepted: Orders L BEARING MAKER * Telephone Encounter - Terra Hastings - 03/27/2018 11:21 AM JEW[place] BEARING MAKER Called left voicemail [facility] 04/15 arrival 315pm MRI hands L BEARING MAKER * Telephone Encounter - Karin Johnson NP - 03/27/2018 8:47 AM JEWEL BEARING MAKER Spoke with patient explaining the nonspecific erosion on her PIP and MTP. All serologies were negative. In reviewing her pediatric records it appears that the diagnosis was ???follow closely for development of a collagen vascular disease such as JRA or dermatomyositis ???serologies at that time were negative including PRUDENCE and rheumatoid factor. Would like for patient to trial Medrol and obtain a bilateral hand MRI for diagnostic purposes. Please set up MRI L BEARING MAKER documented in this encounter Plan of Treatment Not on file documented as of this encounter Visit Diagnoses Diagnosis Inflammatory arthritis- Primary Unspecified inflammatory polyarthropathy documented in this encounter Care Teams Wire Turning Machine Operator Relationship Specialty Start Date End Date Unknown, Notinfile PCP - General 03/22/18 06/28/20 George Menjivar MD [address] [place] [address] Family Medicine 03/22/18 documented as of this encounter
--- OUTSIDE RECORDS SUMMARY | 2024-04-12 11:49 | XMS_ITS | Encounter Summary ---
Author Organization [facility] Address [address] [place] [address] Phone Care Team Providers Care Ct Scan Special Procedures Technologist Name Role Phone Unknown, Notinfile Primary Care Provider Unavail able George Menjivar MD Unavailable [phone] Reason for Referral * Diagnostic Imaging (Routine) - Closed Specialty Diagnoses / Procedures Referred By Conttamiko t Referred To Contact Diagnoses Inflammatory arthritis Procedures US Hand Complete Karin Johnson NP Phone: tel: fax: [address] [address] Referral ID Status Reason Start Date Expiration Date Visits Re quested Visits Authorized [id number] Closed 04/15/2018 10/25/2019 1 1 SHAKER Encounter Details Date Type Department Care Team (Late st Contact Info) Description 04/12/2018 Telephone [facility] Rheumatology [address] [place] [address] Advanced Medicine 5th [place] [address] [place] [address] Terra Carlson Social History Tobacco Use Types Packs/Day Years Used Date Smoking Tobacco: Never Smokeless Tobacco: Never Alcohol Use Standard Drinks/Week Comments No 0 (1 standard drink = 0.6 oz pur e alcohol) Comments Unknown Sex and Gender Information Value Date Recorded Sex Assigned at Not on file Legal Sex Female 10:20 AM HIDE SHAKER Gender Identity Female 03/22/2018 10:13 AM HIDE SHAKER Sexual Orientation Not on file documented as of this encounter Miscellaneous Notes * Telephone Encounter - Aldo Terra Del Angele - 04/15/2018 9:49 AM CST Pt states she feels the same no change. Pt is scheduled for Hand US 05/14 @ 9 am [facility] 2nd floor. Pt is aware SHAKER * Telephone Encounter - Karin Johnson NP - 04/12/2018 7:00 PM HIDE SHAKER How did the patient feel after taking the Medrol? She will need diagnostic hand ultrasounds to be completed at 1 of our facilities. SHAKER * Telephone Encounter - Terra Carlson - 04/12/2018 3:46 PM CST Called pt to let her know that her MRI has been denied. I called and canceled MRI SHAKER documented in this encounter Plan of Treatment Not on file documented as of this encounter Results * US Hand Complete (05/14/2018 11:54 AM HIDE SHAKER) Anatomical Region Laterality Modality Hand N/A Ultrasound 05/14/2018 1:01 PM HIDE SHAKER Impressions 05/14/2018 1:01 PM HIDE SHAKER No sonographic evidence of synovitis of the right or left hand and wrist. Electronically signed by: Cristina De Paz M.D. Narrative 05/14/2018 1:01 PM HIDE SHAKER EXAMINATION: Ultrasound hand bilateral complete HISTORY: 38-year-old [...] Electronically signed by: Cristina De Paz M.D. us Karin Johnson COOLING ROOM ATTENDANT IMG US PROCEDURES Final Result documented in this encounter Visit Diagnoses Diagnosis Inflammatory arthritis- Primary Unspecified inflammatory polyarthropathy Inflammatory arthritis Unspecified inflammatory polyarthropathy documented in this encounter Care Teams Ct Scan Special Procedures Technologist Relationship Specialty Start Date End Date Unknown, Notinfile PCP - General 03/22/18 06/28/20 George Menjivar MD [address] [place] [address] Family Medicine 03/22/18 documented as of this encounter
--- OUTSIDE RECORDS SUMMARY | 2024-04-12 11:49 | XMS_ITS | Encounter Summary ---
Author Organization [facility] Facility Care Team Providers Care Private Investigator Surveillance Name Role Phone Unavailable Primary Care Provider Unavailabl e Encounter Details Date Type Department Care Team (Latest Contact Info) Description 12/19/2012 7:34 AM CDT - 12/20/2012 1:00 PM CDT Hospital [place] [facility] [place] [id number] [address] Displacement of cervical intervertebral disc without myelopathy; Degeneration of cervical intervertebral disc; Undiagnosed cardiac murmurs Social History Tobacco Use Types Packs/Day Years Used Date Smoking Tobacco: Never Assessed Comments Unknown Sex and Gender Information Value Date Recorded Sex Assigned at Not on file Legal Sex Female 10:20 AM POOL HAND Gender Identity Female 03/22/2018 10:13 AM POOL HAND Sexual Orientation Not on file documented as of this encounter Last Filed Vital Signs Vital Sign Reading Time Taken Comments Blood Pressure 128/71 12/20/2012 5:03 AM CDT Pulse 78 12/20/2012 5:03 AM CDT Temperature - - Respiratory Rate - - Oxygen Saturation 98% 12/20/2012 5:03 AM CDT Inhaled Oxygen Concentration - - Weight 76.6 kg (168 lb 15.7 oz) 12/19/2012 4:23 PM CDT Height 165.1 cm (5' 5 ) 12/19/2012 4:23 PM CDT Body Mass Index 28.12 12/19/2012 4:23 PM CDT documented in this encounter Miscellaneous Notes * Admission Note - ProviderMargarita MD - 12/19/2012 12:00 AM CDT Patient: JONATHAN MAYS Account: [id number] Room No: : 1980 Proc. Date: Attending: CHIP HUTCHINS MD Admit Date: 12/19/2012 Dictating: AP[place] TIRADO Disch. Date: Patient Type: D HISTORY OF PRESENT ILLNESS: Ms. Mays presented to our office on December 17, 2012. She says 2 weeks ago she woke up with a neck ache. Within 2-3 days her pain was quite severe and began radiating down her right arm. She describes right-sided neck pain which extends into the right periscapular region. She had terrible pain in the lateral aspect of her right upper arm. She says it feels like the meat is being torn off of her limb. She notes a sense of tightness involving the posterolateral portion of her forearm. She has numbness in her thumb and index finger. She denies left-sided symptoms. Cervical extension exacerbates her symptoms. Laterally, bending to the left and elevating her arm overhead provides some relief. ALLERGIES: Erythromycin. PAST MEDICAL HISTORY: 1. Pernicious anemia. 2. Anxiety. PAST SURGICAL HISTORY: None. SOCIAL HISTORY: Ms. Mays is engaged. She does not have children. She does not smoke or drink. She drinks alcohol socially. PHYSICAL EXAMINATION: GENERAL: This woman stands 5 feet 5 inches tall and weighs approximately 160 pounds. HEENT: Within normal limits. CARDIOVASCULAR: She has a regular rate and rhythm. No ectopy or murmur noted. CHEST: Lungs are clear to auscultation bilaterally. Chest expansion is symmetrical. Respirations are even and unlabored. ABDOMEN: Bowel sounds present in all 4 quadrants. Abdomen is soft, nontender and nondistended. EXTREMITIES: Pulses are palpable in both wrists and both feet. No cyanosis, clubbing or edema noted. NEUROLOGIC: Motor power is 5/5 in the upper extremities with the exception of the right biceps and brachial radialis, both of which have 4/5 strength. Motor tone is normal. No atrophy is noted. Deep tendon reflexes are 2/4 at the biceps, triceps and brachial radialis. Knee and ankle reflexes are 2/4. Cali's sign is not present. RADIOGRAPHIC DATA: Review of an MRI of the cervical spine demonstrates a reversal of the normal cervical lordosis across the C4-5 segment. There is a broad-based disk bulge at this level at C5-6 that looks to be a right-sided disk herniation. The other segments are unremarkable. On the axial images, there is a tiny central and noncompressive disk bulge osteophyte at C2-3. At C4-5 there is a broad-based disk bulge osteophyte complex which is worse on the right. There is mild central stenosis. There is mild right foraminal stenosis. At C5-6 there is bilateral uncovertebral joint disease, superimposed upon this, that looks to be a right-sided foraminal disk herniation which produces severe right C6 foraminal stenosis. ASSESSMENT AND PLAN: Ms. Mays has right C6 radiculopathy secondary to the foraminal narrowing, seen at C5-6 on her MRI scan. She appears to be in severe distress. She has weakness in her right C6 innervated muscles. I have discussed the nature of an anterior cervical diskectomy and fusion. I have discussed the risks, benefits and alternatives. I have discussed the expected hospitalization and recovery time. Ms. Mays understands all of these matters and has elected to proceed with surgery. CHIP HUTCHINS MD Dictated by: [facility]/ TD: 12/18/2012 10:39 Authenticated by Chip Hutchins Iii, MD On 12/23/2012 06:43:27 PM * Op Note - Provider, MD Margarita - 12/19/2012 12:00 AM CDT Patient: JONATHAN MAYS Account: [id number] Room No: 204-A : 1980 Proc. Date: 12/19/2012 Surgeon: CHIP HUTCHINS MD Admit Date: 12/19/2012 Disch. Date: Patient Type: D PREOPERATIVE DIAGNOSIS: C4-5 and C5-6 disk disease, right C5 degenerative foraminal stenosis, right C5-6 foraminal herniated nucleus pulposus, right cervical radiculopathy. POSTOPERATIVE DIAGNOSIS: C4-5 and C5-6 disk disease, right C5 degenerative foraminal stenosis, right C5-6 foraminal herniated nucleus pulposus, right cervical radiculopathy. NAME OF PROCEDURE: Anterior C4-5 and C5-6 diskectomies, foraminotomies, interbody fusion with allograft tricortical iliac crest graft and anterior instrumentation. SURGEON: Chip Hutchins MD STEAM METER READER: APPLE Tirado ANESTHESIA: General endotracheal DESCRIPTION OF OPERATIVE PROCEDURE: After the induction of adequate general endotracheal Mrs. Mays was positioned supine on the operating table in a lounge chair fashion. A small roll was placed behind the shoulder blades to gently extend the neck. The C-arm was brought on the field and used to shyam the skin crease that corresponded to the C5-6 disk space. The C-arm was withdrawn. The neck was prepped and draped in the usual sterile fashion. A mid cervical transverse skin incision was made that began slightly to the left of the midline and extended laterally beyond the anterior border of the sternocleidomastoid. Skin flaps were raised over the platysma. The platysma was divided in the direction of its fibers. Using a combination of sharp and blunt dissection a plane was developed medial to the sternocleidomastoid and carotid sheath and lateral to the strap musculature. I identified the anterior border of the cervical spine. A needle was inserted into a disk. C-arm was brought into the field. We were at C5-6. The C-arm was withdrawn. The needle was removed. The longus colli was reflected laterally from C4 to C6. Anterior osteophytes at C5-6 were removed. The disk was incised, curetted and loose disk material was removed with the pituitary. The inferiorly projecting lip of the bone off the anterior inferior aspect of C5 was removed with a 2 mm Kerrison. With the plane of the disk established, [place] distraction posts were screwed into C5 and C6 and distraction was applied. This opened the posterior portion of the disk. It was curetted. Loose disk material was removed. I worked well laterally into the uncovertebral joints. Posteriorly, I worked through the posterior longitudinal ligament in a right paracentral location. I identified the dura. I then worked laterally removing ligament towards the foramen. Using a high speed sumaya bur I drilled out a portion of the uncovertebral joint in the region of the foramen itself. I continued to work laterally and removed bone and as I approached the entrance to the foramen I encountered a sizable disk herniation. This was extracted in multiple large pieces. Once completed, I could identify clearly the axilla or the right C6 root. I palpated the supermedial wall of the right C6 pedicle. I could pass a ball probe easily out the foramen. The end plates were decorticated using a barrel bur. Thin shells of bone were left posteriorly to prevent graft dislodgement. A piece of tricortical iliac crest allograft was cut to the appropriate height and depth and then inserted into the distracted disk space. Distraction was released. The graft seated nicely. I palpated behind it and it did not impinge upon the epidural space and was very firmly seated. Distraction posts were removed. The retractor was removed at C4-5. The same process was repeated at this level except that posteriorly I worked through the posterior longitudinal ligament and removed bone and disk material laterally until I was confident that the right C5 foramen was decompressed. There was no disk herniation. With the effusions completed, a Mambo anterior cervical plate was selected. It was positioned over the anterior cervical spine. Holes were drilled through the upper, middle and lower holes of the plate into C4, C5 and C6 respectively. The holes were probed and 3.5 x 13 mm screws were inserted. Each had excellent purchase. They were tightened down appropriately with a torque wrench as were the central set screws. The C-arm was brought back into the field. Grafts and instrumentation looked to be in good position. The C-arm was withdrawn. The wound was irrigated. Hemostasis was obtained with bipolar. The longus colli was reapproximated over the instrumentation using a single 2-0 Vicryl. The platysma was closed using a running 2-0 Vicryl and the dermis was closed with interrupted 3-0 Vicryl. The skin was closed with Steri-Strips. The patient tolerated the procedure well. There were no complications. ESTIMATED BLOOD LOSS: Minimal. CHIP HUTCHINS MD RB/dl TD: 12/19/2012 14:03 Authenticated by Chip Hutchins Iii, MD On 12/23/2012 06:43:30 PM documented in this encounter Plan of Treatment Not on file documented as of this encounter Procedures Procedure Name Priority Date/Time Associated Diagnosis Comments DISCHARGE LABORATORY CUMULATIVE REPORT 12/20/2012 BLOOD POINT OF CARE PANEL Routine 12/19/2012 8:58 AM CDT URINE CHORIONIC GONADOTROPIN (HCG) Routine 12/19/2012 8:23 AM CDT documented in this encounter Results * DISCHARGE LABORATORY CUMULATIVE REPORT (12/20/2012) Narrative 12/20/2012 Ordered by an unspecified provider. us Historical Provider MD LAB BLOOD ORDERABLES Madiha l Result * (ABNORMAL) Blood point of care panel (12/19/2012 8:58 AM CDT) Hgb 14.6 g/dl HISTORICAL RESULTS Comment: No reference ranges established. The Hemoglobin is a calculated value based on the measured Hematocrit. Hct 43.0(H) 34 - 38 % HISTORICAL RESULTS Potassium, bld 4.0 3.5 - 4.5 mmol/L HISTORICAL RESULTS Blood specimen (specimen) 12/19/2012 8:58 AM CDT Chip Hutchins III, MD LAB BLOOD ORDERABLES Final Result HISTORICAL RESULTS * Urine chorionic gonadotropin (HCG) (12/19/2012 8:23 AM CDT) HCG, ur Negative Negative HISTORICAL RESULTS Urine 12/19/2012 8:23 AM CDT Chip Hutchins III, MD LAB BLOOD ORDERABLES Final Result HISTORICAL RESULTS documented in this encounter Visit Diagnoses Diagnosis Displacement of cervical intervertebral disc without myelopathy Degeneration of cervical intervertebral disc Undiagnosed cardiac murmurs documented in this encounter
--- OUTSIDE RECORDS SUMMARY | 2024-04-12 11:49 | XMS_ITS | Encounter Summary ---
Author Organization [facility] Address [address] [place] [address] Phone Care Team Providers Care Metal Burrer Name Role Phone George Menjivar MD Primary Care Provider [phone] Encounter Details Date Type Department Care Team (Late st Contact Info) Description 09/21/2017 Telephone [facility] Scheduling [address] [place] [address] Crystal Ann Social History Tobacco Use Types Packs/Day Years Used Date Smoking Tobacco: Never Assessed Comments Unknown Sex and Gender Information Value Date Recorded Sex Assigned at Not on file Legal Sex Female 10:20 AM CONTACT ASSEMBLER Gender Identity Female 03/22/2018 10:13 AM CONTACT ASSEMBLER Sexual Orientation Not on file documented as of this encounter Miscellaneous Notes * Telephone Encounter - Diana Almeida - 10/22/2017 3:47 PM CDT RECS SCANNED AND SENT FOR REVIEW * Telephone Encounter - Diana Almeida - 10/12/2017 4:13 PM CDT Form scanned, still need records Pt informed and will follow up with referring office * Telephone Encounter - Crystal Ann - 09/21/2017 10:52 AM CDT SPOKE WITH JUVENAL DX:MULTIPLE JOINT PAIN, ARTHRALGIA REFERRING GEORGE [address] [phone] RECS WILL BE FAXED documented in this encounter Plan of Treatment Not on file documented as of this encounter Visit Diagnoses Not on filedocumented in this encounter Care Teams Metal Burrer Relationship Specialty Start Date End Date George Menjivar MD [address] [place] [address] PCP - General Family Medicine 09/21/17 03/21/18 documented as of this encounter
--- OUTSIDE RECORDS SUMMARY | 2024-04-12 11:49 | XMS_ITS | Encounter Summary ---
Author Organization [facility] Address [address] [place] [address] Phone Care Team Providers Care Heating Unit Installer Name Role Phone Unknown, Notinfile Primary Care Provider Unavail able George Menjivar MD Unavailable [phone] Encounter Details Date Type Department Care Team (Late st Contact Info) Description 05/14/2018 Documentation [facility] Rheumatology [address] [facility] [address] [place] [id number] Karin Johnson NP [address] [place], [place] [id number] Social History Tobacco Use Types Packs/Day Years Used Date Smoking Tobacco: Never Smokeless Tobacco: Never Alcohol Use Standard Drinks/Week Comments No 0 (1 standard drink = 0.6 oz pur e alcohol) Comments Unknown Sex and Gender Information Value Date Recorded Sex Assigned at Not on file Legal Sex Female 10:20 AM MORTAR MAN Gender Identity Female 03/22/2018 10:13 AM MORTAR MAN Sexual Orientation Not on file documented as of this encounter Progress Notes * Karin Johnson NP - 05/14/2018 2:28 PM CST Attempted to call patient. No answer. Left message on machine. Based on patient's failure to respond to steroid and the normal testing including an ultrasound, I do not see any evidence of active inflammatory arthritis and patient does not need routine care here. She can follow up p.r.n.. AR MAN documented in this encounter Plan of Treatment Not on file documented as of this encounter Visit Diagnoses Not on filedocumented in this encounter Care Teams Heating Unit Installer Relationship Specialty Start Date End Date Unknown, Notinfile PCP - General 03/22/18 06/28/20 George Menjivar MD [address] [place] [address] Family Medicine 03/22/18 documented as of this encounter
--- OUTSIDE RECORDS SUMMARY | 2024-04-12 11:49 | XMS_ITS | Encounter Summary ---
Author Organization [facility] [employer] [facility] Address [address] [place] [address] Phone Care Team Providers Care Pupil Personnel Services Director Name Role Phone Unknown, Notinfile Primary Care Provider Unavail able George Menjivar MD Unavailable [phone] Encounter Details Date Type Department Care Team (Late st Contact Info) Description 03/29/2018 Orders Only [facility] Rheumatology [facility] 5[address] [place] [address] [place] [address] Terra Carlson Social History Tobacco Use Types Packs/Day Years Used Date Smoking Tobacco: Never Smokeless Tobacco: Never Alcohol Use Standard Drinks/Week Comments No 0 (1 standard drink = 0.6 oz pur e alcohol) Comments Unknown Sex and Gender Information Value Date Recorded Sex Assigned at Not on file Legal Sex Female 10:20 AM MULTIMEDIA TEACHER Gender Identity Female 03/22/2018 10:13 AM MULTIMEDIA TEACHER Sexual Orientation Not on file documented as of this encounter Ordered Prescriptions Prescription Sig Dispense Quantity Refills Last Filled Start Date End Date methylPREDNISolone (MEDROL DOSEPACK) 4 mg Dosepack Take as directed on package 1 packet 03/29/2018 9 documented in this encounter Plan of Treatment Not on file documented as of this encounter Visit Diagnoses Not on filedocumented in this encounter Care Teams Pupil Personnel Services Director Relationship Specialty Start Date End Date Unknown, Notinflissy PCP - General 03/22/18 06/28/20 George Menjivar MD [address] [place] [address] Family Medicine 03/22/18 documented as of this encounter
--- OUTSIDE RECORDS SUMMARY | 2024-04-12 11:49 | XMS_ITS ---
Author Organization [facility] Address [address] [place] [address] Care Team Providers Care Global Human Resources Director Name Role Phone George Menjivar MD Unavailable [phone] George Menjivar MD Primary Care Provider + [phone] Penny Barrera RN Unavailable [phone] Kelly Yanez [facility] Unavailable [phone] Transplant Episode Kidney Potential Donor [facility] ([place], [place]) - [facility] Evaluation began on 02/19/2024 Marked as Active on 02/19/2024 Reason: Pending Step 2 Completion Kidney CoordinatorPenny Barrera RN Fax: N/A Email: N/A Care Team Name Role Phone Fax Email Penny Barrera RN Kidney Coordinator [phone] N/A N/A Events Pre-Donation Referred: 02/06/2024 Evaluation began: 02/19/2024
--- OUTSIDE RECORDS SUMMARY | 2024-04-12 11:49 | XMS_ITS | Encounter Summary ---
Author Organization [facility] Address [address] [place] [address] Phone Care Team Providers Care Aquarist Name Role Phone George Menjivar MD Unavailable [phone] George Menjivar MD Primary Care Provider [phone] Reason for Referral * Diagnostic Imaging (Routine) - Closed Specialty Diagnoses / Procedures Referred By Hema johns Referred To Contact Diagnoses Fever of unknown origin Procedures XR Chest Pa Lateral 2 Views Steven Antony MD [address] [place] [address] Phone: tel: fax: Referral ID Status Reason Start Date Expiration Date Visits Re quested Visits Authorized [id number] Closed 09/21/2020 10/21/2021 1 1 Reason for Visit * Consultation (Routine) - Closed Specialty Diagnoses / Procedures Referred By Hema johns Referred To Contact Rheumatology Diagnoses Fever of unknown origin George Menjivar MD [address] [facility] [place] [address] Phone: tel: fax: [facility] (All Locations) Referral ID Status Reason Start Date Expiration Date V isits Requested Visits Authorized [id number] Closed Specialty Services Required 06/29/2020 07/29/2021 12 12 Encounter Details Date Type Department Care Team (Late st Contact Info) Description 09/21/2020 10:00 AM CDT Office Visit [facility] Rheumatology [address] [facility] Advanced Medicine 5th [place] [address] [place] [address] Steven Antony MD [address] [facility] [address] [place], [place] [id number] DVT (deep venous thrombosis) (CMS/HCC) (Primary Dx); Fever of unknown origin; Pre-eclampsia, antepartum Social History Tobacco Use Types Packs/Day Years Used Date Smoking Tobacco: Never Smokeless Tobacco: Never Alcohol Use Standard Drinks/Week Comments No 0 (1 standard drink = 0.6 oz pur e alcohol) Comments Unknown Sex and Gender Information Value Date Recorded Sex Assigned at Not on file Legal Sex Female 10:20 AM FOUNTAIN PEN NIBS INSPECTOR Gender Identity Female 03/22/2018 10:13 AM FOUNTAIN PEN NIBS INSPECTOR Sexual Orientation Not on file documented as of this encounter Last Filed Vital Signs Vital Sign Reading Time Taken Comments Blood Pressure 115/75 09/21/2020 10:17 AM CDT Pulse 80 09/21/2020 10:17 AM CDT Temperature 36.5 ??C (97.7 ??F) 09/21/2020 10:17 AM C DT Respiratory Rate - - Oxygen Saturation - - Inhaled Oxygen Concentration - - Weight 74.2 kg (163 lb 9.6 oz) 09/21/2020 10:17 AM CDT Height 165.1 cm (5' 5 ) 09/21/2020 10:17 AM CDT Body Mass Index 27.22 09/21/2020 10:17 AM CDT documented in this encounter Progress Notes * Steven Antony MD - 09/21/2020 10:00 AM CDT Rheumatology PATIENT NAME: Ashley Stokes : 1980 EVA: 09/21/2020 Chief Complaint: I feel like I'm falling aparT HPI: Ashley Stokes is a 40 y.o. 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 Menjivar for consultation regarding FUO. Disease History: This is a pleasant 40yo who presents for evaluation of FUO. She notes her health has taken a decline in the past few years. She notes she has been three times, one ectopic, one normal , and one 18 months ago complicated by pre-eclampsia. She also has a history of multiple blood clots, told that her CT of her lungs lit up like a loni tree s/p AC now just on ASA. Workup showed an abnormality, she's not sure which, now on folic acid - doesn't recall MTHFR by name. She doesn't think she was ever tested for antiphospholipid antibody syndrome, hasn't heard of it before. She has dyspnea, but its more episodic, with each episode lasting a few hours and occurring da mary, with normal respiratory function between episodes. Her recent history is notable for a period of fevers that began in May of 2020. These fevers werecontinuous, every day, present any time she checked, always >100.0, occasionally 101.9 for example, but never to 104+. She would have improvement with tylenol. This was associated with sweats, chills, and malaise, no rashes, no worsening dyspnea, but did have chest pain. She saw her PCP during this period and had a normal ESR and CRP. She had a CT of her abdomen which did not demonstrate abdominal abscess or other infectious etiology. She reports a CT of her chest without recurrence of her blood clots; this is not in Epic, and no fevers with her original diagnosis. These fevers seemed to self-resolve over time, and she is now fever free but anxious. She has never had chronic fevers before, no family history of chronic fevers. She has chronic low back pain but otherwise no inflammatory joint pains. Past Medical, Family, & Social History: I have reviewed family, past medical history, and social history as documented in the patients electronic medical record. Medications and Allergies: I have reviewed medications and allergies as documented in the patients electronic medical record. Review of Systems Otherwise, patient denies fevers, chills, night sweats, weight loss, chest pain, dyspnea, cough, abd pain, diarrhea, vomiting, conjunctival injection, sicca symptoms, oral/nasal ulcers, lymphadenopathy, weakness, parasthesias, rash, alopecia, mood changes, or Raynauds. A full 12point review of systems was negative except as per the HPI. Physical Exam BP 115/75 Pulse 80 Temp 36.5 ??C (97.7 ??F) Ht 165.1 cm (5' 5 ) Wt 74.2 kg (163 lb 9.6 oz) BMI 27.22 kg/m?? GEN: NAD, WDWN HEENT: PEERL, MMM, No oral lesions. Anicteric, non-injected sclera. CV: RRR. No mrg. PULM: CTA bilateral. ABD: +BS. Soft. NT/ND. MSK: No palpable synovitis and FROM noted throughout bilateral hands (1-5th MCP, PIP, and DIP), wrists, elbows, shoulders, hips, knees, ankles, and feet. SKIN: No rash EXT: No LE edema. NEURO: AAOX3 PSYCH: Appropriate affect. Labs Lab Results Component Value Date SEDRATE 5 03/22/2018 CRP 0.6 03/22/2018 No results found for: ALDOLASE, DARÍO, SCL70, C3, C4, CH50, HLAB27, CKTOTAL, CKMM Imaging Reviewed reports Assessment: 1. Fever of unknown origin Plan: This is a pleasant 40yo F who presents for evaluation of FUO. She has a recent constellation of symptoms with pre-eclampsia and then DVT/PE that could conceivably be from APLAS. Her history could otherwise be conceivably associated with SLE or sarcoidosis, and we will check PRUDENCE, C3, C4, SARAH, and dsDNA to ensure she doesn't have SLE as an etiology, as well as ESR/CRP. Her recent FUO has a broad differential. Symptoms not consistent with most vasculitis, but will check ANCA. SLE / sarcoid workup, as above. She was scanned vs a clot as the cause of a FUO. She did self resolve, which is unusual for a rheumatologic cause of FUO, but will workup as above. --->PRUDENCE negative, patient does not have SLE --->APLAS workup negative, now x2 --->CXR negative vs sarcoidosis. --->normal ESR/CRP/ferritin Follow-up: No follow-ups on file. documented in this encounter Plan of Treatment Scheduled Orders Name Type Priority Associated Diagnoses Orde r Schedule Beta 2 glycoprotein I IgG, IgM, IgA Lab Routine Fever of unknown origin Expected: 09/21/2020, Expires: 09/21/2021 documented as of this encounter Procedures Procedure [...] Aliya Ann M.D. us Steven Antony MD IM XR PROCEDURES Final Resul t * PRUDENCE qualitative with reflex to PRUDENCE Quantitative (09/21/2020 11:59 AM CDT) PRUDENCE Negative [facility] Comment: Interpretive Data Normal range for PRUDENCE [...] ORDERABLES Final Re sult Performing Organization Address [email or web address] de Phone Number [facility] Department [place] [address] * C3 complement (09/21/2020 11:59 AM CDT) Complement C3 98.0 90.0 - 180.0 mg/dL [facility] Blood specimen (specimen) 09/21/2020 11:59 AM CDT 09/21/2020 1:20 PM CDT Steven Antony MD LAB BLOOD ORDERABLES Final Re sult Performing Organization Address [facility] [[email or web address]] de Phone Number [facility] [place] [place] [address] * C4 complement (09/21/2020 11:59 AM CDT) Complement C4 28.1 10.0 - 40.0 mg/dL [facility] Blood specimen (specimen) 09/21/2020 11:59 AM CDT 09/21/2020 1:20 PM CDT Steven Antony MD LAB BLOOD ORDERABLES Final Re sult Performing Organization Address [facility] Co de Phone Number [facility] [place] [address] * Erythrocyte sedimentation rate (09/21/2020 11:59 AM CDT) [facility] Erythrocyte sedimentation rate 8 1 - 20 mm/hr [facility] Blood specimen (specimen) 09/21/2020 11:59 AM CDT 09/21/2020 1:20 PM CDT Steven Antony MD LAB BLOOD ORDERABLES Final Re sult Performing Organization Address [facility] [place] [address] * CRP (acute phase) (09/21/2020 11:59 AM CDT) [facility] CRP 0.6 <=10.0 mg/L [facility] Blood specimen (specimen) 09/21/2020 11:59 AM CDT 09/21/2020 1:20 PM CDT Steven Antony MD LAB BLOOD ORDERABLES Final Re sult Performing Organization Address [facility] Co de Phone Number [facility] [place] [address] * SARAH Antibody Evaluation with Reflex (09/21/2020 11:59 AM CDT) [facility] SARAH ab Negative Negative [facility] Comment: Interpretive Data Positive Screens will be reflexed to specific testing for the following antigens: Veronica-1 Ab, SALES REPRESENTATIVE [employer] Ab, Scl-70 Ab, Martinez Ab, SS-A/Ro Ab, and SS-B/La Ab. Further testing for dsDNA, Centromere, or Ribosomal P antibodies is suggested in patient with a positive screen and negative specific antibodies. Current interpretive data was last revised on 16. Blood specimen (specimen) 09/21/2020 11:59 AM CDT 09/21/2020 1:20 PM CDT us Steven Antony MD LAB BLOOD ORDERABLES Final Re sult [facility] [place] [address] * Lupus Anticoagulant Panel plus Reflexes (09/21/2020 11:59 AM CDT) PT 11.0 9.5 - 13.6 sec [facility] INR 1.0 0.9 - 1.2 [facility] Comment: Interpretive data Oral anticoagulant therapeutic ranges: Venous thromboembolism prophylaxis or treatment: 2.0-3.0 CARDIOLOGY Standard range: 2.0-3.0 High-intensity range: 2.5-3.5 Refer to indication-specific guidelines for appropriate target ranges for prosthetic heart valve replacement. Current interpretive data was last revised on 2019. aPTT 31 27 - 37 sec [facility] Comment: Interpretive Data Therapeutic heparin range: 60.0 - 94.0 seconds. Based on correlation with therapeutic heparin activity range of 0.3-0.7 Units/mL. Current interpretive data was last revised on 2020. DRVVT screen ratio 1.03 0.00 - 1.20 Ratio [facility] SCT Screen Ratio 0.91 0.00 - 1.16 Ratio [facility] Lupus anticoagulant, interp Negative [facility] Comment: Interpretive data ?? Lupus anticoagulants (LA) [...] 1) Jones V, Kathi A, Evette JH, Orflorentinol TL, Anamika M, De Pranav PG. Update of the guidelines for lupus anticoagulant detection. J Thromb Haemost. 2009; 7:9466-8740. 2. Kelli Stevens et al. International consensus statement on an update of the classification criteria for definite antiphospholipid syndrome (APS). J Thromb Haemost. 2006; 4:295-306. Current interpretive data was last revised on 2018 Blood specimen (specimen) 09/21/2020 11:59 AM CDT 09/21/2020 1:20 PM CDT us Steven Antony MD LAB BLOOD ORDERABLES Final Re sult [facility] Department [place] [address] * Cardiolipin antibody, IgG and IgM (09/21/2020 11:59 AM CDT) Cardiolipin, IgG <1.6 <=19.9 GPL U/mL [facility] Comment: Interpretive Data Negative: <20 GPL U/mL [...] ALEXIS. These results were obtained with the Lanxlex 2200 System. Cardiolipin IgG values obtained with different manufacturers' assay methods may not be used interchangeably. Current interpretive data was last revised on 2016. Cardiolipin, IgM 14.7 <=19.9 MPL U/mL [facility] Comment: Interpretive Data Negative: <20 [...] antibodies. ??These results were obtained with the Lanxlex 2200 System. Cardiolipin IgM values obtained with different manufacturers' assay methods may not be used interchangeably. Current interpretive data was last revised on 2016. Blood specimen (specimen) 09/21/2020 11:59 AM CDT 09/21/2020 1:20 PM CDT us Steven Antony MD LAB BLOOD ORDERABLES Final Re sult Performing Organization Address [facility] [place] [address] * (ABNORMAL) Homocysteine (09/21/2020 11:59 AM CDT) Homocysteine 18.2(H) 0.0 - 15.0 mcmol/L [facility] Blood specimen (specimen) 09/21/2020 11:59 AM CDT 09/21/2020 1:20 PM CDT Steven Antony MD LAB BLOOD ORDERABLES Final Re sult Performing Organization Address [facility] Co de Phone Number [facility] [place] [address] * Anti-Neutrophilic Cytoplasmic Antibody (ANCA) with Reflex to MPO and PR3 Abs (09/21/2020 11:59 AM CDT) ANCA Negative [facility] Blood specimen (specimen) 09/21/2020 11:59 AM CDT 09/21/2020 1:20 PM CDT Steven Antony MD LAB BLOOD ORDERABLES Final Re sult Performing Organization Address [facility] Co de Phone Number [facility] [place] [address] * Ferritin (09/21/2020 11:59 AM CDT) Ferritin 15.5 10.0 - 291.0 ng/mL [facility] Blood specimen (specimen) 09/21/2020 11:59 AM CDT 09/21/2020 12:57 PM CDT us Steven Antony MD LAB BLOOD ORDERABLES Final Re sult [facility] documented in this encounter Visit Diagnoses Diagnosis DVT (deep venous thrombosis) (CMS/HCC) (HCC)- Primary Acute venous embolism and thrombosis of unspecified deep vessels of lower extremity Fever of unknown origin Fever, unspecified Pre-eclampsia, antepartum Mild or unspecified pre-eclampsia, antepartum documented in this encounter Orders Outpatient Referral Count Last Ordered Date Fir st Ordered Date AMB REFERRAL TO RHEUMATOLOGY 1 09/21/2020 documented in this encounter Care Teams Aquarist Relationship Specialty Start Date End Date George Menjivar MD [address] [place] [address] PCP - General Family Medicine 06/29/20 George Menjivar MD [address] [place] [address] Family Medicine 03/22/18 documented as of this encounter
--- OUTSIDE RECORDS SUMMARY | 2024-04-12 11:49 | XMS_ITS | Encounter Summary ---
Author Organization [facility] Address [address] [place] [address] Care Team Providers Care Associate Chief Nurse Name Role Phone Unknown, Notinfile Primary Care Provider Unavail George Armijo MD Unavailable [phone] Encounter Details Date Type Department Care Team (Late st Contact Info) Description 03/22/2018 1:35 PM INSTITUTIONAL COMMODITY ANALYST Lab [address] [address] Inflammatory arthritis Social History Tobacco Use Types Packs/Day Years Used Date Smoking Tobacco: Never Smokeless Tobacco: Never Alcohol Use Standard Drinks/Week Comments No 0 (1 standard drink = 0.6 oz pur e alcohol) Comments Unknown Sex and Gender Information Value Date Recorded Sex Assigned at Not on file Legal Sex Female 10:20 AM INSTITUTIONAL COMMODITY ANALYST Gender Identity Female 03/22/2018 10:13 AM INSTITUTIONAL COMMODITY ANALYST Sexual Orientation Not on file documented as of this encounter Plan of Treatment Not on file documented as of this encounter Procedures Procedure Name Priority Date/Time Associated Diagnosis Comments CYCLIC CITRUL PEPTIDE ANTIBODY, IGG Routine 03/22/2018 12:04 PM INSTITUTIONAL COMMODITY ANALYST Inflammatory arthritis ERYTHROCYTE SEDIMENTATION RATE Routine 03/22/2018 12:04 PM INSTITUTIONAL COMMODITY ANALYST Inflammatory arthritis CRP (ACUTE PHASE) Routine 03/22/2018 12: 04 PM INSTITUTIONAL COMMODITY ANALYST Inflammatory arthritis documented in this encounter Results * Cyclic citrul peptide antibody, IgG (03/22/2018 12:04 PM INSTITUTIONAL COMMODITY ANALYST) CCP Ab <0.5 <=2.9 units/mL [facility] Comment: Interpretive data Negative: <3 units/mL Positive: > or equal to 3 units/mL Current interpretive data was last revised on 2016. Blood specimen (specimen) 03/22/2018 12:04 PM INSTITUTIONAL COMMODITY ANALYST 03/22/2018 1:34 PM INSTITUTIONAL COMMODITY ANALYST Narrative [facility] - 03/23/2018 1:44 PM INSTITUTIONAL COMMODITY ANALYST us Karin Johnson NP LAB BLOOD [place] [address] * CRP (acute phase) (03/22/2018 12:04 PM INSTITUTIONAL COMMODITY ANALYST) CRP 0.6 <=10.0 mg/L [facility] Blood specimen (specimen) 03/22/2018 12:04 PM INSTITUTIONAL COMMODITY ANALYST 03/22/2018 1:34 PM INSTITUTIONAL COMMODITY ANALYST Narrative [facility] - 03/22/2018 3:44 PM INSTITUTIONAL COMMODITY ANALYST us Karin Johnson NP LAB BLOOD ORDERABLES Fi nal Result Performing Organization Address [facility] Co de Phone Number [facility] [place] [address] * Erythrocyte sedimentation rate (03/22/2018 12:04 PM INSTITUTIONAL COMMODITY ANALYST) Erythrocyte sedimentation rate 5 1 - 20 mm/hr [facility] Blood specimen (specimen) 03/22/2018 12:04 PM INSTITUTIONAL COMMODITY ANALYST 03/22/2018 1:34 PM INSTITUTIONAL COMMODITY ANALYST Narrative [facility] - 03/22/2018 2:41 PM INSTITUTIONAL COMMODITY ANALYST us Karin Johnson NP LAB BLOOD ORDERABLES Fi nal Result Performing Organization Address City/[facility]/ZIP Co de Phone Number [facility] [place] [address] documented in this encounter Visit Diagnoses Diagnosis Inflammatory arthritis Unspecified inflammatory polyarthropathy documented in this encounter Care Teams Associate Chief Nurse Relationship Specialty Start Date End Date Unknown, Notinfile PCP - General 03/22/18 06/28/20 George Menjivar MD [address] [place] [address] Family Medicine 03/22/18 documented as of this encounter
--- OUTSIDE RECORDS SUMMARY | 2024-04-12 11:49 | XMS_ITS | Encounter Summary ---
Author Organization [facility] Address [address] [place] [address] Care Team Providers Care Flatwork Presser Name Role Phone Unknown, Notinfile Primary Care Provider Unavail able George Menjivar MD Unavailable [phone] Encounter Details Date Type Department Care Team (Late st Contact Info) Description 03/31/2019 Orders Only [facility] Cardiology [address] [facility] [address] [place] [address] Brendan Hernandez MD [address] [facility] [address] [place] [address] Social History Tobacco Use Types Packs/Day Years Used Date Smoking Tobacco: Never Smokeless Tobacco: Never Alcohol Use Standard Drinks/Week Comments No 0 (1 standard drink = 0.6 oz pur e alcohol) Comments Unknown Sex and Gender Information Value Date Recorded Sex Assigned at Not on file Legal Sex Female 10:20 AM CHEMICAL OPERATIONS SPECIALIST Gender Identity Female 03/22/2018 10:13 AM CHEMICAL OPERATIONS SPECIALIST Sexual Orientation Not on file documented as of this encounter Plan of Treatment Not on file documented as of this encounter Procedures Procedure Name Priority Date/Time Associated Diagnosis Comments CARDIOLOGY DOCUMENT SCAN Routine 03/31/2019 documented in this encounter Results * SCAN - CARDIOLOGY (03/31/2019) Anatomical Region Laterality Modality Other Brendan Hernandez MD CV CARDIAC SERVICES PROC EDURES Final Result documented in this encounter Visit Diagnoses Not on filedocumented in this encounter Care Teams Flatwork Presser Relationship Specialty Start Date End Date Unknown, Notinflissy PCP - General 03/22/18 06/28/20 George Menjivar MD [address] [place] [address] Family Medicine 03/22/18 documented as of this encounter
--- OUTSIDE RECORDS SUMMARY | 2024-04-12 11:49 | XMS_ITS | Encounter Summary ---
Author Organization [facility] Address [address] [place] [address] Phone Care Team Providers Care Kitchen Helper Name Role Phone George Menjivar MD Primary Care Provider [phone] Encounter Details Date Type Department Care Team (Late st Contact Info) Description 10/12/2017 Telephone [facility] Scheduling [address] [place] [address] Sanjuanita Avalos CMA Social History Tobacco Use Types Packs/Day Years Used Date Smoking Tobacco: Never Assessed Comments Unknown Sex and Gender Information Value Date Recorded Sex Assigned at Not on file Legal Sex Female 10:20 AM TELESALES TEAM LEADER Gender Identity Female 03/22/2018 10:13 AM TELESALES TEAM LEADER Sexual Orientation Not on file documented as of this encounter Miscellaneous Notes * Telephone Encounter - Sanjuanita Avalos - 10/12/2017 3:41 PM CDT THE REFERRING OFFICE CALLED TO CHECK ON SCHEDULING UPDATE. REFERRAL WAS SENT BUT NO RECS. documented in this encounter Plan of Treatment Not on file documented as of this encounter Visit Diagnoses Not on filedocumented in this encounter Care Teams Kitchen Helper Relationship Specialty Start Date End Date George Menjivar MD [address] [facility] [address] [address] PCP - General Family Medicine 09/21/17 03/21/18 documented as of this encounter
--- OUTSIDE RECORDS SUMMARY | 2024-04-12 11:49 | XMS_ITS | Encounter Summary ---
Author Organization [facility] Address [address] [place] [address] Phone Care Team Providers Care Window Glass Installer Name Role Phone George Menjivar MD Primary Care Provider [phone] Encounter Details Date Type Department Care Team (Late st Contact Info) Description 03/04/2018 Orders Only [facility] Gastroenterology [address] [place] [address] [place] [address] Nguyễn Jay MA Social History Tobacco Use Types Packs/Day Years Used Date Smoking Tobacco: Never Smokeless Tobacco: Never Comments Unknown Sex and Gender Information Value Date Recorded Sex Assigned at Not on file Legal Sex Female 10:20 AM USER EXPERIENCE DEVELOPER Gender Identity Female 03/22/2018 10:13 AM USER EXPERIENCE DEVELOPER Sexual Orientation Not on file documented as of this encounter Progress Notes * Ghada Alvarenga MA - 03/04/2018 1:27 PM CST Attempted to schedule patient for 6m f/u visit based on Recommended Return, patient stated thatshe would like to get a card and call the office to resched to coor appt dates with her mother's. [id number] EXPERIENCE DEVELOPER documented in this encounter Plan of Treatment Not on file documented as of this encounter Visit Diagnoses Not on filedocumented in this encounter Historical Medications * This list may reflect changes made after this encounter. VIIBRYD 40 mg tabletIndications :major depressive disorder Take 40 mg by mouth daily. 3 02/05/2018 TROKENDI XR 200 mg capsule,extended release 24hr TAKE 1 (ONE) CAPSULE DAILY TO PROMOTE WEIGHT LOSS 0 02/01/2018 cyanocobalamin (Vitamin B-12) 1,000 mcg/mL injection 02/25/2018 diclofenac (VOLTAREN) 75 mg EC tablet Take 75 mg by mouth 2 (two) times a day. 2 02/05/2018 03/22/2018 added in this encounter Care Teams Window Glass Installer Relationship Specialty Start Date End Date George Menjivar MD [address] [place] [address] PCP - General Family Medicine 09/21/17 03/21/18 documented as of this encounter
--- OUTSIDE RECORDS SUMMARY | 2024-04-12 11:49 | XMS_ITS | Encounter Summary ---
Author Organization [facility] Healthcare Address [address] [place] [address] Care Team Providers Care Book Packer Name Role Phone Unknown, Notinfile Primary Care Provider George Moraes MD Unavailable [phone] Reason for Referral * Diagnostic Imaging (Routine) - Closed Specialty Diagnoses / Procedures Referred By Contac t Referred To Contact Diagnoses Inflammatory arthritis Procedures XR Foot Left 2 Views Karin Johnson NP Phone: tel: fax: [facility] Referral ID Status Reason Start Date Expiration Date Visits Re quested Visits Authorized [id number] Closed 03/22/2018 10/01/2019 1 1 ROOM SALESPERSON * Diagnostic Imaging (Routine) - Closed Specialty Diagnoses / Procedures Referred By Contac t Referred To Contact Diagnoses Inflammatory arthritis Procedures XR Sacroiliac Joints Less than 3 Views Karin Johnson NP Phone: tel: fax: [facility] Referral ID Status Reason Start Date Expiration Date Visits Re quested Visits Authorized [id number] Closed 03/22/2018 10/01/2019 1 1 ROOM SALESPERSON * Diagnostic Imaging (Routine) - Closed Specialty Diagnoses / Procedures Referred By Contac t Referred To Contact Diagnoses Inflammatory arthritis Procedures XR Hand Right 2 Views Karin Johnson NP Phone: tel: fax: [facility] Referral ID Status Reason Start Date Expiration Date Visits Re quested Visits Authorized [id number] Closed 03/22/2018 10/01/2019 1 1 ROOM SALESPERSON * Diagnostic Imaging (Routine) - Closed Specialty Diagnoses / Procedures Referred By Contac t Referred To Contact Diagnoses Inflammatory arthritis Procedures XR Hand Left 2 Views Karin Johnson NP Phone: tel: fax: [facility] Referral ID Status Reason Start Date Expiration Date Visits Re quested Visits Authorized [id number] Closed 03/22/2018 10/01/2019 1 1 ROOM SALESPERSON * Diagnostic Imaging (Routine) - Closed Specialty Diagnoses / Procedures Referred By Contac t Referred To Contact Diagnoses Inflammatory arthritis Procedures XR Foot Right 2 Views Karin Johnson NP Phone: tel: fax: [facility] Referral ID Status Reason Start Date Expiration Date Visits Re quested Visits Authorized [id number] Closed 03/22/2018 10/01/2019 1 1 ROOM SALESPERSON Reason for Visit * Diagnostic Imaging (Routine) - Closed Specialty Diagnoses / Procedures Referred By Contac t Referred To Contact Diagnoses Inflammatory arthritis Procedures XR Foot Right 2 Views Karin Johnson NP Phone: tel: fax: [facility] Referral ID Status Reason Start Date Expiration Date Visits Re quested Visits Authorized [id number] Closed 03/22/2018 10/01/2019 1 1 Encounter Details Date Type Department Care Team (Latest Contact Info) Description 03/22/2018 10:50 AM SHOWROOM SALESPERSON - 03/22/2018 11:59 PM SHOWROOM SALESPERSON Hospital Encounter [facility] [address] [place] [address] Karin Johnson NP [address] [place] [address] Inflammatory arthritis Discharge Disposition: Discharge to home or self care Social History Tobacco Use Types Packs/Day Years Used Date Smoking Tobacco: Never Smokeless Tobacco: Never Alcohol Use Standard Drinks/Week Comments No 0 (1 standard drink = 0.6 oz pur e alcohol) Comments Unknown Sex and Gender Information Value Date Recorded Sex Assigned at Not on file Legal Sex Female 10:20 AM SHOWROOM SALESPERSON Gender Identity Female 03/22/2018 10:13 AM SHOWROOM SALESPERSON Sexual Orientation Not on file documented as [...] Name Priority Date/Time Associated Diagnosis Comments XR FOOT RIGHT 2 VIEWS Schedule Routine, Read Routine (OP Routine) 03/22/2018 11:06 AM SHOWROOM SALESPERSON Inflammatory arthritis XR FOOT LEFT 2 VIEWS Schedule Routine, Read Routine (OP Routine) 03/22/2018 11:06 AM SHOWROOM SALESPERSON Inflammatory arthritis XR HAND RIGHT 2 VIEWS Schedule Routine, Read Routine (OP Routine) 03/22/2018 11:06 AM SHOWROOM SALESPERSON Inflammatory arthritis XR HAND LEFT 2 VIEWS Schedule Routine, Read Routine (OP Routine) 03/22/2018 11:06 AM SHOWROOM SALESPERSON Inflammatory arthritis XR SACROILIAC JOINTS LESS THAN 3 VIEWS Schedule Routine, Read Routine (OP Routine) 03/22/2018 11:06 AM SHOWROOM SALESPERSON Inflammatory arthritis documented in this encounter Results * XR Foot Left 2 Views (03/22/2018 11:06 AM SHOWROOM SALESPERSON) Anatomical Region Laterality Modality Lower Extremities, Foot Left Computed Radiography 03/22/2018 11:1 5 AM SHOWROOM SALESPERSON Impressions 03/22/2018 11:15 AM SHOWROOM SALESPERSON 1. Questionable erosion at the left ring finger proximal phalanx base. 2. Normal radiographs of the sacroiliac joints. 3. Nonspecific erosions at the right first metatarsal head. Electronically signed by: Shayne Kramer M.D. Narrative 03/22/2018 11:15 AM SHOWROOM SALESPERSON EXAMINATION: 1. Left hand 2 views. 2. [...] Less than 3 Views (03/22/2018 11:06 AM SHOWROOM SALESPERSON) Anatomical Region Laterality Modality Pelvis, Body N/A Computed Radiogr aphy 03/22/2018 11:1 5 AM SHOWROOM SALESPERSON Impressions 03/22/2018 11:15 AM SHOWROOM SALESPERSON 1. Questionable erosion at the left ring finger proximal phalanx base. 2. Normal radiographs of the sacroiliac joints. 3. Nonspecific erosions at the right first metatarsal head. Electronically signed by: Shayne Kramer M.D. Narrative 03/22/2018 11:15 AM SHOWROOM SALESPERSON EXAMINATION: 1. Left hand 2 views. 2. [...] signed by: Shayne Kramer M.D. Karin Johnson MALTHOUSE LABORER IMG XR PROCEDURES Final Result * XR Hand Right 2 Views (03/22/2018 11:06 AM SHOWROOM SALESPERSON) Anatomical Region Laterality Modality Upper Extremities, Hand Right Computed Radiography 03/22/2018 11:1 5 AM SHOWROOM SALESPERSON Impressions 03/22/2018 11:15 AM SHOWROOM SALESPERSON 1. Questionable erosion at the left ring finger proximal phalanx base. 2. Normal radiographs of the sacroiliac joints. 3. Nonspecific erosions at the right first metatarsal head. Electronically signed by: Shayne Kramer M.D. [facility] 03/22/2018 11:15 AM SHOWROOM SALESPERSON EXAMINATION: 1. Left hand 2 views. 2. [...] Hand Left 2 Views (03/22/2018 11:06 AM SHOWROOM SALESPERSON) Anatomical Region Laterality Modality Upper Extremities, Hand Left Computed Radiography 03/22/2018 11:1 5 AM SHOWROOM SALESPERSON Impressions 03/22/2018 11:15 AM SHOWROOM SALESPERSON 1. Questionable erosion at the left ring finger proximal phalanx base. 2. Normal radiographs of the sacroiliac joints. 3. Nonspecific erosions at the right first metatarsal head. Electronically signed by: Shayne Kramer M.D. Narrative 03/22/2018 11:15 AM SHOWROOM SALESPERSON EXAMINATION: 1. Left hand 2 views. 2. [...] signed by: Shayne Kramer M.D. Karin Johnson MALTHOUSE LABORER IMG XR PROCEDURES Final Result * XR Foot Right 2 Views (03/22/2018 11:06 AM SHOWROOM SALESPERSON) Anatomical Region Laterality Modality Lower Extremities, Foot Right Computed Radiography 03/22/2018 11:1 5 AM SHOWROOM SALESPERSON Impressions 03/22/2018 11:15 AM SHOWROOM SALESPERSON 1. Questionable erosion at the left ring finger proximal phalanx base. 2. Normal radiographs of the sacroiliac joints. 3. Nonspecific erosions at the right first metatarsal head. Electronically signed by: Shayne Kramer M.D. Narrative 03/22/2018 11:15 AM SHOWROOM SALESPERSON EXAMINATION: 1. Left hand 2 views. 2. [...] signed by: Shayne Kramer M.D. Karin Johnson MALTHOUSE LABORER IMG XR PROCEDURES Final Result documented in this encounter Visit Diagnoses Diagnosis Inflammatory arthritis Unspecified inflammatory polyarthropathy documented in this encounter Care Teams Book Packer Relationship Specialty Start Date End Date Unknown, Notinfile PCP - General 03/22/18 06/28/20 George Menjivar MD [address] [place] [address] Family Medicine 03/22/18 documented as of this encounter
--- OUTSIDE RECORDS SUMMARY | 2024-04-12 11:49 | XMS_ITS | Encounter Summary ---
Author Organization [facility] Address [address] [place] [address] Phone Care Team Providers Care Chart Changer Name Role Phone Unknown, Notinfile Primary Care Provider Unavail able George Menjivar MD Unavailable Reason for Visit * Endocrinology (Routine) - Closed Specialty Diagnoses / Procedures Referred By Conttamiko t Referred To Contact Lab Diagnoses rheum Procedures SPECIMEN COLLECTION Karin Johnson NP Phone: tel: fax: [facility] Endocrinology Metabolism and Lipid [address] [facility] [address] [place] [address] [place] [address] Phone: tel: fax: Referral ID Status Reason Start Date Expiration Date Visits Re quested Visits Authorized [id number] Closed 03/22/2018 04/01/2018 99 [phone] Encounter Details Date Type Department Care Team (Late st Contact Info) Description 03/22/2018 11:00 AM SCHOOL PSYCHOMETRIST Lab [facility] Endocrinology Metabolism and Lipid [address] [place] [address] [place] [address] Inflammatory arthritis Social History Tobacco Use Types Packs/Day Years Used Date Smoking Tobacco: Never Smokeless Tobacco: Never Alcohol Use Standard Drinks/Week Comments No 0 (1 standard drink = 0.6 oz pur e alcohol) Comments Unknown Sex and Gender Information Value Date Recorded Sex Assigned at Not on file Legal Sex Female 10:20 AM SCHOOL PSYCHOMETRIST Gender Identity Female 03/22/2018 10:13 AM SCHOOL PSYCHOMETRIST Sexual Orientation Not on file documented as of this encounter Plan of Treatment Not on file documented as of this encounter Procedures Procedure Name Priority Date/Time Associated Diagnosis Comments CBC WITH AUTO DIFFERENTIAL Routine 03/22/2018 10:38 AM SCHOOL PSYCHOMETRIST Inflammatory arthritis COMPREHENSIVE METABOLIC PANEL Routine 03/22/2018 10:38 AM SCHOOL PSYCHOMETRIST Inflammatory arthritis documented in this encounter Results * CBC with auto differential (03/22/2018 10:38 AM SCHOOL PSYCHOMETRIST) White Blood Count 6.1 3.6 - 11.2 [...] [facility] Blood specimen (specimen) 03/22/2018 10:38 AM SCHOOL PSYCHOMETRIST 03/22/2018 12:04 PM SCHOOL PSYCHOMETRIST Karin Johnson [facility] BLOOD ORDERABLES Fi nal Result [facility] * Comprehensive metabolic panel (03/22/2018 10:38 AM SCHOOL PSYCHOMETRIST) Pathologist [facility] Total Protein 7.0 6.1 - 8.4 g/dL [...] = PROVISIONAL DIAGNOSIS OF DIABETES eGFR NON-AFR. CENTRAL AFRICAN 83.9 >60.0 mL/min/1.7 3 m2 [facility] eGFR >90.0 >60.0 mL/min/1.7 3 m2 [facility] Blood specimen (specimen) 03/22/2018 10:38 AM SCHOOL PSYCHOMETRIST 03/22/2018 12:04 PM SCHOOL PSYCHOMETRIST us Karin Johnson [facility] BLOOD ORDERABLES Fi nal Result [facility] documented in this encounter Visit Diagnoses Diagnosis Inflammatory arthritis Unspecified inflammatory polyarthropathy documented in this encounter Care Teams Chart Changer Relationship Specialty Start Date End Date Unknown, Notinfile PCP - General 03/22/18 06/28/20 George Menjivar MD [address] [address] Family Medicine 03/22/18 documented as of this encounter
== END 2024-04-05 09:24 | disposition home or self-care (01) ==
LOC: ANHLAB 09:25
PROVIDERS: PCP Family Medicine; Visit Provider Internal Medicine Nephrology
DX: Z52.4 Kidney donor (principal); V59.40XA Driver of pick-up truck or van injured in collision with unspecified motor vehicles in traffic accident, initial encounter
CPT/HCPCS: 36415; 81025; 81050; 82550; 82570